=== PATIENT | female | born 1995 | race Caucasian/White ===

== ENCOUNTER 2017-03-13 10:05 | Inpatient (IN) | payer OTHER, MEDICAID, SELFPAY ==
[2017-03-13] VITALS (9 sets, daily range): BP systolic 72–141; BP diastolic 36–106; PULSE 58–91; RESP 14–24; TEMP 36.5–36.9; O2SAT 95–100; BMI 17.0; BMI 16.6
[2017-03-13 11:05] LABS: Absolute Lymphocyte Count 2.57 X10^3/ul (0.83-4.51); Absolute Neutrophil Count 5.8 X10^3/uL (2.0-7.7); Basophil# 0.03 X10^3/uL; Basophil% 0.3 % (0-1); Eosinophil# 0.04 X10^3/uL; Eosinophils% 0.4 % (0-5); Hematocrit 39.8 % (37-47); Hemoglobin 12.7 g/dl (12.0-15.0); Lymphocyte # 2.57 X10^3/ul (4.0); Lymphocyte % 28.8 % (19-41); Mean Corp Hgb Conc 31.9 g/gl (32-36); Mean Corpuscular Volume 81.4 fL (81-99); Mean Platelet Vol. 10.3 fl (6.2-12.0); Monocyte# 0.51 X10^3/uL; Monocyte% 5.7 % (0-10); Neutrophil # 5.76 X10^3/uL (2.7-7.7); Neutrophil % 64.7 % (47-70); Platelet Count 393 K/mm3 (150-450); RBC Distribution Width CV 15.1 % (11.6-14.6); RBC Distribution Width SD 44.5 fl (35.1-43.9); Red Blood Count 4.89 M/mm3 (4.2-5.4); White Blood Count 8.9 K/mm3 (4.4-11.0)
[2017-03-13 11:06] LABS: POSITIVE COUNT NO; POSITIVE DIFFERENTIAL NO; POSITIVE MORPHOLOGY NO
[2017-03-13] MEDS: 0.9% Normal Saline 1,000 ML 999 ML IV (11:14)
--- NOTE | 2017-03-13 11:16 | ED.RN ---
THIS NURSE SPOKE WITH [facility] AND DR GARCIA ABOUT PT REQUESTING MEDICATION TO HELP HER RELAX. PER [facility], ATIVAN IS AN ACCEPTABLE OPTION. DR GARCIA NOTIFIED
[2017-03-13] MEDS: LORazepam 2 MG/ML Syringe 1 MG IV (11:22)
[2017-03-13 11:31] LABS: Anion Gap 11 (5-15); BUN 13 mg/dL (7-18); Calcium,Total 9.3 mg/dL (8.5-10.1); Chloride 87 mmol/L (98-107); Creatinine, Serum 1.18 mg/dL (0.55-1.02); EST Glomerular Filtration Rate 61 mL/min (>60); Est Glom Filt Rate - Afr Amer 73 mL/min (>60); Estimated Creatinine Clearance 58.32 ml/min; Glucose 827 mg/dL (70-110); Potassium 4.7 mmol/L (3.5-5.1); Sodium Level 124 mmol/L (136-145)
--- NOTE | 2017-03-13 13:14 | ED.RN ---
PT TOSSING AND TURNING IN THE BED. PT STATES I'M TRYING TO GET COMFORTABLE. INSULIN GTT STARTED
[2017-03-13 13:55] LABS: Mucous, Urine 0 SEEN /hpf (<or=2+); Red Blood Cells-Urine 0 SEEN /hpf (0-5)
[2017-03-13 13:57] LABS: Color, Urine Straw (Yellow); Glucose, Dipstick 1000 mg/dl (Normal); Ketone-Dipstick Negative (Negative); Leukocyte Esterase-Dipstick 100 /ul (Negative); Nitrite-Dipstick Negative (Negative); Occult Blood-Urine Negative /ul (Negative); Protein-Dipstick Negative (Negative); Specific Gravity, Urine 1.005 (1.002-1.030); Urine Bilirubin Dipstick Negative (Negative); Urine Clarity Sl. Cloudy (Clear); Urine Urobilinogen Normal (Normal)
[2017-03-13 14:09] LABS: Bacteria 1+ /hpf (None Seen); Squamous Epithelial Cells - UA 0-5 SEEN /hpf (5-10); White Blood Cells 10-25 SEEN /hpf (0-5)
[2017-03-13 14:26] LABS: Bedside Glucose 458 mg/dL (70-110)
[2017-03-13] MEDS: 0.9% Normal Saline 1,000 ML 150 ML IV (14:36)
[2017-03-13 14:50] LABS: Blood Gas Specimen Type VEN; O2 Delivery Device Room Air; SITE OTHER; VBG BASE EXCESS 1 mmol/L (-1.0-3.5); VBG Bicarbonate 25 mmol/L (22-26); VBG Oxygen Content 26 mmol/L (23-33); VBG PO2 57 mmHg (25-40); VBG SO2 91 % (50-70); VBG pCO2 35.5 mmHg (41-51); VBG pH 7.45 (7.32-7.42)
[2017-03-13 15:25] LABS: Bedside Glucose 297 mg/dL (70-110)
--- NOTE | 2017-03-13 15:28 | ED.VISSUMM ---
- ER Visit Summary Date of Service: 03/13/17 Chief Complaint: Medical clearance History of Present Illness: The patient is a 21 F with chronic heroin abuse who is brought to the ER for medical clearance. She has a painful swollen area on her medial left leg that has been there for 2-3 days. No fevers, but she feels shaky and ill this morning. Nausea but no vomiting. Her blood sugar was okay last night she states, but did not check it this morning and did not take her insulin this morning, she used to last night. She is a type I diabetic. Her last heroin use was yesterday and she feels like she is having some withdrawal symptoms. Physical Examination: No acute distress, able to sit up in bed on her own. There is a 3 cm cutaneous abscess on the medial left lower leg with multiple nearby track lopez, and there is significant surrounding cellulitis approximately 10-12 cm in diameter. No lymphangitis. No inguinal lymphadenopathy. Heart is regular, abdomen benign, lungs clear. Neck is supple. Alert and oriented ?3. Oral mucous membrane are moist. Test Results: Glucose 827, creatinine 1.18 up from 0.67, sodium 124 likely consistent with pseudohyponatremia, serum ketones negative. ABG with pH 7.45 Emergency Department Course and Treatment: She was put on an insulin drip and after several hours, we got her down to the 200s so was discontinued. Her labs rule her out for DKA. After IV fluids, her blood pressure is better. Abscess was drained after local 1% lidocaine 5 cc, sterile prep and drape with chlorhexidine, incising with a #11 blade, the loculating and draining a moderate amount of purulent material. It was packed with gauze and dressed. Patient tolerated procedure well. She was started on vancomycin, given a milligram of IV Ativan for her withdrawal symptoms, and will be admitted for further treatment and for detox consultation. Also, her urinalysis returned showing infection although she has had no symptoms. This will be sent for culture. Discussed w/ Dr. Carlisle. Treatment Plan: As above Disposition: Admit PCU Impression: Hyperglycemia due to type 1 diabetes Acute kidney injury Cutaneous abscess left lower leg Complex incision and drainage cutaneous abscess left lower leg Opiate dependence This note was generated with fake company [employer] software. It may contain incorrect words, spelling, and punctuation that were not noted in review of the chart prior to signing ED Disposition - Plan for ED Patient: Disposition: Acute Care [facility] Chief Complaint: Abscess Referrals: Tianna Peña MD [Primary Care Provider] -
--- NOTE | 2017-03-13 15:36 | ED.DCSUM_ITS ---
- ER Visit Summary Date of Service: 03/13/17 Chief Complaint: Medical clearance History of Present Illness: The patient is a 21 F with chronic heroin abuse who is brought to the ER for medical clearance. She has a painful swollen area on her medial left leg that has been there for 2-3 days. No fevers, but she feels shaky and ill this morning. Nausea but no vomiting. Her blood sugar was okay last night she states, but did not check it this morning and did not take her insulin this morning, she used to last night. She is a type I diabetic. Her last heroin use was yesterday and she feels like she is having some withdrawal symptoms. Physical Examination: No acute distress, able to sit up in bed on her own. There is a 3 cm cutaneous abscess on the medial left lower leg with multiple nearby track lopez, and there is significant surrounding cellulitis approximately 10-12 cm in diameter. No lymphangitis. No inguinal lymphadenopathy. Heart is regular, abdomen benign, lungs clear. Neck is supple. Alert and oriented ?3. Oral mucous membrane are moist. Test Results: Glucose 827, creatinine 1.18 up from 0.67, sodium 124 likely consistent with pseudohyponatremia, serum ketones negative. ABG with pH 7.45 Emergency Department Course and Treatment: She was put on an insulin drip and after several hours, we got her down to the 200s so was discontinued. Her labs rule her out for DKA. After IV fluids, her blood pressure is better. Abscess was drained after local 1% lidocaine 5 cc, sterile prep and drape with chlorhexidine, incising with a #11 blade, the loculating and draining a moderate amount of purulent material. It was packed with gauze and dressed. Patient tolerated procedure well. She was started on vancomycin, given a milligram of IV Ativan for her withdrawal symptoms, and will be admitted for further treatment and for detox consultation. Also, her urinalysis returned showing infection although she has had no symptoms. This will be sent for culture. Discussed w/ Dr. Carlisle. Treatment Plan: As above Disposition: Admit PCU Impression: Hyperglycemia due to type 1 diabetes Acute kidney injury Cutaneous abscess left lower leg Complex incision and drainage cutaneous abscess left lower leg Opiate dependence This note was generated with [employer] software. It may contain incorrect words, spelling, and punctuation that were not noted in review of the chart prior to signing ED Disposition - Plan for ED Patient: Disposition: Acute Care Hospital [facility] Chief Complaint: Abscess Referrals: Tianna Peña MD [Primary Care Provider] -
--- NOTE | 2017-03-13 16:03 | NURSING ---
MED SURG HYPERGLYCEMIA, ABSCESS OF LEG, NARCOTIC WITHDRAWAL IMAMURA
--- NOTE | 2017-03-13 16:09 | NURSING ---
Addendum entered by Whit Pang 03/13/17 16:21: ROOM 212 NOT 219 Original Note: 219
--- NOTE | 2017-03-13 18:29 | HP.PCM_ITS ---
Problem List (1) Hyperglycemia Status: Acute (2) Abscess of leg, left Status: Acute (3) Narcotic withdrawal Status: Acute (4) DM type 1 (diabetes mellitus, type 1) Status: Chronic Qualifiers: Diabetes mellitus complication status: without complication Qualified Code( s): E10.9 - Type 1 diabetes mellitus without complications (5) KANU (acute kidney injury) Status: Acute History of Present Illness Date of Admission: 03/13/17 Chief Complaint: Leg pain Patient is a 21 years old female who referred to ED for medical clearance from [facility], found to have abscess of left leg and BS 837. pH did not demonstrate acidosis, with normal anion chest gap and normal bicoarbonate level. She developed painful nodular lesion of left lower inner leg for past 3 days. She denied of any fever or chills. She reports compliance to insulin use. She uses fentanyl IV, 5 to 6 times a day. Last use was 10AM on 03/12/17. She is complaining of shakiness, abdominal pain, nausea, and headache. Past Medical History Past Medical History (Chronic Problems): Chronic Problems DM type 1 (diabetes mellitus, type 1) (Chronic) Tobacco user (Chronic) Homeless (Chronic) Allergies Penicillins Allergy (Verified 03/13/17 10:08) Hives Home Medications: Ambulatory Orders Medication Instructions Recorded Insulin Aspart [Novolog Flexpen] See Protocol SC TIDCM 02/23/13 Insulin Detemir [Levemir (BKC)] 16 units SC QHS 01/02/16 Surgical History: no surgical history Smoking Status: Current every day smoker - *Family History Maternal History Items: No pertinent history Review of Systems Comment: ROS: In general: Patient has been in fair health, denied of any constitutional symptoms, such as weight loss, or gain, fever, chills, or night sweats. Patient denied of any profound fatigue. HEENT: Unremarkable. Patient denied of any dizziness, chronic headache, blurred vision, double vision, dry mouth, or nasal congestion. CV/respiratory: There is no exertional shortness of breath, chest pain, palpitation, wheezing, cough, claudication, cold feet, or peripheral edema. GI: Patient denied any abdominal pain, nausea, vomiting, diarrhea, constipation, melena, or hematochezia. : Patient denied any significant urinary symptoms. Neurology: Unremarkable. There is no history of seizure as an adult. Psychological: Chronic IVDU. Endocrine: Unremarkable. Musculoskeletal: See HPI. VTE Information - Inpt Only VTE Present on Admission: No VTE Mechan Device Prophylaxis: None VTE Pharm Prophylaxis ordered?: No Reason prophylaxis not ordered:: Treatment Not Indicated Patient Problems: Active and Suspected Problems Hyperglycemia (Acute) Abscess of leg, left (Acute) Narcotic withdrawal (Acute) KANU (acute kidney injury) (Acute) Objective: In general, patient is a well-nourished and developed adult. She appears uncomfortable, appears ill. HEENT: Head is atraumatic, and normocephalic. Pupils are equal, round, and reactive to light and accommodations. Neck is supple. There is no lymphadenopathy, or thyromegaly. Oral mucosa is pink, and moist. There are no lesions. Heart: Auscultation is normal with regular rhythm and rate. There is no extra heart sounds, or murmurs. S1 and S2 are present. Point of maximal impulse is not displaced. Lungs: Lungs are clear to auscultation bilaterally. There is no wheezing, or crackles. Abdomen: Abdominal wall is non-tender, and non-distended. There is no palpable mass or organomegaly. Normoactive bowel sounds are present. Extremities: There is no cyanosis or clubbing. Peripheral pulses are palpable. There is no edema. Abscess was drained, packed with sterile ribbon. No discoloration surrounding area. Skin: There are no any skin discoloration or lesions. Neurological: CN II - XII are intact. Sensory and motor functions are grossly normal with no obvious deficit. Cerebellar functions are within normal range. Gait was not tested. - Physical Exam Vital Signs Temp Pulse Resp BP Pulse Ox 97.7 F L 91 17 113/76 98 03/13/17 10:06 03/13/17 16:03 03/13/17 16:03 03/13/17 16:03 03/13/17 16:03 Weight: 106 lb Body Mass Index (BMI) 16.6 Assessment/Plan Active and Suspected Problems Hyperglycemia (Acute) Abscess of leg, left (Acute) Narcotic withdrawal (Acute) KANU (acute kidney injury) (Acute) Patient is a 21 years old female who referred to ED for medical clearance from [facility], found to have abscess of left leg and BS 837. pH did not demonstrate acidosis, with normal anion chest gap and normal bicoarbonate level. She developed painful nodular lesion of left lower inner leg for past 3 days. She denied of any fever or chills. She reports compliance to insulin use. She uses fentanyl IV, 5 to 6 times a day. Last use was 10AM on 03/12/17. She is complaining of shakiness, abdominal pain, nausea, and headache. #1 Abscess/cellulitis of left lower leg. S/P I&D in ED. Continue vancomycin for now, pending blood culture. ID consult. #2 Fentanyl withdrawal. Start [facility] Protocol for narcotic withdrawal. #3 DM I with hyperglycemia. She was given insulin drip initially, which was stopped. Continue insulin Levemir and sliding scale coverage, HS/AC + 2AM for now. #4 KANU. Creatinine 1.18 with baseline 0.7-0.8. IVF NS 150 ml/hr for now. Repeat BMP in AM. VTE prophylaxis: No chemoprophylaxis for low risk. GI prophylaxis: ppi po. Full code. Disposition: await [facility] input. Code Visit Inpatient E&M: 10576 Init Hosp L3
[2017-03-13 18:43] LABS: Hemoglobin A1c 13.8 % (4.2-6.3)
[2017-03-13] MEDS: chlordiazePOXIDE 25 MG Capsule PO ×2 (19:24→22:36)
[2017-03-13] MEDS: Buprenorphine HCl 2 MG TAB.SUBL SL (19:24)
[2017-03-13 22:36] LABS: Bedside Glucose 334 mg/dL (70-110)
[2017-03-13] MEDS: QUEtiapine 25 MG Tablet PO (23:02)
[2017-03-13] MEDS: Dicyclomine 10 MG Capsule 20 MG PO (23:02)
[2017-03-13] MEDS: cloNIDine HCl 0.1 MG Tablet PO (23:02)
[2017-03-13] MEDS: Methocarbamol 750 MG Tablet PO (23:02)
[2017-03-13 23:37] LABS: Bedside Glucose 339 mg/dL (70-110)
[2017-03-14] VITALS (11 sets, daily range): BP systolic 100–126; BP diastolic 58–90; PULSE 52–89; RESP 16; TEMP 36.4–37.1; O2SAT 97–100
[2017-03-14] MEDS: 0.9% Normal Saline 1,000 ML 150 ML IV (00:54)
[2017-03-14] MEDS: Buprenorphine HCl 2 MG TAB.SUBL SL ×3 (02:38→18:38)
[2017-03-14] MEDS: chlordiazePOXIDE 25 MG Capsule PO ×4 (02:38→14:46)
[2017-03-14] MEDS: cloNIDine HCl 0.1 MG Tablet PO ×2 (02:50→20:14)
[2017-03-14 03:06] LABS: Bedside Glucose 306 mg/dL (70-110)
[2017-03-14 07:16] LABS: Bedside Glucose 227 mg/dL (70-110)
[2017-03-14 09:45] LABS: Internal QC Validated? YES +Cl - CLEAR BKGD; Pregnancy, Urine Negative Negative
--- NOTE | 2017-03-14 10:09 | CASEMGMT ---
Addendum entered by Pooja Hubbard 03/14/17 10:13: CHAVA AG spoke with SW, Renee Hudson, to discuss referral. Per Becca, [facility] Coordinator, patient is going to stay with [facility] and disposition planning will be deferred to [facility]. No further [facility] RN KIMBERLI or ADENIKE interventions anticipated. Original Note: CHAVA AG met with patient. RN KIMBERLI assessment complete. See attached link for full assessment. Disposition Plan: TBD Transition Planning/Care Coordination: Patient is independent, is established with PCP, and has [employer] for insurance. Patient final home-going needs will be determined. RN KIMBERLI will continue to follow patient's hospital course and provide case management interventions as needed. Handoff provided to Marion Caruso RN CM on MS2.
--- NOTE | 2017-03-14 10:29 | PCM.HP.ID ---
Problem List (1) Abscess of leg, left Status: Acute Reason for Consult: abscess Consulted by: Dr. Mckeon History of Present Illness: The patient is a 21 year old F with T1DM, IVDU who presented for detox with several days of L calf redness, swelling, and purulent discharge. No injections at the site. No inciting events. No fever or chills. No recent abx. Denies h/o MRSA. Glucose over 800 in ED. I&D done, cx sent, started on vanc. Reports hives with PCN and amoxicillin. Has not taken keflex before. Denies sharing needles. No prior HIV testing. Had neg hep C in 2011 she reports. Full ROS performed and neg except as noted above. - Medical History Past Medical History (Chronic Problems): Chronic Problems DM type 1 (diabetes mellitus, type 1) (Chronic) Tobacco user (Chronic) Homeless (Chronic) Allergies/Adverse Reactions: Allergies Penicillins Allergy (Verified 03/13/17 10:08) Hives Home Medications: Ambulatory Orders Medication Instructions Recorded Insulin Aspart [Novolog Flexpen] See Protocol SC TIDCM 02/23/13 Insulin Detemir [Levemir (BKC)] 16 units SC QHS 01/02/16 - Social History Drug Use: heroin - iv opioids Vital Signs Temp Pulse Resp BP Pulse Ox 97.5 F L 67 16 123/72 H 100 03/14/17 09:37 03/14/17 09:37 03/14/17 09:37 03/14/17 09:37 03/14/17 09:37 Oxygen Delivery Method Room Air Weight: 48.081 kg Body Mass Index (BMI) 16.6 Laboratory Tests Past 24 Hrs 03/14/17 09:15 Urine Test Negative - Other Studies Radiology: [] reviewed Other Studies: [] Route of nutrition/ use of supplements: [] Nutritional Intake: [] IV Site: [] Renae Catheter: [] - Physical Exam General: Alert, Oriented x3, Cooperative, No apparent distress HEENT: Atraumatic, PERRLA, EOMI Neck: Supple, No Nodes Lungs: Clear to auscultation, Normal air movement Cardiovascular: Regular rate, Regular Rhythm, No murmurs Abdomen: Bowel Sounds Present, Soft, Non Tender, Non-Distended Extremities: No edema Skin: - - L calf abscess, minimal surrounding redness/induration. Packing in place IV Site: Peripheral, without redness Musculoskeletal: No Tenderness to Palpation of Joints or Extremities Neurological: Cranial nerves II-XII grossly intact - Assessment/Plan Antibiotics: [] Assessment/Plan: [] Active and Suspected Problems Hyperglycemia (Acute) Abscess of leg, left (Acute) Narcotic withdrawal (Acute) KANU (acute kidney injury) (Acute) LLE abscess - s/p I&D in ED. With adequate drainage, may not need systemic abx at discharge. Will cont vanc for now. T1DM with DKA - glucose improving IVDU - check hiv and hep panel, pt agrees to testing, labs ordered Thank you, will follow, d/w nursing
[2017-03-14] MEDS: Methocarbamol 750 MG Tablet PO ×2 (10:36→20:14)
[2017-03-14 11:55] LABS: Bedside Glucose 417 mg/dL (70-110)
[2017-03-14] MEDS: Glucerna Shake 120 ML LIQUID PO (12:13)
--- NOTE | 2017-03-14 12:37 | PCM.PN.HOSP ---
Patient Problems: Active and Suspected Problems Hyperglycemia (Acute) Abscess of leg, left (Acute) Narcotic withdrawal (Acute) KANU (acute kidney injury) (Acute) Subjective: Patient has history of IV fentanyl use about 5-6 times a day started about few months ago. She was admitted with abscess in left lower leg which I&D was done in the ER. She also has uncontrolled type 1 diabetes mellitus with blood sugar 837 in the ER. Normal anion gap and bicarb level. Symptoms of withdrawal including shakiness, abdominal pain nausea today controlled. Vitals/I&O's: Vital Signs Temp Pulse Resp BP Pulse Ox 97.5 F L 67 16 123/72 H 100 03/14/17 09:37 03/14/17 09:37 03/14/17 09:37 03/14/17 09:37 03/14/17 09:37 Oxygen Delivery Method Room Air Weight: 106 lb 0.007 oz Body Mass Index (BMI) 16.6 Intake and Output for Last 24 Hours 03/12/17 03/13/17 03/14/17 23:59 23:59 23:59 Intake Total 935 / 935 1397 / 1397 Output Total 700 / 700 Balance 235 / 235 1397 / 1397 General: Alert, Oriented x3, Cooperative HEENT: Atraumatic, PERRLA, EOMI, Normocephalic Neck: Supple, No JVD, Negative Carotid Bruits Lungs: Clear to auscultation, Normal air movement, No rhonchi, No wheeze, No rales Cardiovascular: Regular rate, No murmurs Abdomen: Bowel Sounds Present, Soft, Non Tender, Non-Distended Extremities: No edema, Capillary Refill Less than 3 Seconds Skin: Ulcer/ Wound - Small abscess over the inner aspect of the left leg status post I&D. Needle lopez over upper extremities due to IV fentanyl use, - Musculoskeletal: No Tenderness to Palpation of Joints or Extremities Neurological: Cranial nerves II-XII grossly intact, Neuro grossly intact Psych/Mental Status: Normal Affect, Appropriate Laboratory Results 03/13/17 17:56: POC Glucose 334 H 03/13/17 22:35: POC Glucose 339 H 03/14/17 02:41: POC Glucose 306 H 03/14/17 06:59: POC Glucose 227 H 03/14/17 09:15: Urine Test Negative 03/14/17 11:15: Sodium Pending, Potassium Pending, Chloride Pending, Carbon Dioxide Pending, Anion Gap Pending, BUN Pending, Creatinine Pending, Est GFR (MDRD) Af Amer Pending, Est GFR (MDRD) Non-Af Pending, BUN/Creatinine Ratio Pending, Glucose Pending, Calcium Pending 03/14/17 11:15: Hepatitis A IgM Ab Pending, Hep Bs Antigen Pending, Hep B Core IgM Ab Pending, Hepatitis C Ab (EIA) Pending 03/14/17 11:15: HIV 1&2 Ag/Ab, 4th Gen Pending 03/14/17 11:52: POC Glucose 417 H 03/14/17 : MRSA (PCR) Pending Current Medications Acetaminophen (Tylenol) 650 mg PO Q6H PRN PRN PRN Reason: Mild Pain (scale 0-3)/T>100.7 Buprenorphine HCl (Buprenorphine Hcl) 4 mg SL Q8H MANUELITO PRN Reason: Taper Stop: 03/16/17 21:59 Last Admin: 03/14/17 10:29 Dose: 4 mg Chlordiazepoxide (Librium) 25 mg PO Q6H PRN PRN PRN Reason: Anxiety Score 2-3/3 Chlordiazepoxide (Librium) 25 mg PO Q4H MANUELITO Stop: 03/14/17 14:01 Last Admin: 03/14/17 10:29 Dose: 25 mg Clonidine (Catapres) 0.1 mg PO Q2H PRN PRN PRN Reason: Hot/Cold Sweats or Anxiety Last Admin: 03/14/17 02:50 Dose: 0.1 mg Dextrose (D50w Syringe) 0 gm IV X1 PRN; Protocol PRN Reason: Hypoglycemia Dicyclomine HCl (Bentyl) 20 mg PO Q6H PRN PRN PRN Reason: Abdomnial Discomfort Last Admin: 03/13/17 23:02 Dose: 20 mg Docusate Sodium (Colace) 200 mg PO BID PRN PRN PRN Reason: Constipation Glucagon () 1 mg IM .X1 PRN PRN Reason: Hypoglycemia Hydroxyzine HCl (Vistaril) 50 mg IM Q6H PRN PRN PRN Reason: Breakthrough Anxiety Hydroxyzine Pamoate (Vistaril) 50 mg PO Q6H PRN PRN PRN Reason: Mild Anxiety (score 1/3) Vancomycin HCl () 500 mg in 100 mls @ 100 mls/hr IV Q12H [facility] Last Admin: 03/14/17 02:50 Dose: 100 mls/hr Insulin Aspart (Novolog Flexpen ([facility])) 0 units SC ACHS & 0200 MANUELITO PRN Reason: Protocol Last Admin: 03/14/17 12:15 Dose: 7 units Insulin Detemir (Levemir ([facility])) 16 units SC QHS [facility] Last Admin: 03/13/17 22:36 Dose: 16 u Methocarbamol (Methocarbamol) 750 mg PO Q6H PRN PRN PRN Reason: Muscle Aches Last Admin: 03/14/17 10:36 Dose: 750 mg Nutritional Formula (Lactose Free) (Glucerna Shake) 120 ml PO 4X/DAY [facility] Last Admin: 03/14/17 12:13 Dose: 120 ml Ondansetron HCl (Zofran) 4 mg IV Q8H PRN PRN PRN Reason: Nausea Pramipexole Dihydrochloride (Mirapex) 0.25 mg PO Q12H PRN PRN PRN Reason: Restless Legs Quetiapine Fumarate (Seroquel) 25 mg PO Q6H PRN PRN PRN Reason: Moderate Anxiety (score 2/3) Last Admin: 03/13/17 23:02 Dose: 25 mg Sodium Chloride () 5 - 30 ml IV UD PRN PRN Reason: SALINE FLUSH Assessment/Plan Active and Suspected Problems Hyperglycemia (Acute) Abscess of leg, left (Acute) Narcotic withdrawal (Acute) KANU (acute kidney injury) (Acute) Patient is a 21 years old female who referred to ED for medical clearance from [facility], found to have abscess of left leg and BS 837. Basic labs in the ER did not demonstrate acidosis, with normal anion chest gap and normal bicoarbonate level. She developed painful nodular lesion of left lower inner leg for past 3 days. She denied of any fever or chills. She reports compliance to insulin use. She uses fentanyl IV, 5 to 6 times a day. Last use was 10AM on 03/12/17. She had shakiness, abdominal pain, nausea, and headache at the time of admission #1 Abscess/cellulitis of left lower leg. S/P I&D in ED. Continue vancomycin for now, pending blood culture. ID consult appreciated. Continue vancomycin for now. Probably will transition to oral antibiotic as the culture evolves. Recent nasal screen, blood cultures ?2 and wound culture ordered. #2. IV drug use with acute fentanyl withdrawal. Start [facility] Protocol for narcotic withdrawal. Patient denies any other substance use including benzodiazepines, cocaine, phencyclidine or others. #3 DM type I I with hyperglycemia. She was given insulin drip initially, which was stopped. Continue insulin Levemir and sliding scale coverage, HS/AC + 2AM for now. A1c is 13.8. #4 KANU. Creatinine 1.18 with baseline 0.7-0.8. IVF NS 150 ml/hr for now. Continue monitoring electrolytes and kidney function VTE prophylaxis: No chemoprophylaxis for low risk. GI prophylaxis: ppi po. Full code. [facility] consulted and discussed about discharge rehab plan. Code Visit Inpatient E&M: 21782 Subs Hosp L2
[2017-03-14] MEDS: Dicyclomine 10 MG Capsule 20 MG PO ×2 (12:39→20:14)
--- NOTE | 2017-03-14 12:46 | PN_ITS ---
Patient Problems: Active and Suspected Problems Hyperglycemia (Acute) Abscess of leg, left (Acute) Narcotic withdrawal (Acute) KANU (acute kidney injury) (Acute) Subjective: Patient has history of IV fentanyl use about 5-6 times a day started about few months ago. She was admitted with abscess in left lower leg which I&D was done in the ER. She also has uncontrolled type 1 diabetes mellitus with blood sugar 837 in the ER. Normal anion gap and bicarb level. Symptoms of withdrawal including shakiness, abdominal pain nausea today controlled. Vitals/I&O's: Vital Signs Temp Pulse Resp BP Pulse Ox 97.5 F L 67 16 123/72 H 100 03/14/17 09:37 03/14/17 09:37 03/14/17 09:37 03/14/17 09:37 03/14/17 09:37 Oxygen Delivery Method Room Air Weight: 106 lb 0.007 oz Body Mass Index (BMI) 16.6 Intake and Output for Last 24 Hours 03/12/17 03/13/17 03/14/17 23:59 23:59 23:59 Intake Total 935 / 935 1397 / 1397 Output Total 700 / 700 Balance 235 / 235 1397 / 1397 General: Alert, Oriented x3, Cooperative HEENT: Atraumatic, PERRLA, EOMI, Normocephalic Neck: Supple, No JVD, Negative Carotid Bruits Lungs: Clear to auscultation, Normal air movement, No rhonchi, No wheeze, No rales Cardiovascular: Regular rate, No murmurs Abdomen: Bowel Sounds Present, Soft, Non Tender, Non-Distended Extremities: No edema, Capillary Refill Less than 3 Seconds Skin: Ulcer/ Wound - Small abscess over the inner aspect of the left leg status post I&D. Needle lopez over upper extremities due to IV fentanyl use, - Musculoskeletal: No Tenderness to Palpation of Joints or Extremities Neurological: Cranial nerves II-XII grossly intact, Neuro grossly intact Psych/Mental Status: Normal Affect, Appropriate Laboratory Results 03/13/17 17:56: POC Glucose 334 H 03/13/17 22:35: POC Glucose 339 H 03/14/17 02:41: POC Glucose 306 H 03/14/17 06:59: POC Glucose 227 H 03/14/17 09:15: Urine Test Negative 03/14/17 11:15: Sodium Pending, Potassium Pending, Chloride Pending, Carbon Dioxide Pending, Anion Gap Pending, BUN Pending, Creatinine Pending, Est GFR ( MDRD) Af Amer Pending, Est GFR (MDRD) Non-Af Pending, BUN/Creatinine Ratio Pending, Glucose Pending, Calcium Pending 03/14/17 11:15: Hepatitis A IgM Ab Pending, Hep Bs Antigen Pending, Hep B Core IgM Ab Pending, Hepatitis C Ab (EIA) Pending 03/14/17 11:15: HIV 1&2 Ag/Ab, 4th Gen Pending 03/14/17 11:52: POC Glucose 417 H 03/14/17 : MRSA (PCR) Pending Current Medications Acetaminophen (Tylenol) 650 mg PO Q6H PRN PRN PRN Reason: Mild Pain (scale 0-3)/T>100.7 Buprenorphine HCl (Buprenorphine Hcl) 4 mg SL Q8H MANUELITO PRN Reason: Taper Stop: 03/16/17 21:59 Last Admin: 03/14/17 10:29 Dose: 4 mg Chlordiazepoxide (Librium) 25 mg PO Q6H PRN PRN PRN Reason: Anxiety Score 2-3/3 Chlordiazepoxide (Librium) 25 mg PO Q4H MANUELITO Stop: 03/14/17 14:01 Last Admin: 03/14/17 10:29 Dose: 25 mg Clonidine (Catapres) 0.1 mg PO Q2H PRN PRN PRN Reason: Hot/Cold Sweats or Anxiety Last Admin: 03/14/17 02:50 Dose: 0.1 mg Dextrose (D50w Syringe) 0 gm IV X1 PRN; Protocol PRN Reason: Hypoglycemia Dicyclomine HCl (Bentyl) 20 mg PO Q6H PRN PRN PRN Reason: Abdomnial Discomfort Last Admin: 03/13/17 23:02 Dose: 20 mg Docusate Sodium (Colace) 200 mg PO BID PRN PRN PRN Reason: Constipation Glucagon () 1 mg IM .X1 PRN PRN Reason: Hypoglycemia Hydroxyzine HCl (Vistaril) 50 mg IM Q6H PRN PRN PRN Reason: Breakthrough Anxiety Hydroxyzine Pamoate (Vistaril) 50 mg PO Q6H PRN PRN PRN Reason: Mild Anxiety (score 1/3) Vancomycin HCl () 500 mg in 100 mls @ 100 mls/hr IV Q12H [facility] Last Admin: 03/14/17 02:50 Dose: 100 mls/hr Insulin Aspart (Novolog Flexpen ([facility])) 0 units SC ACHS & 0200 MANUELITO PRN Reason: Protocol Last Admin: 03/14/17 12:15 Dose: 7 units Insulin Detemir (Levemir ([facility])) 16 units SC QHS [facility] Last Admin: 03/13/17 22:36 Dose: 16 u Methocarbamol (Methocarbamol) 750 mg PO Q6H PRN PRN PRN Reason: Muscle Aches Last Admin: 03/14/17 10:36 Dose: 750 mg Nutritional Formula (Lactose Free) (Glucerna Shake) 120 ml PO 4X/DAY [facility] Last Admin: 03/14/17 12:13 Dose: 120 ml Ondansetron HCl (Zofran) 4 mg IV Q8H PRN PRN PRN Reason: Nausea Pramipexole Dihydrochloride (Mirapex) 0.25 mg PO Q12H PRN PRN PRN Reason: Restless Legs Quetiapine Fumarate (Seroquel) 25 mg PO Q6H PRN PRN PRN Reason: Moderate Anxiety (score 2/3) Last Admin: 03/13/17 23:02 Dose: 25 mg Sodium Chloride () 5 - 30 ml IV UD PRN PRN Reason: SALINE FLUSH Assessment/Plan Active and Suspected Problems Hyperglycemia (Acute) Abscess of leg, left (Acute) Narcotic withdrawal (Acute) KANU (acute kidney injury) (Acute) Patient is a 21 years old female who referred to ED for medical clearance from [facility], found to have abscess of left leg and BS 837. Basic labs in the ER did not demonstrate acidosis, with normal anion chest gap and normal bicoarbonate level. She developed painful nodular lesion of left lower inner leg for past 3 days. She denied of any fever or chills. She reports compliance to insulin use. She uses fentanyl IV, 5 to 6 times a day. Last use was 10AM on 03/12/17. She had shakiness, abdominal pain, nausea, and headache at the time of admission #1 Abscess/cellulitis of left lower leg. S/P I&D in ED. Continue vancomycin for now, pending blood culture. ID consult appreciated. Continue vancomycin for now. Probably will transition to oral antibiotic as the culture evolves. Recent nasal screen, blood cultures ?2 and wound culture ordered. #2. IV drug use with acute fentanyl withdrawal. Start [facility] Protocol for narcotic withdrawal. Patient denies any other substance use including benzodiazepines, cocaine, phencyclidine or others. #3 DM type I I with hyperglycemia. She was given insulin drip initially, which was stopped. Continue insulin Levemir and sliding scale coverage, HS/AC + 2AM for now. A1c is 13.8. #4 KANU. Creatinine 1.18 with baseline 0.7-0.8. IVF NS 150 ml/hr for now. Continue monitoring electrolytes and kidney function VTE prophylaxis: No chemoprophylaxis for low risk. GI prophylaxis: ppi po. Full code. [facility] consulted and discussed about discharge rehab plan. Code Visit Inpatient E&M: 22519 Subs Hosp L2
--- NOTE | 2017-03-14 12:56 | NURSING ---
wound photo: left medial lower leg
[2017-03-14 13:11] LABS: Anion Gap 6 (5-15); BUN 10 mg/dL (7-18); BUN/Creat Ratio 13.1 RATIO (10-20); Calcium,Total 7.9 mg/dL (8.5-10.1); Chloride 105 mmol/L (98-107); Creatinine, Serum 0.76 mg/dL (0.55-1.02); EST Glomerular Filtration Rate 100 mL/min (>60); Est Glom Filt Rate - Afr Amer 121 mL/min (>60); Estimated Creatinine Clearance 88.13 ml/min; Glucose 485 mg/dL (70-110); Potassium 4.7 mmol/L (3.5-5.1); Sodium Level 137 mmol/L (136-145)
[2017-03-14 13:26] LABS: M R Staph aureus DNA By PCR Negative (Negative); Probe Check PASS; Specimen Processing Control PASS
[2017-03-14] MEDS: 0.9% NaCl Peripheral Flush Adult/Peds IV ×2 (14:45→21:55)
[2017-03-14 15:06] LABS: Bedside Glucose > 500 mg/dL (70-110)
[2017-03-14 15:46] LABS: Glucose 729 mg/dL (70-110)
[2017-03-14 16:16] LABS: Bedside Glucose > 500 mg/dL (70-110)
[2017-03-14 17:26] LABS: Bedside Glucose 489 mg/dL (70-110)
[2017-03-14 18:36] LABS: Bedside Glucose 408 mg/dL (70-110)
[2017-03-14 20:51] LABS: Bedside Glucose 353 mg/dL (70-110)
[2017-03-14 23:41] LABS: Bedside Glucose 222 mg/dL (70-110)
[2017-03-15] VITALS (7 sets, daily range): BP systolic 101–112; BP diastolic 61–77; PULSE 51–78; RESP 16–18; TEMP 36.4–36.8; O2SAT 96–99
[2017-03-15] MEDS: cloNIDine HCl 0.1 MG Tablet PO (02:03)
[2017-03-15] MEDS: Buprenorphine HCl 2 MG TAB.SUBL SL ×2 (02:03→08:48)
[2017-03-15] MEDS: Ondansetron 4 MG/2 ML Vial IV (02:03)
[2017-03-15 02:26] LABS: Bedside Glucose 327 mg/dL (70-110)
[2017-03-15 04:14] LABS: HEPATITIS B SURFACE AG Negative (Negative); Hepatitis A IgM Antibody Negative (Negative); Hepatitis B Core AB IgM Negative (Negative)
[2017-03-15 07:01] LABS: Bedside Glucose 346 mg/dL (70-110)
[2017-03-15 08:29] LABS: HIV 1/0/2 SCREEN 4TH GEN Non Reactive (Non Reactive); Hep C Antibodies 1.1 s/co ratio (0.0-0.9)
--- NOTE | 2017-03-15 12:30 | NURSING ---
Addendum entered by Selina Person 03/15/17 15:42: encouraged to stay ny this rn d/t wound and high blood sugars. Original Note: pt states she is going to leave [facility]. states she needs to go home to take caer of her baby. this rn offered anxiety med. pt agreeable. will cont to monitor. denies pain or diaphoresis.
[2017-03-15] MEDS: chlordiazePOXIDE 25 MG Capsule PO (12:31)
[2017-03-15 12:36] LABS: Bedside Glucose > 500 mg/dL (70-110)
--- NOTE | 2017-03-15 14:42 | NURSING ---
This nurse was made aware that pt was refusing lab personnel to draw her Vancomycin trough. When this nurse went in to ask pt why she was refusing lab to draw her blood she stated, because I'm going home. This nurse explained to pt that Dr. Mckeon was aware of her wanting to go home b/c she feels better but Dr. Mckeon does not feel comfortable sending her home with blood sugars in the 500's. I also explained to the patient the importance of performing a Vancomycin Trough. I don't care and I don't care if I ! I've had to sign AMA papers before, I will do it again if I have too. When this nurse asked her indeed if she wanted to leave AMA b/c the doctor did not want to discharge her, pt stated yes.
--- NOTE | 2017-03-15 15:06 | NURSING ---
Paged Dr. Mckeon, he was informed that pt wants to leave AMA. let her go then per Dr. Mckeon.
[2017-03-15] MEDS: Cephalexin 500 MG Capsule PO (15:15)
--- NOTE | 2017-03-15 15:25 | PCM.PN.ID ---
Patient Problems: Active and Suspected Problems Hyperglycemia (Acute) Abscess of leg, left (Acute) Narcotic withdrawal (Acute) KANU (acute kidney injury) (Acute) Subjective: Feeling better, thinking about leaving AMA because she says she can control her glucose better at home. No fever. Minimal drainage from leg. - Physical Exam General: Alert, Cooperative, No apparent distress Lungs: Clear to auscultation, Normal air movement Cardiovascular: Regular rate, Regular Rhythm Abdomen: Soft, Non Tender, Non-Distended Skin: Ulcer/ Wound - bandaged, minimal surrounding redness Vital Signs Temp Pulse Resp BP Pulse Ox 97.8 F 73 18 110/70 99 03/15/17 15:24 03/15/17 15:24 03/15/17 15:24 03/15/17 15:24 03/15/17 15:24 Oxygen Delivery Method Room Air Weight: 48.081 kg Body Mass Index (BMI) 16.6 Intake and Output for Last 24 Hours 03/13/17 03/14/17 03/15/17 23:59 23:59 23:59 Intake Total 935 / 935 3347 / 3347 647 / 647 Output Total 700 / 700 1100 / 1100 Balance 235 / 235 2247 / 2247 647 / 647 Microbiology Past 72 Hours 03/14/17 Unknown Gram Stain - Final Wound Abcess - Leg, Left Wound 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 Positive Cocci Laboratory Tests Past 24 Hrs 03/14/17 03/14/17 03/14/17 11:15 11:15 15:20 Glucose 729 H* Hepatitis A IgM Ab Negative Hep Bs Antigen Negative Hep B Core IgM Ab Negative Hepatitis C Ab (EIA) 1.1 H HIV 1&2 Ag/Ab, 4th Gen Non Reactive POC Glucose 03/15/17 03/15/17 03/15/17 12:01 06:51 02:05 POC Glucose > 500 H* 346 H 327 H 03/14/17 03/14/17 03/14/17 22:02 20:05 18:29 POC Glucose 222 H 353 H 408 H 03/14/17 03/14/17 17:21 16:12 POC Glucose 489 H* > 500 H* Route of nutrition/ use of supplements: [] Nutritional Intake: [] IV Site: [] Renae Catheter: [] - Assessment/Plan Antibiotics: [] Assessment/Plan: [] Active and Suspected Problems Hyperglycemia (Acute) Abscess of leg, left (Acute) Narcotic withdrawal (Acute) KANU (acute kidney injury) (Acute) LLE abscess - s/p I&D in ED. Much improved. She thinks she has tolerated keflex in past. MRSA pcr neg. Change vanc to po keflex for 3-5 more days. T1DM - glucose improving IVDU - HIV neg. Hep C Ab (+). Will order hep C pcr. will follow, d/w Dr. Mckeon
--- NOTE | 2017-03-15 15:32 | PCM.DC.SUM ---
Discharge Date and Diagnosis - Problem List Patient Problems: Active and Suspected Problems Hyperglycemia (Acute) Abscess of leg, left (Acute) Narcotic withdrawal (Acute) KANU (acute kidney injury) (Acute) Date of Admission: 03/13/17 Date of Discharge: 03/15/17 - Primary Discharge Diagnosis Active and Suspected Problems Hyperglycemia (Acute) Abscess of leg, left (Acute) Narcotic withdrawal (Acute) KANU (acute kidney injury) (Acute) - Secondary Discharge Diagnosis Chronic Problems DM type 1 (diabetes mellitus, type 1) (Chronic) Tobacco user (Chronic) Homeless (Chronic) Hospital Course and Treatment Summary of Care Provided: Patient is a 21 years old female who referred to ED for medical clearance from [facility], found to have abscess of left leg and BS 837. Basic labs in the ER did not demonstrate acidosis, with normal anion chest gap and normal bicoarbonate level. She developed painful nodular lesion of left lower inner leg for past 3 days. She denied of any fever or chills. She reports compliance to insulin use. She uses fentanyl IV, 5 to 6 times a day. Last use was 10AM on 03/12/17. She had shakiness, abdominal pain, nausea, and headache at the time of admission #1 Abscess/cellulitis of left lower leg. S/P I&D in ED. The patient was admitted on the regular floor. Started on IV vancomycin. Preliminary Gram stain of wound culture grows gram-negative josef lactose anodiser and gram-positive cocci; there is suspicion of wound contamination as previously it was showing coccobacillus. ID consult appreciated. ID sfdc consultant recommended transition to Keflex. Patient tolerated Keflex in the past though she is allergic to penicillin. #2. IV drug use with acute fentanyl withdrawal. Started on [employer] Protocol for narcotic withdrawal. Patient denies any other substance use including benzodiazepines, cocaine, phencyclidine or others. Patient uses IV fentanyl and has poor venous access. #3 DM type I I with hyperglycemia. She was given insulin drip initially, which was stopped. Patient had noncompliance to Accu-Chek and refused for Accu-Chek and blood draw. She was also concerned of hypoglycemia even though her blood sugar was in 508 100. Was initiated on insulin Levemir and sliding scale coverage, titrated. A1c is 13.8. #4 KANU. Creatinine 1.18 with baseline 0.7-0.8. IVF NS 150 ml/hr for now. Continue monitoring electrolytes and kidney function VTE prophylaxis: No chemoprophylaxis for low risk. GI prophylaxis: ppi po. Full code. [facility] consulted and discussed about discharge rehab plan. Her blood sugar was 545 and NovoLog insulin 15 units nightly. Patient refused further Accu-Cheks. She wants to sign AMA and does not want to stay further. The patient was tried and reconciled to stay but she refused to stay further. Finally she signed AMA paperwork. Home Medications: Medications to take at Discharge Insulin Aspart [Novolog Flexpen] See Protocol [facility] TIDCM 02/23/13 Insulin Detemir [Levemir ([facility])] 16 units SC QHS 01/02/16 Cephalexin [Keflex] 500 mg PO TID #12 cap 03/15/17 Following Prescrptions Were Given to Patient: Cephalexin [Keflex] 500 mg PO TID #12 cap Primary Care Physician: Tianna Peña MD [Primary Care Provider] - Meaningful Use Info Meaningful Use Diagnoses (Choose all that apply): None applicable Code Visit Inpatient E&M: 76393 Disch Hosp
[2017-03-15 15:36] LABS: Bedside Glucose 438 mg/dL (70-110)
--- NOTE | 2017-03-15 15:40 | DS.PCM_ITS ---
Discharge Date and Diagnosis - Problem List Patient Problems: Active and Suspected Problems Hyperglycemia (Acute) Abscess of leg, left (Acute) Narcotic withdrawal (Acute) KANU (acute kidney injury) (Acute) Date of Admission: 03/13/17 Date of Discharge: 03/15/17 - Primary Discharge Diagnosis Active and Suspected Problems Hyperglycemia (Acute) Abscess of leg, left (Acute) Narcotic withdrawal (Acute) KANU (acute kidney injury) (Acute) - Secondary Discharge Diagnosis Chronic Problems DM type 1 (diabetes mellitus, type 1) (Chronic) Tobacco user (Chronic) Homeless (Chronic) Hospital Course and Treatment Summary of Care Provided: Patient is a 21 years old female who referred to ED for medical clearance from [facility], found to have abscess of left leg and BS 837. Basic labs in the ER did not demonstrate acidosis, with normal anion chest gap and normal bicoarbonate level. She developed painful nodular lesion of left lower inner leg for past 3 days. She denied of any fever or chills. She reports compliance to insulin use. She uses fentanyl IV, 5 to 6 times a day. Last use was 10AM on 03/12/17. She had shakiness, abdominal pain, nausea, and headache at the time of admission #1 Abscess/cellulitis of left lower leg. S/P I&D in ED. The patient was admitted on the regular floor. Started on IV vancomycin. Preliminary Gram stain of wound culture grows gram-negative josef lactose lan administrator and gram-positive cocci; there is suspicion of wound contamination as previously it was showing coccobacillus. ID consult appreciated. ID information security consultant recommended transition to Keflex. Patient tolerated Keflex in the past though she is allergic to penicillin. #2. IV drug use with acute fentanyl withdrawal. Started on [employer] Protocol for narcotic withdrawal. Patient denies any other substance use including benzodiazepines, cocaine, phencyclidine or others. Patient uses IV fentanyl and has poor venous access. #3 DM type I I with hyperglycemia. She was given insulin drip initially, which was stopped. Patient had noncompliance to Accu-Chek and refused for Accu-Chek and blood draw. She was also concerned of hypoglycemia even though her blood sugar was in 508 100. Was initiated on insulin Levemir and sliding scale coverage, titrated. A1c is 13.8. #4 KANU. Creatinine 1.18 with baseline 0.7-0.8. IVF NS 150 ml/hr for now. Continue monitoring electrolytes and kidney function VTE prophylaxis: No chemoprophylaxis for low risk. GI prophylaxis: ppi po. Full code. [facility] consulted and discussed about discharge rehab plan. Her blood sugar was 545 and NovoLog insulin 15 units nightly. Patient refused further Accu-Cheks. She wants to sign AMA and does not want to stay further. The patient was tried and reconciled to stay but she refused to stay further. Finally she signed AMA paperwork. Home Medications: Medications to take at Discharge Insulin Aspart [Novolog Flexpen] See Protocol [facility] 02/23/13 Insulin Detemir [Levemir ([facility])] 16 units SC QHS 01/02/16 Cephalexin [Keflex] 500 mg PO TID #12 cap 03/15/17 Following Prescrptions Were Given to Patient: Cephalexin [Keflex] 500 mg PO TID #12 cap Primary Care Physician: Tianna Peña MD [Primary Care Provider] - Meaningful Use Info Meaningful Use Diagnoses (Choose all that apply): None applicable Code Visit Inpatient E&M: 07329 Disch Hosp
--- NOTE | 2017-03-15 18:24 | NURSING ---
this rn called child protective services to inform that pt left [facility] and has 10 month old son that she states she is going to care for. cps states they will look into it and that they have a case already open with this pt since dec 27, 2016.
== END 2017-03-15 16:45 | disposition left against medical advice (07) | DRG 277 ==
LOC: ED 15:36 → MS2 16:25
PROVIDERS: Internal Medicine Infectious Disease; Admitting Provider Hospitalist; Emergency Provider Emergency Medicine; Family Provider Family Medicine; PCP Family Medicine; Visit Provider Internal Medicine
DX: L02.416 Cutaneous abscess of left lower limb (principal); N17.9 Acute kidney failure, unspecified; E43 Unspecified severe protein-calorie malnutrition; E10.65 Type 1 diabetes mellitus with hyperglycemia; F11.23 Opioid dependence with withdrawal; L03.116 Cellulitis of left lower limb; F17.200 Nicotine dependence, unspecified, uncomplicated; Z68.1 Body mass index [BMI] 19.9 or less, adult; Z88.0 Allergy status to penicillin; Z59.0 Homelessness; Z79.4 Long term (current) use of insulin; Z91.19 Patient's noncompliance with other medical treatment and regimen
CPT/HCPCS: 80048; 80074; 81001; 81025; 82009; 82803; 82947; 82962; 83036; 85025; 86703; 87070; 87077; 87086; 87186; 87205; 87641; 97802; 99283; J7030; J7050; A4216; J2405

== ENCOUNTER 2017-10-28 21:31 | Inpatient (IN) | payer OTHER, MEDICAID, SELFPAY ==
[2017-10-28 21:33] VITALS: BP 120/78; PULSE 95; RESP 18; TEMP 37.2; O2SAT 98; BMI 17.8
[2017-10-28] MEDS: 0.9% Normal Saline 1,000 ML 999 ML IV ×2 (21:40→22:50)
[2017-10-28] MEDS: Ondansetron 4 MG/2 ML Vial IV (21:40)
[2017-10-28 22:00] LABS: Absolute Lymphocyte Count 2.18 X10^3/ul (0.83-4.51); Absolute Neutrophil Count 7.8 X10^3/uL (2.0-7.7); Basophil# 0.02 X10^3/uL; Basophil% 0.2 % (0-1); Eosinophil# 0.03 X10^3/uL; Eosinophils% 0.3 % (0-5); Hematocrit 36.6 % (37-47); Hemoglobin 10.3 g/dl (12.0-15.0); Lymphocyte # 2.18 X10^3/ul (4.0); Lymphocyte % 20.5 % (19-41); Mean Corp Hgb Conc 28.1 g/gl (32-36); Mean Corpuscular Hgb 24.8 pg (27.0-32.0); Mean Corpuscular Volume 88.2 fL (81-99); Mean Platelet Vol. 9.6 fl (6.2-12.0); Monocyte# 0.57 X10^3/uL; Monocyte% 5.4 % (0-10); Neutrophil # 7.79 X10^3/uL (2.7-7.7); Neutrophil % 73.4 % (47-70); Platelet Count 647 K/mm3 (150-450); RBC Distribution Width CV 14.7 % (11.6-14.6); RBC Distribution Width SD 47.4 fl (35.1-43.9); Red Blood Count 4.15 M/mm3 (4.2-5.4); White Blood Count 10.6 K/mm3 (4.4-11.0)
[2017-10-28 22:10] LABS: ALB/GLOB Ratio 0.6 RATIO (0.9-2.4); AST(SGOT) 27 U/L (15-37); Alanine Aminotransfer ALT/SGPT 18 U/L (13-56); Albumin, Serum 2.9 g/dL (3.2-5.0); Alkaline Phosphatase 132 U/L (45-117); Anion Gap 14 (5-15); BUN 27 mg/dL (7-18); BUN/Creat Ratio 15.6 RATIO (10-20); Calcium,Total 8.3 mg/dL (8.5-10.1); Chloride 74 mmol/L (98-107); Creatinine, Serum 1.73 mg/dL (0.55-1.02); EST Glomerular Filtration Rate 39 mL/min (>60); Est Glom Filt Rate - Afr Amer 47 mL/min (>60); Globulin 4.7 g/dL (2.2-4.2); Glucose 1249 mg/dL (74-106); Potassium 5.2 mmol/L (3.5-5.1); Protein, Total 7.6 g/dL (6.4-8.2); Sodium Level 113 mmol/L (136-145)
--- NOTE | 2017-10-28 22:11 | ED.RN ---
lab called to report glucose 1249, chloride 74, sodium 113.
--- NOTE | 2017-10-28 22:12 | ED.RN ---
dr. leone and primary rn notified of critical lab results.
[2017-10-28 22:13] LABS: POSITIVE COUNT NO; POSITIVE DIFFERENTIAL NO; POSITIVE MORPHOLOGY NO
[2017-10-28] MEDS: Ketorolac 30 MG/ML Syringe IV (22:20)
[2017-10-28] MEDS: LORazepam 1 MG Tablet PO (22:26)
--- NOTE | 2017-10-28 22:31 | ED.VISSUMM ---
- ER Visit Summary Date of Service: 10/28/17 Chief Complaint: High blood sugar History of Present Illness: The patient is a 22 F who presents with high blood sugar. She states is been high throughout the weekend. She states it would not be uncommon for her to be 300 but it has been reading high at home. She states takes 30 units of Tresiba dose sliding scale insulin. She denies any recent illnesses. Denies any dysuria. She does have some abdominal pain and has had some nausea with vomiting. She has been in DKA before. She tells me that she has been medication compliant. Physical Examination: Vital signs reviewed. HEENT exam unremarkable. Heart is regular rate and rhythm without murmurs. Lungs are clear. Abdomen is soft with mild diffuse tenderness. Her neurologic exam is normal. Skin exam normal. Test Results: Hemoglobin is 10.3. Blood sugars 1249, sodium 113, chloride 79. Ketones are negative Emergency Department Course and Treatment: Sheet was hydrated with 2 L of IV fluids. She will be started on insulin drip. Patient will be admitted to the ICU for further evaluation. Treatment Plan: [] Disposition: Admit Impression: HHS, hyponatremia This note was generated with [employer] dictation software. It may contain incorrect words, spelling, and punctuation that were not noted in review of the chart prior to signing ED Disposition - Plan for ED Patient: Chief Complaint: Hyperglycemia Referrals: Tianna Peña MD [Primary Care Provider] -
[2017-10-28 22:34] LABS: Bacteria 0 SEEN /hpf (None Seen); Mucous, Urine 0 SEEN /hpf (<or=2+); Red Blood Cells-Urine 0 SEEN /hpf (0-5); Squamous Epithelial Cells - UA 0 SEEN /hpf (5-10)
[2017-10-28 22:37] LABS: Color, Urine Yellow (Yellow); Glucose, Dipstick 1000 mg/dl (Normal); Ketone-Dipstick 5 mg/dl (Negative); Leukocyte Esterase-Dipstick 500 /ul (Negative); Nitrite-Dipstick Negative (Negative); Occult Blood-Urine 10 /ul (Negative); Protein-Dipstick Negative (Negative); Specific Gravity, Urine 1.005 (1.002-1.030); Urine Bilirubin Dipstick Negative (Negative); Urine Clarity Clear (Clear); Urine Urobilinogen Normal (Normal)
--- NOTE | 2017-10-28 22:44 | HP.PCM_ITS ---
Problem List (1) Acute hyperglycemia Status: Acute (2) Tobacco user Status: Chronic History of Present Illness Date of Admission: 10/28/17 Chief Complaint: Vertigo and lightheadedness ?3 days The patient is a 22 year old F with a significant history of type 1 diabetes with previous history of DKA who presents with vertigo and lightheadedness ?3 days. Associated with symptoms is abdominal pain, nausea and vomiting. She also reports that she is unable to see whenever she stands. Patient takes a correction scale insulin at home and insulin Degludec. She reports that her blood glucose at home has been in the 300s and she was taking her correction scale insulin accordingly. She reports that she has been using the same blood glucose machine for a long time. Her symptoms has been constant since 3 days ago. Because of the persistence of her symptoms she came to emergency department. 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 Smoking Status: Current every day smoker - Smokes cigarettes. - *Family History Maternal History Items: No pertinent history Review of Systems Constitutional: Denies: Chills, Fever, Weight Change HEENT: Denies: Head Aches, Sinus Congestion, Sinus Drainage Cardiovascular: Reports: Light Headedness Respiratory: Denies: Cough, Shortness of breath at rest, Sputum production Gastrointestinal: Reports: Abdominal Pain, Nausea, Vomiting Genitourinary: Denies: Dysuria Musculoskeletal: Denies: Joint Pain, Joint Tenderness Skin: Denies: Rash, Wounds Neurological: Denies: Numbness, Tingling, Focal weakness Psychiatric: Denies: Anxiety, Depression, Homicidal Ideations, Suicidal Ideations Hematologic/ Lymphatic: Denies: Easy Bruising, Easy Bleeding VTE Information - Inpt Only VTE Present on Admission: No VTE Mechan Device Prophylaxis: None VTE Pharm Prophylaxis ordered?: No Reason prophylaxis not ordered:: Treatment Not Indicated Patient Problems: Active and Suspected Problems Acute hyperglycemia (Acute) - Physical Exam General: Alert, Oriented x3, Cooperative HEENT: Atraumatic, PERRLA, EOMI, Normocephalic Neck: Supple, No JVD, Negative Carotid Bruits Lungs: Clear to auscultation, Normal air movement Cardiovascular: Regular rate, No murmurs Abdomen: Bowel Sounds Present, Soft, Non Tender Extremities: No edema, Capillary Refill Less than 3 Seconds Skin: No rashes, No breakdown Musculoskeletal: No Tenderness to Palpation of Joints or Extremities Neurological: Cranial nerves II-XII grossly intact Psych/Mental Status: Normal Affect, Appropriate Vital Signs Temp Pulse Resp BP Pulse Ox 98.9 F 95 18 120/78 98 10/28/17 21:33 10/28/17 21:33 10/28/17 21:33 10/28/17 21:33 10/28/17 21:33 Oxygen Delivery Method Room Air Weight: 51.6 kg Body Mass Index (BMI) 17.8 Finger Stick Blood Glucose 297 Laboratory Tests Past 24 Hrs 10/28/17 10/28/17 10/28/17 21:40 21:40 21:40 WBC 10.6 RBC 4.15 L Hgb 10.3 L Hct 36.6 L MCV 88.2 MCH 24.8 L MCHC 28.1 L RDW 14.7 H RDW Differential 47.4 H Plt Count 647 H MPV 9.6 Immature Gran % (Auto) 0.200 Neut % (Auto) 73.4 H Lymph % (Auto) 20.5 [place] % (Auto) 5.4 Eos % (Auto) 0.3 Baso % (Auto) 0.2 Absolute Neuts (auto) 7.8 H Absolute Lymphs (auto) 2.18 Total Counted Not Reportable Sodium 113 L* Potassium 5.2 H Chloride 74 L* Carbon Dioxide 25.0 Anion Gap 14 BUN 27 H Creatinine 1.73 H Estim Creat Clear Calc 41.20 Est GFR (MDRD) Af Amer 47 L Est GFR (MDRD) Non-Af 39 L BUN/Creatinine Ratio 15.6 Glucose 1249 H* Calcium 8.3 L Total Bilirubin 0.40 AST 27 ALT 18 Alkaline Phosphatase 132 H Total Protein 7.6 Albumin 2.9 L Globulin 4.7 H Albumin/Globulin Ratio 0.6 L Serum , Qual Urine Color Urine Clarity Urine pH Ur Specific [place] Urine Protein Urine Glucose (UA) Urine Ketones Urine Occult Blood Urine Nitrite Urine Bilirubin Urine Urobilinogen Ur Leukocyte Esterase Urine RBC Urine WBC Ur Squamous Epith Cells Urine Bacteria Urine Mucus Acetone Level NEGATIVE 10/28/17 10/28/17 21:40 22:28 WBC RBC Hgb Hct MCV MCH MCHC RDW RDW Differential Plt Count MPV Immature Gran % (Auto) Neut % (Auto) Lymph % (Auto) [place] % (Auto) Eos % (Auto) Baso % (Auto) Absolute Neuts (auto) Absolute Lymphs (auto) Total Counted Sodium Potassium Chloride Carbon Dioxide Anion Gap BUN Creatinine Estim Creat Clear Calc Est GFR (MDRD) Af Amer Est GFR (MDRD) Non-Af BUN/Creatinine Ratio Glucose Calcium Total Bilirubin AST ALT Alkaline Phosphatase Total Protein Albumin Globulin Albumin/Globulin Ratio Serum , Qual Pending Urine Color Pending Urine Clarity Pending Urine pH Pending Ur Specific [place] Pending Urine Protein Pending Urine Glucose (UA) Pending Urine Ketones Pending Urine Occult Blood Pending Urine Nitrite Pending Urine Bilirubin Pending Urine Urobilinogen Pending Ur Leukocyte Esterase Pending Urine RBC Pending Urine WBC Pending Ur Squamous Epith Cells Pending Urine Bacteria Pending Urine Mucus Pending Acetone Level Assessment/Plan All Active Problems Acute hyperglycemia (Acute) Abscess of leg, left (Acute) Hyperglycemia (Acute) DKA (diabetic ketoacidoses) (Acute) KANU (acute kidney injury) (Acute) Narcotic withdrawal (Acute) The patient is a 22 year old F with a significant history of drug abuse; and type 1 diabetes with previous DKA who presents with vertigo and lightheadedness , abdominal pain, nausea and vomiting and found to have severely elevated blood glucose without ketones consistent with hyperglycemic hyperosmolar state. Hyperglycemic hyperosmolar state. Calculated osmolarity admission was 322; and her blood glucose at admission was 1249. Acetone level was negative. Hyperglycemic hyperosmolar state pathway with ABG, BMP every 4 hours. BMP for the emergency department was reviewed. It showed a potassium of 5.2. The patient was started on normal saline bolus insulin drip at emergency department insulin. Insulin drip was continued. Home Novolog and insulin the Degludec held. Since Patient's potassium was less than 5.3 she was initiated with normal saline with potassium in the setting of insulin drip. BMP every 4 hours. CBC in a.m. N.p.o. for now. Pseudohyponatremia. Sodium on admission was 113. Chloride was 74 Corrected sodium is 131. Treatment of HHS as above History of drug abuse Patient was admitted in February 2017 for opioid dependence with withdrawal. Importantly she has received morphine at emergency department for abdominal pain. Because of abdominal pain Toradol and morphine continued. Drug screen ordered. Tobacco abuse Reportedly patient smokes cigarettes about 1 pack a day since she was 15 years. Patient was counseled Because of the weight patient was started on a nicotine patch 14 mg daily. Protein calorie malnutrition N.p.o. for now. Consider supplements and dietitian consult when patient is not n.p.o. DVT prophylaxis Low risk Ambulate. Code Visit Inpatient E&M: 30179 Init Hosp L3
[2017-10-28 22:48] LABS: White Blood Cells 25-50 SEEN /hpf (0-5)
[2017-10-28] MEDS: Morphine 4 MG/ML Syringe IV (23:07)
[2017-10-28 23:09] VITALS: RESP 16
[2017-10-28 23:28] VITALS: BP 135/78; PULSE 90; RESP 14; TEMP 36.8
[2017-10-28 23:30] VITALS: BP 129/78; PULSE 90; RESP 12; O2SAT 97
[2017-10-28 23:30] LABS: Pregnancy, Serum, hCG Quali. NEGATIVE Negative (0-9 Nonpreg)
[2017-10-28 23:35] LABS: Bedside Glucose > 500 mg/dL (70-110)
[2017-10-28 23:45] VITALS: BP 138/86; PULSE 96; RESP 20; O2SAT 96
[2017-10-28 23:56] VITALS: BMI 16.3
[2017-10-29] VITALS (19 sets, daily range): BP systolic 113–142; BP diastolic 72–116; PULSE 78–109; RESP 13–20; TEMP 36.4–36.9; O2SAT 95–100
[2017-10-29 00:37] LABS: Anion Gap 11 (5-15); BUN 26 mg/dL (7-18); BUN/Creat Ratio 18.7 RATIO (10-20); Calcium,Total 7.6 mg/dL (8.5-10.1); Chloride 83 mmol/L (98-107); Creatinine, Serum 1.39 mg/dL (0.55-1.02); EST Glomerular Filtration Rate 50 mL/min (>60); Est Glom Filt Rate - Afr Amer 60 mL/min (>60); Estimated Creatinine Clearance 51.28 ml/min; Glucose 977 mg/dL (74-106); Potassium 4.5 mmol/L (3.5-5.1); Sodium Level 120 mmol/L (136-145)
[2017-10-29 00:41] LABS: Hemoglobin A1c 15.4 % (4.2-6.3)
[2017-10-29 01:12] LABS: Osmolality, Serum 323 mOsm/KG (275-295)
[2017-10-29 01:26] LABS: Allen Test POS; Base Excess 4 mmol/L (-2 to +2); Bicarbonate 28.8 mmol/L (22-26); Blood Gas Specimen Type ART; O2 Delivery Device Room Air; PO2 87 mmHG (75-100); SITE R Brachial; SO2 96 % (95-99); Time Given 115; Total Carbon Dioxide 30 mmol/L; pCO2 47.2 mmHg (35-45); pH 7.39 (7.35-7.45)
[2017-10-29 01:31] LABS: Bedside Glucose > 500 mg/dL (70-110)
[2017-10-29 02:03] LABS: Glucose 797 mg/dL (74-106)
[2017-10-29 03:16] LABS: Bedside Glucose 457 mg/dL (70-110)
[2017-10-29 03:27] LABS: Vista UDS pH Range 7
[2017-10-29 03:53] LABS: Amphetamine Urine VISTA NEGATIVE (<1000 ng/mL); Barbiturate Urine VISTA NEGATIVE (< 200 ng/mL); Benzodiazepine Urine VISTA NEGATIVE (< 200 ng/mL); Cocaine Urine VISTA NEGATIVE (< 300 ng/mL); Ecstacy Urine VISTA NEGATIVE (< 500 ng/mL); Methadone Urine VISTA NEGATIVE (< 300 ng/mL); PCP Urine VISTA NEGATIVE (< 25 ng/mL); THC Urine VISTA NEGATIVE (< 50 ng/mL)
[2017-10-29 04:32] LABS: Hemoglobin 10.9 g/dl (12.0-15.0); Mean Corpuscular Hgb 25.3 pg (27.0-32.0); Mean Corpuscular Volume 76.6 fL (81-99); Mean Platelet Vol. 8.9 fl (6.2-12.0); Platelet Count 599 K/mm3 (150-450); RBC Distribution Width CV 13.9 % (11.6-14.6); RBC Distribution Width SD 38.2 fl (35.1-43.9); Red Blood Count 4.31 M/mm3 (4.2-5.4); White Blood Count 11.3 K/mm3 (4.4-11.0)
[2017-10-29 04:43] LABS: Anion Gap 12 (5-15); BUN 26 mg/dL (7-18); BUN/Creat Ratio 20.3 RATIO (10-20); Calcium,Total 8.3 mg/dL (8.5-10.1); Chloride 97 mmol/L (98-107); Creatinine, Serum 1.28 mg/dL (0.55-1.02); EST Glomerular Filtration Rate 55 mL/min (>60); Est Glom Filt Rate - Afr Amer 66 mL/min (>60); Estimated Creatinine Clearance 51.15 ml/min; Glucose 299 mg/dL (74-106); Potassium 3.7 mmol/L (3.5-5.1); Sodium Level 137 mmol/L (136-145)
[2017-10-29 04:45] LABS: Scan Indicated on CBC? Y/N NO
[2017-10-29] MEDS: 0.9% NaCl Peripheral Flush Adult/Peds IV (04:50)
[2017-10-29] MEDS: 0.9% NaCl IVPB Med Flush (250 mL) 15 ML IV (06:00)
[2017-10-29 06:50] LABS: Bedside Glucose 113 mg/dL (70-110)
--- NOTE | 2017-10-29 07:32 | PCM.PN.HOSP ---
Patient Problems: Active and Suspected Problems Protein calorie malnutrition (Acute) Acute hyperglycemia (Acute) KANU (acute kidney injury) (Acute) Subjective: Patient feels tired and weak. Was admitted with weakness, lightheadedness and vertigo, nausea and vomiting and abdominal pain. Type 2 DM. Was found in HHE. Denies Lower urinary tract symtoms. Vitals/I&O's: Vital Signs Temp Pulse Resp BP Pulse Ox 97.5 F L 97 13 113/74 97 10/29/17 04:00 10/29/17 06:00 10/29/17 06:00 10/29/17 06:00 10/29/17 06:00 Oxygen Delivery Method Room Air Weight: 104 lb 7.986 oz Body Mass Index (BMI) 16.3 Intake and Output for Last 24 Hours 10/27/17 10/28/17 10/29/17 23:59 23:59 23:59 Intake Total 3220.7 / 3220.7 Balance 3220.7 / 3220.7 General: Alert, Oriented x3, Cooperative HEENT: Atraumatic, PERRLA, EOMI, Normocephalic Oral: Moist Mucosa Neck: Supple, No JVD, Negative Carotid Bruits Lungs: Clear to auscultation, Normal air movement Cardiovascular: Regular rate, Normal S1, Normal S2, No murmurs Abdomen: Bowel Sounds Present, Soft, Non Tender, Non-Distended Extremities: No edema, Capillary Refill Less than 3 Seconds Skin: No rashes, No breakdown Musculoskeletal: No Tenderness to Palpation of Joints or Extremities Neurological: Cranial nerves II-XII grossly intact Psych/Mental Status: Normal Affect, Appropriate Laboratory Results 10/28/17 23:28: POC Glucose > 500 H* 10/29/17 00:10: Magnesium 2.0 10/29/17 00:10: Hemoglobin A1c 15.4 H 10/29/17 00:10: Sodium 120 L, Potassium 4.5, Chloride 83 L, Carbon Dioxide 26.0, Anion Gap 11, BUN 26 H, Creatinine 1.39 H, Estim Creat Clear Calc 51.28, Est GFR (MDRD) Af Amer 60, Est GFR (MDRD) Non-Af 50 L, BUN/Creatinine Ratio 18.7, Glucose 977 H*, Calcium 7.6 L 10/29/17 01:15: POC Glucose > 500 H* 10/29/17 01:22: Specimen Type ART, Sample Site R Brachial, pH 7.39, Bicarbonate Actual 28.8 H, POC Total CO2 30, Base Excess 4 H, O2 Saturation 96, ABG pCO2 47.2 H, ABG pO2 87, Marcus Test POS, O2 Delivery Device Room Air, Blood Gas Notified Whom KYLEE JUAREZ, Blood Gas Notified Time 115 10/29/17 01:30: Glucose 797 H* 10/29/17 03:11: POC Glucose 457 H* 10/29/17 04:15: WBC 11.3 H, RBC 4.31, Hgb 10.9 L, Hct 33.0 L, MCV 76.6 L, MCH 25.3 L, MCHC 33.0, RDW 13.9, RDW Differential 38.2, Plt Count 599 H, MPV 8.9 10/29/17 04:15: Sodium 137, Potassium 3.7, Chloride 97 L, Carbon Dioxide 28.0, Anion Gap 12, BUN 26 H, Creatinine 1.28 H, Estim Creat Clear Calc 51.15, Est GFR (MDRD) Af Amer 66, Est GFR (MDRD) Non-Af 55 L, BUN/Creatinine Ratio 20.3 H, Glucose 299 H, Calcium 8.3 L 10/29/17 06:45: POC Glucose 113 H Current Medications Bisacodyl (Dulcolax) 5 mg PO DAILY PRN PRN PRN Reason: Constipation Dextrose (D50w Syringe) 0 gm IV X1 PRN; Protocol PRN Reason: HYPOGLYCEMIA Potassium Chloride/Dextrose/Sod Cl (Kcl 20meq In D5.45ns 1000ml) 1,000 mls @ 125 mls/hr IV .Q8H MANUELITO Stop: 10/29/17 09:44 Last Admin: 10/29/17 05:59 Dose: 125 mls/hr Ketorolac Tromethamine (Toradol) 30 mg IV Q6H PRN PRN PRN Reason: PAIN Stop: 11/03/17 04:01 Magnesium Hydroxide (Milk Of Magnesia) 30 ml PO DAILY PRN PRN PRN Reason: Constipation Morphine Sulfate () 1 mg IV Q6H PRN PRN PRN Reason: PAIN Nicotine (Nicoderm Cq (Pbkc)) 14 mg TRANSDERM. DAILY MANUELITO Ondansetron HCl (Zofran) 4 mg IV Q6H PRN PRN PRN Reason: NAUSEA/VOMITING Senna/Docusate Sodium (Senokot-S, Gi-Colace) 2 tablet PO BID MANUELITO Sodium Chloride () 5 - 30 ml IV UD PRN PRN Reason: SALINE FLUSH Last Admin: 10/29/17 04:50 Dose: 10 ml Medical Necessity - Tobacco Use Smoking Status: Current every day smoker Assessment/Plan All Active Problems Protein calorie malnutrition (Acute) Acute hyperglycemia (Acute) Abscess of leg, left (Acute) Hyperglycemia (Acute) DKA (diabetic ketoacidoses) (Acute) KANU (acute kidney injury) (Acute) Narcotic withdrawal (Acute) The patient is a 22 year old F with a significant history of drug abuse; and type 1 diabetes with previous DKA who presents with vertigo and lightheadedness, abdominal pain, nausea and vomiting and found to have severely elevated blood glucose without ketones consistent with hyperglycemic hyperosmolar state. 1. Hyperglycemic hyperosmolar state. The patient was admitted in ICU. On protocol for HHS with normal saline. Start oral ADA diet. Calculated osmolarity admission was 322; and her blood glucose at admission was 1249. Acetone level was negative. It showed a potassium of 5.2. currently her blood sugars 299. K3.7. Anion gap 12. Insulin drip is discontinued. Resume novolog and long acting insulin. 2. Hypertonic hyperosmolar Pseudohyponatremia. Sodium on admission was 113. Chloride was 74 Corrected sodium was 131. Currently 137 Treatment of HHS as above History of drug abuse Patient was admitted in February 2017 for opioid dependence with withdrawal. Importantly she has received morphine at emergency department for abdominal pain. Because of abdominal pain Toradol and morphine continued. Drug screen, Utox neg Tobacco abuse Reportedly patient smokes cigarettes about 1 pack a day since she was 15 years. Patient was counseled Because of the weight patient was started on a nicotine patch 14 mg daily. Moderate Protein calorie malnutrition DVT prophylaxis Low risk Ambulate. Laboratory Results 10/28/17 22:28: Urine Color Yellow, Urine Clarity Clear, Urine pH 7.0, Ur Specific [place] 1.005, Urine Protein Negative, Urine Glucose (UA) 1000 H, Urine Ketones 5 H, Urine Occult Blood 10 H, Urine Nitrite Negative, Urine Bilirubin Negative, Urine Urobilinogen Normal, Ur Leukocyte Esterase 500 H, Urine RBC 0 SEEN, Urine WBC 25-50 SEEN, Ur Squamous Epith Cells 0 SEEN, Urine Bacteria 0 SEEN, Urine Mucus 0 SEEN 10/28/17 22:28: Urine Opiates Screen NEGATIVE, Urine Methadone Screen NEGATIVE, Ur Barbiturates Screen NEGATIVE, Ur Phencyclidine Scrn NEGATIVE, Ur Amphetamines Screen NEGATIVE, U Methamphetamin-MDMA NEGATIVE, U Benzodiazepines Scrn NEGATIVE, Urine Cocaine Screen NEGATIVE, U Cannabinoids Screen NEGATIVE, Ur Drug Screen Comment 10/28/17 23:28: POC Glucose > 500 H* 10/29/17 00:10: Magnesium 2.0 10/29/17 00:10: Hemoglobin A1c 15.4 H 10/29/17 00:10: Sodium 120 L, Potassium 4.5, Chloride 83 L, Carbon Dioxide 26.0, Anion Gap 11, BUN 26 H, Creatinine 1.39 H, Estim Creat Clear Calc 51.28, Est GFR (MDRD) Af Amer 60, Est GFR (MDRD) Non-Af 50 L, BUN/Creatinine Ratio 18.7, Glucose 977 H*, Calcium 7.6 L 10/29/17 01:15: POC Glucose > 500 H* 10/29/17 01:22: Specimen Type ART, Sample Site R Brachial, pH 7.39, Bicarbonate Actual 28.8 H, POC Total CO2 30, Base Excess 4 H, O2 Saturation 96, ABG pCO2 47.2 H, ABG pO2 87, Marcus Test POS, O2 Delivery Device Room Air, Blood Gas Notified Whom KYLEE JUAREZ, Blood Gas Notified Time 115 10/29/17 01:30: Glucose 797 H* 10/29/17 03:11: POC Glucose 457 H* 10/29/17 04:15: WBC 11.3 H, RBC 4.31, Hgb 10.9 L, Hct 33.0 L, MCV 76.6 L, MCH 25.3 L, MCHC 33.0, RDW 13.9, RDW Differential 38.2, Plt Count 599 H, MPV 8.9 10/29/17 04:15: Sodium 137, Potassium 3.7, Chloride 97 L, Carbon Dioxide 28.0, Anion Gap 12, BUN 26 H, Creatinine 1.28 H, Estim Creat Clear Calc 51.15, Est GFR (MDRD) Af Amer 66, Est GFR (MDRD) Non-Af 55 L, BUN/Creatinine Ratio 20.3 H, Glucose 299 H, Calcium 8.3 L 10/29/17 06:45: POC Glucose 113 H Code Visit Inpatient E&M: 23734 Subs Hosp L3
[2017-10-29 08:26] LABS: Bedside Glucose 254 mg/dL (70-110)
[2017-10-29] MEDS: Insulin Lispro 100 UNIT/ML INSULN.PEN SQ ×4 (08:44→22:49)
--- NOTE | 2017-10-29 09:35 | CASEMGMT ---
RN CM Note. Pt is Type I diabetic, Has [employer] insurance. noncompliant with diabetes care. Per nursing she states she does not know if her meter is functioning. Would recommend new script on dc for glucometer, or pt can buy new on @ [employer] inexpensively. Nurse also stated concern that pt is not caring for self/diabetes at home. Has hx of substance abuse, did [facility] program in past and has son. -RN CM recommended SW consult. Order placed, ADENIKE Gardiner notified and updated. Jenna POPEN RN ACM
[2017-10-29 11:51] LABS: Bedside Glucose 440 mg/dL (70-110)
[2017-10-29 15:51] LABS: Bedside Glucose 442 mg/dL (70-110)
[2017-10-29 16:56] LABS: Bedside Glucose 400 mg/dL (70-110)
[2017-10-29] MEDS: Insulin Lispro 100 UNIT/ML INSULN.PEN 15 UNIT SC (18:03)
[2017-10-29 23:16] LABS: Bedside Glucose 468 mg/dL (70-110)
[2017-10-29] MEDS: Ketorolac 30 MG/ML Syringe IV (23:31)
[2017-10-30 00:40] LABS: Bedside Glucose 316 mg/dL (70-110)
--- NOTE | 2017-10-30 02:54 | NURSING ---
Pt. left floor with vistors at 0230 without telling this nurse. This nurse called Rachel in Security who said she found patient and a female friend on the ground floor. Rachel told patient she had to go back to her room. Rachel told this nurse that pt. is on her way back up to [facility]. When this nurse rounded on patient at 0250 patient and friend were back in patients room.
[2017-10-30 03:14] VITALS: BP 124/83; PULSE 104; RESP 16; TEMP 36.7; O2SAT 99
[2017-10-30 03:41] LABS: Bedside Glucose 427 mg/dL (70-110)
[2017-10-30] MEDS: Ondansetron 4 MG/2 ML Vial IV (04:03)
[2017-10-30] MEDS: Potassium Chloride 40 MEQ in 0.9% Normal Saline 1,000 ML 100 MEQ IV (04:16)
[2017-10-30] MEDS: Insulin Lispro 100 UNIT/ML INSULN.PEN 10 UNIT SC (04:25)
[2017-10-30 04:41] LABS: Anion Gap 11 (5-15); BUN 24 mg/dL (7-18); BUN/Creat Ratio 19.8 RATIO (10-20); Chloride 101 mmol/L (98-107); Creatinine, Serum 1.21 mg/dL (0.55-1.02); EST Glomerular Filtration Rate 59 mL/min (>60); Est Glom Filt Rate - Afr Amer 71 mL/min (>60); Estimated Creatinine Clearance 54.11 ml/min; Glucose 404 mg/dL (74-106); Potassium 4.5 mmol/L (3.5-5.1); Sodium Level 137 mmol/L (136-145)
[2017-10-30 04:57] LABS: Osmolality, Serum 301 mOsm/KG (275-295)
[2017-10-30] MEDS: Insulin Lispro 100 UNIT/ML INSULN.PEN SQ ×2 (06:30→11:32)
[2017-10-30 07:10] LABS: Bedside Glucose 169 mg/dL (70-110)
[2017-10-30 07:40] LABS: Bedside Glucose 91 mg/dL (70-110)
[2017-10-30 07:40] LABS: Bedside Glucose > 500 mg/dL (70-110)
[2017-10-30 07:40] LABS: Bedside Glucose 100 mg/dL (70-110)
[2017-10-30 08:06] VITALS: BP 124/86; PULSE 95; RESP 16; TEMP 36.6; O2SAT 100
[2017-10-30 10:25] VITALS: O2SAT 95
--- NOTE | 2017-10-30 11:13 | PCM.DC ---
- Discharge Diagnoses Current Active Problems: Current Active and Chronic Problems Protein calorie malnutrition (Acute) Acute hyperglycemia (Acute) KANU (acute kidney injury) (Acute) You will use the following diet at home:: Calorie/Carbohydrate Controlled (specify 1200, 1400, etc) - Carb controlled ADA diet Your food should be the consistency of: Regular Discharge Activity: May not drive while taking narcotic pain medications. Allergies/Adverse Reactions: Allergies Penicillins Allergy (Verified 03/13/17 10:08) Hives Medications to take at Discharge Insulin Aspart [Novolog Flexpen] See Protocol SC TIDCM 02/23/13 Insulin Degludec [Tresiba Flextouch U-100] 30 unit SQ QHS 10/28/17 Primary Care Physician: Tianna Peña MD [Primary Care Provider] - Please follow up with your Primary Care Physician in: in 1-2 weeks Test Results: Test results from this visit will be discussed in further detail at your follow-up appointment, if applicable. Please Follow Up With: Tiffany Hernandez MEDICAL SECRETARYAmauryC When: in 2 weeks for Type 1 DM
--- NOTE | 2017-10-30 11:15 | PCM.DC.SUM ---
Discharge Date and Diagnosis - Problem List Patient Problems: Active and Suspected Problems Protein calorie malnutrition (Acute) KANU (acute kidney injury) (Acute) Date of Admission: 10/28/17 Date of Discharge: 10/30/17 - Primary Discharge Diagnosis Active and Suspected Problems 1. Hyperglycemic hyperosmolar state. Acute kidney injury most probably prerenal secondary to HHE 2. Hypertonic hyperosmolar Pseudohyponatremia. History of drug abuse Tobacco abuse - Secondary Discharge Diagnosis Chronic Problems Homeless (Chronic) Tobacco user (Chronic) DM type 1 (diabetes mellitus, type 1) (Chronic) Hospital Course and Treatment Summary of Care Provided: [] The patient is a 22 year old F with a significant history of drug abuse; and type 1 diabetes with previous DKA who presents with vertigo and lightheadedness, abdominal pain, nausea and vomiting and found to have severely elevated blood glucose without ketones consistent with hyperglycemic hyperosmolar state. Seen and examined. General: Alert, Oriented x3, Cooperative HEENT: Atraumatic, PERRLA, EOMI, Normocephalic Oral: Moist Mucosa Neck: Supple, No JVD, Negative Carotid Bruits Lungs: Clear to auscultation, Normal air movement Cardiovascular: Regular rate, Normal S1, Normal S2, No murmurs Abdomen: Bowel Sounds Present, Soft, Non Tender, Non-Distended Extremities: No edema, Capillary Refill Less than 3 Seconds Skin: No rashes, No breakdown Musculoskeletal: No Tenderness to Palpation of Joints or Extremities Neurological: Cranial nerves II-XII grossly intact Psych/Mental Status: Normal Affect, Appropriate 1. Hyperglycemic hyperosmolar state. The patient was admitted in ICU. On protocol for HHS with normal saline. Start oral ADA diet. Calculated osmolarity admission was 322; and her blood glucose at admission was 1249. Acetone level was negative. It showed a potassium of 5.2. currently her blood sugars 299. K3.7. Anion gap 12. Insulin drip is discontinued. Resume novolog and long acting insulin. Her blood sugar was controlled. Patient glucometer home glucometer not working. She had a wrong reading of 300s while her actual blood sugar was in 1200s when she came to ER. Prescription for glucometer given. Acute kidney injury most probably prerenal secondary to HHE: Started with IV fluid 2. Hypertonic hyperosmolar Pseudohyponatremia. Sodium on admission was 113. Chloride was 74 Corrected sodium was 131. Currently 137 History of drug abuse Patient was admitted in February 2017 for opioid dependence with withdrawal. Importantly she has received morphine at emergency department for abdominal pain. Because of abdominal pain Toradol and morphine continued. Drug screen, Utox neg Tobacco abuse Reportedly patient smokes cigarettes about 1 pack a day since she was 15 years. Patient was counseled Because of the weight patient was started on a nicotine patch 14 mg daily. Moderate Protein calorie malnutrition DVT prophylaxis Low risk Ambulate. Discharge medication reconciliation done. Follow-up instructions given. Follow-up with fellmongery worker, DELGADO hernandez NP. Total time spent, exact 35 minutes on discharge meds reconciliation, examination, review of imaging and blood test and discussion with the patient on follow-up instructions. Discharge Activity: May not drive while taking narcotic pain medications. Home Medications: Medications to take at Discharge Insulin Aspart [Novolog Flexpen] See Protocol SC TIDCM 02/23/13 Insulin Degludec [Tresiba Flextouch U-100] 30 unit SQ QHS 10/28/17 Other Amb Orders: Glucometer Location: None Selected Primary Care Physician: Tianna Peña MD [Primary Care Provider] - Please follow up with your Primary Care Physician in: in 1-2 weeks Please Follow Up With: Tiffany Hernandez NP-C When: in 2 weeks for Type 1 DM Medical Necessity - Tobacco Use Smoking Status: Current every day smoker Meaningful Use Info Meaningful Use Diagnoses (Choose all that apply): None applicable Code Visit Inpatient E&M: 52441 Disch Hosp
[2017-10-30 11:41] LABS: Bedside Glucose 429 mg/dL (70-110)
--- NOTE | 2017-10-30 12:46 | CASEMGMT ---
Social Work Note SW received referral for substance abuse hx. SW attempted to see pt but pt has been discharged from [facility]. 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
--- NOTE | 2017-10-31 14:57 | CASEMGMT ---
[facility] CM DC PHONE CALL- no answer
== END 2017-10-30 12:23 | disposition home or self-care (01) | DRG 638 ==
LOC: ED 22:45 → ICU 23:11 → MS3 10-30 10:17
PROVIDERS: Admitting Provider Hospitalist; Emergency Provider Emergency Medicine; Family Provider Family Medicine; PCP Family Medicine; Visit Provider Internal Medicine
DX: E10.65 Type 1 diabetes mellitus with hyperglycemia (principal); Z68.1 Body mass index [BMI] 19.9 or less, adult; E44.0 Moderate protein-calorie malnutrition; N17.9 Acute kidney failure, unspecified; F17.210 Nicotine dependence, cigarettes, uncomplicated; Z79.4 Long term (current) use of insulin; F11.11 Opioid abuse, in remission
CPT/HCPCS: 36415; 36600; 80048; 80053; 80307; 81001; 82009; 82803; 82947; 82962; 83036; 83735; 83930; 84703; 85025; 85027; 97802; 99281; 99406; J7030; J7050; A4216; J2405

== ENCOUNTER 2017-11-05 12:13 | Inpatient (IN) | payer OTHER, MEDICAID, SELFPAY ==
[2017-11-05] VITALS (15 sets, daily range): BP systolic 104–138; BP diastolic 71–95; PULSE 100–122; RESP 12–20; TEMP 36.6; O2SAT 99–100; BMI 16.9; BMI 17.0; BMI 17.4
--- NOTE | 2017-11-05 12:39 | EKG12_ITS ---
Test Reason : Blood Pressure : / mmHG Vent. Rate : 098 BPM Atrial Rate : 098 BPM P-R Int : 118 ms QRS Dur : 082 ms QT Int : 374 ms P-R-T Axes : 070 083 070 degrees QTc Int : 477 ms Normal sinus rhythm Normal ECG Confirmed by JARETT JUAREZ, JENNIFER ([id number]), fan mail editor VIOLET LOMELI ([id number]) on 11/08/2017 1:12:14 PM Referred By: SEE Confirmed By:JENNIFER DENSON MD
[2017-11-05 12:50] LABS: Bedside Glucose > 500 mg/dL (70-110)
[2017-11-05] MEDS: 0.9% Normal Saline 1,000 ML 999 ML IV (13:22)
[2017-11-05 13:39] LABS: Absolute Lymphocyte Count 3.52 X10^3/ul (0.83-4.51); Absolute Neutrophil Count 9.5 X10^3/uL (2.0-7.7); Basophil# 0.02 X10^3/uL; Basophil% 0.1 % (0-1); Eosinophil# 0.03 X10^3/uL; Eosinophils% 0.2 % (0-5); Lymphocyte # 3.52 X10^3/ul (4.0); Lymphocyte % 26.1 % (19-41); Mean Corpuscular Hgb 25.1 pg (27.0-32.0); Mean Corpuscular Volume 81.2 fL (81-99); Mean Platelet Vol. 9.7 fl (6.2-12.0); Monocyte# 0.43 X10^3/uL; Monocyte% 3.2 % (0-10); Neutrophil # 9.46 X10^3/uL (2.7-7.7); Neutrophil % 70.1 % (47-70); POSITIVE COUNT NO; POSITIVE DIFFERENTIAL NO; POSITIVE MORPHOLOGY NO; Platelet Count 595 K/mm3 (150-450); RBC Distribution Width CV 15.8 % (11.6-14.6); RBC Distribution Width SD 46.5 fl (35.1-43.9); Red Blood Count 5.17 M/mm3 (4.2-5.4); White Blood Count 13.5 K/mm3 (4.4-11.0)
[2017-11-05 13:42] LABS: Mucous, Urine 0 SEEN /hpf (<or=2+)
[2017-11-05 13:43] LABS: Color, Urine Straw (Yellow); Glucose, Dipstick 1000 mg/dl (Normal); Leukocyte Esterase-Dipstick 100 /ul (Negative); Nitrite-Dipstick Negative (Negative); Occult Blood-Urine 10 /ul (Negative); Protein-Dipstick 15 mg/dl (Negative); Specific Gravity, Urine 1.015 (1.002-1.030); Urine Bilirubin Dipstick Negative (Negative); Urine Clarity Sl. Cloudy (Clear); Urine Urobilinogen Normal (Normal)
[2017-11-05] MEDS: Morphine 4 MG/ML Syringe IV (13:52)
[2017-11-05] MEDS: Metoclopramide 10 MG/2 ML Vial 5 MG IV (13:52)
[2017-11-05 13:53] LABS: Ketone-Dipstick 150 mg/dl (Negative)
[2017-11-05 13:59] LABS: Anion Gap 29 (5-15); BUN 25 mg/dL (7-18); BUN/Creat Ratio 14.5 RATIO (10-20); Calcium,Total 9.4 mg/dL (8.5-10.1); Chloride 84 mmol/L (98-107); Creatinine, Serum 1.73 mg/dL (0.55-1.02); EST Glomerular Filtration Rate 39 mL/min (>60); Est Glom Filt Rate - Afr Amer 47 mL/min (>60); Glucose 738 mg/dL (74-106); Potassium 4.7 mmol/L (3.5-5.1); Sodium Level 124 mmol/L (136-145)
--- NOTE | 2017-11-05 14:26 | ED.VISSUMM ---
- ER Visit Summary Date of Service: 11/05/17 Chief Complaint: Blood sugar greater than 600 History of Present Illness: The patient is a 22 F who has history of type 1 diabetes since age of 4 presents with elevated blood sugar, shortness of breath, thirst, poly-dyspnea, polyuria and lightheadedness. She denies headache, visual, ocular auditory symptoms. She denies any upper respiratory symptoms or viral type symptoms. She does complain of nausea with vague cramping abdominal pain. She does report vomiting. She denies diarrhea. She denies dysuria, hematuria or urgency. She denies any skin lesions. She denies paresthesia, anesthesia or motor weakness. Physical Examination: Patient appears ill. She is tachycardic. HEENT exam is remarkable dry mucosa and tongue. Pupils are equal round reactive. Extra muscle intact. Sclerae anicteric. Conjunctive is not injected. TMs normal. Nares patent. She does have a piercing noted. Uvula is midline. There is no erythema or exudate of the posterior pharynx. Trach is midline. There is no cervical lymphadenopathy. There is no stridor. Heart is regular without murmur, gallop or rub. Lungs are clear to auscultation. Abdomen is soft with minimal tenderness without guarding or rebound tenderness. There is no dermatologic lesions noted. There is no CVA tenderness noted. Patient is alert and oriented ?3. Motor is 5 over 5. Sensory is intact. DTRs are symmetric with no clonus or Babinski sign. Cranial 2 through 12 are intact. Cerebellar testing is normal. Test Results: EKG sinus rhythm rate of 98 and completely normal. UA is remarkable for leukoesterase and trace blood with glucose and ketones noted. CBC is remarkable white count 13.5 thousand. Electrolytes panel reveals a sodium 124, potassium 4.7, chloride 84, CO2 of 29 with a -29, glucose of 738 and BUN and creatinine of 25 1.73. Emergency Department Course and Treatment: Clinically patient is in DKA with ketotic odor to her breath. She received a 20 cc/kg bolus. Once I was informed that the nursing staff was only able to get a 24-gauge needle in place a 20-gauge right external jugular line was placed by me. After fluid bolus patient to receive 0.1 U/kg of insulin. DKA order set was initiated. Treatment Plan: Treat for DKA and admission ICU Disposition: Admission ICU Impression: 1. Diabetic ketoacidosis 2. Pseudohyponatremia 3. Acute kidney injury This note was generated with [employer] dictation software. It may contain incorrect words, spelling, and punctuation that were not noted in review of the chart prior to signing ED Disposition - Plan for ED Patient: Chief Complaint: Hyperglycemia Referrals: Tianna Peña MD [Primary Care Provider] -
[2017-11-05 14:28] LABS: Red Blood Cells-Urine 0-5 SEEN /hpf (0-5); Squamous Epithelial Cells - UA 0-5 SEEN /hpf (5-10); White Blood Cells 10-25 SEEN /hpf (0-5)
--- NOTE | 2017-11-05 14:28 | PCM.HP.STD ---
Problem List (1) DKA (diabetic ketoacidoses) Status: Acute Qualifiers: Diabetes mellitus type: type 1 Diabetes mellitus complication detail: without coma Qualified Code(s): E10.10 - Type 1 diabetes mellitus with ketoacidosis without coma (2) KANU (acute kidney injury) Status: Acute (3) Protein calorie malnutrition Status: Chronic Qualifiers: Protein-calorie malnutrition severity: severe Qualified Code(s): E43 - Unspecified severe protein-calorie malnutrition (4) Tobacco user Status: Chronic History of Present Illness Date of Admission: 11/05/17 Chief Complaint: Elevated BS The patient is a 22 y/o F w/ PMHx: Diabetes mellitus type I with non-compliance (10/29/17 HgbA1c 15.4%), Tobacco use, Moderate to Severe Protein-Calorie Malnutrition, Frequent admissions for HHS and DKA, most recently discharged on 10/30/17 who re-presents to the [facility] ED on 11/05/17 with reported compliance but ongoing elevated BS at home with no recent illness. She states that she felt well until day of ED presentation with currently some nausea and abdominal vague discomfort. In the emergency room patient is fatigued, lethargic and intermittently alert. Only family that she has in town as her father. In the ED work-up included T 97.8, heart rate 122, BP 104/72, respiratory rate 18, 99% room air, CBC with WBC 13.5, hemoglobin 13, platelet 595 with left shift, BMP with sodium 124, chloride 84, carbon dioxide 11, anion gap 29, BUN/Cr 25/1.73 (recent discharage Cr 1.21, baseline Cr 0.7-1), glucose 738, UA w/ protein 15, glucose 1000, ketones 150, occult blood 10, leukocyte esterase 10 with remainder of UA pending, acetone pending. Past Medical History Past Medical History (Chronic Problems): Chronic Problems Protein calorie malnutrition (Chronic) Homeless (Chronic) Tobacco user (Chronic) DM type 1 (diabetes mellitus, type 1) (Chronic) Allergies Penicillins Allergy (Verified 11/05/17 12:14) Hives Home Medications: Ambulatory Orders Medication Instructions Recorded Insulin Aspart [Novolog Flexpen] See Protocol SC TIDCM 02/23/13 Insulin Degludec [Tresiba 30 unit SQ QHS 10/28/17 Flextouch U-100] Surgical History: no surgical history Psychiatric History: No pertinent psych hx CASKET COVERER History: No pertinent CASKET COVERER history Lives: Alone Smoking Status: Current every day smoker - One half pack per day cigarette tobacco usage. Tobacco Use: Cigarettes Alcohol: None Drugs: None - *Family History Maternal History Items: - - Patient denies any marked maternal or paternal family history including diabetes, heart disease, cancer. Paternal History Items: - - Patient denies any marked maternal or paternal family history including diabetes, heart disease, cancer. Review of Systems Constitutional: Reports: Malaise, Weakness, Fatigue. Denies: Chills, Fever, Weight Change HEENT: Denies: Head Aches, Sinus Congestion, Sinus Drainage Cardiovascular: Denies: Chest Pain, Palpitations Respiratory: Denies: Cough, Shortness of breath at rest, Sputum production Gastrointestinal: Reports: Abdominal Pain, Nausea. Denies: Vomiting Genitourinary: Denies: Dysuria Musculoskeletal: Denies: Joint Pain, Joint Tenderness Skin: Denies: Rash, Wounds Neurological: Reports: Confusion. Denies: Focal weakness, Numbness, Tingling Psychiatric: Denies: Anxiety, Depression, Homicidal Ideations, Suicidal Ideations Hematologic/ Lymphatic: Denies: Easy Bruising, Easy Bleeding VTE Information - Inpt Only VTE Present on Admission: No VTE Mechan Device Prophylaxis: SCD's VTE Pharm Prophylaxis ordered?: Yes Subjective: Laying in the ED bed, intermittently alert, fatigued, will awaken to stimuli. Objective: Physical Examination: General: awakens to stimuli, intermittently alert, able to appropriate answer orientation questions once more alert x > 3 and cooperative, laying in the ED bed in no apparent distress, lethargic, fatigued. Skin: normal color, turgor, no icterus, cyanosis. HEENT: AT/NC, EOMI, PERRLA, dry MM, no carotid bruits or JVD noted. Lungs: Decreased effort, mild decrease BL bases, no rales, ronchi or wheezing. Heart: Mildly tachycardic with regular; no gallop, rub audible. Abdomen: soft, thin habitus, generalized mild discomfort to palpation, ND, decreased BS, no HSM. Extremities: no cyanosis, clubbing, or edema. Neurological: awakens to stimuli, intermittently alert, able to appropriate answer orientation questions once more alert x > 3 and cooperative, laying in the ED bed in no apparent distress, lethargic, fatigued; cognitive function not baseline intact; pupils equally reactive to light and accomodation; cranial nerves II-XII grossly normal, moving all 4 extremities but strength severely globally decreased secondary to acute presentation. Psychiatric: affect appears fatigued, lethargic, no acute evidence of depressive or anxiety feelings. - Physical Exam Vital Signs Temp Pulse Resp BP Pulse Ox 97.8 F 122 H 18 104/72 99 11/05/17 12:14 11/05/17 12:14 11/05/17 12:14 11/05/17 12:14 11/05/17 12:14 Oxygen Delivery Method Room Air Weight: 108 lb 3.951 oz Body Mass Index (BMI) 16.9 Finger Stick Blood Glucose 297 Laboratory Tests Past 24 Hrs 11/05/17 11/05/17 11/05/17 13:13 13:13 13:13 WBC 13.5 H RBC 5.17 Hgb 13.0 Hct 42.0 MCV 81.2 MCH 25.1 L MCHC 31.0 L RDW 15.8 H RDW Differential 46.5 H Plt Count 595 H MPV 9.7 Immature Gran % (Auto) 0.300 Neut % (Auto) 70.1 H Lymph % (Auto) 26.1 [place] % (Auto) 3.2 Eos % (Auto) 0.2 Baso % (Auto) 0.1 Absolute Neuts (auto) 9.5 H Absolute Lymphs (auto) 3.52 Total Counted Not Reportable Sodium 124 L Potassium 4.7 Chloride 84 L Carbon Dioxide 11.0 L Anion Gap 29 H BUN 25 H Creatinine 1.73 H Estim Creat Clear Calc 39.20 Est GFR (MDRD) Af Amer 47 L Est GFR (MDRD) Non-Af 39 L BUN/Creatinine Ratio 14.5 Glucose 738 H* Calcium 9.4 Urine Color Urine Clarity Urine pH Ur Specific [place] Urine Protein Urine Glucose (UA) Urine Ketones Urine Occult Blood Urine Nitrite Urine Bilirubin Urine Urobilinogen Ur Leukocyte Esterase Urine RBC Urine WBC Ur Squamous Epith Cells Urine Bacteria Urine Mucus Acetone Level Pending 11/05/17 13:35 WBC RBC Hgb Hct MCV MCH MCHC RDW RDW Differential Plt Count MPV Immature Gran % (Auto) Neut % (Auto) Lymph % (Auto) [place] % (Auto) Eos % (Auto) Baso % (Auto) Absolute Neuts (auto) Absolute Lymphs (auto) Total Counted Sodium Potassium Chloride Carbon Dioxide Anion Gap BUN Creatinine Estim Creat Clear Calc Est GFR (MDRD) Af Amer Est GFR (MDRD) Non-Af BUN/Creatinine Ratio Glucose Calcium Urine Color Straw Urine Clarity Sl. Cloudy Urine pH 5.0 Ur Specific [place] 1.015 Urine Protein 15 H Urine Glucose (UA) 1000 H Urine Ketones 150 H Urine Occult Blood 10 H Urine Nitrite Negative Urine Bilirubin Negative Urine Urobilinogen Normal Ur Leukocyte Esterase 100 H Urine RBC Pending Urine WBC Pending Ur Squamous Epith Cells Pending Urine Bacteria Pending Urine Mucus Pending Acetone Level POC Glucose 11/05/17 12:42 POC Glucose > 500 H* Assessment/Plan All Active Problems Acute hyperglycemia (Acute) Abscess of leg, left (Acute) Hyperglycemia (Acute) DKA (diabetic ketoacidoses) (Acute) KANU (acute kidney injury) (Acute) Narcotic withdrawal (Acute) The patient is a 22 y/o F w/ PMHx: Diabetes mellitus type I with non-compliance (10/29/17 HgbA1c 15.4%), Tobacco use, Moderate to Severe Protein-Calorie Malnutrition, Frequent admissions for HHS and DKA, most recently discharged on 10/30/17 who re-presents to the [facility] ED on 11/05/17 with reported compliance but ongoing elevated BS at home with no recent illness. (1) Acute Encephalopathy, Electrolyte Disturbances secondary to Acute DKA w/ Diabetes mellitus type I: In the ED work-up included T 97.8, heart rate 122, BP 104/72, respiratory rate 18, 99% room air, CBC with WBC 13.5, hemoglobin 13, platelet 595 with left shift, BMP with sodium 124, chloride 84, carbon dioxide 11, anion gap 29, BUN/Cr 25/1.73 (recent discharage Cr 1.21, baseline Cr 0.7-1), glucose 738, UA w/ protein 15, glucose 1000, ketones 150, occult blood 10, leukocyte esterase 10 with remainder of UA pending, acetone pending. Patient started on an insulin drip in the ED. Will admit to ICU given insulin drip and frequent BS/BMP check needs, continue on insulin drip, check serial K+, glucose w/ IVF changes pending these levels, serial chemistry, obtain mag, phos daily w/ repletion as needed, transition to home SC regimen when gap closed w/ overlap on drip, nutrition consultation. Encouraged diet and insulin regimen compliance. (2) Acute kidney injury: Secondary to #1, DKA. Admission BUN/Cr 25/1.73, prior baseline creatinine noted to be 0.7-1.0 but recent discharge on 10/30/17 Cr 1.21 improved as KANU also upon recent presentation. Will continue to aggressively hydrate, hold nephrotoxic medications and repeat chemistry in AM. (3) Moderate to Severe Protein-Calorie Malnutrition: Evidenced per BMI, habitus, muscle and fat loss, nutrition consulted as noted. (4) Tobacco Abuse: Encouraged cessation, inpatient consultation per RT, NR if desired. (5) GI Prophylaxis: PPI. (6) DVT prophylaxis: SCDs, heparin. Code Visit Inpatient E&M: 53925 Init Hosp L3
[2017-11-05 14:29] LABS: Bacteria RARE /hpf (None Seen)
--- NOTE | 2017-11-05 14:30 | ED.DCSUM_ITS ---
- ER Visit Summary Date of Service: 11/05/17 Chief Complaint: Blood sugar greater than 600 History of Present Illness: The patient is a 22 F who has history of type 1 diabetes since age of 4 presents with elevated blood sugar, shortness of breath , thirst, poly-dyspnea, polyuria and lightheadedness. She denies headache, visual, ocular auditory symptoms. She denies any upper respiratory symptoms or viral type symptoms. She does complain of nausea with vague cramping abdominal pain. She does report vomiting. She denies diarrhea. She denies dysuria, hematuria or urgency. She denies any skin lesions. She denies paresthesia, anesthesia or motor weakness. Physical Examination: Patient appears ill. She is tachycardic. HEENT exam is remarkable dry mucosa and tongue. Pupils are equal round reactive. Extra muscle intact. Sclerae anicteric. Conjunctive is not injected. TMs normal. Nares patent. She does have a piercing noted. Uvula is midline. There is no erythema or exudate of the posterior pharynx. Trach is midline. There is no cervical lymphadenopathy. There is no stridor. Heart is regular without murmur , gallop or rub. Lungs are clear to auscultation. Abdomen is soft with minimal tenderness without guarding or rebound tenderness. There is no dermatologic lesions noted. There is no CVA tenderness noted. Patient is alert and oriented ?3. Motor is 5 over 5. Sensory is intact. DTRs are symmetric with no clonus or Babinski sign. Cranial 2 through 12 are intact. Cerebellar testing is normal. Test Results: EKG sinus rhythm rate of 98 and completely normal. UA is remarkable for leukoesterase and trace blood with glucose and ketones noted. CBC is remarkable white count 13.5 thousand. Electrolytes panel reveals a sodium 124, potassium 4.7, chloride 84, CO2 of 29 with a -29, glucose of 738 and BUN and creatinine of 25 1.73. Emergency Department Course and Treatment: Clinically patient is in DKA with ketotic odor to her breath. She received a 20 cc/kg bolus. Once I was informed that the nursing staff was only able to get a 24-gauge needle in place a 20-gauge right external jugular line was placed by me. After fluid bolus patient to receive 0.1 U/kg of insulin. DKA order set was initiated. Treatment Plan: Treat for DKA and admission ICU Disposition: Admission ICU Impression: 1. Diabetic ketoacidosis 2. Pseudohyponatremia 3. Acute kidney injury This note was generated with [employer] dictation software. It may contain incorrect words, spelling, and punctuation that were not noted in review of the chart prior to signing ED Disposition - Plan for ED Patient: Chief Complaint: Hyperglycemia Referrals: Tianna Peña MD [Primary Care Provider] -
--- NOTE | 2017-11-05 14:34 | NURSING ---
DR BARNES FOR DR PATRICK
--- NOTE | 2017-11-05 14:36 | HP.PCM_ITS ---
Problem List (1) DKA (diabetic ketoacidoses) Status: Acute Qualifiers: Diabetes mellitus type: type 1 Diabetes mellitus complication detail: without coma Qualified Code(s): E10.10 - Type 1 diabetes mellitus with ketoacidosis without coma (2) KANU (acute kidney injury) Status: Acute (3) Protein calorie malnutrition Status: Chronic Qualifiers: Protein-calorie malnutrition severity: severe Qualified Code(s): E43 - Unspecified severe protein-calorie malnutrition (4) Tobacco user Status: Chronic History of Present Illness Date of Admission: 11/05/17 Chief Complaint: Elevated BS The patient is a 22 y/o F w/ PMHx: Diabetes mellitus type I with non-compliance (10/29/17 HgbA1c 15.4%), Tobacco use, Moderate to Severe Protein-Calorie Malnutrition, Frequent admissions for HHS and DKA, most recently discharged on who re-presents to the [facility] ED on 11/05/17 with reported compliance but ongoing elevated BS at home with no recent illness. She states that she felt well until day of ED presentation with currently some nausea and abdominal vague discomfort. In the emergency room patient is fatigued, lethargic and intermittently alert. Only family that she has in town as her father. In the ED work-up included T 97.8, heart rate 122, BP 104/72, respiratory rate 18, 99% room air, CBC with WBC 13.5, hemoglobin 13, platelet 595 with left shift, BMP with sodium 124, chloride 84, carbon dioxide 11, anion gap 29, BUN/Cr 25/1.73 ( recent discharage Cr 1.21, baseline Cr 0.7-1), glucose 738, UA w/ protein 15, glucose 1000, ketones 150, occult blood 10, leukocyte esterase 10 with remainder of UA pending, acetone pending. Past Medical History Past Medical History (Chronic Problems): Chronic Problems Protein calorie malnutrition (Chronic) Homeless (Chronic) Tobacco user (Chronic) DM type 1 (diabetes mellitus, type 1) (Chronic) Allergies Penicillins Allergy (Verified 11/05/17 12:14) Hives Home Medications: Ambulatory Orders Medication Instructions Recorded Insulin Aspart [Novolog Flexpen] See Protocol SC TIDCM 02/23/13 Insulin Degludec [Tresiba 30 unit SQ QHS 10/28/17 Flextouch U-100] Surgical History: no surgical history Psychiatric History: No pertinent psych hx CLINICAL PHARMACY TECHNICIAN History: No pertinent CLINICAL PHARMACY TECHNICIAN history Lives: Alone Smoking Status: Current every day smoker - One half pack per day cigarette tobacco usage. Tobacco Use: Cigarettes Alcohol: None Drugs: None - *Family History Maternal History Items: - - Patient denies any marked maternal or paternal family history including diabetes, heart disease, cancer. Paternal History Items: - - Patient denies any marked maternal or paternal family history including diabetes, heart disease, cancer. Review of Systems Constitutional: Reports: Malaise, Weakness, Fatigue. Denies: Chills, Fever, Weight Change HEENT: Denies: Head Aches, Sinus Congestion, Sinus Drainage Cardiovascular: Denies: Chest Pain, Palpitations Respiratory: Denies: Cough, Shortness of breath at rest, Sputum production Gastrointestinal: Reports: Abdominal Pain, Nausea. Denies: Vomiting Genitourinary: Denies: Dysuria Musculoskeletal: Denies: Joint Pain, Joint Tenderness Skin: Denies: Rash, Wounds Neurological: Reports: Confusion. Denies: Focal weakness, Numbness, Tingling Psychiatric: Denies: Anxiety, Depression, Homicidal Ideations, Suicidal Ideations Hematologic/ Lymphatic: Denies: Easy Bruising, Easy Bleeding VTE Information - Inpt Only VTE Present on Admission: No VTE Mechan Device Prophylaxis: SCD's VTE Pharm Prophylaxis ordered?: Yes Subjective: Laying in the ED bed, intermittently alert, fatigued, will awaken to stimuli. Objective: Physical Examination: General: awakens to stimuli, intermittently alert, able to appropriate answer orientation questions once more alert x > 3 and cooperative, laying in the ED bed in no apparent distress, lethargic, fatigued. Skin: normal color, turgor, no icterus, cyanosis. HEENT: AT/NC, EOMI, PERRLA, dry MM, no carotid bruits or JVD noted. Lungs: Decreased effort, mild decrease BL bases, no rales, ronchi or wheezing. Heart: Mildly tachycardic with regular; no gallop, rub audible. Abdomen: soft, thin habitus, generalized mild discomfort to palpation, ND, decreased BS, no HSM. Extremities: no cyanosis, clubbing, or edema. Neurological: awakens to stimuli, intermittently alert, able to appropriate answer orientation questions once more alert x > 3 and cooperative, laying in the ED bed in no apparent distress, lethargic, fatigued; cognitive function not baseline intact; pupils equally reactive to light and accomodation; cranial nerves II-XII grossly normal, moving all 4 extremities but strength severely globally decreased secondary to acute presentation. Psychiatric: affect appears fatigued, lethargic, no acute evidence of depressive or anxiety feelings. - Physical Exam Vital Signs Temp Pulse Resp BP Pulse Ox 97.8 F 122 H 18 104/72 99 11/05/17 12:14 11/05/17 12:14 11/05/17 12:14 11/05/17 12:14 11/05/17 12:14 Oxygen Delivery Method Room Air Weight: 108 lb 3.951 oz Body Mass Index (BMI) 16.9 Finger Stick Blood Glucose 297 Laboratory Tests Past 24 Hrs 11/05/17 11/05/17 11/05/17 13:13 13:13 13:13 WBC 13.5 H RBC 5.17 Hgb 13.0 Hct 42.0 MCV 81.2 MCH 25.1 L MCHC 31.0 L RDW 15.8 H RDW Differential 46.5 H Plt Count 595 H MPV 9.7 Immature Gran % (Auto) 0.300 Neut % (Auto) 70.1 H Lymph % (Auto) 26.1 [place] % (Auto) 3.2 Eos % (Auto) 0.2 Baso % (Auto) 0.1 Absolute Neuts (auto) 9.5 H Absolute Lymphs (auto) 3.52 Total Counted Not Reportable Sodium 124 L Potassium 4.7 Chloride 84 L Carbon Dioxide 11.0 L Anion Gap 29 H BUN 25 H Creatinine 1.73 H Estim Creat Clear Calc 39.20 Est GFR (MDRD) Af Amer 47 L Est GFR (MDRD) Non-Af 39 L BUN/Creatinine Ratio 14.5 Glucose 738 H* Calcium 9.4 Urine Color Urine Clarity Urine pH Ur Specific [place] Urine Protein Urine Glucose (UA) Urine Ketones Urine Occult Blood Urine Nitrite Urine Bilirubin Urine Urobilinogen Ur Leukocyte Esterase Urine RBC Urine WBC Ur Squamous Epith Cells Urine Bacteria Urine Mucus Acetone Level Pending 11/05/17 13:35 WBC RBC Hgb Hct MCV MCH MCHC RDW RDW Differential Plt Count MPV Immature Gran % (Auto) Neut % (Auto) Lymph % (Auto) [place] % (Auto) Eos % (Auto) Baso % (Auto) Absolute Neuts (auto) Absolute Lymphs (auto) Total Counted Sodium Potassium Chloride Carbon Dioxide Anion Gap BUN Creatinine Estim Creat Clear Calc Est GFR (MDRD) Af Amer Est GFR (MDRD) Non-Af BUN/Creatinine Ratio Glucose Calcium Urine Color Straw Urine Clarity Sl. Cloudy Urine pH 5.0 Ur Specific [place] 1.015 Urine Protein 15 H Urine Glucose (UA) 1000 H Urine Ketones 150 H Urine Occult Blood 10 H Urine Nitrite Negative Urine Bilirubin Negative Urine Urobilinogen Normal Ur Leukocyte Esterase 100 H Urine RBC Pending Urine WBC Pending Ur Squamous Epith Cells Pending Urine Bacteria Pending Urine Mucus Pending Acetone Level POC Glucose 11/05/17 12:42 POC Glucose > 500 H* Assessment/Plan All Active Problems Acute hyperglycemia (Acute) Abscess of leg, left (Acute) Hyperglycemia (Acute) DKA (diabetic ketoacidoses) (Acute) KANU (acute kidney injury) (Acute) Narcotic withdrawal (Acute) The patient is a 22 y/o F w/ PMHx: Diabetes mellitus type I with non-compliance (10/29/17 HgbA1c 15.4%), Tobacco use, Moderate to Severe Protein-Calorie Malnutrition, Frequent admissions for HHS and DKA, most recently discharged on who re-presents to the [facility] ED on 11/05/17 with reported compliance but ongoing elevated BS at home with no recent illness. (1) Acute Encephalopathy, Electrolyte Disturbances secondary to Acute DKA w/ Diabetes mellitus type I: In the ED work-up included T 97.8, heart rate 122, BP 104/72, respiratory rate 18, 99% room air, CBC with WBC 13.5, hemoglobin 13, platelet 595 with left shift, BMP with sodium 124, chloride 84, carbon dioxide 11, anion gap 29, BUN/Cr 25/1.73 (recent discharage Cr 1.21, baseline Cr 0.7-1) , glucose 738, UA w/ protein 15, glucose 1000, ketones 150, occult blood 10, leukocyte esterase 10 with remainder of UA pending, acetone pending. Patient started on an insulin drip in the ED. Will admit to ICU given insulin drip and frequent BS/BMP check needs, continue on insulin drip, check serial K+, glucose w/ IVF changes pending these levels, serial chemistry, obtain mag, phos daily w / repletion as needed, transition to home SC regimen when gap closed w/ overlap on drip, nutrition consultation. Encouraged diet and insulin regimen compliance. (2) Acute kidney injury: Secondary to #1, DKA. Admission BUN/Cr 25/1.73, prior baseline creatinine noted to be 0.7-1.0 but recent discharge on 10/30/17 Cr 1.21 improved as KANU also upon recent presentation. Will continue to aggressively hydrate, hold nephrotoxic medications and repeat chemistry in AM. (3) Moderate to Severe Protein-Calorie Malnutrition: Evidenced per BMI, habitus , muscle and fat loss, nutrition consulted as noted. (4) Tobacco Abuse: Encouraged cessation, inpatient consultation per RT, NR if desired. (5) GI Prophylaxis: PPI. (6) DVT prophylaxis: SCDs, heparin. Code Visit Inpatient E&M: 83397 Init Hosp L3
--- NOTE | 2017-11-05 14:44 | NURSING ---
ICU DIABETIC KETOACIDOSIS WHITE
[2017-11-05 14:50] LABS: Bedside Glucose > 500 mg/dL (70-110)
--- NOTE | 2017-11-05 15:42 | NURSING ---
108 OBS MOLLY CP
[2017-11-05] MEDS: 0.9% Normal Saline 1,000 ML 2000 ML IV (16:00)
[2017-11-05] MEDS: 0.9% NaCl Peripheral Flush Adult/Peds IV ×4 (17:18→22:35)
[2017-11-05 17:28] LABS: Magnesium 2.4 mg/dL (1.6-2.6); Phosphorus 3.4 mg/dL (2.5-4.9)
[2017-11-05 17:40] LABS: Bedside Glucose > 500 mg/dL (70-110)
[2017-11-05 17:40] LABS: Bedside Glucose > 500 mg/dL (70-110)
[2017-11-05] MEDS: Pantoprazole Sodium 20 MG Tablet PO (18:02)
[2017-11-05] MEDS: proMETHazine 25 MG/ML Syringe 12.5 MG IV (18:10)
[2017-11-05 18:17] LABS: Anion Gap 26 (5-15); BUN 21 mg/dL (7-18); BUN/Creat Ratio 14.1 RATIO (10-20); Chloride 103 mmol/L (98-107); Creatinine, Serum 1.49 mg/dL (0.55-1.02); EST Glomerular Filtration Rate 46 mL/min (>60); Est Glom Filt Rate - Afr Amer 56 mL/min (>60); Estimated Creatinine Clearance 46.63 ml/min; Glucose 442 mg/dL (74-106); Potassium 3.5 mmol/L (3.5-5.1); Sodium Level 136 mmol/L (136-145)
[2017-11-05 18:20] LABS: Bedside Glucose 326 mg/dL (70-110)
[2017-11-05] MEDS: 0.9% Normal Saline 1,000 ML 150 ML IV (18:43)
[2017-11-05 19:21] LABS: Bedside Glucose 235 mg/dL (70-110)
[2017-11-05] MEDS: 0.9% NaCl IVPB Med Flush (250 mL) 15 ML IV (19:38)
[2017-11-05] MEDS: Dext 5%-0.45% NS 1,000 ML 150 ML IV (19:51)
[2017-11-05 20:25] LABS: Bedside Glucose 260 mg/dL (70-110)
[2017-11-05 21:31] LABS: Bedside Glucose 213 mg/dL (70-110)
[2017-11-05 21:48] LABS: Pregnancy, Serum, hCG Quali. NEGATIVE Negative (0-9 Nonpreg)
[2017-11-05 21:48] LABS: Anion Gap 15 (5-15); BUN 16 mg/dL (7-18); Calcium,Total 7.9 mg/dL (8.5-10.1); Chloride 108 mmol/L (98-107); Creatinine, Serum 1.07 mg/dL (0.55-1.02); EST Glomerular Filtration Rate 67 mL/min (>60); Est Glom Filt Rate - Afr Amer 82 mL/min (>60); Estimated Creatinine Clearance 64.93 ml/min; Glucose 227 mg/dL (74-106); Potassium 4.1 mmol/L (3.5-5.1); Sodium Level 139 mmol/L (136-145)
[2017-11-05] MEDS: Ondansetron 4 MG/2 ML Vial IV (22:35)
[2017-11-05 22:40] LABS: Bedside Glucose 200 mg/dL (70-110)
[2017-11-05 23:35] LABS: Bedside Glucose 169 mg/dL (70-110)
[2017-11-06] VITALS (13 sets, daily range): BP systolic 112–145; BP diastolic 72–93; PULSE 91–118; RESP 12–18; TEMP 36–37.2; O2SAT 97–100
[2017-11-06 00:36] LABS: Bedside Glucose 152 mg/dL (70-110)
[2017-11-06 01:31] LABS: Bedside Glucose 141 mg/dL (70-110)
[2017-11-06 01:45] LABS: Anion Gap 8 (5-15); BUN 14 mg/dL (7-18); BUN/Creat Ratio 12.6 RATIO (10-20); Calcium,Total 7.8 mg/dL (8.5-10.1); Chloride 109 mmol/L (98-107); Creatinine, Serum 1.11 mg/dL (0.55-1.02); EST Glomerular Filtration Rate 65 mL/min (>60); Est Glom Filt Rate - Afr Amer 78 mL/min (>60); Estimated Creatinine Clearance 62.59 ml/min; Glucose 137 mg/dL (74-106); Potassium 4.1 mmol/L (3.5-5.1); Sodium Level 139 mmol/L (136-145)
[2017-11-06] MEDS: 0.9% NaCl Peripheral Flush Adult/Peds IV ×2 (02:49→04:59)
[2017-11-06] MEDS: Dext 5%-0.45% NS 1,000 ML 150 ML IV (02:50)
[2017-11-06 04:10] LABS: Bedside Glucose 126 mg/dL (70-110)
[2017-11-06 05:23] LABS: Absolute Lymphocyte Count 4.53 X10^3/ul (0.83-4.51); Absolute Neutrophil Count 5.9 X10^3/uL (2.0-7.7); Basophil# 0.01 X10^3/uL; Basophil% 0.1 % (0-1); Differential Indicated SCAN CRITERIA MET; Eosinophil# 0.09 X10^3/uL; Eosinophils% 0.8 % (0-5); Hematocrit 31.2 % (37-47); Hemoglobin 10.1 g/dl (12.0-15.0); Lymphocyte # 4.53 X10^3/ul (4.0); Lymphocyte % 40.9 % (19-41); Mean Corp Hgb Conc 32.4 g/gl (32-36); Mean Corpuscular Hgb 25.4 pg (27.0-32.0); Mean Corpuscular Volume 78.6 fL (81-99); Mean Platelet Vol. 8.7 fl (6.2-12.0); Monocyte# 0.58 X10^3/uL; Monocyte% 5.2 % (0-10); Neutrophil # 5.86 X10^3/uL (2.7-7.7); Neutrophil % 52.9 % (47-70); POSITIVE COUNT NO; POSITIVE DIFFERENTIAL NO; POSITIVE MORPHOLOGY YES; Platelet Count 460 K/mm3 (150-450); RBC Distribution Width CV 15.7 % (11.6-14.6); Red Blood Count 3.97 M/mm3 (4.2-5.4); White Blood Count 11.1 K/mm3 (4.4-11.0)
[2017-11-06 05:28] LABS: ALB/GLOB Ratio 0.7 RATIO (0.9-2.4); AST(SGOT) 21 U/L (15-37); Alanine Aminotransfer ALT/SGPT 24 U/L (13-56); Albumin, Serum 2.3 g/dL (3.2-5.0); Alkaline Phosphatase 93 U/L (45-117); Anion Gap 8 (5-15); BUN 12 mg/dL (7-18); BUN/Creat Ratio 11.2 RATIO (10-20); Calcium,Total 7.9 mg/dL (8.5-10.1); Chloride 112 mmol/L (98-107); Creatinine, Serum 1.07 mg/dL (0.55-1.02); EST Glomerular Filtration Rate 67 mL/min (>60); Est Glom Filt Rate - Afr Amer 82 mL/min (>60); Estimated Creatinine Clearance 64.93 ml/min; Globulin 3.2 g/dL (2.2-4.2); Glucose 97 mg/dL (74-106); Potassium 3.5 mmol/L (3.5-5.1); Protein, Total 5.5 g/dL (6.4-8.2); Sodium Level 144 mmol/L (136-145)
[2017-11-06 06:56] LABS: Bedside Glucose 69 mg/dL (70-110)
[2017-11-06 07:25] LABS: Bedside Glucose 61 mg/dL (70-110)
[2017-11-06 07:56] LABS: Bedside Glucose 64 mg/dL (70-110)
[2017-11-06] MEDS: Insulin Lispro 100 UNIT/ML INSULN.PEN SC ×3 (11:04→21:12)
[2017-11-06 11:11] LABS: Bedside Glucose 392 mg/dL (70-110)
[2017-11-06 11:11] LABS: Bedside Glucose 258 mg/dL (70-110)
--- NOTE | 2017-11-06 12:06 | CASEMGMT ---
See assessment. SW spoke w/pt in ICU in regard to home situation, mental health, substance abuse, diabetes. Pt states lives alone, is managing fine at home. Pt states has all needed equipment and meds for diabetes. Pt states she has been diabetic since age [age]. Pt states took over the care of her diabetes when a teenager. Pt does not think she needs any additional education in regard to diabetes, does confirm at times she does not do what she is supposed to do. SW asked about history of substance abuse. 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 SW inquired how she is staying clean. Pt states she does not hang around with the people that she used to hang around with. Pt is also in counseling at [facility] and doees find it helpful. Pt denies any mental health issues, denies being suicidal or homicidal at this time. Pt states may need transport home, in the past she was able to get transportation home through [facility]. SW explained that once we know when pt is ready for discharge we can look at ways to get pt home. Pt states understanding. Pt also states is supposed to be getting established with DELGADO Hernandez, is not certain about an appointment. SW called DELGADO Pedro' office, message left to call this SW back to set up an appt for pt. SARAH Connor, COMBER TENDER
--- NOTE | 2017-11-06 13:29 | CASEMGMT ---
ADENIKE spoke w/DELGADO Hernandez's office, appointment set up for December 12 at 2:30pm. SW gave the information to RN to pass on to pt as pt is sleeping, and also put the information in the computer for the appointment. SARAH Connor,BOX FINISHER
--- NOTE | 2017-11-06 16:52 | PCM.PN.HOSP ---
Subjective: f/u for DKA and KANU Patient seen and examined Sleeping at this time No new issues reported from nursing Vitals/I&O's: Vital Signs Temp Pulse Resp BP Pulse Ox 96.8 F L 91 18 121/74 H 97 11/06/17 16:15 11/06/17 16:15 11/06/17 16:15 11/06/17 16:15 11/06/17 16:15 Oxygen Delivery Method Room Air Weight: 54.6 kg Body Mass Index (BMI) 17.4 Intake and Output for Last 24 Hours 11/04/17 11/05/17 11/06/17 23:59 23:59 23:59 Intake Total 2740.8 / 2740.8 2084 / 2084 Output Total 1300 / 1300 1500 / 1500 Balance 1440.8 / 1440.8 584 / 584 General: - - sleeping Lungs: - - non labored Abdomen: - - MWR Laboratory Results 11/05/17 16:02: POC Glucose > 500 H* 11/05/17 17:01: POC Glucose > 500 H* 11/05/17 17:15: Sodium 136, Potassium 3.5, Chloride 103, Carbon Dioxide 7.0 L*, Anion Gap 26 H, BUN 21 H, Creatinine 1.49 H, Estim Creat Clear Calc 46.63, Est GFR (MDRD) Af Amer 56 L, Est GFR (MDRD) Non-Af 46 L, BUN/Creatinine Ratio 14.1, Glucose 442 H, Calcium 7.0 L 11/05/17 18:15: POC Glucose 326 H 11/05/17 19:14: POC Glucose 235 H 11/05/17 20:21: POC Glucose 260 H 11/05/17 21:22: POC Glucose 213 H 11/05/17 21:25: Sodium 139, Potassium 4.1, Chloride 108 H, Carbon Dioxide 16.0 L, Anion Gap 15, BUN 16, Creatinine 1.07 H, Estim Creat Clear Calc 64.93, Est GFR (MDRD) Af Amer 82, Est GFR (MDRD) Non-Af 67, BUN/Creatinine Ratio 15.0, Glucose 227 H, Calcium 7.9 L 11/05/17 22:32: POC Glucose 200 H 11/05/17 23:30: POC Glucose 169 H 11/06/17 00:28: POC Glucose 152 H 11/06/17 01:18: POC Glucose 141 H 11/06/17 01:25: Sodium 139, Potassium 4.1, Chloride 109 H, Carbon Dioxide 22.0, Anion Gap 8, BUN 14, Creatinine 1.11 H, Estim Creat Clear Calc 62.59, Est GFR (MDRD) Af Amer 78, Est GFR (MDRD) Non-Af 65, BUN/Creatinine Ratio 12.6, Glucose 137 H, Calcium 7.8 L 11/06/17 04:06: POC Glucose 126 H 11/06/17 04:55: WBC 11.1 H, RBC 3.97 L, Hgb 10.1 L, Hct 31.2 L, MCV 78.6 L, MCH 25.4 L, MCHC 32.4, RDW 15.7 H, RDW Differential 45.0 H, Plt Count 460 H, MPV 8.7, Immature Gran % (Auto) 0.100, Neut % (Auto) 52.9, Lymph % (Auto) 40.9, [place] % (Auto) 5.2, Eos % (Auto) 0.8, Baso % (Auto) 0.1, Absolute Neuts (auto) 5.9, Absolute Lymphs (auto) 4.53 H, Total Counted Not Reportable 11/06/17 04:55: Sodium 144, Potassium 3.5, Chloride 112 H, Carbon Dioxide 24.0, Anion Gap 8, BUN 12, Creatinine 1.07 H, Estim Creat Clear Calc 64.93, Est GFR (MDRD) Af Amer 82, Est GFR (MDRD) Non-Af 67, BUN/Creatinine Ratio 11.2, Glucose 97, Calcium 7.9 L, Total Bilirubin 0.30, AST 21, ALT 24, Alkaline Phosphatase 93, Total Protein 5.5 L, Albumin 2.3 L, Globulin 3.2, Albumin/Globulin Ratio 0.7 L 11/06/17 06:52: POC Glucose 69 L 11/06/17 07:21: POC Glucose 61 L 11/06/17 07:44: POC Glucose 64 L 11/06/17 09:21: POC Glucose 258 H 11/06/17 11:02: POC Glucose 392 H Current Medications Al Hydroxide/Mg Hydroxide (Mylanta Ii) 30 ml PO Q6H PRN PRN PRN Reason: Gastric burning Dextrose (D50w Syringe) 0 gm IV X1 PRN; Protocol PRN Reason: HYPOGLYCEMIA Glucagon () 1 mg IM .X1 PRN PRN Reason: Hypoglycemia Potassium Chloride/Sodium Chloride (Kcl 20meq In 0.45% Ns 1000ml) 1,000 mls @ 100 mls/hr IV .Q10H MANUELITO Last Admin: 11/06/17 09:32 Dose: 100 mls/hr Insulin Glargine (Lantus (Bkc)) 30 units SC QHS MANUELITO Last Admin: 11/06/17 02:47 Dose: 30 units Insulin Human Lispro (Humalog Kwikpen (Bkc)) 0 unit SC ACHS MANUELITO PRN Reason: Protocol Last Admin: 11/06/17 11:04 Dose: 6 u Magnesium Hydroxide (Milk Of Magnesia) 30 ml PO DAILY PRN PRN PRN Reason: Constipation Nicotine (Nicoderm Cq (Pbkc)) 7 mg TRANSDERM. DAILY MANUELITO Last Admin: 11/06/17 09:31 Dose: 7 mg Ondansetron HCl (Zofran) 4 mg IV Q8H PRN PRN PRN Reason: NAUSEA Last Admin: 11/05/17 22:35 Dose: 4 mg Sodium Chloride () 5 - 30 ml IV UD PRN PRN Reason: SALINE FLUSH Last Admin: 11/06/17 04:59 Dose: 20 ml Medical Necessity - Tobacco Use Smoking Status: Current every day smoker Tobacco Use: Cigarettes Assessment/Plan All Active Problems Acute hyperglycemia (Acute) Abscess of leg, left (Acute) Hyperglycemia (Acute) DKA (diabetic ketoacidoses) (Acute) KANU (acute kidney injury) (Acute) Narcotic withdrawal (Acute) 1. DKA. Initially managed in the ICU with insulin drip. Anion gap has closed and patient has been transitioned from insulin drip to basal bolus SQ insulin fairly stable at this time. Poorly controlled DM1 with non adherence and compliance Ensure nephrology nurse and forging machine hand seeing 2. KANU. Secondary to dehydration from excessive osmotic diuresis. Improving with IVFs WIll continue for another 24 hrs. Code Visit Inpatient E&M: 02927 [facility] Hosp L3
--- NOTE | 2017-11-06 16:57 | PN_ITS ---
Subjective: f/u for DKA and KANU Patient seen and examined Sleeping at this time No new issues reported from nursing Vitals/I&O's: Vital Signs Temp Pulse Resp BP Pulse Ox 96.8 F L 91 18 121/74 H 97 11/06/17 16:15 11/06/17 16:15 11/06/17 16:15 11/06/17 16:15 11/06/17 16:15 Oxygen Delivery Method Room Air Weight: 54.6 kg Body Mass Index (BMI) 17.4 Intake and Output for Last 24 Hours 11/04/17 11/05/17 11/06/17 23:59 23:59 23:59 Intake Total 2740.8 / 2740.8 2084 / 2084 Output Total 1300 / 1300 1500 / 1500 Balance 1440.8 / 1440.8 584 / 584 General: - - sleeping Lungs: - - non labored Abdomen: - - MWR Laboratory Results 11/05/17 16:02: POC Glucose > 500 H* 11/05/17 17:01: POC Glucose > 500 H* 11/05/17 17:15: Sodium 136, Potassium 3.5, Chloride 103, Carbon Dioxide 7.0 L*, Anion Gap 26 H, BUN 21 H, Creatinine 1.49 H, Estim Creat Clear Calc 46.63, Est GFR (MDRD) Af Amer 56 L, Est GFR (MDRD) Non-Af 46 L, BUN/Creatinine Ratio 14.1, Glucose 442 H, Calcium 7.0 L 11/05/17 18:15: POC Glucose 326 H 11/05/17 19:14: POC Glucose 235 H 11/05/17 20:21: POC Glucose 260 H 11/05/17 21:22: POC Glucose 213 H 11/05/17 21:25: Sodium 139, Potassium 4.1, Chloride 108 H, Carbon Dioxide 16.0 L , Anion Gap 15, BUN 16, Creatinine 1.07 H, Estim Creat Clear Calc 64.93, Est GFR (MDRD) Af Amer 82, Est GFR (MDRD) Non-Af 67, BUN/Creatinine Ratio 15.0, Glucose 227 H, Calcium 7.9 L 11/05/17 22:32: POC Glucose 200 H 11/05/17 23:30: POC Glucose 169 H 11/06/17 00:28: POC Glucose 152 H 11/06/17 01:18: POC Glucose 141 H 11/06/17 01:25: Sodium 139, Potassium 4.1, Chloride 109 H, Carbon Dioxide 22.0, Anion Gap 8, BUN 14, Creatinine 1.11 H, Estim Creat Clear Calc 62.59, Est GFR ( MDRD) Af Amer 78, Est GFR (MDRD) Non-Af 65, BUN/Creatinine Ratio 12.6, Glucose 137 H, Calcium 7.8 L 11/06/17 04:06: POC Glucose 126 H 11/06/17 04:55: WBC 11.1 H, RBC 3.97 L, Hgb 10.1 L, Hct 31.2 L, MCV 78.6 L, MCH 25.4 L, MCHC 32.4, RDW 15.7 H, RDW Differential 45.0 H, Plt Count 460 H, MPV 8.7 , Immature Gran % (Auto) 0.100, Neut % (Auto) 52.9, Lymph % (Auto) 40.9, [place] % (Auto) 5.2, Eos % (Auto) 0.8, Baso % (Auto) 0.1, Absolute Neuts (auto) 5.9, Absolute Lymphs (auto) 4.53 H, Total Counted Not Reportable 11/06/17 04:55: Sodium 144, Potassium 3.5, Chloride 112 H, Carbon Dioxide 24.0, Anion Gap 8, BUN 12, Creatinine 1.07 H, Estim Creat Clear Calc 64.93, Est GFR ( MDRD) Af Amer 82, Est GFR (MDRD) Non-Af 67, BUN/Creatinine Ratio 11.2, Glucose 97, Calcium 7.9 L, Total Bilirubin 0.30, AST 21, ALT 24, Alkaline Phosphatase 93 , Total Protein 5.5 L, Albumin 2.3 L, Globulin 3.2, Albumin/Globulin Ratio 0.7 L 11/06/17 06:52: POC Glucose 69 L 11/06/17 07:21: POC Glucose 61 L 11/06/17 07:44: POC Glucose 64 L 11/06/17 09:21: POC Glucose 258 H 11/06/17 11:02: POC Glucose 392 H Current Medications Al Hydroxide/Mg Hydroxide (Mylanta Ii) 30 ml PO Q6H PRN PRN PRN Reason: Gastric burning Dextrose (D50w Syringe) 0 gm IV X1 PRN; Protocol PRN Reason: HYPOGLYCEMIA Glucagon () 1 mg IM .X1 PRN PRN Reason: Hypoglycemia Potassium Chloride/Sodium Chloride (Kcl 20meq In 0.45% Ns 1000ml) 1,000 mls @ 100 mls/hr IV .Q10H MANUELITO Last Admin: 11/06/17 09:32 Dose: 100 mls/hr Insulin Glargine (Lantus (Bkc)) 30 units SC QHS MANUELITO Last Admin: 11/06/17 02:47 Dose: 30 units Insulin Human Lispro (Humalog Kwikpen (Bkc)) 0 unit SC ACHS MANUELITO PRN Reason: Protocol Last Admin: 11/06/17 11:04 Dose: 6 u Magnesium Hydroxide (Milk Of Magnesia) 30 ml PO DAILY PRN PRN PRN Reason: Constipation Nicotine (Nicoderm Cq (Pbkc)) 7 mg TRANSDERM. DAILY MANUELITO Last Admin: 11/06/17 09:31 Dose: 7 mg Ondansetron HCl (Zofran) 4 mg IV Q8H PRN PRN PRN Reason: NAUSEA Last Admin: 11/05/17 22:35 Dose: 4 mg Sodium Chloride () 5 - 30 ml IV UD PRN PRN Reason: SALINE FLUSH Last Admin: 11/06/17 04:59 Dose: 20 ml Medical Necessity - Tobacco Use Smoking Status: Current every day smoker Tobacco Use: Cigarettes Assessment/Plan All Active Problems Acute hyperglycemia (Acute) Abscess of leg, left (Acute) Hyperglycemia (Acute) DKA (diabetic ketoacidoses) (Acute) KANU (acute kidney injury) (Acute) Narcotic withdrawal (Acute) 1. DKA. Initially managed in the ICU with insulin drip. Anion gap has closed and patient has been transitioned from insulin drip to basal bolus SQ insulin fairly stable at this time. Poorly controlled DM1 with non adherence and compliance Ensure internal salesperson and architecture professor seeing 2. KANU. Secondary to dehydration from excessive osmotic diuresis. Improving with IVFs WIll continue for another 24 hrs. Code Visit Inpatient E&M: 38343 [facility] Hosp L3
[2017-11-06 17:35] LABS: Bedside Glucose 304 mg/dL (70-110)
[2017-11-06 21:15] LABS: Bedside Glucose 383 mg/dL (70-110)
[2017-11-06 22:06] LABS: Bedside Glucose 343 mg/dL (70-110)
[2017-11-07 01:56] LABS: Bedside Glucose 87 mg/dL (70-110)
[2017-11-07 01:56] LABS: Bedside Glucose 54 mg/dL (70-110)
[2017-11-07 03:29] VITALS: BP 143/84; PULSE 104; RESP 16; TEMP 37; O2SAT 99
[2017-11-07 06:22] LABS: Absolute Lymphocyte Count 3.37 X10^3/ul (0.83-4.51); Absolute Neutrophil Count 5.5 X10^3/uL (2.0-7.7); Basophil# 0.02 X10^3/uL; Basophil% 0.2 % (0-1); Eosinophil# 0.04 X10^3/uL; Eosinophils% 0.4 % (0-5); Hematocrit 33.8 % (37-47); Hemoglobin 10.9 g/dl (12.0-15.0); Lymphocyte # 3.37 X10^3/ul (4.0); Lymphocyte % 34.5 % (19-41); Mean Corp Hgb Conc 32.2 g/gl (32-36); Mean Corpuscular Hgb 25.6 pg (27.0-32.0); Mean Corpuscular Volume 79.5 fL (81-99); Mean Platelet Vol. 9.4 fl (6.2-12.0); Monocyte# 0.78 X10^3/uL; Neutrophil # 5.51 X10^3/uL (2.7-7.7); Neutrophil % 56.5 % (47-70); Platelet Count 454 K/mm3 (150-450); RBC Distribution Width CV 15.9 % (11.6-14.6); RBC Distribution Width SD 45.1 fl (35.1-43.9); Red Blood Count 4.25 M/mm3 (4.2-5.4); White Blood Count 9.8 K/mm3 (4.4-11.0)
[2017-11-07 06:27] LABS: ALB/GLOB Ratio 0.6 RATIO (0.9-2.4); AST(SGOT) 83 U/L (15-37); Alanine Aminotransfer ALT/SGPT 41 U/L (13-56); Albumin, Serum 2.3 g/dL (3.2-5.0); Alkaline Phosphatase 126 U/L (45-117); Anion Gap 10 (5-15); BUN 9 mg/dL (7-18); Calcium,Total 7.9 mg/dL (8.5-10.1); Chloride 107 mmol/L (98-107); EST Glomerular Filtration Rate 73 mL/min (>60); Est Glom Filt Rate - Afr Amer 89 mL/min (>60); Estimated Creatinine Clearance 75.42 ml/min; Globulin 3.6 g/dL (2.2-4.2); Glucose 189 mg/dL (74-106); Potassium 4.2 mmol/L (3.5-5.1); Protein, Total 5.9 g/dL (6.4-8.2); Sodium Level 140 mmol/L (136-145)
[2017-11-07 06:29] LABS: POSITIVE COUNT NO; POSITIVE DIFFERENTIAL NO; POSITIVE MORPHOLOGY NO
[2017-11-07] MEDS: Insulin Lispro 100 UNIT/ML INSULN.PEN SC ×2 (06:58→11:58)
[2017-11-07 07:06] LABS: Bedside Glucose 347 mg/dL (70-110)
[2017-11-07 08:22] VITALS: BP 131/94; PULSE 110; RESP 16; TEMP 37; O2SAT 100
[2017-11-07] MEDS: diazePAM 5 MG Tablet 2.5 MG PO (10:09)
[2017-11-07 11:20] LABS: Bedside Glucose 446 mg/dL (70-110)
--- NOTE | 2017-11-07 11:35 | PCM.DC ---
- Discharge Diagnoses Current Active Problems: DKA KANU Poorly controlled diabetes type I You will use the following diet at home:: Calorie/Carbohydrate Controlled (specify 1200, 1400, etc) Your food should be the consistency of: Regular Your liquids should be the consistency of: Regular/Thin Discharge Activity: Return to Normal Activity, No Restrictions Allergies/Adverse Reactions: Allergies Penicillins Allergy (Verified 11/05/17 12:14) Hives Medications to take at Discharge Insulin Degludec [Tresiba Flextouch U-100] 30 unit SQ QHS 30 Days #1 insuln.pen 11/07/17 Insulin Lispro [Humalog KwikPen] 14 unit SC TIDAC 30 Days #1 insuln.pen 11/07/17 The following prescriptions were given: Insulin Degludec [Tresiba Flextouch U-100] 30 unit SQ QHS 30 Days #1 insuln.pen Insulin Lispro [Humalog KwikPen] 14 unit SC TIDAC 30 Days #1 insuln.pen Primary Care Physician: Tianna Peña MD [Primary Care Provider] - Test Results: Test results from this visit will be discussed in further detail at your follow-up appointment, if applicable. Please Follow Up With: Tiffany Hernandez NP-C When: Proposed Discharge Date: 11/07/17
--- NOTE | 2017-11-07 11:37 | PCM.DC.SUM ---
Discharge Date and Diagnosis Date of Admission: 11/05/17 Date of Discharge: 11/07/17 - Primary Discharge Diagnosis KANU DKA - Secondary Discharge Diagnosis Chronic Problems Protein calorie malnutrition (Chronic) Homeless (Chronic) Tobacco user (Chronic) DM type 1 (diabetes mellitus, type 1) (Chronic) Hospital Course and Treatment Operations: None Procedures: None Summary of Care Provided: The patient is a 22 year old F with history of poorly controlled type I DM. Admitted to the ICU on account of DKA with her blood glucose in the 700s. She was treated with an insulin drip, anion gap rapidly closed and then transitioned to basal bolus SQ insulin and her blood glucose levels have improved. Compliance appears to be an issue here. I believe patient may be a candidate fro an insulin pump. Today patient has visitation with her son and so has requested she be allowed to go home. Will be discharging her home this afternoon.[] Discharge Diet: 2400 Calorie Control Diet, Carb Control Diet Discharge Activity: Return to Normal Activity, No Restrictions Home Medications: Medications to take at Discharge Insulin Degludec [Tresiba Flextouch U-100] 30 unit SQ QHS 30 Days #1 insuln.pen 11/07/17 Insulin Lispro [Humalog KwikPen] 14 unit SC TIDAC 30 Days #1 insuln.pen 11/07/17 Following Prescrptions Were Given to Patient: Insulin Degludec [Tresiba Flextouch U-100] 30 unit SQ QHS 30 Days #1 insuln.pen Insulin Lispro [Humalog KwikPen] 14 unit SC TIDAC 30 Days #1 insuln.pen Primary Care Physician: Tianna Peña MD [Primary Care Provider] - Please Follow Up With: Tiffany Hernandez NP-C When: Disposition: Home Minutes spent on discharge:: 30 Patient Condition:: Good Medical Necessity - Tobacco Use Smoking Status: Current every day smoker Tobacco Use: Cigarettes Meaningful Use Info Meaningful Use Diagnoses (Choose all that apply): None applicable Code Visit Inpatient E&M: 36634 [facility] Hosp
[2017-11-07] MEDS: Insulin Lispro 100 UNIT/ML INSULN.PEN 10 UNIT SC (11:57)
[2017-11-07 13:15] VITALS: BP 131/90; PULSE 100; RESP 16; TEMP 36.6; O2SAT 99
--- NOTE | 2017-11-08 16:40 | CASEMGMT ---
RN CM Discharge Follow-up Phone Call: EDYTA: Phoebe Strata: 3 Call Date: 11/08/17 Discharge Date: 11/07/17 Time of Call: 1640 Duration: 1 min Admitting Diagnosis: Hyperglycemia RN CM attempted follow-up phone call after recent hospitalization. Line busy and unable to leave message.
== END 2017-11-07 13:20 | disposition home or self-care (01) | DRG 637 ==
LOC: ED 12:37 → ICU 15:24 → MS3 11-06 14:35
PROVIDERS: Admitting Provider Family Medicine; Emergency Provider Emergency Medicine; Family Provider Family Medicine; PCP Family Medicine; Visit Provider Internal Medicine
DX: E10.10 Type 1 diabetes mellitus with ketoacidosis without coma (principal); E43 Unspecified severe protein-calorie malnutrition; G93.40 Encephalopathy, unspecified; N17.9 Acute kidney failure, unspecified; Z68.1 Body mass index [BMI] 19.9 or less, adult; F17.210 Nicotine dependence, cigarettes, uncomplicated; E86.0 Dehydration; Z79.4 Long term (current) use of insulin
CPT/HCPCS: 36415; 80048; 80053; 81001; 82009; 82962; 83735; 84100; 84703; 85025; 93005; 97802; 99285; J7030; J7050; A4216; J0610; J2405; J7799

== ENCOUNTER 2017-12-22 17:39 | Emergency (ER) | payer OTHER, MEDICAID, SELFPAY ==
[2017-12-22] VITALS (7 sets, daily range): BP systolic 120–150; BP diastolic 75–112; PULSE 100–127; RESP 14–21; TEMP 36.8; O2SAT 98–100; BMI 19.3
[2017-12-22 17:50] LABS: Bedside Glucose 129 mg/dL (70-110)
--- NOTE | 2017-12-22 17:52 | CT_ITS ---
STUDY: CT ABDOMEN AND PELVIS WITHOUT CONTRAST REASON FOR EXAM: Female, 22 years old. Left-sided flank pain RADIATION DOSAGE (If Supplied By Facility): CTDIvol = ( 6.04 ) mGy, DLP = ( 312.60 ) mGycm TECHNIQUE: Transaxial images were obtained from the dome of the diaphragm to the symphysis pubis without oral contrast, and without intravenous contrast. Sagittal and coronal images were reconstructed. Individualized dose optimization techniques were used for this CT. COMPARISON: None. FINDINGS: The visualized lung bases are unremarkable. The visualized portions of the heart are within normal limits. Hepatomegaly is present. Normal gallbladder and extrahepatic biliary system. Normal spleen. Normal pancreas. Normal bilateral adrenal glands. The right kidney is globally enlarged. There is loss of renal sinus fat there is mild right perinephric stranding. Normal left kidney. Normal visualized stomach. Normal small intestine. Normal colon. The appendix is visualized and appears normal. Normal abdominal aorta. Normal inferior vena cava. Normal retroperitoneum. Normal urinary bladder. Uterus and adnexal structures are unremarkable. There is a tiny amount of free fluid in the deep right pelvis. There is a small umbilical hernia containing fat. Normal osseous structures. CT/Abdomen/Pelvis without Cont IMPRESSION: 1. Hepatomegaly. 2. Globally enlarged right kidney. There is loss of right renal sinus fat. There is mild right perinephric stranding. Renal ultrasound is recommended for further evaluation at this time. 3. The left kidney appears normal. 4. There is no evidence of nephro or ureterolithiasis, hydronephrosis, or hydroureter. 5. There is a small fat-containing umbilical hernia. 6. There is a tiny amount of free fluid in the deep right pelvis. Electronically Signed: Otis Dorado MD at 19:20 EDT , Service support ,
[2017-12-22] MEDS: Ketorolac 15 MG/ML Vial IV (18:15)
[2017-12-22] MEDS: 0.9% Normal Saline 1,000 ML IV.SOLN. 2000 ML IV (18:15)
[2017-12-22 18:29] LABS: ALB/GLOB Ratio 0.5 RATIO (0.9-2.4); AST(SGOT) 279 U/L (15-37); Alanine Aminotransfer ALT/SGPT 116 U/L (13-56); Albumin, Serum 2.6 g/dL (3.2-5.0); Alkaline Phosphatase 660 U/L (45-117); Anion Gap 11 (5-15); BUN 17 mg/dL (7-18); BUN/Creat Ratio 19.1 RATIO (10-20); Chloride 97 mmol/L (98-107); Creatinine, Serum 0.89 mg/dL (0.55-1.02); EST Glomerular Filtration Rate 83 mL/min (>60); Est Glom Filt Rate - Afr Amer 101 mL/min (>60); Estimated Creatinine Clearance 84.48 ml/min; Globulin 5.3 g/dL (2.2-4.2); Glucose 168 mg/dL (74-106); Potassium 4.1 mmol/L (3.5-5.1); Protein, Total 7.9 g/dL (6.4-8.2); Sodium Level 137 mmol/L (136-145)
[2017-12-22 18:32] LABS: Absolute Lymphocyte Count 3.55 X10^3/ul (0.83-4.51); Absolute Neutrophil Count 8.5 X10^3/uL (2.0-7.7); Basophil# 0.03 X10^3/uL; Basophil% 0.2 % (0-1); Eosinophil# 0.18 X10^3/uL; Eosinophils% 1.4 % (0-5); Hematocrit 29.8 % (37-47); Hemoglobin 9.4 g/dl (12.0-15.0); Lymphocyte # 3.55 X10^3/ul (4.0); Lymphocyte % 27.1 % (19-41); Mean Corp Hgb Conc 31.5 g/gl (32-36); Mean Corpuscular Hgb 25.1 pg (27.0-32.0); Mean Corpuscular Volume 79.7 fL (81-99); Mean Platelet Vol. 9.1 fl (6.2-12.0); Monocyte# 0.84 X10^3/uL; Monocyte% 6.4 % (0-10); Neutrophil # 8.46 X10^3/uL (2.7-7.7); Neutrophil % 64.7 % (47-70); POSITIVE COUNT NO; POSITIVE DIFFERENTIAL NO; POSITIVE MORPHOLOGY NO; Platelet Count 610 K/mm3 (150-450); RBC Distribution Width CV 16.9 % (11.6-14.6); RBC Distribution Width SD 48.6 fl (35.1-43.9); Red Blood Count 3.74 M/mm3 (4.2-5.4); White Blood Count 13.1 K/mm3 (4.4-11.0)
[2017-12-22 18:34] LABS: International Normalized Ratio 0.9; Partial Thromboplast Time 26.9 Seconds (24.1-36.2); Prothrombin Time (Protime)PT. 12.4 SECONDS (11.7-14.9)
[2017-12-22 18:46] LABS: Lactic Acid 2.2 mmol/L (0.4-2.0)
[2017-12-22] MEDS: Ondansetron 4 MG/2 ML Vial IV (18:56)
--- NOTE | 2017-12-22 19:34 | ED.RN ---
encouraged pt to provide urine sample, still states she is unable to urinate.
[2017-12-22] MEDS: Ceftriaxone 1 GM/50 ML BAG IV (19:56)
[2017-12-22 20:02] LABS: Mucous, Urine 0 SEEN /hpf (<or=2+)
[2017-12-22 20:03] LABS: Color, Urine Yellow (Yellow); Glucose, Dipstick 1000 mg/dl (Normal); Ketone-Dipstick 15 mg/dl (Negative); Leukocyte Esterase-Dipstick 500 /ul (Negative); Nitrite-Dipstick Negative (Negative); Occult Blood-Urine 150 /ul (Negative); Protein-Dipstick 100 mg/dl (Negative); Urine Bilirubin Dipstick Negative (Negative); Urine Clarity Cloudy (Clear); Urine Urobilinogen Normal (Normal)
[2017-12-22] MEDS: Morphine 4 MG/ML Syringe IV (20:04)
[2017-12-22 20:11] LABS: White Blood Cells >100 SEEN /hpf (0-5)
[2017-12-22 20:12] LABS: Red Blood Cells-Urine 0-5 SEEN /hpf (0-5); Squamous Epithelial Cells - UA 0-5 SEEN /hpf (5-10)
[2017-12-22 20:13] LABS: Bacteria 1+ /hpf (None Seen)
[2017-12-22 22:07] LABS: Reflex Lactate? Y
[2017-12-22 22:59] LABS: Lactic Acid 0.6 mmol/L (0.4-2.0)
--- NOTE | 2017-12-22 23:19 | ED.VISSUMM ---
- ER Visit Summary Date of Service: 12/22/17 Chief Complaint: Flank pain History of Present Illness: The patient is a 22 F presenting for evaluation secondary to flank pain. Patient reports that she has a history of type 1 diabetes. She recently was admitted at [facility] secondary to DKA and concomitant urosepsis. Patient was discharged couple weeks ago, and states that she has had persistent right-sided flank pain. She reports that this is been getting progressively worse and is somewhat migrating over to the left. She now states that associated with feelings of nausea. Patient states that her sugars have actually been running quite well recently but she has severe dysuria and has been dealing with issues of fecal incontinence even since her admission to the outside facility. Patient simply states that her pain was getting so bad that she felt that she needed to come in and be reevaluated. Physical Examination: Vital signs notable for heart rate of 127. Cachectic appearing female visibly in pain otherwise not in physiologic distress. Head normocephalic. Moist mucous membranes. Old puncture site in the patient's right side of her neck from recent internal jugular central line well-healed. Neck was supple. Heart was tachycardic and regular. Lung sounds clear. Abdomen was tender in the right lower quadrant there was right-sided CVA tenderness to percussion. Skin was normal color no lateralizing neurological deficits. Test Results: CT abdomen and pelvis shows right-sided renal abscess. CBC shows leukocytosis of 13, chemistry shows no evidence of acidosis or anion gap, liver panel shows elevated liver enzymes alkaline phosphatase ALT and AST are 660, 116, and 279 respectively. Urinalysis shows evidence of infection ketones are negative. Emergency Department Course and Treatment: Patient presented for evaluation secondary to flank pain. She was significantly tachycardic so a sepsis workup was obtained. Patient was given 2 L saline and Toradol initially and she required Zofran and morphine for additional treatment of her pain. Patient was ultimately found to have what seems to be a right-sided renal abscess. I discussed this with Dr. Norman urology who recommended the patient be transferred to a tertiary care facility. Patient requested transfer to [facility]. I discussed this with their transfer line and the patient was accepted. Patient was treated with Rocephin and remained stable in the emergency department. Disposition: Transfer Impression: 1. Right-sided renal abscess 2. Severe sepsis 3. History of type 1 diabetes Critical care time 35 minutes This note was generated with PHR[employer] dictation software. It may contain incorrect words, spelling, and punctuation that were not noted in review of the chart prior to signing ED Disposition - Plan for ED Patient: Disposition: [facility] Chief Complaint: Flank Pain Referrals: Tianna Peña MD [Primary Care Provider] -
--- NOTE | 2017-12-22 23:22 | ED.DCSUM_ITS ---
- ER Visit Summary Date of Service: 12/22/17 Chief Complaint: Flank pain History of Present Illness: The patient is a 22 F presenting for evaluation secondary to flank pain. Patient reports that she has a history of type 1 diabetes. She recently was admitted at [facility] secondary to DKA and concomitant urosepsis. Patient was discharged couple weeks ago, and states that she has had persistent right-sided flank pain. She reports that this is been getting progressively worse and is somewhat migrating over to the left. She now states that associated with feelings of nausea. Patient states that her sugars have actually been running quite well recently but she has severe dysuria and has been dealing with issues of fecal incontinence even since her admission to the outside facility. Patient simply states that her pain was getting so bad that she felt that she needed to come in and be reevaluated. Physical Examination: Vital signs notable for heart rate of 127. Cachectic appearing female visibly in pain otherwise not in physiologic distress. Head normocephalic. Moist mucous membranes. Old puncture site in the patient's right side of her neck from recent internal jugular central line well-healed. Neck was supple. Heart was tachycardic and regular. Lung sounds clear. Abdomen was tender in the right lower quadrant there was right-sided CVA tenderness to percussion. Skin was normal color no lateralizing neurological deficits. Test Results: CT abdomen and pelvis shows right-sided renal abscess. CBC shows leukocytosis of 13, chemistry shows no evidence of acidosis or anion gap, liver panel shows elevated liver enzymes alkaline phosphatase ALT and AST are 660, 116, and 279 respectively. Urinalysis shows evidence of infection ketones are negative. Emergency Department Course and Treatment: Patient presented for evaluation secondary to flank pain. She was significantly tachycardic so a sepsis workup was obtained. Patient was given 2 L saline and Toradol initially and she requi red Zofran and morphine for additional treatment of her pain. Patient was ultimately found to have what seems to be a right-sided renal abscess. I discussed this with Dr. Norman urology who recommended the patient be transferred to a tertiary care facility. Patient requested transfer to [facility]. I discussed this with their transfer line and the patient was accepted. Patient was treated with Rocephin and remained stable in the emergency department. Disposition: Transfer Impression: 1. Right-sided renal abscess 2. Severe sepsis 3. History of type 1 diabetes Critical care time 35 minutes This note was generated with [employer] dictation software. It may contain incorrect words, spelling, and punctuation that were not noted in review of the chart prior to signing ED Disposition - Plan for ED Patient: Disposition: [facility] Chief Complaint: Flank Pain Referrals: Tianna Peña MD [Primary Care Provider] -
== END 2017-12-22 23:17 | disposition short-term general hospital (02) ==
LOC: ED 18:23
PROVIDERS: Emergency Provider Emergency Medicine; Family Provider Family Medicine; PCP Family Medicine
DX: N15.1 Renal and perinephric abscess (principal); R65.20 Severe sepsis without septic shock; E10.9 Type 1 diabetes mellitus without complications; R15.9 Full incontinence of feces; R64 Cachexia; Z72.0 Tobacco use; Z79.4 Long term (current) use of insulin
CPT/HCPCS: 74176; 80053; 81001; 82009; 82962; 83605; 85025; 85610; 85730; 87040; 87086; 87088; 96361; 96365; 96366; 96375; 99285; J7030; A4216; J2405

== ENCOUNTER 2018-02-01 19:04 | Emergency (ER) | payer OTHER, MEDICAID, SELFPAY ==
[2018-02-01 19:05] VITALS: BP 166/128; PULSE 133; RESP 20; TEMP 36.7; O2SAT 99; BMI 20.1
--- NOTE | 2018-02-01 19:15 | EKG12_ITS ---
Test Reason : SOB Blood Pressure : / mmHG Vent. Rate : 133 BPM Atrial Rate : 133 BPM P-R Int : 114 ms QRS Dur : 060 ms QT Int : 314 ms P-R-T Axes : 050 076 078 degrees QTc Int : 467 ms Sinus tachycardia Otherwise normal ECG Confirmed by JARETT JUAREZ, JENNIFER ([id number]), food expeditor VIOLET LOMELI ([id number]) on 02/03/2018 1:52:28 PM Referred By: TAM Confirmed By:JENNIFER DENSON MD
--- NOTE | 2018-02-01 19:15 | RAD_ITS ---
STUDY: X-RAY CHEST REASON FOR EXAM: Female, 22 years old. Chest pain and shortness of breath with fever for the last 3 days TECHNIQUE: PA and lateral views of the chest. COMPARISON: 10/01/2015 FINDINGS: EKG leads project over the chest. Bilateral interstitial and groundglass opacities are new since prior study of 10/01/2015. Small bilateral pleural effusions. No pneumothorax. Normal size heart. Normal mediastinum and nelda. Normal visualized pulmonary arteries. Normal visualized aortic arch and descending thoracic aorta. Normal visualized thoracic spine. Normal visualized ribs, clavicles, and shoulders. There is no demonstrated abnormality of the visualized soft tissue structures of the upper abdomen. RAD/Chest PA and Lateral IMPRESSION: 1. Bilateral pulmonary infiltrates with small pleural effusions. Multilobar pneumonia versus pulmonary edema. Electronically Signed: Adams Cameron MD at 22:55 EST , Service support ,
--- NOTE | 2018-02-01 19:17 | ED.VISSUMM ---
- ER Visit Summary Date of Service: 02/01/18 Chief Complaint: Cough, chest pain, shortness of breath History of Present Illness: The patient is a 22 F who presents to the emergency department with multiple complaints. The patient has a history of prior IV drug abuse. She states she has been clean for 6 months. She is an insulin-dependent diabetic. She has had multiple recent kidney infections and renal abscess 3 months ago. She was treated with IV antibiotics. She states that over the past 3 days, she has had chest pain and dyspnea. She is also a mild frontal headache. She states that over the past 2 days, she had a worsening cough. She also states that her sugars have been running high. She is unsure if she had fever but does admit to chills and sweats. She is also had nausea and generalized malaise. Physical Examination: Vital signs reviewed General: Well-nourished, well-developed Head: Normocephalic, atraumatic Eyes: Pupils equal and reactive, extraocular muscles intact Neck, supple, no lymphadenopathy Heart: Regular tachycardic rate and rhythm Respiratory: No distress, clear bilaterally Abdomen: Soft, nontender, nondistended, no peritoneal signs Back: Nontender Extremities: Nontender, no edema, no cords Skin: Normal color no rash Neuro: Alert and oriented, no focal or lateralizing deficits Test Results: [] Emergency Department Course and Treatment: [The patient presents with what seem to be infectious type symptoms. She was mildly hypertensive and tachycardic on arrival. Sepsis workup was pursued. We did have a difficult time establishing IV access. The patient had increasing hypoxia and increased work of breathing. Her chest x-ray does show bilateral alveolar infiltrates that is concerning for ARDS. We still had a difficult time establishing IV access so I did consent the patient for central line. She was placed on BiPAP. Central line was completed under sterile conditions with ultrasound guidance. My initial attempt did go through the posterior wall into the carotid artery. This is not dilated. Pressure was held. Central line was unable to be threaded into the internal jugular. X-ray does show good position. The patient did have a small hematoma, but there is no increased compression. There is no significant swelling. Her lab work does show mild kidney injury, elevation of LFTs, and hyperglycemia, but she does not have an anion gap. Her lactate was elevated. I do have concern that she is bacteremic and now has ARDS. The patient is going to require higher level of care. We did attempt to transfer her to [facility], but the ICU was full. She will be transferred [facility]. The patient was discussed with Dr. Swenson. She was covered with broad-spectrum antibiotics. Treatment Plan: [] Disposition: Transfer Impression: 1. Acute respiratory failure 2. ARDS 3. Hyperglycemia 4. Severe sepsis 5. Central line by the physician This note was generated with Tickade dictation software. It may contain incorrect words, spelling, and punctuation that were not noted in review of the chart prior to signing ED Disposition - Plan for ED Patient: Chief Complaint: Shortness of Breath Referrals: Tianna Peña MD [Primary Care Provider] -
[2018-02-01 20:22] LABS: Absolute Lymphocyte Count 2.79 X10^3/ul (0.83-4.51); Absolute Neutrophil Count 8.5 X10^3/uL (2.0-7.7); Basophil# 0.03 X10^3/uL; Basophil% 0.3 % (0-1); Eosinophil# 0.01 X10^3/uL; Eosinophils% 0.1 % (0-5); Hematocrit 31.6 % (37-47); Lymphocyte # 2.79 X10^3/ul (4.0); Lymphocyte % 23.9 % (19-41); Mean Corp Hgb Conc 31.6 g/gl (32-36); Mean Corpuscular Hgb 26.8 pg (27.0-32.0); Mean Corpuscular Volume 84.7 fL (81-99); Mean Platelet Vol. 9.7 fl (6.2-12.0); Monocyte# 0.28 X10^3/uL; Monocyte% 2.4 % (0-10); Neutrophil # 8.54 X10^3/uL (2.7-7.7); Neutrophil % 73.1 % (47-70); Platelet Count 411 K/mm3 (150-450); RBC Distribution Width CV 17.8 % (11.6-14.6); RBC Distribution Width SD 55.7 fl (35.1-43.9); Red Blood Count 3.73 M/mm3 (4.2-5.4); White Blood Count 11.7 K/mm3 (4.4-11.0)
[2018-02-01 20:23] LABS: POSITIVE COUNT NO; POSITIVE DIFFERENTIAL NO; POSITIVE MORPHOLOGY NO
[2018-02-01] MEDS: 0.9% Normal Saline 1,000 ML 1000 ML IV (20:26)
[2018-02-01] MEDS: Ondansetron 4 MG/2 ML Vial IV (20:26)
[2018-02-01] MEDS: Ketorolac 15 MG/ML Vial IV (20:28)
[2018-02-01 20:50] VITALS: PULSE 141; RESP 12; RESP 24; O2SAT 95
[2018-02-01 21:00] VITALS: BP 174/115; PULSE 149; RESP 23; O2SAT 95
--- NOTE | 2018-02-01 21:15 | RAD_ITS ---
STUDY: X-RAY CHEST REASON FOR EXAM: Female, 22 years old. Line insertion TECHNIQUE: AP COMPARISON: Earlier the same day FINDINGS: EKG leads project over the chest. Right jugular central venous catheter is present with tip projecting over the right atrium. Bilateral interstitial and groundglass opacities are new since prior study of 10/01/2015. Small bilateral pleural effusions. No pneumothorax. Normal size heart. Normal mediastinum and nelda. Normal visualized pulmonary arteries. Normal visualized aortic arch and descending thoracic aorta. Normal visualized thoracic spine. Normal visualized ribs, clavicles, and shoulders. There is no demonstrated abnormality of the visualized soft tissue structures of the upper abdomen. RAD/CXR for Line Placement IMPRESSION: 1. Satisfactory position of right jugular central venous catheter. 2. Bilateral pulmonary infiltrates with small pleural effusions. Multilobar pneumonia versus pulmonary edema. Electronically Signed: Adams Cameron MD at 22:56 EST , Service support ,
[2018-02-01 21:21] VITALS: BMI 22.6
[2018-02-01] MEDS: HYDROmorphone 0.5 MG/0.5 ML SYRINGE IV (21:27)
[2018-02-01 21:38] LABS: D-Dimer Quantitative (DVT/PE) 0.88 FEU/ug/m (0.27-0.49)
--- NOTE | 2018-02-01 21:40 | ED.RN ---
Critical D-dimer result of 0.88 MD and RN aware.
[2018-02-01 21:41] LABS: Blood Gas Specimen Type VEN; EPAP 5; FI02 35; IPAP 10; RR 12; SITE L Brachial; Time Given 2140; VBG BASE EXCESS -3 mmol/L (-1.0-3.5); VBG Bicarbonate 23 mmol/L (22-26); VBG Oxygen Content 24 mmol/L (23-33); VBG PO2 17 mmHg (25-40); VBG SO2 23 % (50-70); VBG pCO2 39.1 mmHg (41-51); VBG pH 7.37 (7.32-7.42)
[2018-02-01 21:45] VITALS: PULSE 136; RESP 12; RESP 26; O2SAT 96
[2018-02-01 21:49] LABS: ALB/GLOB Ratio 0.4 RATIO (0.9-2.4); AST(SGOT) 98 U/L (15-37); Alanine Aminotransfer ALT/SGPT 79 U/L (13-56); Alkaline Phosphatase 276 U/L (45-117); Anion Gap 11 (5-15); BUN 25 mg/dL (7-18); Chloride 99 mmol/L (98-107); Creatinine, Serum 1.25 mg/dL (0.55-1.02); EST Glomerular Filtration Rate 56 mL/min (>60); Est Glom Filt Rate - Afr Amer 68 mL/min (>60); Estimated Creatinine Clearance 65.53 ml/min; Globulin 4.6 g/dL (2.2-4.2); Glucose 563 mg/dL (74-106); Potassium 4.9 mmol/L (3.5-5.1); Protein, Total 6.6 g/dL (6.4-8.2); Sodium Level 134 mmol/L (136-145)
[2018-02-01 22:03] LABS: Lactic Acid 4.1 mmol/L (0.4-2.0)
--- NOTE | 2018-02-01 22:03 | ED.RN ---
Critical lab value lactic 4.1, RN and aware.
--- NOTE | 2018-02-01 22:15 | NURSING ---
ACCEPTED TO [facility] BY DR. JONES GOING TO T 3 BED [phone] REPORT
[2018-02-01] MEDS: Insulin Lispro 100 UNIT/ML INSULN.PEN 20 UNIT SC (22:31)
[2018-02-01] MEDS: 0.9% Normal Saline 1,000 ML 999 ML IV (22:31)
[2018-02-01 22:45] VITALS: BP 162/127; PULSE 125; RESP 22; O2SAT 97
[2018-02-01 23:20] VITALS: BP 161/128; PULSE 130; RESP 22; O2SAT 94
--- NOTE | 2018-02-01 23:22 | ED.RN ---
2039: PT NOTED TO BE HYPOXIC ON ROOM AIR. REMAINS ALERT. 70% ON ROOM AIR. PLACED ON 3L N/C. GOOD WAVE FORM DETECTED. DR TURCIOS MADE AWARE. 88% ON 3L N/C. MOVED PT TOO TRAUMA 1. BIPAP APPLIED BY CPS. PT ANDRÉS WELL. 2054: PREPPING PT FOR PLACEMENT OF CENTRAL LINE BY DR TURCIOS 2106: CENTRAL LINE COMPLETE 2121: REMAINING BLOOD SAMPLES OBTAINED OFF CENTRAL LINE. XRAY CONFIRMED PLACEMENT.
[2018-02-02 01:24] LABS: Reflex Lactate? Y
== END 2018-02-01 23:27 | disposition short-term general hospital (02) ==
PROVIDERS: Emergency Provider Emergency Medicine; Family Provider Family Medicine; PCP Family Medicine
DX: J80 Acute respiratory distress syndrome (principal); R65.20 Severe sepsis without septic shock; R79.89 Other specified abnormal findings of blood chemistry; E11.65 Type 2 diabetes mellitus with hyperglycemia; I10 Essential (primary) hypertension; Z79.4 Long term (current) use of insulin
CPT/HCPCS: 36556; 76937; 36600; 71045; 71046; 80053; 82009; 82803; 83605; 85025; 85379; 87040; 87804; 93005; 94002; 96365; 96367; 96375; 99285; J7030; J7040; A4216; J2405; J3490

== ENCOUNTER 2018-02-23 17:47 | Observation (INO) | payer OTHER, SELFPAY ==
[2018-02-23 17:48] VITALS: BP 160/104; PULSE 86; RESP 16; TEMP 36.4; O2SAT 97; BMI 20.9
[2018-02-23 19:45] VITALS: BP 149/116; PULSE 87; RESP 22; O2SAT 98
--- NOTE | 2018-02-23 20:55 | EKG12_ITS ---
Test Reason : CP/SOB Blood Pressure : / mmHG Vent. Rate : 087 BPM Atrial Rate : 087 BPM P-R Int : 130 ms QRS Dur : 072 ms QT Int : 424 ms P-R-T Axes : 046 054 123 degrees QTc Int : 510 ms Normal sinus rhythm T wave abnormality, consider lateral ischemia Prolonged QT Abnormal ECG Confirmed by BIGG JUAREZ, RAQUEL ([id number]), business editor VIOLET LOMELI ([id number] on 02/26/2018 2:32:06 PM Referred By: PRIMO Confirmed By:RAQUEL PRIDE MD
--- NOTE | 2018-02-23 20:55 | RAD_ITS ---
STUDY: X-RAY CHEST REASON FOR EXAM: Female, 22 years old. Shortness of breath and chest discomfort. TECHNIQUE: Single frontal view of the chest. COMPARISON: February 01, 2018 FINDINGS: There is a diffuse interstitial pattern slightly less prominent than on the prior study. There is a new left pleural effusion. Normal size heart. Normal mediastinum and nelda. Normal visualized pulmonary arteries. Normal visualized aortic arch and descending thoracic aorta. Normal visualized thoracic spine. Normal visualized ribs, clavicles, and shoulders. There is no demonstrated abnormality of the visualized soft tissue structures of the upper abdomen. RAD/Chest 1 View (Portable) IMPRESSION: Slight radiographic improvement. Findings are most compatible with bilateral pneumonia. Interstitial edema cannot be excluded. Electronically Signed: Rosales Mack MD at 21:46 EST , Service support ,
[2018-02-23 21:05] VITALS: BP 147/109; PULSE 86; RESP 24; TEMP 36.4; O2SAT 99
[2018-02-23 21:23] LABS: Absolute Lymphocyte Count 3.87 X10^3/ul (0.83-4.51); Absolute Neutrophil Count 5.4 X10^3/uL (2.0-7.7); Basophil# 0.13 X10^3/uL; Basophil% 1.3 % (0-1); Eosinophil# 0.22 X10^3/uL; Eosinophils% 2.2 % (0-5); Hematocrit 31.5 % (37-47); Hemoglobin 10.1 g/dl (12.0-15.0); Lymphocyte # 3.87 X10^3/ul (4.0); Mean Corp Hgb Conc 32.1 g/gl (32-36); Mean Corpuscular Hgb 26.9 pg (27.0-32.0); Mean Corpuscular Volume 83.8 fL (81-99); Mean Platelet Vol. 9.7 fl (6.2-12.0); Monocyte# 0.33 X10^3/uL; Monocyte% 3.3 % (0-10); Neutrophil # 5.37 X10^3/uL (2.7-7.7); Neutrophil % 54.1 % (47-70); Platelet Count 523 K/mm3 (150-450); RBC Distribution Width CV 16.8 % (11.6-14.6); RBC Distribution Width SD 51.4 fl (35.1-43.9); Red Blood Count 3.76 M/mm3 (4.2-5.4); White Blood Count 9.9 K/mm3 (4.4-11.0)
[2018-02-23 21:25] LABS: Blood Gas Specimen Type VEN; O2 Delivery Device Room Air; SITE OTHER; Time Given 2110; VBG BASE EXCESS 0 mmol/L (-1.0-3.5); VBG Bicarbonate 25 mmol/L (22-26); VBG Oxygen Content 27 mmol/L (23-33); VBG PO2 18 mmHg (25-40); VBG SO2 27 % (50-70); VBG pCO2 41.4 mmHg (41-51)
[2018-02-23 21:25] LABS: Bedside Glucose 315 mg/dL (70-110)
[2018-02-23 21:27] LABS: POSITIVE COUNT NO; POSITIVE DIFFERENTIAL NO; POSITIVE MORPHOLOGY NO
[2018-02-23] MEDS: 0.9% Normal Saline 1,000 ML 999 ML IV (21:34)
[2018-02-23 21:38] LABS: Bacteria 0 SEEN /hpf (None Seen); Mucous, Urine 0 SEEN /hpf (<or=2+); Red Blood Cells-Urine 0 SEEN /hpf (0-5)
[2018-02-23 21:42] LABS: Anion Gap 8 (5-15); BUN 30 mg/dL (7-18); Calcium,Total 8.9 mg/dL (8.5-10.1); Chloride 105 mmol/L (98-107); Creatinine, Serum 1.25 mg/dL (0.55-1.02); EST Glomerular Filtration Rate 56 mL/min (>60); Est Glom Filt Rate - Afr Amer 68 mL/min (>60); Estimated Creatinine Clearance 64.97 ml/min; Glucose 322 mg/dL (74-106); Potassium 4.4 mmol/L (3.5-5.1); Sodium Level 136 mmol/L (136-145)
[2018-02-23 22:02] LABS: Color, Urine Yellow (Yellow); Glucose, Dipstick 1000 mg/dl (Normal); Ketone-Dipstick Negative (Negative); Leukocyte Esterase-Dipstick Negative /ul (Negative); Nitrite-Dipstick Negative (Negative); Occult Blood-Urine 10 /ul (Negative); Protein-Dipstick 500 mg/dl (Negative); Specific Gravity, Urine 1.015 (1.002-1.030); Urine Bilirubin Dipstick Negative (Negative); Urine Clarity Clear (Clear); Urine Urobilinogen Normal (Normal); Urine pH 6.5 (5.0 - 8.0)
[2018-02-23 22:08] LABS: Squamous Epithelial Cells - UA 5-10 SEEN /hpf (5-10); White Blood Cells 0-5 SEEN /hpf (0-5)
[2018-02-23 22:21] LABS: Bedside Glucose 292 mg/dL (70-110)
[2018-02-23 23:22] VITALS: BP 147/109; PULSE 88; RESP 15; TEMP 36.8; O2SAT 93
--- NOTE | 2018-02-23 23:30 | ED.VISSUMM ---
- ER Visit Summary Date of Service: 02/23/18 Chief Complaint: Shortness of breath and chest discomfort History of Present Illness: The patient is a 22 F who presents because of shortness of breath and chest discomfort. She also remains abdomen with nausea. She had a blood sugar of 600 this morning. She states her blood sugar was 356 prior to arrival. She is type I diabetic. She has history of acute kidney injury, type 1 diabetes, malnourishment and history of opiate abuse. She denies fever but does complain of chills and sweats. She denies change in vision, blurred vision or double vision. She denies ear pain, runny nose, congestion or postnasal drainage. She does complain of sharp chest pain and palpitations. She also has a shortness of breath nonproductive cough and dyspnea on exertion. Denies orthopnea PND. She denies vomiting, diarrhea or black or maroon stool. She does complain of frequency without dysuria or urgency. She did not notice any gross blood. She complains of feeling weak. She complains of mild headache. She denies myalgias arthralgias. Physical Examination: Vital signs noted and blood pressure is elevated 149/116. Patient is afebrile. Initial pulse ox is unremarkable. I was informed by nursing staff her pulse ox has dropped to as low as 85 and there was one reading below that but uncertain whether it was an accurate reading. Patient appears pale ill but not toxic. Conjunctive is pale. HEENT exam is marked with dry mucosa. Heart is regular without murmur, gallop or rub. There is fine rales noted bilaterally. There is no wheezing noted. Abdomen soft minimal tenderness no guarding rebound tenderness. Bowel sounds are diminished. She has no CVA tenderness noted. Tattoos noted extremities no track lopez or evidence of cellulitis. Test Results: White count is normal with a H&H of 10.1 and 31.5. Basic metabolic panel is marked for glucose of 322 with a creatinine of 1.25. CO2 is 23 with an anion gap of 8. You urinalysis is marked for glucose protein and blood. VBG reveals a markedly diminished O2. She would not allow an ABG. Chest x-ray reveals bilateral multilobar interstitial pneumonia EKG sinus rhythm rate of [address]-T wave changes. There is prolongation of QT interval and reason quinolones were not used. Emergency Department Course and Treatment: With history of elevated blood sugar tachypnea shortness of breath and chest pain concern patient was in DKA. She was given a fluid bolus and DKA order set was initiated. After reviewing chest x-ray lactate and blood cultures were ordered as well as Rocephin, azithromycin for atypical coverage and Tamiflu. Influenza screen was ordered as well. Treatment Plan: The hospitalist has been paged for admission to the hospital suggest PCU Disposition: Full admission Impression: 1. Respiratory failure with hypoxia 2. Multilobar bilateral pneumonia 3. Hyperglycemia and type I diabetic 3. Anemia nonspecified 5. Acute renal insufficiency This note was generated with Partner[employer] dictation software. It may contain incorrect words, spelling, and punctuation that were not noted in review of the chart prior to signing ED Disposition - Plan for ED Patient: Chief Complaint: Shortness of Breath Referrals: Becca Frausto NP-C [Primary Care Provider] -
--- NOTE | 2018-02-23 23:31 | HP.PCM_ITS ---
Problem List (1) Bilateral pneumonia Status: Acute (2) Acute hyperglycemia Status: Acute History of Present Illness Date of Admission: 02/23/18 Chief Complaint: Shortness of breath The patient is a 22 year old F with a significant history of previous IV drug use; multiple kidney infections and renal abscess; congestive heart failure; and type 1 diabetes who presented to the emergency department because of pr ogressively worsening shortness of breath that began on the day of admission. Associated with her symptoms is mid sternal chest pain that radiates to in between her shoulder blades. Also she has a dry cough. Her shortness of breath is at rest but it increases with exertion. She described her chest pain as with a severity of 8/10. Her chest pain is a continuous heaviness with episodic stabbing pain. Her chest pain is relieved when she sits up and lean forward. Her chest pain is aggravated by heat. She reported that she took a hot shower thinking that it will relieve her chest pain but rather her chest pain increased. She denies any nausea, vomiting. She reported at home her blood glucose was 347. She reported that on February 01 2018 she came to the hospital and she was diagnosed with pneumonia and she ended up being transferred to [facility]. She was subsequently diagnosed with heart failure that was caused by a virus. She reported that she had thoracentesis to drain fluid also she received dialysis and she went into [facility]. She reports being discharged on 16 February 2018 from [facility]. Review of old records showed that patient was at our emergency department on February 01, 2018 and a chest x-ray was concerning for ARDS. She was transferred to [facility]. Past Medical History Past Medical History (Chronic Problems): Chronic Problems Protein calorie malnutrition (Chronic) Homeless (Chronic) Tobacco user (Chronic) DM type 1 (diabetes mellitus, type 1) (Chronic) Allergies Penicillins Allergy (Verified 02/01/18 19:10) Hives Home Medications: Ambulatory Orders Medication Instructions Recorded Insulin Degludec [Tresiba 18 unit SQ QHS 02/01/18 Flextouch U-100] Insulin Lispro [Humalog KwikPen] 0 unit SC TIDAC 02/23/18 Metoprolol Tartrate [Lopressor 100 mg PO DAILY 02/23/18 (Beta Salvador)] Surgical History: no surgical history Psychiatric History: No pertinent psych hx 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 Maternal History Items: Diabetes - Her maternal second cousin had type 1 diabetes., - Review of Systems Constitutional: Denies: Chills, Fever, Weight Change HEENT: Denies: Head Aches, Sinus Congestion, Sinus Drainage Cardiovascular: Reports: Chest Pain. Denies: Palpitations Respiratory: Reports: Cough, Shortness of breath at rest. Denies: Sputum production Gastrointestinal: Denies: Abdominal Pain, Nausea, Vomiting Genitourinary: Denies: Dysuria Musculoskeletal: Denies: Joint Pain, Joint Tenderness Skin: Denies: Rash, Wounds Neurological: Denies: Numbness, Tingling, Focal weakness Psychiatric: Denies: Anxiety, Depression, Homicidal Ideations, Suicidal Ideations Hematologic/ Lymphatic: Denies: Easy Bruising, Easy Bleeding VTE Information - Inpt Only VTE Present on Admission: No VTE Mechan Device Prophylaxis: None VTE Pharm Prophylaxis ordered?: No Reason prophylaxis not ordered:: Treatment Not Indicated - Low risk patient Patient Problems: Active and Suspected Problems Bilateral pneumonia (Acute) - Physical Exam General: Alert, Oriented x3, Cooperative HEENT: Atraumatic, PERRLA, EOMI, Normocephalic Neck: Supple, No JVD, Negative Carotid Bruits Lungs: Clear to auscultation, Normal air movement, - - Chest tenderness Cardiovascular: Regular rate, No murmurs Abdomen: Bowel Sounds Present, Soft, Non Tender Extremities: No edema, Capillary Refill Less than 3 Seconds Skin: No rashes, No breakdown Musculoskeletal: Tenderness - Tenderness in between scapula Neurological: Neuro grossly intact Psych/Mental Status: Normal Affect, Appropriate Vital Signs Temp Pulse Resp BP Pulse Ox 98.2 F 88 15 147/109 H 93 02/23/18 23:22 02/23/18 23:22 02/23/18 23:22 02/23/18 23:22 02/23/18 23:22 Oxygen Delivery Method Room Air Weight: 58.8 kg Body Mass Index (BMI) 20.9 Finger Stick Blood Glucose 292 Laboratory Tests Past 24 Hrs 02/23/18 02/23/18 02/23/18 21:00 21:00 21:00 WBC 9.9 RBC 3.76 L Hgb 10.1 L Hct 31.5 L MCV 83.8 MCH 26.9 L MCHC 32.1 RDW 16.8 H RDW Differential 51.4 H Plt Count 523 H MPV 9.7 Immature Gran % (Auto) 0.100 Neut % (Auto) 54.1 Lymph % (Auto) 39.0 [place] % (Auto) 3.3 Eos % (Auto) 2.2 Baso % (Auto) 1.3 H Absolute Neuts (auto) 5.4 Absolute Lymphs (auto) 3.87 Total Counted Not Reportable Specimen Type Sample Site VBG pH VBG pO2 VBG O2 Sat (Calc) VBG O2 Content VBG Base Excess POC Mix VBG pCO2 Pt Tmp O2 Delivery Device Blood Gas Notified Whom Blood Gas Notified Time Sodium 136 Potassium 4.4 Chloride 105 Carbon Dioxide 23.0 Anion Gap 8 BUN 30 H Creatinine 1.25 H Estim Creat Clear Calc 64.97 Est GFR (MDRD) Af Amer 68 Est GFR (MDRD) Non-Af 56 L BUN/Creatinine Ratio 24.0 H Glucose 322 H Calcium 8.9 Urine Color Urine Clarity Urine pH Ur Specific [place] Urine Protein Urine Glucose (UA) Urine Ketones Urine Occult Blood Urine Nitrite Urine Bilirubin Urine Urobilinogen Ur Leukocyte Esterase Urine RBC Urine WBC Ur Squamous Epith Cells Urine Bacteria Urine Mucus Acetone Level NEGATIVE 02/23/18 02/23/18 02/23/18 21:00 21:16 21:30 WBC RBC Hgb Hct MCV MCH MCHC RDW RDW Differential Plt Count MPV Immature Gran % (Auto) Neut % (Auto) Lymph % (Auto) [place] % (Auto) Eos % (Auto) Baso % (Auto) Absolute Neuts (auto) Absolute Lymphs (auto) Total Counted Specimen Type DERRICK Sample Site OTHER VBG pH 7.40 VBG pO2 18 L* VBG O2 Sat (Calc) 27 L VBG O2 Content 27 VBG Base Excess 0 POC Mix VBG pCO2 Pt Tmp 41.4 O2 Delivery Device Room Air Blood Gas Notified Whom ED Blood Gas Notified Time 2109 Sodium Cancelled Potassium Cancelled Chloride Cancelled Carbon Dioxide Cancelled Anion Gap Cancelled BUN Cancelled Creatinine Cancelled Estim Creat Clear Calc Cancelled Est GFR (MDRD) Af Amer Cancelled Est GFR (MDRD) Non-Af Cancelled BUN/Creatinine Ratio Cancelled Glucose Cancelled Calcium Cancelled Urine Color Yellow Urine Clarity Clear Urine pH 6.5 Ur Specific [place] 1.015 Urine Protein 500 H Urine Glucose (UA) 1000 H Urine Ketones Negative Urine Occult Blood 10 H Urine Nitrite Negative Urine Bilirubin Negative Urine Urobilinogen Normal Ur Leukocyte Esterase Negative Urine RBC 0 SEEN Urine WBC 0-5 SEEN Ur Squamous Epith Cells 5-10 SEEN Urine Bacteria 0 SEEN Urine Mucus 0 SEEN Acetone Level POC Glucose 02/23/18 02/23/18 22:15 21:17 POC Glucose 292 H 315 H Assessment/Plan All Active Problems Bilateral pneumonia (Acute) Acute hyperglycemia (Acute) Abscess of leg, left (Resolved) Hyperglycemia (Acute) DKA (diabetic ketoacidoses) (Resolved) KANU (acute kidney injury) (Acute) Narcotic withdrawal (Acute) The patient is a 22 year old F with a significant history of IV drug use; multiple kidney infections and renal abscess; congestive heart failure; and type 1 diabetes who presented to the emergency department because of progressively worsening shortness of breath and chest pain. Probable pneumonia. Chest x-ray showed bilateral opacities. Review of old records show that on 02/01/2018 a chest x-ray was concerning for interstitial groundglass opacity At emergency department because of findings of suspicion of influenza patient was given Tamiflu. However rapid influenza was negative. Will order comprehensive respiratory pathogen panel. Patient was noted to have a prolonged QT. Levaquin was not started at this time because of prolonged QT interval. We will treat for probable committee acquired pneumonia with azithromycin and Ceftriaxone. Of note azithromycin can cause a prolonged QT interval. Patient is currently to have hives with penicillin Scheduled DuoNeb Albuterol as needed Legionella antigen and strep pneumonia antigen ordered. Because of a history of CHF will order a BNP. If BNP is elevated will consider Lasix. Chest pain Likely pleuritic as she described her chest pain to be relieved with sitting up and leaning forward. Aspirin 325 mg x1. Aspirin 81 mg daily Tylenol as needed EKG ordered Trend troponin. KANU. On admission her creatinine was 1.25. BUN/creatinine was 24 Patient received IV fluids normal saline 1 L bolus at emergency department. Will check BNP and BNP is elevated will consider giving the patient a dose of Lasix. Trend BMP. Avoid nephrotoxins. History of congestive heart failure Metoprolol continued. Elevated high blood pressure without diagnosis of hypertension. On admission her blood pressure was elevated but she denies any history of high blood pressure. She stated that last time she had a hospital her blood pressure was elevated to. Metoprolol as above. Trend blood pressures and adjust blood pressure medication. Diabetes mellitus with acute hypoglycemia Home long-acting insulin continued. Continue correction scale insulin. Prandial insulin ordered. DVT prophylaxis Ambulate. Code Visit OBSV E&M: 77449 Initial observation care L3
[2018-02-23] MEDS: Oseltamivir Phosphate 75 MG Capsule PO (23:32)
[2018-02-23 23:50] LABS: Lactic Acid 0.8 mmol/L (0.4-2.0)
[2018-02-23] MEDS: HYDROmorphone 0.5 MG/0.5 ML SYRINGE IV (23:50)
[2018-02-24] VITALS (11 sets, daily range): BP systolic 114–153; BP diastolic 91–113; PULSE 77–93; RESP 18–19; TEMP 36.4–36.8; O2SAT 95–99; BMI 20.6
--- NOTE | 2018-02-24 01:23 | EKG12_ITS ---
Test Reason : ADM EKG Blood Pressure : / mmHG Vent. Rate : 083 BPM Atrial Rate : 083 BPM P-R Int : 156 ms QRS Dur : 072 ms QT Int : 418 ms P-R-T Axes : 051 068 119 degrees QTc Int : 491 ms Normal sinus rhythm Prolonged QT Abnormal ECG Confirmed by BIGG JUAREZ, RAQUEL ([id number]), continuity editor VIOLET LOMELI ([id number]) on 02/26/2018 2:58:43 PM Referred By: NAOMI Confirmed By:RAQUEL PRIDE MD
[2018-02-24] MEDS: Ceftriaxone 1 GM/50 ML BAG IV (01:30)
[2018-02-24] MEDS: Insulin Lispro 100 UNIT/ML INSULN.PEN SQ ×5 (01:36→12:11)
[2018-02-24] MEDS: Aspirin 325 MG Tablet PO (01:39)
[2018-02-24] MEDS: Acetaminophen 325 MG Tablet 650 MG PO (01:40)
[2018-02-24 02:01] LABS: Bedside Glucose 347 mg/dL (70-110)
[2018-02-24] MEDS: proMETHazine 25 MG/ML Syringe 6.25 MG IV (02:47)
[2018-02-24] MEDS: Furosemide 40 MG/4 ML Vial IV ×2 (02:47→10:51)
[2018-02-24 06:52] LABS: Bedside Glucose 401 mg/dL (70-110)
[2018-02-24 07:47] LABS: Hematocrit 26.8 % (37-47); Hemoglobin 8.6 g/dl (12.0-15.0); Mean Corp Hgb Conc 32.1 g/gl (32-36); Mean Platelet Vol. 9.8 fl (6.2-12.0); Platelet Count 438 K/mm3 (150-450); RBC Distribution Width CV 16.8 % (11.6-14.6); RBC Distribution Width SD 51.9 fl (35.1-43.9); Red Blood Count 3.19 M/mm3 (4.2-5.4); White Blood Count 8.8 K/mm3 (4.4-11.0)
[2018-02-24 07:48] LABS: Scan Indicated on CBC? Y/N NO
[2018-02-24] MEDS: Ipratropium/Albuterol Sulfate 3 ML AMPUL.NEB INHALATION ×2 (08:08→12:08)
[2018-02-24 08:24] LABS: Anion Gap 9 (5-15); BUN 31 mg/dL (7-18); BUN/Creat Ratio 25.6 RATIO (10-20); Calcium,Total 8.1 mg/dL (8.5-10.1); Chloride 106 mmol/L (98-107); Creatinine, Serum 1.21 mg/dL (0.55-1.02); EST Glomerular Filtration Rate 58 mL/min (>60); Est Glom Filt Rate - Afr Amer 71 mL/min (>60); Estimated Creatinine Clearance 66.09 ml/min; Glucose 416 mg/dL (74-106); Potassium 5.2 mmol/L (3.5-5.1); Sodium Level 134 mmol/L (136-145)
--- NOTE | 2018-02-24 08:28 | NURSING ---
ORDERED EKG FOR CP AND THEN WILL CALL MD STATES TO LEFT OF CHEST
--- NOTE | 2018-02-24 08:55 | EKG12_ITS ---
Test Reason : CP Blood Pressure : / mmHG Vent. Rate : 090 BPM Atrial Rate : 090 BPM P-R Int : 136 ms QRS Dur : 072 ms QT Int : 400 ms P-R-T Axes : 052 053 122 degrees QTc Int : 489 ms Normal sinus rhythm ST & T wave abnormality, consider lateral ischemia Prolonged QT Abnormal ECG Confirmed by BIGG JUAREZ, RAQUEL ([id number]), editor magazine VIOLET LOMELI ([id number]) on 02/26/2018 3:00:54 PM Referred By: NAOMI Confirmed By:RAQUEL PRIDE MD
[2018-02-24] MEDS: Metoprolol(XL)Succ 100 MG Tablet PO (09:37)
[2018-02-24] MEDS: Lisinopril 10 MG Tablet PO (10:51)
[2018-02-24] MEDS: 0.9% NaCl Peripheral Flush Adult/Peds IV (10:52)
--- NOTE | 2018-02-24 11:49 | NURSING ---
Report called to [facility] Dawna Zhao took report
[2018-02-24] MEDS: Morphine 4 MG/ML Syringe IV (12:09)
[2018-02-24 12:25] LABS: Bedside Glucose 457 mg/dL (70-110)
--- NOTE | 2018-02-24 18:23 | PCM.DC.SUM ---
Discharge Date and Diagnosis Date of Admission: 02/23/18 Date of Discharge: 02/24/18 - Primary Discharge Diagnosis #1 acute on chronic systolic congestive heart failure #2 type 1 diabetes-uncontrolled #3 cardiomyopathy-type unknown #4 hypoxia secondary to acute on chronic systolic congestive heart failure #5 chronic anemia-etiology unknown #6 stage III chronic kidney disease secondary to type 1 diabetes #7 hyperkalemia No evidence for healthcare acquired or community acquired pneumonia - Secondary Discharge Diagnosis Chronic Problems Protein calorie malnutrition (Chronic) Homeless (Chronic) Tobacco user (Chronic) DM type 1 (diabetes mellitus, type 1) (Chronic) Hospital Course and Treatment Operations: None Procedures: None Summary of Care Provided: The patient is a 22 year old F was seen in the emergency room at [facility] with a chief complaint of shortness of breath and chest discomfort. She had recently been released from [facility] after being treated for congestive heart failure and respiratory failure. Evaluation in the emergency room showed a normal white blood cell count, basic metabolic panel was remarkable for glucose of 322 and a creatinine of 1.25. Patient would not allow an ABG to be performed. Chest x-ray showed bilateral multilobular interstitial infiltrates felt by the emergency room physician to be indicative of pneumonia, however, the patient was afebrile, she did not complain of any chills or fevers in her history. Patient initially was given IV antibiotics by the emergency room physician, she was placed in observation status on PCU for bilateral pneumonia-I evaluated the patient on the morning of 02/24/18 and as a result of my examination of the patient and review of the patient's medical record here as well as the patient's recent medical record at [facility], felt that the patient more likely had acute on chronic systolic congestive heart failure. Physical exam: On examination she appeared unwell. Vital signs as documented. Skin warm and dry and without overt rashes. Neck without JVD. Lungs-diffuse inspiratory rales are noted over both lungs. Heart exam notable for regular rhythm, normal sounds and absence of murmurs or rubs . Abdomen unremarkable and without evidence of organomegaly, masses, or abdominal aortic enlargement. Extremities nonedematous. I felt it prudent to transfer the patient back to [facility] for reevaluation and possible heart catheterization to determine the etiology of the patient's impaired EF, records I obtained from [facility] showed that the patient's EF was 30%. [facility] medical record indicated that it was thought the patient had a viral cardiomyopathy but this was never determined to be certain. Patient agreed to transferred to [facility], I called [facility] and agreed to take the patient. She was transferred to [facility] stable condition on 02/24/18 - Physical Exam Vital Signs Temp Pulse Resp BP Pulse Ox 97.8 F 85 18 141/110 H 95 02/24/18 12:00 02/24/18 12:08 02/24/18 12:08 02/24/18 12:00 02/24/18 12:00 Oxygen Flow Rate (L/min) 2 Oxygen Delivery Method Nasal Cannula Weight: 57.9 kg Body Mass Index (BMI) 20.6 Finger Stick Blood Glucose 292 Intake and Output for Last 24 Hours 02/22/18 02/23/18 02/24/18 23:59 23:59 23:59 Intake Total 240 / 240 Output Total 500 / 500 Balance -260 / -260 Microbiology Past 72 Hours 02/24/18 01:25 Respiratory Panel (PCR) - Final Mucosa - Nasopharyngeal 02/23/18 21:30 Streptococcus pneumoniae Antigen (M - Final Urine, Clean Catch 02/23/18 21:30 Legionella Antigen - Final Urine, Clean Catch 02/23/18 23:40 Influenza Types A,B Direct FA (RAINER) - Final Mucosa - Nose Laboratory Tests Past 24 Hrs 02/23/18 02/23/18 02/23/18 21:00 21:00 21:00 WBC 9.9 RBC 3.76 L Hgb 10.1 L Hct 31.5 L MCV 83.8 MCH 26.9 L MCHC 32.1 RDW 16.8 H RDW Differential 51.4 H Plt Count 523 H MPV 9.7 Immature Gran % (Auto) 0.100 Neut % (Auto) 54.1 Lymph % (Auto) 39.0 [place] % (Auto) 3.3 Eos % (Auto) 2.2 Baso % (Auto) 1.3 H Absolute Neuts (auto) 5.4 Absolute Lymphs (auto) 3.87 Total Counted Not Reportable Specimen Type Sample Site VBG pH VBG pO2 VBG O2 Sat (Calc) VBG O2 Content VBG Base Excess POC Mix VBG pCO2 Pt Tmp O2 Delivery Device Blood Gas Notified Whom Blood Gas Notified Time Sodium 136 Potassium 4.4 Chloride 105 Carbon Dioxide 23.0 Anion Gap 8 BUN 30 H Creatinine 1.25 H Estim Creat Clear Calc 64.97 Est GFR (MDRD) Af Amer 68 Est GFR (MDRD) Non-Af 56 L BUN/Creatinine Ratio 24.0 H Glucose 322 H Lactic Acid Calcium 8.9 Troponin I B-Natriuretic Peptide Urine Color Urine Clarity Urine pH Ur Specific [place] Urine Protein Urine Glucose (UA) Urine Ketones Urine Occult Blood Urine Nitrite Urine Bilirubin Urine Urobilinogen Ur Leukocyte Esterase Urine RBC Urine WBC Ur Squamous Epith Cells Urine Bacteria Urine Mucus Acetone Level NEGATIVE 02/23/18 02/23/18 02/23/18 21:00 21:00 21:16 WBC RBC Hgb Hct MCV MCH MCHC RDW RDW Differential Plt Count MPV Immature Gran % (Auto) Neut % (Auto) Lymph % (Auto) [place] % (Auto) Eos % (Auto) Baso % (Auto) Absolute Neuts (auto) Absolute Lymphs (auto) Total Counted Specimen Type DERRICK Sample Site OTHER VBG pH 7.40 VBG pO2 18 L* VBG O2 Sat (Calc) 27 L VBG O2 Content 27 VBG Base Excess 0 POC Mix VBG pCO2 Pt Tmp 41.4 O2 Delivery Device Room Air Blood Gas Notified Whom ED Blood Gas Notified Time 2109 Sodium Cancelled Potassium Cancelled Chloride Cancelled Carbon Dioxide Cancelled Anion Gap Cancelled BUN Cancelled Creatinine Cancelled Estim Creat Clear Calc Cancelled Est GFR (MDRD) Af Amer Cancelled Est GFR (MDRD) Non-Af Cancelled BUN/Creatinine Ratio Cancelled Glucose Cancelled Lactic Acid 0.8 Calcium Cancelled Troponin I B-Natriuretic Peptide Urine Color Urine Clarity Urine pH Ur Specific [place] Urine Protein Urine Glucose (UA) Urine Ketones Urine Occult Blood Urine Nitrite Urine Bilirubin Urine Urobilinogen Ur Leukocyte Esterase Urine RBC Urine WBC Ur Squamous Epith Cells Urine Bacteria Urine Mucus Acetone Level 02/23/18 02/24/18 02/24/18 21:30 01:25 01:25 WBC RBC Hgb Hct MCV MCH MCHC RDW RDW Differential Plt Count MPV Immature Gran % (Auto) Neut % (Auto) Lymph % (Auto) [place] % (Auto) Eos % (Auto) Baso % (Auto) Absolute Neuts (auto) Absolute Lymphs (auto) Total Counted Specimen Type Sample Site VBG pH VBG pO2 VBG O2 Sat (Calc) VBG O2 Content VBG Base Excess POC Mix VBG pCO2 Pt Tmp O2 Delivery Device Blood Gas Notified Whom Blood Gas Notified Time Sodium Potassium Chloride Carbon Dioxide Anion Gap BUN Creatinine Estim Creat Clear Calc Est GFR (MDRD) Af Amer Est GFR (MDRD) Non-Af BUN/Creatinine Ratio Glucose Lactic Acid Calcium Troponin I < 0.015 B-Natriuretic Peptide 3164.5 H Urine Color Yellow Urine Clarity Clear Urine pH 6.5 Ur Specific [place] 1.015 Urine Protein 500 H Urine Glucose (UA) 1000 H Urine Ketones Negative Urine Occult Blood 10 H Urine Nitrite Negative Urine Bilirubin Negative Urine Urobilinogen Normal Ur Leukocyte Esterase Negative Urine RBC 0 SEEN Urine WBC 0-5 SEEN Ur Squamous Epith Cells 5-10 SEEN Urine Bacteria 0 SEEN Urine Mucus 0 SEEN Acetone Level 02/24/18 02/24/18 02/24/18 04:10 07:34 07:34 WBC 8.8 RBC 3.19 L Hgb 8.6 L Hct 26.8 L MCV 84.0 MCH 27.0 MCHC 32.1 RDW 16.8 H RDW Differential 51.9 H Plt Count 438 MPV 9.8 Immature Gran % (Auto) Neut % (Auto) Lymph % (Auto) [place] % (Auto) Eos % (Auto) Baso % (Auto) Absolute Neuts (auto) Absolute Lymphs (auto) Total Counted Specimen Type Sample Site VBG pH VBG pO2 VBG O2 Sat (Calc) VBG O2 Content VBG Base Excess POC Mix VBG pCO2 Pt Tmp O2 Delivery Device Blood Gas Notified Whom Blood Gas Notified Time Sodium 134 L Potassium 5.2 H Chloride 106 Carbon Dioxide 19.0 L Anion Gap 9 BUN 31 H Creatinine 1.21 H Estim Creat Clear Calc 66.09 Est GFR (MDRD) Af Amer 71 Est GFR (MDRD) Non-Af 58 L BUN/Creatinine Ratio 25.6 H Glucose 416 H Lactic Acid Calcium 8.1 L Troponin I < 0.015 < 0.015 B-Natriuretic Peptide Urine Color Urine Clarity Urine pH Ur Specific [place] Urine Protein Urine Glucose (UA) Urine Ketones Urine Occult Blood Urine Nitrite Urine Bilirubin Urine Urobilinogen Ur Leukocyte Esterase Urine RBC Urine WBC Ur Squamous Epith Cells Urine Bacteria Urine Mucus Acetone Level POC Glucose 02/24/18 02/24/18 02/24/18 12:05 06:40 01:33 POC Glucose 457 H* 401 H 347 H 02/23/18 02/23/18 22:15 21:17 POC Glucose 292 H 315 H Home Medications: Medications to take at Discharge Insulin Degludec [Tresiba Flextouch U-100] 18 unit SQ QHS 02/01/18 Insulin Lispro [Humalog KwikPen] 0 unit SC TIDAC 02/23/18 Metoprolol Tartrate [Lopressor (Beta Salvador)] 100 mg PO DAILY 02/23/18 Primary Care Physician: Becca Frausto NP-C [Primary Care Provider] - Disposition: Acute care Hospital Minutes spent on discharge:: 32 Patient Condition:: Stable Medical Necessity - Tobacco Use Smoking Status: Former smoker Meaningful Use Info Meaningful Use Diagnoses (Choose all that apply): CHF - CHF AIMEE/ARB ordered at discharge?: Yes Documented LVEF (%): 30 Code Visit OBSV E&M: 57713 Observation care discharge
== END 2018-02-24 11:46 | disposition short-term general hospital (02) ==
LOC: ED 20:51 → PCU 02-24 00:16
PROVIDERS: Admitting Provider Hospitalist; Emergency Provider Emergency Medicine; Family Provider Family Medicine; PCP Family Medicine; Visit Provider Internal Medicine
DX: I50.23 Acute on chronic systolic (congestive) heart failure (principal); N18.3 Chronic kidney disease, stage 3 (moderate); E10.22 Type 1 diabetes mellitus with diabetic chronic kidney disease; E10.65 Type 1 diabetes mellitus with hyperglycemia; E87.5 Hyperkalemia; I45.81 Long QT syndrome; J96.91 Respiratory failure, unspecified with hypoxia; D64.9 Anemia, unspecified; Z59.0 Homelessness; J18.1 Lobar pneumonia, unspecified organism; Z87.891 Personal history of nicotine dependence; Z79.4 Long term (current) use of insulin; Z79.899 Other long term (current) drug therapy; N18.9 Chronic kidney disease, unspecified
CPT/HCPCS: 36415; 71045; 80048; 81001; 82009; 82803; 82962; 83605; 83880; 84484; 85025; 85027; 87040; 87449; 87633; 87804; 93005; 94640; 94667; 96361; 96365; 96367; 96375; 96376; 99218; 99285; J7030; A4216; G0378; J1940

== ENCOUNTER 2018-03-23 21:58 | Emergency (ER) | payer OTHER, SELFPAY ==
[2018-02-24 00:50] VITALS: BMI 20.6
[2018-03-23 21:59] VITALS: BP 139/65; PULSE 81; RESP 16; TEMP 36.2; O2SAT 100; BMI 21.4
--- NOTE | 2018-03-23 22:42 | EKG12_ITS ---
Test Reason : CP Blood Pressure : / mmHG Vent. Rate : 080 BPM Atrial Rate : 080 BPM P-R Int : 150 ms QRS Dur : 076 ms QT Int : 416 ms P-R-T Axes : 042 041 110 degrees QTc Int : 479 ms Normal sinus rhythm Nonspecific T wave abnormality Prolonged QT Abnormal ECG Confirmed by BIGG JUAREZ, RAQUEL ([id number]), photo editor VIOLET LOMELI ([id number]) on 03/27/2018 8:10:31 AM Referred By: KARY Confirmed By:RAQUEL PRIDE MD
--- NOTE | 2018-03-23 22:44 | ED.VISSUMM ---
- ER Visit Summary Date of Service: 03/23/18 Chief Complaint: [] Orthopnea History of Present Illness: The patient is a 22 F stated that she has been having orthopnea dyspnea with laying down the last couple days. Current severity is mild. No symptoms at rest while sitting. She denies any cough. 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 She had a heart cath that showed no blockages. She is on metoprolol, lisinopril, torsemide. She took a second dose of torsemide today. She states she has not really been retaining much fluid. She has some mild ankle swelling yesterday, none today. Physical Examination: Vital signs reviewed General: Well-nourished well-developed Head: Normocephalic atraumatic Eyes: Pupils equal round and reactive to light extraocular movements intact ENT: TMs clear no hemotympanum no trauma Neck: Nontender full range of motion Cardiovascular: Regular rate rhythm no murmurs normal S1-S2 Respiratory: No distress clear to auscultation bilaterally chest nontender Abdomen: Soft nontender nondistended normal bowel sounds no masses Back: Nontender no CVA tenderness Extremities: Nontender active range of motion ?4 extremities no trauma Skin: Normal color no trauma Neuro alert oriented cranial nerves II through XII intact normal strength sensation reflexes Test Results: [] Emergency Department Course and Treatment: [] She appears well. She is resting comfortably. She has no tachypnea. Pulse ox is 100% on room air. EKG and chest x-ray obtained. EKG shows sinus rhythm at a rate of 80 without ischemia. Chest x-ray shows a very mild bibasilar infiltrates likely secondary to fluid from her CHF. This is very mild in my opinion. She was given a dose of Lasix orally. She will continue her extra dose of torsemide call her technical coordinator for outpatient echocardiogram tomorrow. I do not think she needs further lab work or imaging. She is resting comfortably. Treatment Plan: [] Disposition: [] Impression: [] Mild CHF exacerbation This note was generated with Wixation software. It may contain incorrect words, spelling, and punctuation that were not noted in review of the chart prior to signing ED Disposition - Plan for ED Patient: Chief Complaint: Shortness of Breath Referrals: Becca Frausto NP-C [Primary Care Provider] -
--- NOTE | 2018-03-23 22:50 | RAD_ITS ---
STUDY: X-RAY CHEST REASON FOR EXAM: Female, 22 years old. Increasing shortness of breath TECHNIQUE: PA and lateral views of the chest. COMPARISON: 02/23/2018 FINDINGS: There are asymmetric parenchymal opacities involving the left more than right lower lobe and lingula. No pleural effusion. Normal size heart. Normal mediastinum and nelda. Normal visualized pulmonary arteries. Normal visualized aortic arch and descending thoracic aorta. Normal visualized thoracic spine. Normal visualized ribs, clavicles, and shoulders. There is no demonstrated abnormality of the visualized soft tissue structures of the upper abdomen. RAD/Chest PA and Lateral IMPRESSION: 1. Persistent bibasilar (left more than right) infiltrates that could represent pulmonary edema or pneumonia. No sizable effusion. Electronically Signed: Adams Cameron MD at 23:05 EST , Service support ,
--- NOTE | 2018-03-23 23:21 | DCINST.ED_ITS ---
ED Disposition - Plan for ED Patient: Disposition: Home or Assisted Living Chief Complaint: Shortness of Breath Instructions: ED CHF General Referrals: Becca Frausto NP-C [Primary Care Provider] - Additional Instructions: Please follow with your client support manager in the next couple days
[2018-03-23 23:29] VITALS: BP 146/118; PULSE 78; RESP 15; O2SAT 99
[2018-03-23] MEDS: Furosemide 40 MG Tablet PO (23:29)
== END 2018-03-23 23:31 | disposition home or self-care (01) ==
PROVIDERS: Emergency Provider Emergency Medicine; Family Provider Family Medicine; PCP Family Medicine
DX: I50.9 Heart failure, unspecified (principal); E11.22 Type 2 diabetes mellitus with diabetic chronic kidney disease; N18.9 Chronic kidney disease, unspecified; D64.9 Anemia, unspecified; Z79.4 Long term (current) use of insulin; Z79.899 Other long term (current) drug therapy
CPT/HCPCS: 71046; 93005; 99283

== ENCOUNTER 2018-08-01 16:58 | Emergency (ER) | payer MEDICAID, SELFPAY ==
[2018-08-01 16:59] VITALS: BP 152/113; PULSE 100; RESP 24; TEMP 36.2; O2SAT 100; BMI 20.8
[2018-08-01 17:15] VITALS: BP 142/118; PULSE 102; RESP 26; O2SAT 100
[2018-08-01 17:20] LABS: Bedside Glucose 154 mg/dL (70-110)
--- NOTE | 2018-08-01 17:36 | EKG12_ITS ---
Test Reason : GENERAL ILLNESS Blood Pressure : / mmHG Vent. Rate : 100 BPM Atrial Rate : 100 BPM P-R Int : 138 ms QRS Dur : 076 ms QT Int : 386 ms P-R-T Axes : 061 087 019 degrees QTc Int : 497 ms Normal sinus rhythm Nonspecific ST abnormality Prolonged QT Abnormal ECG Confirmed by JARETT JUAREZ, JENNIFER ([id number]), news assignment editor ALICE TRUONG ([id number]) on 08/05/2018 8:52:29 AM Referred By: JOSE/FLORIAN Confirmed By:JENNIFER DENSON MD
--- NOTE | 2018-08-01 17:36 | US_ITS ---
STUDY: ABDOMINAL ULTRASOUND - RIGHT UPPER QUADRANT REASON FOR VISIT: Female, 23 years old. Pain TECHNIQUE: Ultrasound evaluation of the right upper quadrant was performed with real-time and static saleh-scale imaging. TECHNICAL QUALITY: Adequate. COMPARISON: None. FINDINGS: There is a small right effusion. Liver: The liver measures 22 cm. There is normal echogenicity of the liver. The bile ducts are within normal limits. There is hepatic color flow. The direction of portal flow is hepatopetal. There is a left hepatic 2 cm hypoechoic lesion. There is mild ascites. Gallbladder: The gallbladder wall is edematous. The gallbladder wall measures 8 mm. There is a negative sonographic Clark's sign. There is no pericholecystic fluid. There are no gallstones. Common Bile Duct (C.B.D.): The common bile duct measures 3 mm. Pancreas: Normal size of the head, body and tail of the pancreas. There is normal echogenicity of the pancreas. There is no demonstrated pancreatic mass or cyst. Right Kidney: Normal size of the right kidney. The right kidney measures 10 cm. Normal renal cortex. There is no demonstrated renal mass or cyst. There is no right hydronephrosis. US/Gallbladder IMPRESSION: Hepatic parenchymal disease and hepatomegaly with mild ascites. Left hepatic 2 cm hypoechoic lesion, indeterminate. Hepatic protocol CT scan is suggested for additional characterization. Gallbladder wall thickening and edema without gallstones. This can occur secondary to hepatic disease as well acalculus cholecystitis. Correlate clinically. Electronically Signed: Jeremy Robles, at 19:04 EDT Tel , Service support ,
--- NOTE | 2018-08-01 17:42 | ED.DCSUM_ITS ---
History of Present Illness Chief Complaint: General Illness Informant: Patient Onset: Days - 2 Timing: Continuous Quality: Ache Location: Right upper quadrant Current Severity: Moderate Maximum Severity: Moderate Worsened by: Nothing Relieved by: Nothing Associated Symptoms: Chest pain, shortness of breath, back pain Narrative: Patient states for the past 2 days she has been having worsening right upper quadrant pain radiating into her right back, it is constant not colicky, associated with anorexia, nausea, vomiting. Did not start after meal. Also short of breath and having left-sided nonpleuritic chest discomfort and feels similar to myocarditis she had that gave her congestive heart failure. She has had no leg edema. No urinary symptoms. She has had some diarrhea. She was seen at a different hospital last night and after doing a chest x-ray and some other test prescribed a diuretic, she states that has not helped so she came here for evaluation. - Past Medical History (1) Congestive heart failure Status: Chronic (2) Myocarditis Status: Resolved (3) Narcotic withdrawal Status: Resolved (4) DM type 1 (diabetes mellitus, type 1) Status: Chronic (5) Protein calorie malnutrition Status: Chronic (6) DKA (diabetic ketoacidoses) Status: Resolved Past Medical History - Allergies and Home Meds Allergies/Adverse Reactions: Allergies Penicillins Allergy (Verified 08/01/18 17:01) Vania Primary Care Physician: Becca Frausto NP-C [Primary Care Provider] - Surgical History: no surgical history Smoking Status: Former smoker - Family History Paternal Family History: Reports: - - Patient denies any marked maternal or paternal family history including diabetes, heart disease, cancer. Maternal Family History: Reports: Diabetes - Her maternal second cousin had type 1 diabetes., - Review of Systems General: Reports: Malaise. Denies: Chills, Fever, Sweats Eyes: Denies: Visual changes - bilaterally, Diplopia ENT: Denies: Rhinorrhea, Sore throat Cardiovascular: Reports: Chest pain. Denies: Palpitations Respiratory: Reports: Dyspnea. Denies: Cough, Dyspnea on exertion, Orthopnea Gastrointestinal: Reports: Abdominal pain, Nausea, Vomiting, Diarrhea. Denies: Melena, Hematochezia Genitourinary: Denies: Dysuria, Hematuria, Frequency Musculoskeletal: Denies: Neck pain, Back pain, Swelling, Extremity Pain Skin: Denies: Rash, Wounds Neurological: Denies: Headache, Weakness, Numbness Physical Exam Vital Signs/Narrative: Vital Signs Temp Pulse Resp BP Pulse Ox 08/01/18 17:15 102 H 26 H 142/118 H 100 08/01/18 16:59 97.1 F L 100 24 H 152/113 H 100 Inital Vital Signs reviewed: Yes General: Well nourished, Well developed, No Acute Distress - Ill-appearing Head: Normocephalic, Atraumatic Eyes: Perrl, EOMI ENT: Moist mucous membranes, No rhinorrhea Neck: Supple, Nontender Cardiovascular: Regular rate, Regular rhythm, No murmurs, Tachycardia Respiratory: No distress, CTA bilaterally, Chest nontender Abdomen: Soft, Nondistended, Normal bowel sounds, Tender - Right upper quadrant and epigastrium, otherwise nontender, Guarding - Voluntarily. Negative for: Rebound tenderness Back: Normal Inspection, CVA tenderness - Bilateral, worse on right Extremities: Nontender, No edema. Negative for: Calf Tenderness Skin: Normal color, No rash, No Trauma Neurological: Alert, Oriented x3, Cranial nerves II-XII grossly intact, Normal Strength, Normal Sensation Psychological: Negative for: Normal affect - Flat Diagnostic/Tx/Re-eval Impressions Gallbladder Ultrasound 08/01/18 17:36 IMPRESSION: Hepatic parenchymal disease and hepatomegaly with mild ascites. Left hepatic 2 cm hypoechoic lesion, indeterminate. Hepatic protocol CT scan is suggested for additional characterization. Gallbladder wall thickening and edema without gallstones. This can occur secondary to hepatic disease as well acalculus cholecystitis. Correlate clinically. Electronically Signed: Jeremy Robles, at 19:04 EDT Tel , Service support , Chest X-Ray 08/01/18 18:40 IMPRESSION: No acute thoracic pathology. Electronically Signed: Jeremy Robles, at 18:59 EDT Tel , Service support , 08/01/18 17:36 US Gallbladder [Gallbladder] [US] Stat 08/01/18 18:40 Chest PA and Lateral [RAD] Stat Laboratory Results 06/09/1208/01/18 08/01/18 17:13 18:03 18:03 WBC 7.8 RBC 3.87 L Hgb 10.0 L Hct 32.0 L MCV 82.7 MCH 25.8 L MCHC 31.3 L RDW 17.8 H RDW Differential 54.2 H Plt Count 274 MPV 9.9 Immature Gran % (Auto) 0.100 Neut % (Auto) 53.2 Lymph % (Auto) 40.6 [place] % (Auto) 4.2 Eos % (Auto) 1.0 Baso % (Auto) 0.9 Absolute Neuts (auto) 4.2 Absolute Lymphs (auto) 3.18 Total Counted Not Reportable Sodium 136 Potassium 5.0 Chloride 105 Carbon Dioxide 23.0 Anion Gap 8 BUN 36 H Creatinine 1.74 H Estim Creat Clear Calc 47.54 Est GFR (MDRD) Af Amer 46 L Est GFR (MDRD) Non-Af 38 L BUN/Creatinine Ratio 20.7 H Glucose 177 H Calcium 8.4 L Total Bilirubin 0.60 AST 114 H ALT 68 H Alkaline Phosphatase 252 H Troponin I 0.035 Total Protein 6.9 Albumin 3.0 L Globulin 3.9 Albumin/Globulin Ratio 0.8 L Lipase 32 L Urine Color Urine Clarity Urine pH Ur Specific [place] Urine Protein Urine Glucose (UA) Urine Ketones Urine Occult Blood Urine Nitrite Urine Bilirubin Urine Urobilinogen Ur Leukocyte Esterase Urine RBC Urine WBC Ur Squamous Epith Cells Urine Bacteria Urine Mucus Urine Test Acetone Level POC Glucose 154 H 08/01/18 08/01/18 08/01/18 18:03 19:35 19:35 WBC RBC Hgb Hct MCV MCH MCHC RDW RDW Differential Plt Count MPV Immature Gran % (Auto) Neut % (Auto) Lymph % (Auto) [place] % (Auto) Eos % (Auto) Baso % (Auto) Absolute Neuts (auto) Absolute Lymphs (auto) Total Counted Sodium Potassium Chloride Carbon Dioxide Anion Gap BUN Creatinine Estim Creat Clear Calc Est GFR (MDRD) Af Amer Est GFR (MDRD) Non-Af BUN/Creatinine Ratio Glucose Calcium Total Bilirubin AST ALT Alkaline Phosphatase Troponin I Total Protein Albumin Globulin Albumin/Globulin Ratio Lipase Urine Color Yellow Urine Clarity Sl. Cloudy Urine pH 6.5 Ur Specific [place] 1.015 Urine Protein 500 H Urine Glucose (UA) Normal Urine Ketones Negative Urine Occult Blood 10 H Urine Nitrite Negative Urine Bilirubin Negative Urine Urobilinogen Normal Ur Leukocyte Esterase Negative Urine RBC 0-5 SEEN Urine WBC 0 SEEN Ur Squamous Epith Cells 5-10 SEEN Urine Bacteria 0 SEEN Urine Mucus 0 SEEN Urine Test Negative Acetone Level NEGATIVE POC Glucose - Medical Decision Making Work-up shows the patient has no pneumonia, elevated troponin indicative of myocarditis or other acute intrathoracic abnormality, her EKG is unremarkable, and she is not in DKA. I did an ultrasound of her gallbladder, it showed wall thickening but no stones or pericholecystic fluid, no obvious acute cholecystitis although that is in the differential for these findings. She has some slightly elevated liver enzymes without hyperbilirubinemia. After treatment with fluids, analgesics, Zofran, she states all of her symptoms are gone and she is feeling much better after a short nap in the ER. Given this, I do not think she needs to be admitted for these symptoms. She may need a HIDA scan as an outpatient. It is Saturday night and that test will not be available until Saturday, we discussed admitting her to the hospital here, and she agrees with discharge but does not have a PCP. I will refer her to someone in her area, and she is encouraged to return for worsening/recurrent symptoms. I will give her a prescription for analgesics and Zofran. She is also advised to attempt a zero-fat diet if possible and to stay hydrated. ED Disposition - Plan for ED Patient: Disposition: Home or Assisted Living Diagnosis: RUQ pain, Chest pain, unspecified Instructions: ED Abdominal Pain Unkn Cause Prescriptions: Hydrocodone Bitart/Apap 5-325 [Norton 5MG-325MG] 1 tab PO Q4H PRN PRN 2 Days #10 tab PRN Reason: Pain Ondansetron [Zofran] 8 mg PO Q8H PRN #12 tab PRN Reason: Nausea/Vomiting Referrals: Becca Frausto NP-Alvaro [Primary Care Provider] - As soon as possible Danis High MD [NON-STAFF] - As soon as possible Additional Instructions: You may need an outpatient HIDA scan. See your doctor to discuss your symptoms and tests that were run in the ER.
[2018-08-01] MEDS: Ondansetron 4 MG/2 ML Vial IV (18:11)
[2018-08-01] MEDS: Ketorolac 30 MG/ML Syringe IV (18:12)
[2018-08-01] MEDS: Morphine 4 MG/ML Syringe IV (18:12)
[2018-08-01] MEDS: 0.9% Normal Saline 1,000 ML 999 ML IV (18:12)
[2018-08-01 18:13] LABS: Absolute Lymphocyte Count 3.18 X10^3/ul (0.83-4.51); Absolute Neutrophil Count 4.2 X10^3/uL (2.0-7.7); Basophil# 0.07 X10^3/uL; Basophil% 0.9 % (0-1); Eosinophil# 0.08 X10^3/uL; Lymphocyte # 3.18 X10^3/ul (4.0); Lymphocyte % 40.6 % (19-41); Mean Corp Hgb Conc 31.3 g/gl (32-36); Mean Corpuscular Hgb 25.8 pg (27.0-32.0); Mean Corpuscular Volume 82.7 fL (81-99); Mean Platelet Vol. 9.9 fl (6.2-12.0); Monocyte# 0.33 X10^3/uL; Monocyte% 4.2 % (0-10); Neutrophil # 4.16 X10^3/uL (2.7-7.7); Neutrophil % 53.2 % (47-70); Platelet Count 274 K/mm3 (150-450); RBC Distribution Width CV 17.8 % (11.6-14.6); RBC Distribution Width SD 54.2 fl (35.1-43.9); Red Blood Count 3.87 M/mm3 (4.2-5.4); White Blood Count 7.8 K/mm3 (4.4-11.0)
[2018-08-01 18:17] LABS: POSITIVE COUNT NO; POSITIVE DIFFERENTIAL NO; POSITIVE MORPHOLOGY NO
[2018-08-01 18:40] LABS: ALB/GLOB Ratio 0.8 RATIO (0.9-2.4); AST(SGOT) 114 U/L (15-37); Alanine Aminotransfer ALT/SGPT 68 U/L (13-56); Alkaline Phosphatase 252 U/L (45-117); Anion Gap 8 (5-15); BUN 36 mg/dL (7-18); BUN/Creat Ratio 20.7 RATIO (10-20); Calcium,Total 8.4 mg/dL (8.5-10.1); Chloride 105 mmol/L (98-107); Creatinine, Serum 1.74 mg/dL (0.55-1.02); EST Glomerular Filtration Rate 38 mL/min (>60); Est Glom Filt Rate - Afr Amer 46 mL/min (>60); Estimated Creatinine Clearance 47.54 ml/min; Globulin 3.9 g/dL (2.2-4.2); Glucose 177 mg/dL (74-106); Lipase 32 U/L (73-393); Protein, Total 6.9 g/dL (6.4-8.2); Sodium Level 136 mmol/L (136-145)
--- NOTE | 2018-08-01 18:40 | RAD_ITS ---
STUDY: X-RAY CHEST REASON FOR EXAM: Female, 23 years old. Chest pain TECHNIQUE: PA and lateral views of the chest COMPARISON: X-Ray Chest daily 13/09/2018 FINDINGS: The lungs are clear. There are no pleural effusions. There is no pneumothorax. The heart is normal in size. The visualized osseous structures are within normal limits. RAD/Chest PA and Lateral IMPRESSION: No acute thoracic pathology. Electronically Signed: Jeremy Robles, at 18:59 EDT Tel , Service support ,
[2018-08-01 19:06] VITALS: BP 142/101; PULSE 92; RESP 19; O2SAT 98
[2018-08-01 19:53] LABS: Bacteria 0 SEEN /hpf (None Seen); Mucous, Urine 0 SEEN /hpf (<or=2+); White Blood Cells 0 SEEN /hpf (0-5)
[2018-08-01 20:00] LABS: Color, Urine Yellow (Yellow); Glucose, Dipstick Normal (Normal); Ketone-Dipstick Negative (Negative); Leukocyte Esterase-Dipstick Negative /ul (Negative); Nitrite-Dipstick Negative (Negative); Occult Blood-Urine 10 /ul (Negative); Protein-Dipstick 500 mg/dl (Negative); Specific Gravity, Urine 1.015 (1.002-1.030); Urine Bilirubin Dipstick Negative (Negative); Urine Clarity Sl. Cloudy (Clear); Urine Urobilinogen Normal (Normal); Urine pH 6.5 (5.0 - 8.0)
[2018-08-01 20:10] LABS: Internal QC Validated? YES +Cl - CLEAR BKGD; Pregnancy, Urine Negative Negative
[2018-08-01 20:12] LABS: Red Blood Cells-Urine 0-5 SEEN /hpf (0-5); Squamous Epithelial Cells - UA 5-10 SEEN /hpf (5-10)
[2018-08-01 21:07] VITALS: BP 138/105; PULSE 81; RESP 16; O2SAT 95
[2018-08-01 22:01] LABS: Bedside Glucose 192 mg/dL (70-110)
[2018-08-01 22:02] VITALS: BP 144/106; PULSE 93; RESP 16; O2SAT 100
== END 2018-08-01 22:45 | disposition home or self-care (01) ==
PROVIDERS: Emergency Provider Emergency Medicine; Family Provider Family Medicine; PCP Family Medicine
DX: R07.9 Chest pain, unspecified (principal); R10.11 Right upper quadrant pain; R11.2 Nausea with vomiting, unspecified; R19.7 Diarrhea, unspecified; R74.8 Abnormal levels of other serum enzymes; E10.9 Type 1 diabetes mellitus without complications; E46 Unspecified protein-calorie malnutrition; Z87.891 Personal history of nicotine dependence; Z88.0 Allergy status to penicillin; Z79.4 Long term (current) use of insulin
CPT/HCPCS: 71046; 76705; 80053; 81001; 81025; 82009; 82962; 83690; 84484; 85025; 93005; 96361; 96374; 96375; 99284; J7030; A4216; J2405

== ENCOUNTER 2018-08-07 20:43 | Emergency (ER) | payer MEDICAID, SELFPAY ==
[2018-08-07 20:44] VITALS: BP 145/106; PULSE 94; RESP 18; TEMP 36.6; O2SAT 100; BMI 21.7
--- NOTE | 2018-08-07 21:19 | US_ITS ---
HISTORY: ABD PAIN GETTING WORSE COMPARISON: Ultrasound 08/01/2018. CT 12/22/2017 TECHNIQUE: Sonographic images of the right upper quadrant of the abdomen using grayscale and color Doppler imaging. Number of images including paperwork: 128 FINDINGS: LIVER: 2 cm hypoechoic left lobe liver lesion appears similar.. Right lobe measures 21.5 cm. GALLBLADDER: No gallstones. Partially contracted gallbladder with gallbladder wall thickening/edema measuring up to 6 mm. Sonographic Clark's sign not elicited per the director veterinary. BILE DUCTS: No significant biliary dilatation. CBD 4.8 mm. PANCREAS: Unremarkable visualized pancreas. Tail partially obscured by bowel gas. RIGHT KIDNEY: Normal in length, 9.8 cm. There is a right renal scarring. AORTA: Unremarkable visualized portions of the aorta. INFERIOR VENA CAVA: Unremarkable visualized portions of the inferior vena cava. FREE FLUID: Small amount of free fluid. Small right pleural effusion. US/Gallbladder IMPRESSION: 1. Nonspecific gallbladder wall thickening, a finding which can be seen with cholecystitis, liver disease, heart failure or hypoalbuminemia. 2. Hepatomegaly. 3. Small amount of ascites. 4. Given the constellation of findings, clinical and laboratory correlation for the possibility of acute hepatitis recommended. 5. Nonspecific left lobe liver lesion. Nonemergent follow-up hepatic MRI without and with contrast recommended for further characterization. at 222 Reported and signed by: Steph Aguilar MD Electronically Signed: Steph Aguilar MD at 22:28 EDT Tel , Service support ,
[2018-08-07 21:21] LABS: Bedside Glucose 195 mg/dL (70-110)
--- NOTE | 2018-08-07 21:21 | ED.DCSUM_ITS ---
- ER Visit Summary Date of Service: 08/07/18 Chief Complaint: Abdominal pain History of Present Illness: The patient is a 23 F presenting with abdominal pain. Patient states this started a week ago. Pain has been intermittent. She was seen on August 01 in the ED. At that time she had blood work and ultrasound performed. She states the pain has worsened. She denies fever. She had nausea vomiting x2 today. Denies diarrhea or constipation. Denies urinary complaints. She has had decreased appetite. Denies other complaints. Physical Examination: Vitals are stable. Patient is afebrile. Alert no acute distress. HEENT exam is unremarkable. Neck is supple. Lungs are clear and equal bilaterally. Heart is regular rate and rhythm. Abdomen is soft right upper quadrant tenderness Extremities are unremarkable. Skin is warm and dry. No focal neurologic deficit. Remainder of exam is unremarkable. Emergency Department Course and Treatment: Gallbladder ultrasound shows nonspecific gallbladder wall thickening, a finding which can be seen with cholecystitis, liver disease, heart failure or hypoalbuminemia. Hepatomegaly. Small amount of ascites. Given the constellation of findings, clinical and laboratory correlation for the possibility of acute hepatitis recommended. Nonspecific left lobe liver lesion. Nonemergent follow-up hepatic MRI without and with contrast recommended for further characterization. Labs are pending and will be checked out to the oncoming physician. Disposition: pending Impression: Abdominal pain This note was generated with [employer] dictation software. It may contain incorrect words, spelling, and punctuation that were not noted in review of the chart prior to signing ED Disposition - Plan for ED Patient: Referrals: Becca Frausto NP-C [Primary Care Provider] -
--- NOTE | 2018-08-07 21:59 | ED.RN ---
DR PATTERSON AWARE OF INABILITY TO GET AN IV AFTER MULTIPLE ATTEMPTS.PT SENT TO ULTRASOUND,WILL ATTEMPT WHEN SHE GETS BACK.
[2018-08-07 23:21] LABS: Hematocrit 32.7 % (37-47); Hemoglobin 10.2 g/dl (12.0-15.0); Mean Corp Hgb Conc 31.2 g/gl (32-36); Mean Corpuscular Hgb 25.4 pg (27.0-32.0); Mean Corpuscular Volume 81.5 fL (81-99); Platelet Count 351 K/mm3 (150-450); RBC Distribution Width CV 17.4 % (11.6-14.6); Red Blood Count 4.01 M/mm3 (4.2-5.4); White Blood Count 8.2 K/mm3 (4.4-11.0)
[2018-08-07] MEDS: Ondansetron ODT 4 MG Tablet PO (23:21)
[2018-08-07 23:22] LABS: Absolute Lymphocyte Count 3.62 X10^3/ul (0.83-4.51); Absolute Neutrophil Count 3.9 X10^3/uL (2.0-7.7); Basophil# 0.09 X10^3/uL; Basophil% 1.1 % (0-1); Eosinophil# 0.17 X10^3/uL; Eosinophils% 2.1 % (0-5); Lymphocyte # 3.62 X10^3/ul (4.0); Mean Platelet Vol. 9.7 fl (6.2-12.0); Monocyte# 0.46 X10^3/uL; Monocyte% 5.6 % (0-10); Neutrophil # 3.87 X10^3/uL (2.7-7.7); Neutrophil % 47.1 % (47-70); POSITIVE COUNT NO; POSITIVE DIFFERENTIAL NO; POSITIVE MORPHOLOGY NO
[2018-08-07 23:31] VITALS: RESP 18
[2018-08-07 23:39] LABS: Internal QC Validated? YES +Cl - CLEAR BKGD
[2018-08-07 23:40] LABS: Pregnancy, Serum, hCG Quali. NEGATIVE Negative
[2018-08-07 23:46] LABS: AST(SGOT) 28 U/L (15-37); Alanine Aminotransfer ALT/SGPT 40 U/L (13-56); Albumin, Serum 2.9 g/dL (3.2-5.0); Alkaline Phosphatase 243 U/L (45-117); Anion Gap 8 (5-15); BUN 29 mg/dL (7-18); Bilirubin, Direct 0.17 mg/dL (0.00-0.30); Calcium,Total 8.3 mg/dL (8.5-10.1); Chloride 104 mmol/L (98-107); Creatinine, Serum 1.71 mg/dL (0.55-1.02); EST Glomerular Filtration Rate 39 mL/min (>60); Est Glom Filt Rate - Afr Amer 47 mL/min (>60); Estimated Creatinine Clearance 49.33 ml/min; Globulin 3.6 g/dL (2.2-4.2); Glucose 254 mg/dL (74-106); Lipase 29 U/L (73-393); Potassium 4.4 mmol/L (3.5-5.1); Protein, Total 6.5 g/dL (6.4-8.2); Sodium Level 133 mmol/L (136-145)
--- NOTE | 2018-08-08 00:12 | ED.DEP ---
ED Disposition - Plan for ED Patient: Instructions: ED Abdominal Pain Unkn Cause Prescriptions: Hydrocodone Bitart/Apap 5-325 [[place] 5MG-325MG] 1 tab PO Q6H PRN PRN 3 Days #10 tab PRN Reason: Pain Referrals: Becca Frausto, FREIGHT RATE CLERK-C [Primary Care Provider] - Silver Wagoner MD [STAFF PHYSICIAN] -
--- NOTE | 2018-08-08 00:13 | DCINST.ED_ITS ---
ED Disposition - Plan for ED Patient: Instructions: ED Abdominal Pain Unkn Cause Prescriptions: Hydrocodone Bitart/Apap 5-325 [[place] 5MG-325MG] 1 tab PO Q6H PRN PRN 3 Days #10 tab PRN Reason: Pain Referrals: Becca Frausto, CLINICAL SERVICES DIRECTOR-C [Primary Care Provider] - Silver Wagoner MD [STAFF PHYSICIAN] -
[2018-08-08] MEDS: HYDROcodone Bitartrate/Apap 5/325 Tablet PO (00:18)
[2018-08-08 00:21] VITALS: BP 112/87; PULSE 96; RESP 18; O2SAT 96
== END 2018-08-08 00:21 | disposition home or self-care (01) ==
PROVIDERS: Emergency Provider Emergency Medicine; Family Provider Family Medicine; PCP Family Medicine
DX: R10.9 Unspecified abdominal pain (principal); R11.2 Nausea with vomiting, unspecified; E11.9 Type 2 diabetes mellitus without complications; I50.9 Heart failure, unspecified; Z79.4 Long term (current) use of insulin; Z79.899 Other long term (current) drug therapy
CPT/HCPCS: 36415; 76705; 80048; 80076; 82962; 83690; 84703; 85025; 99285; J7030; A4216; J2405

== ENCOUNTER 2018-08-11 14:29 | Emergency (ER) | payer MEDICAID, SELFPAY ==
[2018-08-11 14:30] VITALS: BP 152/114; PULSE 104; RESP 20; TEMP 36.8; O2SAT 99; BMI 21.1
--- NOTE | 2018-08-11 15:03 | ED.DCSUM_ITS ---
- ER Visit Summary Date of Service: 08/11/18 Chief Complaint: Abdominal pain/flank pain History of Present Illness: The patient is a 23 F who presents with abdominal pain. She said this pain for 2 weeks. She has been seen at this facility and a [facility]. She has pain in the right upper quadrant. She has had nausea and vomiting with diarrhea. She was at [facility] this morning and had an ultrasound which showed gallbladder wall thickening. She was sent home and she followed up with Dr. Wagoner. When she went to his office she had a syncopal episode in the waiting room so she was sent here. She states her temperature is 102 ?F this morning. She has been trying [place] without any relief. Physical Examination: Vital signs reviewed. HEENT exam unremarkable. Heart is regular rate and rhythm without murmurs. Lungs are clear to auscultation. Abdomen is soft with right flank tenderness to palpation. There is no distention or guarding. Extremities reveal no edema. Skin exam normal. Neurologic exam normal. Test Results: Laboratory studies show a hemoglobin of 9. Creatinine 1.73 which is baseline. Alkaline phosphatase is 219. CAT scan reveals hepatomegaly with periportal edema. There is gallbladder wall thickening with edema. There is a liver lesion that measures 2 x 3 cm Emergency Department Course and Treatment: I spoke with Dr. Wagoner who recommended the CAT scan after laboratory studies return. After the results were finalized, Dr. Wagoner reviewed the CAT scan. He was concerned about follicular nodular hyperplasia. He states that he cannot handle this patient here and would like her to be transferred. She requested [facility]. I spoke with Dr. Faria patient will be transferred there for further evaluation. We will start her on Cipro and Flagyl in case this is cholecystitis Treatment Plan: [] Disposition: Transfer Impression: Right upper quadrant pain, liver lesion, questionable cholecystitis This note was generated with [employer] dictation software. It may contain incorrect words, spelling, and punctuation that were not noted in review of the chart prior to signing ED Disposition - Plan for ED Patient: Referrals: Becca Frausto, ERIK-C [Primary Care Provider] -
[2018-08-11] MEDS: Morphine 4 MG/ML Syringe IV ×2 (15:48→20:25)
[2018-08-11] MEDS: Ondansetron 4 MG/2 ML Vial IV (15:48)
[2018-08-11 15:55] LABS: Absolute Lymphocyte Count 2.42 X10^3/ul (0.83-4.51); Absolute Neutrophil Count 3.1 X10^3/uL (2.0-7.7); Basophil# 0.02 X10^3/uL; Basophil% 0.3 % (0-1); Eosinophil# 0.05 X10^3/uL; Eosinophils% 0.8 % (0-5); Hematocrit 28.7 % (37-47); Lymphocyte # 2.42 X10^3/ul (4.0); Mean Corp Hgb Conc 31.4 g/gl (32-36); Mean Corpuscular Hgb 25.6 pg (27.0-32.0); Mean Corpuscular Volume 81.5 fL (81-99); Mean Platelet Vol. 9.5 fl (6.2-12.0); Monocyte# 0.28 X10^3/uL; Monocyte% 4.7 % (0-10); Neutrophil # 3.12 X10^3/uL (2.7-7.7); Platelet Count 293 K/mm3 (150-450); RBC Distribution Width CV 17.2 % (11.6-14.6); Red Blood Count 3.52 M/mm3 (4.2-5.4); White Blood Count 5.9 K/mm3 (4.4-11.0)
[2018-08-11 16:01] LABS: POSITIVE COUNT NO; POSITIVE DIFFERENTIAL NO; POSITIVE MORPHOLOGY NO
[2018-08-11 16:09] LABS: AST(SGOT) 36 U/L (15-37); Alanine Aminotransfer ALT/SGPT 30 U/L (13-56); Albumin, Serum 2.8 g/dL (3.2-5.0); Alkaline Phosphatase 219 U/L (45-117); Anion Gap 7 (5-15); BUN 23 mg/dL (7-18); BUN/Creat Ratio 13.3 RATIO (10-20); Bilirubin, Direct 0.18 mg/dL (0.00-0.30); Calcium,Total 8.1 mg/dL (8.5-10.1); Chloride 105 mmol/L (98-107); Creatinine, Serum 1.73 mg/dL (0.55-1.02); EST Glomerular Filtration Rate 38 mL/min (>60); Est Glom Filt Rate - Afr Amer 47 mL/min (>60); Estimated Creatinine Clearance 48.47 ml/min; Globulin 3.5 g/dL (2.2-4.2); Glucose 202 mg/dL (74-106); Lipase 26 U/L (73-393); Protein, Total 6.3 g/dL (6.4-8.2); Sodium Level 136 mmol/L (136-145)
--- NOTE | 2018-08-11 16:18 | CT_ITS ---
STUDY: CT ABDOMEN AND PELVIS WITH CONTRAST REASON FOR EXAM: Female, 23 years old. Pain RADIATION DOSAGE (If Supplied By Facility): DLP = ( 410.38 ) mGycm TECHNIQUE: Transaxial images were obtained from the dome of the diaphragm to the symphysis pubis with oral contrast. 100ML ml of Isovue 300 contrast was administered. Sagittal and coronal images were reconstructed. Individualized dose optimization techniques were used for this CT. COMPARISON: None. FINDINGS: The visualized lung bases are clear. There is a moderate right pleural effusion. The left pleural space is clear. The visualized portions of the heart and pericardium are within normal limits. There are no calcified gallstones present. Gallbladder wall thickening/edema is present. The liver is enlarged. Hepatic echogenicity is heterogeneous. There is a left hepatic 3.1 x 2 cm enhancing lesion. Periportal edema is present. The spleen is normal in size. The pancreas is within normal limits. The adrenal glands are within normal limits. There are no obstructing renal stones. There is no hydronephrosis. There are numerous right linear cortical hypodensities. Normal visualized stomach. There is no bowel obstruction or inflammation. The appendix is not visualized, but there are no findings to suggest acute appendicitis. The aorta is normal in caliber. There is mild ascites. There is no free air. Mildly prominent lymph nodes are present in the upper abdomen, without pathologically enlarged nodes present. There are no destructive osseous lesions. CT/Abdomen/Pelvis WITH Contrast IMPRESSION: Hepatomegaly and coarsened hepatic attenuation with periportal edema. Consistent appearance with hepatic disease with considerations to include cirrhosis, hepatitis, among other etiologies. Left hepatic enhancing lesion measuring 3.1 x 2 cm in size. Indeterminant on a single phase evaluation. Multiphase hepatic protocol CT is recommended for additional characterization. Numerous right renal cortical hypodensities, consistent with multiple scars, infarcts, or infection. Gallbladder wall thickening/edema without gallstones, likely secondary to hepatic disease although a calculus cholecystitis is an additional possibility. Moderate right pleural effusion. Electronically Signed: Jeremy Robles, at 18:29 EDT Tel , Service support ,
[2018-08-11 16:29] VITALS: BP 143/113; PULSE 21; RESP 21; O2SAT 99
[2018-08-11 18:00] VITALS: BP 142/110; PULSE 90; RESP 17; O2SAT 99
[2018-08-11] MEDS: Ciprofloxacin 400 MG/200 ML BAG 200 MG IV (20:26)
[2018-08-11 20:29] VITALS: BP 126/98; PULSE 98; RESP 18; TEMP 36.7; O2SAT 99
[2018-08-11] MEDS: metroNIDAZOLE 500 MG/100 ML BAG 100 MG IV (21:31)
== END 2018-08-11 22:13 | disposition short-term general hospital (02) ==
PROVIDERS: Emergency Provider Emergency Medicine; Family Provider Family Medicine; PCP Family Medicine
DX: R10.11 Right upper quadrant pain (principal); R11.2 Nausea with vomiting, unspecified; R19.7 Diarrhea, unspecified; K76.9 Liver disease, unspecified; R16.0 Hepatomegaly, not elsewhere classified; E10.9 Type 1 diabetes mellitus without complications; I50.9 Heart failure, unspecified; Z79.4 Long term (current) use of insulin; Z79.899 Other long term (current) drug therapy; Z86.19 Personal history of other infectious and parasitic diseases
CPT/HCPCS: 74177; 80048; 80076; 83690; 85025; 96365; 96366; 96367; 96375; 96376; 99285; J7050; Q9967; A4216; J0744; J2405

== ENCOUNTER 2018-08-18 03:11 | Emergency (ER) | payer MEDICAID, SELFPAY ==
[2018-08-18 03:12] VITALS: BP 151/117; PULSE 109; RESP 18; TEMP 36.7; O2SAT 97; BMI 22.1
--- NOTE | 2018-08-18 04:03 | ED.VISSUMM ---
- ER Visit Summary Date of Service: 08/18/18 Chief Complaint: Right upper quadrant abdominal pain History of Present Illness: The patient is a 23 F who presents with right upper quadrant abdominal pain that began yesterday. Patient states the pain is been constant. Patient describes the pain is sharp. Patient states the pain is localized to the right upper quadrant does radiate to her back at times. Patient states the pain improves after vomiting for a few minutes and then returned. Patient states she has had multiple episodes of vomiting. Patient denies any hematemesis or coffee-ground emesis. Patient states her last menstrual period was approximate 1 month ago. Patient denies any abnormal vaginal bleeding or discharge. Patient denies any dysuria or hematuria. Patient denies any diarrhea, melena, or hematochezia. Physical Examination: Vital signs are stable except for mildly elevated blood pressure 151/117 and a mild tachycardia of 109. Patient is afebrile. Patient is in no acute distress. Oral mucosa is pink and moist. Neck is supple. Trachea is midline. There is no JVD noted. Heart was regular rate and rhythm. Lungs are clear and equal bilaterally. Abdomen is soft. Bowel sounds are normal. There is right upper quadrant tenderness. There is no rebound or guarding noted. There is a positive Clark sign. Cranial nerves II through XII are intact. There are no focal motor or sensory deficits noted. Test Results: CBC showed a mild anemia with a hemoglobin of 10.2. Potassium was slightly elevated at 5.2. Creatinine was slightly elevated 1.82 however, she has had prior elevated creatinine for the past the most recent was 1.7. Alk phos was slightly elevated at 156. Urinalysis does not show any evidence of urinary tract infections. Emergency Department Course and Treatment: Patient was given a dose of morphine and Zofran here. Patient was given a dose of Kayexalate here. Patient was instructed to follow-up with her primary care physician in 5 to 7 days. Patient was given a prescription for meloxicam to take as needed for pain. Patient understood and was agreeable with the plan. All questions were answered. Disposition: Discharge home Impression: Right upper quadrant abdominal pain This note was generated with [employer] dictation software. It may contain incorrect words, spelling, and punctuation that were not noted in review of the chart prior to signing ED Disposition - Plan for ED Patient: Disposition: Home or Assisted Living Diagnosis: Right upper quadrant abdominal pain Instructions: ABDOMINAL PAIN, Unknown Cause, (Female) Prescriptions: Meloxicam 15 mg PO DAILY PRN #10 tab PRN Reason: Pain Prescription Printed Referrals: Becca Frausto NP-C [NON-STAFF] - 3-5 Days
[2018-08-18] MEDS: 0.9% Normal Saline 1,000 ML 1000 ML IV (04:09)
[2018-08-18] MEDS: Ondansetron 4 MG/2 ML Vial IV (04:10)
[2018-08-18] MEDS: Morphine 4 MG/ML Syringe IV (04:10)
[2018-08-18 04:15] LABS: Absolute Lymphocyte Count 4.47 X10^3/ul (0.83-4.51); Absolute Neutrophil Count 4.1 X10^3/uL (2.0-7.7); Basophil# 0.04 X10^3/uL; Basophil% 0.4 % (0-1); Eosinophil# 0.11 X10^3/uL; Eosinophils% 1.2 % (0-5); Hematocrit 32.8 % (37-47); Hemoglobin 10.2 g/dl (12.0-15.0); Lymphocyte # 4.47 X10^3/ul (4.0); Mean Corp Hgb Conc 31.1 g/gl (32-36); Mean Corpuscular Hgb 24.8 pg (27.0-32.0); Mean Corpuscular Volume 79.6 fL (81-99); Mean Platelet Vol. 9.1 fl (6.2-12.0); Monocyte# 0.56 X10^3/uL; Neutrophil # 4.12 X10^3/uL (2.7-7.7); Neutrophil % 44.3 % (47-70); POSITIVE COUNT NO; POSITIVE DIFFERENTIAL NO; POSITIVE MORPHOLOGY NO; Platelet Count 345 K/mm3 (150-450); RBC Distribution Width CV 16.7 % (11.6-14.6); RBC Distribution Width SD 48.8 fl (35.1-43.9); Red Blood Count 4.12 M/mm3 (4.2-5.4); White Blood Count 9.3 K/mm3 (4.4-11.0)
[2018-08-18 04:28] LABS: ALB/GLOB Ratio 0.8 RATIO (0.9-2.4); AST(SGOT) 33 U/L (15-37); Alanine Aminotransfer ALT/SGPT 20 U/L (13-56); Albumin, Serum 2.8 g/dL (3.2-5.0); Alkaline Phosphatase 156 U/L (45-117); BUN 23 mg/dL (7-18); BUN/Creat Ratio 12.6 RATIO (10-20); Calcium,Total 8.3 mg/dL (8.5-10.1); Chloride 107 mmol/L (98-107); Creatinine, Serum 1.82 mg/dL (0.55-1.02); EST Glomerular Filtration Rate 36 mL/min (>60); Est Glom Filt Rate - Afr Amer 44 mL/min (>60); Estimated Creatinine Clearance 46.35 ml/min; Globulin 3.4 g/dL (2.2-4.2); Glucose 177 mg/dL (74-106); Lipase 26 U/L (73-393); Potassium 5.2 mmol/L (3.5-5.1); Protein, Total 6.2 g/dL (6.4-8.2); Sodium Level 139 mmol/L (136-145)
[2018-08-18 04:29] LABS: Anion Gap 10 (5-15)
[2018-08-18 05:16] LABS: Bacteria 0 SEEN /hpf (None Seen); Mucous, Urine 0 SEEN /hpf (<or=2+)
[2018-08-18 05:25] LABS: Color, Urine Yellow (Yellow); Glucose, Dipstick Normal (Normal); Ketone-Dipstick 5 mg/dl (Negative); Leukocyte Esterase-Dipstick Negative /ul (Negative); Nitrite-Dipstick Negative (Negative); Occult Blood-Urine 25 /ul (Negative); Protein-Dipstick 500 mg/dl (Negative); Specific Gravity, Urine 1.015 (1.002-1.030); Urine Bilirubin Dipstick Negative (Negative); Urine Clarity Sl. Cloudy (Clear); Urine Urobilinogen Normal (Normal)
[2018-08-18 05:29] LABS: Internal QC Validated? YES +Cl - CLEAR BKGD; Pregnancy, Urine Negative Negative
[2018-08-18 05:48] LABS: Red Blood Cells-Urine 0-5 SEEN /hpf (0-5); Squamous Epithelial Cells - UA 10-25 SEEN /hpf (5-10); White Blood Cells 0-5 SEEN /hpf (0-5)
[2018-08-18 06:14] VITALS: BP 151/125; PULSE 99; RESP 16; O2SAT 98
[2018-08-18 06:18] VITALS: BP 151/125; PULSE 99; RESP 16; O2SAT 98
[2018-08-18] MEDS: Sodium Polystyrene Sulfonate 15 GM/60 ML UDC PO (06:18)
== END 2018-08-18 06:19 | disposition home or self-care (01) ==
PROVIDERS: Emergency Provider Emergency Medicine; Family Provider Family Medicine; PCP Family Medicine
DX: R10.11 Right upper quadrant pain (principal); R11.2 Nausea with vomiting, unspecified; R74.8 Abnormal levels of other serum enzymes; E87.5 Hyperkalemia; D64.9 Anemia, unspecified; I50.9 Heart failure, unspecified; R03.0 Elevated blood-pressure reading, without diagnosis of hypertension; E10.9 Type 1 diabetes mellitus without complications; R07.9 Chest pain, unspecified
CPT/HCPCS: 80053; 81001; 81025; 83690; 85025; 96361; 96374; 96375; 99285; J7030; A4216; J2405

== ENCOUNTER 2018-08-21 22:11 | Emergency (ER) | payer MEDICAID, SELFPAY ==
[2018-08-21 22:12] VITALS: BP 150/101; PULSE 101; RESP 18; TEMP 36.8; O2SAT 99; BMI 21.1
--- NOTE | 2018-08-21 22:33 | ED.DCSUM_ITS ---
- ER Visit Summary Date of Service: 08/21/18 Chief Complaint: Abdominal pain History of Present Illness: The patient is a 23 F who presents with abdominal pain. This nelson been going on about 3 weeks. She describes it as sharp. Her pain is in the right upper quadrant. She currently rates it as 8 out of 10. She has been seen multiple times. She has had multiple ER visits here, she has been seen at [facility]. She has seen Dr. Wagoner as an outpatient. Prior ultrasounds showed some gallbladder wall thickening and edema which was felt to be most likely due to liver disease but a calculus cholecystitis cannot be ruled out. She saw Dr. Wagoner in the office. She had a fever and a syncopal episode. She was sent here to the emergency department. She had a CT. Dr. Wagoner was concerned about follicular nodular hyperplasia and recommended transfer. Patient was transferred to [facility]. It sounds like she had a HIDA scan there. She was told that her gallbladder function was almost normal so they did not feel surgery was indicated especially given her underlying history of congestive heart failure. She has an upcoming appointment with her primary care physician. However she continues to have uncontrolled pain. Physical Examination: Blood pressure 150/101, heart rate 101 afebrile No distress Moist mucous membranes Heart regular tachycardia Lungs clear Abdomen soft nondistended she has right upper quadrant tenderness without guarding without rebound Alert Test Results: Labs notable for hemoglobin 11.1, creatinine 1.64, alkaline phosphatase 158. Transaminases normal. Lipase normal. negative. Emergency Department Course and Treatment: Work-up as above unremarkable. Her labs are near baseline or even slightly improved from prior labs. She was treated here with IV fluids morphine Zofran. She is resting comfortably and improved on reevaluation. I do not see an indication for hospitalization at this point. She was advised to continue outpatient follow-up. She has appoin tments with her primary care physician and nephrology. I recommended that she may need to see gastroenterology as well for further evaluation. Patient agreeable to this plan was discharged home. Treatment Plan: [] Disposition: Discharge Impression: Abdominal pain This note was generated with [employer] dictation software. It may contain incorrect words, spelling, and punctuation that were not noted in review of the chart prior to signing ED Disposition - Plan for ED Patient: Referrals: oG Kendrick MD [Primary Care Provider] -
[2018-08-21] MEDS: Morphine 4 MG/ML Syringe IV (23:09)
[2018-08-21] MEDS: 0.9% Normal Saline 1,000 ML 1000 ML IV (23:09)
[2018-08-21] MEDS: Ondansetron 4 MG/2 ML Vial IV (23:09)
[2018-08-21 23:21] LABS: Absolute Lymphocyte Count 3.53 X10^3/ul (0.83-4.51); Basophil# 0.07 X10^3/uL; Eosinophil# 0.05 X10^3/uL; Eosinophils% 0.7 % (0-5); Hematocrit 35.2 % (37-47); Hemoglobin 11.1 g/dl (12.0-15.0); Lymphocyte # 3.53 X10^3/ul (4.0); Lymphocyte % 49.9 % (19-41); Mean Corp Hgb Conc 31.5 g/gl (32-36); Mean Corpuscular Hgb 24.4 pg (27.0-32.0); Mean Corpuscular Volume 77.5 fL (81-99); Mean Platelet Vol. 9.9 fl (6.2-12.0); Monocyte# 0.38 X10^3/uL; Monocyte% 5.4 % (0-10); Neutrophil # 3.03 X10^3/uL (2.7-7.7); Neutrophil % 42.7 % (47-70); POSITIVE COUNT NO; POSITIVE DIFFERENTIAL NO; POSITIVE MORPHOLOGY NO; Platelet Count 276 K/mm3 (150-450); RBC Distribution Width CV 16.7 % (11.6-14.6); RBC Distribution Width SD 45.4 fl (35.1-43.9); Red Blood Count 4.54 M/mm3 (4.2-5.4); White Blood Count 7.1 K/mm3 (4.4-11.0)
[2018-08-21 23:28] LABS: Internal QC Validated? YES +Cl - CLEAR BKGD; Pregnancy, Serum, hCG Quali. NEGATIVE Negative
[2018-08-21 23:31] LABS: ALB/GLOB Ratio 0.8 RATIO (0.9-2.4); AST(SGOT) 23 U/L (15-37); Alanine Aminotransfer ALT/SGPT 18 U/L (13-56); Albumin, Serum 2.9 g/dL (3.2-5.0); Alkaline Phosphatase 158 U/L (45-117); Anion Gap 7 (5-15); BUN 21 mg/dL (7-18); BUN/Creat Ratio 12.8 RATIO (10-20); Calcium,Total 8.3 mg/dL (8.5-10.1); Chloride 106 mmol/L (98-107); Creatinine, Serum 1.64 mg/dL (0.55-1.02); EST Glomerular Filtration Rate 41 mL/min (>60); Est Glom Filt Rate - Afr Amer 50 mL/min (>60); Estimated Creatinine Clearance 51.13 ml/min; Globulin 3.7 g/dL (2.2-4.2); Glucose 168 mg/dL (74-106); Lipase 47 U/L (73-393); Potassium 4.4 mmol/L (3.5-5.1); Protein, Total 6.6 g/dL (6.4-8.2); Sodium Level 134 mmol/L (136-145)
--- NOTE | 2018-08-21 23:42 | DCINST.ED_ITS ---
ED Disposition - Plan for ED Patient: Instructions: ABDOMINAL PAIN, Unknown Cause, (Female) Prescriptions: Hydrocodone Bitart/Apap 5-325 [[place] 5MG-325MG] 1 tab PO Q6H PRN PRN 3 Days #12 tab PRN Reason: Pain Prescription Printed Referrals: Go Kendrick MD [Primary Care Provider] -
[2018-08-21 23:56] VITALS: BP 148/100; PULSE 78; RESP 16; O2SAT 96
== END 2018-08-21 23:57 | disposition home or self-care (01) ==
PROVIDERS: Emergency Provider Emergency Medicine; Family Provider Family Medicine; PCP Family Medicine
DX: R10.11 Right upper quadrant pain (principal); R11.2 Nausea with vomiting, unspecified; I11.0 Hypertensive heart disease with heart failure; I50.9 Heart failure, unspecified; E11.9 Type 2 diabetes mellitus without complications; Z79.4 Long term (current) use of insulin; Z79.899 Other long term (current) drug therapy
CPT/HCPCS: 80053; 83690; 84703; 85025; 96361; 96374; 96375; 99285; J7030; A4216; J2405

== ENCOUNTER 2018-08-31 19:46 | Emergency (ER) | payer MEDICAID, SELFPAY ==
[2018-08-31 19:48] VITALS: BP 155/112; PULSE 107; RESP 18; TEMP 36.5; O2SAT 98; BMI 21.1
[2018-08-31 22:58] LABS: Bacteria 0 SEEN /hpf (None Seen); Mucous, Urine 0 SEEN /hpf (<or=2+); Red Blood Cells-Urine 0 SEEN /hpf (0-5)
[2018-08-31] MEDS: Ondansetron 4 MG/2 ML Vial IV (23:00)
[2018-08-31] MEDS: Morphine 4 MG/ML Syringe IV (23:02)
[2018-08-31 23:04] VITALS: BP 146/117; PULSE 109; RESP 12; O2SAT 99
--- NOTE | 2018-08-31 23:04 | ED.RN ---
THIS RN AND THREE OTHER RN'S MADE MULTIPLE ATTEMPTS TO GET IV ACCESS. DR. ROBERTS NOTIFIED. LEFT EJ WAS SUCCESSFUL.
[2018-08-31 23:06] LABS: Color, Urine Yellow (Yellow); Glucose, Dipstick 1000 mg/dl (Normal); Ketone-Dipstick Negative (Negative); Leukocyte Esterase-Dipstick Negative /ul (Negative); Nitrite-Dipstick Negative (Negative); Occult Blood-Urine 10 /ul (Negative); Protein-Dipstick 500 mg/dl (Negative); Urine Bilirubin Dipstick Negative (Negative); Urine Clarity Clear (Clear); Urine Urobilinogen Normal (Normal)
[2018-08-31 23:11] LABS: Absolute Neutrophil Count 7.5 X10^3/uL (2.0-7.7); Basophil# 0.04 X10^3/uL; Basophil% 0.3 % (0-1); Eosinophil# 0.02 X10^3/uL; Eosinophils% 0.1 % (0-5); Hematocrit 43.5 % (37-47); Hemoglobin 13.7 g/dl (12.0-15.0); Lymphocyte % 38.5 % (19-41); Mean Corp Hgb Conc 31.5 g/gl (32-36); Mean Corpuscular Hgb 24.9 pg (27.0-32.0); Mean Corpuscular Volume 78.9 fL (81-99); Mean Platelet Vol. 10.3 fl (6.2-12.0); Monocyte# 0.87 X10^3/uL; Monocyte% 6.3 % (0-10); Neutrophil % 54.6 % (47-70); Platelet Count 408 K/mm3 (150-450); RBC Distribution Width CV 17.5 % (11.6-14.6); Red Blood Count 5.51 M/mm3 (4.2-5.4); White Blood Count 13.8 K/mm3 (4.4-11.0)
[2018-08-31 23:13] LABS: Squamous Epithelial Cells - UA 5-10 SEEN /hpf (5-10)
[2018-08-31 23:14] LABS: White Blood Cells 0-5 SEEN /hpf (0-5)
--- NOTE | 2018-08-31 23:14 | EKG12_ITS ---
Test Reason : CP Blood Pressure : / mmHG Vent. Rate : 107 BPM Atrial Rate : 107 BPM P-R Int : 142 ms QRS Dur : 078 ms QT Int : 354 ms P-R-T Axes : 053 048 255 degrees QTc Int : 472 ms Sinus tachycardia Possible Left atrial enlargement Nonspecific ST and T wave abnormality Abnormal ECG Confirmed by BIGG JUAREZ, RAQUEL ([id number]), video tape editor VIOLET LOMELI ([id number]) on 09/04/2018 11:56:28 AM Referred By: ARMANDO Confirmed By:RAQUEL PRIDE MD
[2018-08-31 23:17] LABS: Internal QC Validated? YES +Cl - CLEAR BKGD; Pregnancy, Serum, hCG Quali. NEGATIVE Negative
[2018-08-31 23:23] LABS: AST(SGOT) 17 U/L (15-37); Alanine Aminotransfer ALT/SGPT 10 U/L (13-56); Albumin, Serum 2.2 g/dL (3.2-5.0); Alkaline Phosphatase 181 U/L (45-117); Anion Gap 7 (5-15); BUN 25 mg/dL (7-18); BUN/Creat Ratio 12.6 RATIO (10-20); Bilirubin, Direct 0.12 mg/dL (0.00-0.30); Calcium,Total 7.8 mg/dL (8.5-10.1); Chloride 101 mmol/L (98-107); Creatinine, Serum 1.99 mg/dL (0.55-1.02); EST Glomerular Filtration Rate 33 mL/min (>60); Est Glom Filt Rate - Afr Amer 40 mL/min (>60); Estimated Creatinine Clearance 42.14 ml/min; Globulin 3.5 g/dL (2.2-4.2); Glucose 526 mg/dL (74-106); Lipase 20 U/L (73-393); Potassium 4.6 mmol/L (3.5-5.1); Protein, Total 5.7 g/dL (6.4-8.2); Sodium Level 132 mmol/L (136-145)
[2018-08-31 23:27] LABS: Differential Indicated SCAN CRITERIA MET; POSITIVE COUNT NO; POSITIVE DIFFERENTIAL YES; POSITIVE MORPHOLOGY NO
--- NOTE | 2018-08-31 23:28 | ED.RN ---
lab called to report glucose level 526, dr. gonzalez notified.
[2018-08-31 23:31] LABS: Differential Comment SCANNED
[2018-08-31 23:44] LABS: Lactic Acid 2.8 mmol/L (0.4-2.0)
--- NOTE | 2018-08-31 23:44 | ED.RN ---
lab called to report lactic of 2.8. dr. Salas made aware.
--- NOTE | 2018-08-31 23:44 | ED.RN ---
Dr. gonzalez made aware that the pt refused her iv fluids.
--- NOTE | 2018-09-01 00:01 | CT_ITS ---
STUDY: CT ABDOMEN AND PELVIS WITH CONTRAST REASON FOR EXAM: Female, 23 years old. Bloody diarrhea RADIATION DOSAGE (If Supplied By Facility): CTDIvol = ( 9.95 ) mGy, DLP = ( 497.12 ) mGycm TECHNIQUE: Transaxial images were obtained from the dome of the diaphragm to the symphysis pubis without oral contrast. 15 Oral Gastrografin was administered. Sagittal and coronal images were reconstructed. Individualized dose optimization techniques were used for this CT. COMPARISON: August 11, 2018 FINDINGS: Groundglass opacities in the lingula division of the left upper lobe and the right lung base. The right-sided pleural effusion seen in the last study of August 11, 2018 has resolved The liver is normal. No dilated intrahepatic biliary radicles. The gallbladder is normal with no calcifications within it. There is no pericholecystic fluid collection or streakiness The spleen is normal. The pancreas is normal. Both adrenals are normal. Areas of scarring in the anterior upper third of the right kidney. No hydronephrosis and no renal calculi. The stomach is normal. There is no bowel distention, acute appendicitis or diverticulitis. No constricting lesions are seen in large bowel. The abdominal wall is intact with no hernias. Anasarca There is no ascites or any free intraperitoneal air. No indication of epiploic appendagitis The vascular structures in the retroperitoneum are normal. There is no there is mild retroperitoneal adenopathy with a para-aortic lymph node measuring 1.2 cm. The bones and joints are normal. The urinary bladder is normal.--The uterus is normal. There is free fluid in the cul-de-sac. There is no inguinal or pelvic adenopathy. There is no inguinal hernia. . CT/Abdomen/Pel W ORAL Cont Only IMPRESSION: Anasarca. Mesentery streakiness most likely from edema and free fluid in the cul-de-sac.. No acute appendicitis or diverticulitis. No colitis. No intestinal obstruction. Mild retroperitoneal adenopathy. A left para-aortic lymph node is seen to measure 1.2 cm. Areas of cortical scarring in the right kidney. No hydronephrosis and no renal calculi Electronically Signed: Jatin Giron MD at 3:02 EDT Tel , Service support ,
[2018-09-01] MEDS: Insulin Lispro 100 UNIT/ML INSULN.PEN 14 UNIT SC (00:24)
--- NOTE | 2018-09-01 01:00 | ED.VIS.GEN ---
History of Present Illness Detail of Chief Complaint: Bloody stool Informant: Patient, Family Onset: Yesterday Current Severity: Moderate Maximum Severity: Moderate Narrative: Patient presents with ongoing right upper quadrant abdominal pain that radiates toward the right flank. She is had multiple evaluations for this both here, by surgery locally, [place] [facility] No definitive cause has been found. Patient presents tonight with continued pain to this area and now notes bloody stools over the past 2 days. She denies history of ulcerative colitis, Crohn's, IBS. <Shima Salas - Last Filed: 09/01/18 01:04> <Parviz Fox - Last Filed: 09/01/18 05:58> Chief Complaint: GI Bleed - Past Medical History (1) Congestive heart failure Status: Chronic (2) DM type 1 (diabetes mellitus, type 1) Status: Chronic <Shima Salas - Last Filed: 09/01/18 01:04> Past Medical History Prior records reviewed: Yes Past Medical History: - - Reviewed Surgical History: no surgical history Smoking Status: Former smoker - Family History Paternal Family History: Reports: - - Patient denies any marked maternal or paternal family history including diabetes, heart disease, cancer. Maternal Family History: Reports: Diabetes - Her maternal second cousin had type 1 diabetes., - <Shima Salas - Last Filed: 09/01/18 01:04> <Parviz Fox - Last Filed: 09/01/18 05:58> - Allergies and Home Meds Allergies/Adverse Reactions: Allergies Penicillins Allergy (Verified 08/31/18 19:50) Hives furosemide [From Lasix] Adverse Reaction (Verified 08/31/18 19:50) Upset Stomach Primary Care Physician: Go Kendrick MD [Primary Care Provider] - Review of Systems General: Denies: Chills, Fever Cardiovascular: Denies: Chest pain Respiratory: Denies: Dyspnea, Cough Gastrointestinal: Reports: Abdominal pain, Nausea, Hematochezia Genitourinary: Denies: Dysuria Neurological: Denies: Headache <Shima Salas - Last Filed: 09/01/18 01:04> Physical Exam Vital Signs/Narrative: Vital Signs Pulse Resp BP Pulse Ox 08/31/18 23:04 109 H 12 146/117 H 99 Inital Vital Signs reviewed: Yes General: Well nourished, Well developed ENT: Moist mucous membranes Cardiovascular: Regular rate, Regular rhythm Respiratory: No distress, CTA bilaterally Abdomen: Soft, Tender, - - Right upper quadrant tenderness to palpation. No guarding or rebound.. Negative for: Guarding, Rebound tenderness Rectal: - - Stool sample sent to lab prior to my initial evaluation. Back: Negative for: CVA tenderness Extremities: Nontender Skin: Normal color Neurological: Alert Psychological: - - Anxious <Shima Salas - Last Filed: 09/01/18 01:04> Vital Signs/Narrative: Vital Signs Pulse Resp Pulse Ox 09/01/18 04:09 120 H 21 H 98 <Parviz Fox - Last Filed: 09/01/18 05:58> Diagnostic/Tx/Re-eval Laboratory Tests 08/31/18 08/31/18 08/31/18 Range/Units 22:45 22:45 22:45 WBC (4.4-11.0) K/mm3 RBC (4.2-5.4) M/mm3 Hgb (12.0-15.0) g/dl Hct (37-47) % MCV (81-99) fL MCH (27.0-32.0) pg MCHC (32-36) g/gl RDW (11.6-14.6) % RDW Differential (35.1-43.9) fl Plt Count (150-450) K/mm3 MPV (6.2-12.0) fl Immature Gran % (Auto) (0.0-0.9) % Neut % (Auto) (47-70) % Lymph % (Auto) (19-41) % Jerome % (Auto) (0-10) % Eos % (Auto) (0-5) % Baso % (Auto) (0-1) % Absolute Neuts (auto) (2.0-7.7) X10^3/uL Absolute Lymphs (auto) (0.83-4.51) X10^3/ul Total Counted Differential Comment Sodium (136-145) mmol/L Potassium (3.5-5.1) mmol/L Chloride (98-107) mmol/L Carbon Dioxide (21.0-32.0) mmol/L Anion Gap (5-15) BUN (7-18) mg/dL Creatinine (0.55-1.02) mg/dL Estim Creat Clear Calc ml/min Est GFR (MDRD) Af Amer (>60) mL/min Est GFR (MDRD) Non-Af (>60) mL/min BUN/Creatinine Ratio (10-20) RATIO Glucose (74-106) mg/dL Lactic Acid 2.8 H (0.4-2.0) mmol/L Calcium (8.5-10.1) mg/dL Total Bilirubin (0.20-1.00) mg/dL Direct Bilirubin (0.00-0.30) mg/dL AST (15-37) U/L ALT (13-56) U/L Alkaline Phosphatase (45-117) U/L Total Protein (6.4-8.2) g/dL Albumin (3.2-5.0) g/dL Globulin (2.2-4.2) g/dL Lipase (73-393) U/L Serum , Qual NEGATIVE Negative Urine Color Yellow (Yellow) Urine Clarity Clear (Clear) Urine pH 5.0 (5.0 - 8.0) Ur Specific [place] 1.020 (1.002-1.030) Urine Protein 500 H (Negative) mg/dl Urine Glucose (UA) 1000 H (Normal) mg/dl Urine Ketones Negative (Negative) mg/dl Urine Occult Blood 10 H (Negative) /ul Urine Nitrite Negative (Negative) Urine Bilirubin Negative (Negative) mg/dL Urine Urobilinogen Normal (Normal) mg/dl Ur Leukocyte Esterase Negative (Negative) /ul Urine RBC 0 SEEN (0-5) /hpf Urine WBC 0-5 SEEN (0-5) /hpf Ur Squamous Epith Cells 5-10 SEEN (5-10) /hpf Urine Bacteria 0 SEEN (None Seen) /hpf Urine Mucus 0 SEEN (<or=2+) /hpf 08/31/18 08/31/18 Range/Units 22:45 22:45 WBC 13.8 H (4.4-11.0) K/mm3 RBC 5.51 H (4.2-5.4) M/mm3 Hgb 13.7 (12.0-15.0) g/dl Hct 43.5 (37-47) % MCV 78.9 L (81-99) fL MCH 24.9 L (27.0-32.0) pg MCHC 31.5 L (32-36) g/gl RDW 17.5 H (11.6-14.6) % RDW Differential 50.0 H (35.1-43.9) fl Plt Count 408 (150-450) K/mm3 MPV 10.3 (6.2-12.0) fl Immature Gran % (Auto) 0.200 (0.0-0.9) % Neut % (Auto) 54.6 (47-70) % Lymph % (Auto) 38.5 (19-41) % Jerome % (Auto) 6.3 (0-10) % Eos % (Auto) 0.1 (0-5) % Baso % (Auto) 0.3 (0-1) % Absolute Neuts (auto) 7.5 (2.0-7.7) X10^3/uL Absolute Lymphs (auto) 5.30 H (0.83-4.51) X10^3/ul Total Counted Not Reportable Differential Comment SCANNED Sodium 132 L (136-145) mmol/L Potassium 4.6 (3.5-5.1) mmol/L Chloride 101 (98-107) mmol/L Carbon Dioxide 24.0 (21.0-32.0) mmol/L Anion Gap 7 (5-15) BUN 25 H (7-18) mg/dL Creatinine 1.99 H (0.55-1.02) mg/dL Estim Creat Clear Calc 42.14 ml/min Est GFR (MDRD) Af Amer 40 L (>60) mL/min Est GFR (MDRD) Non-Af 33 L (>60) mL/min BUN/Creatinine Ratio 12.6 (10-20) RATIO Glucose 526 H* (74-106) mg/dL Lactic Acid (0.4-2.0) mmol/L Calcium 7.8 L (8.5-10.1) mg/dL Total Bilirubin 0.40 (0.20-1.00) mg/dL Direct Bilirubin 0.12 (0.00-0.30) mg/dL AST 17 (15-37) U/L ALT 10 L (13-56) U/L Alkaline Phosphatase 181 H (45-117) U/L Total Protein 5.7 L (6.4-8.2) g/dL Albumin 2.2 L (3.2-5.0) g/dL Globulin 3.5 (2.2-4.2) g/dL Lipase 20 L (73-393) U/L Serum , Qual Negative Urine Color (Yellow) Urine Clarity (Clear) Urine pH (5.0 - 8.0) Ur Specific [place] (1.002-1.030) Urine Protein (Negative) mg/dl Urine Glucose (UA) (Normal) mg/dl Urine Ketones (Negative) mg/dl Urine Occult Blood (Negative) /ul Urine Nitrite (Negative) Urine Bilirubin (Negative) mg/dL Urine Urobilinogen (Normal) mg/dl Ur Leukocyte Esterase (Negative) /ul Urine RBC (0-5) /hpf Urine WBC (0-5) /hpf Ur Squamous Epith Cells (5-10) /hpf Urine Bacteria (None Seen) /hpf Urine Mucus (<or=2+) /hpf - EKG Initial EKG Interpretation: Sinus Tachycardia, - - Sinus tach at 107. - Medical Decision Making Patient is very difficult to get IV access due to multiple prior lines. A left EJ was able to be established. Patient declined IV fluids that were ordered. She was given morphine and Zofran for pain and nausea. Blood work was reviewed with her. Blood sugar is 526 and she admits to not taking her medication regularly recently because of poor p.o. intake. She is given [address] scan abdomen and pelvis is reviewed and will be signed out to oncoming physician. <Shima Salas - Last Filed: 09/01/18 01:04> Clinical Impression(s) from Imaging Studies Abdomen CT 09/01/18 00:01 IMPRESSION: Anasarca. Mesentery streakiness most likely from edema and free fluid in the cul-de-sac.. No acute appendicitis or diverticulitis. No colitis. No intestinal obstruction. Mild retroperitoneal adenopathy. A left para-aortic lymph node is seen to measure 1.2 cm. Areas of cortical scarring in the right kidney. No hydronephrosis and no renal calculi Electronically Signed: Jatin Giron MD at 3:02 EDT Tel , Service support , - Medical Decision Making CT shows fluid that appears to be consistent with anasarca within the abdominal cavity, retroperitoneal lymph node, no other acute abnormalities and no signs of colitis or bowel wall thickening. She drank contrast, we withheld IV contrast because her EGFR is only 33. I discussed this with the patient as well she was amenable to that. I think the CT was adequate for what we were looking for, which was mainly bowel issues. She does not have any CT findings of cholecystitis as well. In discussing further with the patient, and looking at her labs, it appears that she has some mild acute kidney injury, she has had mild worsening creatinine as compared to multiple prior readings, however she says she has had creatinines as high as 6 in the past when admitted to another hospital. She actually has an appointment with a incubator tender from [facility] 2 days away from now. She has been seen by clinical genetics laboratory chief for her congestive heart failure at the [facility] in [place], as well as specialists in [place]. She had some findings of groundglass opacities in her lungs which is probably interstitial fluid as well, she states she has been short of breath especially with lying down for the last 2 to 3 days, taking her torsemide is not really been helping and not making her urinate more. With worsening congestive heart failure symptoms and worsening renal function, with the diuretics that are not helping, I advised that we admit her. She declines and prefers to go home right now. She was able to converse with me in full sentences while lying left lateral decubitus in bed. She has not seen any of the specialists in nephrology or cardiology that we have at this hospital as an outpatient, and she questions how beneficial it will be. She is welcome to return if she feels worse. I hesitate to have her increase her torsemide since it may make her renal failure worse, but if she gets more short of breath I recommend that she do that. <Parviz Fox - Last Filed: 09/01/18 05:58> ED Disposition <Shima Salas - Last Filed: 09/01/18 01:04> <Parviz Fox - Last Filed: 09/01/18 05:58> - Plan for ED Patient: Disposition: Home or Assisted Living Diagnosis: Rectal bleeding, KANU (acute kidney injury), Congestive heart failure Instructions: RECTAL BLEED, Stable, Renal Insufficiency, CHF, General Referrals: Shipping And Receiving Specialist, your [Other] - Keep Aniyah appointment Go Kendrick MD [Primary Care Provider] - 3-5 Days if not improving (or may return to ER if worsening)
[2018-09-01 01:13] VITALS: BP 143/119; PULSE 101; RESP 16; O2SAT 97
[2018-09-01 01:15] LABS: Bedside Glucose 359 mg/dL (70-110)
[2018-09-01 02:56] LABS: Reflex Lactate? Y
[2018-09-01 04:09] VITALS: PULSE 120; RESP 21; O2SAT 98
[2018-09-01 04:41] LABS: Bedside Glucose 322 mg/dL (70-110)
[2018-09-01] MEDS: Bumetanide 1 MG/4 ML Vial IV (06:28)
[2018-09-01 06:39] VITALS: BP 137/85; PULSE 68; RESP 20; O2SAT 97
== END 2018-09-01 06:40 | disposition home or self-care (01) ==
PROVIDERS: Emergency Provider Emergency Medicine; Family Provider Family Medicine; PCP Family Medicine
DX: K92.1 Melena (principal); N17.9 Acute kidney failure, unspecified; I50.9 Heart failure, unspecified; E10.9 Type 1 diabetes mellitus without complications; Z79.4 Long term (current) use of insulin; Z79.899 Other long term (current) drug therapy; Z87.891 Personal history of nicotine dependence
CPT/HCPCS: 74176; 80048; 80076; 81001; 82962; 83605; 83630; 83690; 84703; 85025; 87177; 87209; 87506; 93005; 96374; 96375; 99285; A4216; J2405

== ENCOUNTER 2018-09-05 15:26 | Emergency (ER) | payer MEDICAID, SELFPAY ==
[2018-09-05] VITALS (7 sets, daily range): BP systolic 88–140; BP diastolic 60–117; PULSE 87–98; RESP 12–19; TEMP 36.4; O2SAT 93–100; BMI 23.8
--- NOTE | 2018-09-05 15:56 | EKG12_ITS ---
Test Reason : Blood Pressure : / mmHG Vent. Rate : 086 BPM Atrial Rate : 086 BPM P-R Int : 140 ms QRS Dur : 076 ms QT Int : 414 ms P-R-T Axes : 055 037 055 degrees QTc Int : 495 ms Normal sinus rhythm Nonspecific T wave abnormality Prolonged QT Abnormal ECG Confirmed by JARETT JUAREZ, JENNIFER ([id number]), editorial specialist PITO BUSTAMANTE ([id number]) on 09/09/2018 2:20:40 PM Referred By: SEE Confirmed By:JENNIFER DENSON MD
--- NOTE | 2018-09-05 15:56 | RAD_ITS ---
STUDY: X-RAY CHEST REASON FOR EXAM: Female, 23 years old. Shortness of breath TECHNIQUE: Frontal view of the chest COMPARISON: X-Ray Chest March 23, 2018 FINDINGS: The lungs are clear. There are no pleural effusions. There is no pneumothorax. The heart is normal in size. The visualized osseous structures are within normal limits. RAD/Chest 1 View (Portable) IMPRESSION: No acute thoracic pathology. Electronically Signed: Jeremy Robles, at 16:13 EDT Tel , Service support ,
--- NOTE | 2018-09-05 16:03 | ED.DCSUM_ITS ---
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 Patient states she intermittently is gets swelling in her lower extremities. In the last 2 days has developed it in her face and lower extremities with mild shortness of breath or supine. No chest pain. No fever. No history of DVT or PE. No hemoptysis. Physical Examination: Young female vital signs initial blood pressure 9764. Her oxygen ziram percent on room air. She is afebrile. She is not septic or toxic. HEENT exam she has obvious facial swelling consistent with fluid retention. This gives her a reactive light. Much with members. Neck nontender no JVD. Lungs clear to auscultation bilaterally. Diminished in bases. Heart regular rhythm no murmur rate about 85. Abdomen soft nontender normal bowel sounds no peritoneal signs. Remedies moves all 4. Neurovascular intact. She has 2+ pitting edema both lower extremities equal symmetrical to the knees. Pitting. 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 Back nontender. Neurologically she is awake and alert with no focal motor deficits. Test Results: Chest x-ray one view portable shows no acute abnormality. No failure. No cardiomegaly. EKG sinus rhythm rate 86 no acute signs of ND or ischemia. CBC shows a white count of 12. Hemoglobin 14. No bands. Electrolytes show sodium 134. CO2 is 17. Anion gap of 18. Glucose of 532. BUN 31 creatinine 2.19 consistent with her chronic renal insufficiency. Troponin is elevated 1.96 typically her troponins at this facility have been normal. BNP is elevated at 5000. Ketones are small. Emergency Department Course and Treatment: Young female with known prior myocarditis causing her to have issues with congestive heart failure, renal insufficiency and type I diabetic. She states that she has had decreased u rination also last several days. Patient appears to be in early DKA. She is third spacing fluids and is soft tissues of her face and lower extremities. This may be secondary to a combination of her CHF and her renal insufficiency. She will be given a fluid bolus of 1 L for the DKA and started on insulin drip. Currently she has an EJ peripheral line in. Treatment Plan: I spoke to the hospitalist here at [facility]. Due to the patient's complexity she felt she warranted to be in a facility that had ICU coverage 17/09. Patient is typically treated at [facility] in [place] and I spoke to their hammer adjuster who will accept the patient. She can be set up by ground squad. Disposition: Transfer to [facility] Impression: Acute DKA Acute on chronic congestive heart failure History of myocarditis Chronic renal insufficiency Abnormally elevated troponin This note was generated with [employer] dictation software. It may contain incorrect words, spelling, and punctuation that were not noted in review of the chart prior to signing ED Disposition - Plan for ED Patient: Referrals: Go Kendrick MD [Primary Care Provider] -
[2018-09-05] MEDS: Ondansetron 4 MG/2 ML Vial IV (18:23)
[2018-09-05 18:33] LABS: Basophil# 0.03 X10^3/uL; Basophil% 0.2 % (0-1); Eosinophil# 0.03 X10^3/uL; Eosinophils% 0.2 % (0-5); Hematocrit 47.1 % (37-47); Hemoglobin 14.8 g/dl (12.0-15.0); Lymphocyte % 29.4 % (19-41); Mean Corp Hgb Conc 31.4 g/gl (32-36); Mean Corpuscular Hgb 24.7 pg (27.0-32.0); Mean Corpuscular Volume 78.8 fL (81-99); Mean Platelet Vol. 9.9 fl (6.2-12.0); Monocyte# 0.55 X10^3/uL; Monocyte% 4.5 % (0-10); Neutrophil # 7.97 X10^3/uL (2.7-7.7); Neutrophil % 65.1 % (47-70); POSITIVE COUNT NO; POSITIVE DIFFERENTIAL NO; POSITIVE MORPHOLOGY NO; Platelet Count 349 K/mm3 (150-450); RBC Distribution Width CV 17.9 % (11.6-14.6); RBC Distribution Width SD 50.8 fl (35.1-43.9); Red Blood Count 5.98 M/mm3 (4.2-5.4); White Blood Count 12.3 K/mm3 (4.4-11.0)
[2018-09-05] MEDS: Morphine 4 MG/ML Syringe IV (18:36)
[2018-09-05 18:51] LABS: Anion Gap 18 (5-15); BUN 31 mg/dL (7-18); BUN/Creat Ratio 14.2 RATIO (10-20); Calcium,Total 8.2 mg/dL (8.5-10.1); Chloride 99 mmol/L (98-107); Creatinine, Serum 2.19 mg/dL (0.55-1.02); EST Glomerular Filtration Rate 29 mL/min (>60); Est Glom Filt Rate - Afr Amer 35 mL/min (>60); Estimated Creatinine Clearance 38.52 ml/min; Glucose 532 mg/dL (74-106); Potassium 4.9 mmol/L (3.5-5.1); Sodium Level 134 mmol/L (136-145)
--- NOTE | 2018-09-05 18:51 | ED.RN ---
GLUCOSE 532 TROP 1.[address] CALL[address] LAB[address] DR CUI AWARE
[2018-09-05 20:32] LABS: BNP,B-Type NATRIURETIC PEPTIDE > 5000.0 pg/mL (0-100)
[2018-09-06 00:15] LABS: Bedside Glucose > 500 mg/dL (70-110)
--- NOTE | 2018-09-06 00:24 | NURSING ---
ACCEPTED TO [place] [id number] BED 324 REPORT
[2018-09-06] MEDS: fentaNYL 100 MCG/2 ML Ampul 25 MCG IV (00:34)
[2018-09-06 00:36] VITALS: BP 124/96; PULSE 97; TEMP 36.8
[2018-09-06] MEDS: 0.9% Normal Saline 500 ML IV.SOLN. IV (01:00)
[2018-09-06 01:14] VITALS: BP 107/80
[2018-09-06 01:31] LABS: Bedside Glucose 477 mg/dL (70-110)
== END 2018-09-06 01:22 | disposition short-term general hospital (02) ==
LOC: ED 16:00
PROVIDERS: Emergency Provider Emergency Medicine; Family Provider Family Medicine; PCP Family Medicine
DX: E10.10 Type 1 diabetes mellitus with ketoacidosis without coma (principal); E10.22 Type 1 diabetes mellitus with diabetic chronic kidney disease; I13.0 Hypertensive heart and chronic kidney disease with heart failure and stage 1 through stage 4 chronic kidney disease, or unspecified chronic kidney disease; N18.9 Chronic kidney disease, unspecified; I50.9 Heart failure, unspecified; R74.8 Abnormal levels of other serum enzymes; M79.89 Other specified soft tissue disorders; Z79.4 Long term (current) use of insulin; Z79.899 Other long term (current) drug therapy
CPT/HCPCS: 71045; 80048; 82009; 82962; 83880; 84484; 85025; 93005; 96374; 96375; 99285; J7040; A4216; J2405

== ENCOUNTER 2018-09-29 15:48 | Inpatient (IN) | payer MEDICAID, SELFPAY ==
[2018-09-05 15:27] VITALS: BMI 23.8
[2018-09-29] VITALS (12 sets, daily range): BP systolic 100–171; BP diastolic 45–106; PULSE 84–95; RESP 11–19; TEMP 36.8–37.2; O2SAT 98–100; BMI 20.9; BMI 21.3
--- NOTE | 2018-09-29 17:20 | CT_ITS ---
STUDY: CT ABDOMEN AND PELVIS WITHOUT CONTRAST REASON FOR EXAM: Female, 23 years old. Pain RADIATION DOSAGE (If Supplied By Facility): DLP = ( 391.13 ) mGycm TECHNIQUE: Transaxial images were obtained from the dome of the diaphragm to the symphysis pubis without oral contrast, and without intravenous contrast. Sagittal and coronal images were reconstructed. Individualized dose optimization techniques were used for this CT. COMPARISON: CT abdomen pelvis September 01, 2018 FINDINGS: Evaluation of the abdominal viscera is limited in the absence of intravenous contrast. Right greater than left base atelectasis is present. Small right greater left pleural effusions are present. There is a small pericardial effusion. There are no calcified gallstones present. The liver demonstrates an unremarkable unenhanced appearance. The spleen is normal in size. The pancreas demonstrates an unremarkable unenhanced appearance. The adrenal glands are within normal limits. There are no obstructing renal stones. There is no hydronephrosis. Normal visualized stomach. There is no bowel obstruction or inflammation. The appendix is not visualized, but there are no findings to suggest acute appendicitis. The aorta is normal in caliber. There is no abdominal or pelvic free air , fluid collection or lymphadenopathy. Mild to moderate ascites is present. Anasarca is present. There are no destructive osseous lesions. CT/Abdomen/Pelvis without Cont IMPRESSION: Right greater than left pleural effusions with adjacent atelectasis. Small pericardial effusion. Mild to moderate ascites. Anasarca. Electronically Signed: Jeremy Robles, at 19:32 EDT Tel , Service support ,
--- NOTE | 2018-09-29 17:22 | ED.VISSUMM ---
- ER Visit Summary Date of Service: 09/29/18 Chief Complaint: Right flank pain History of Present Illness: The patient is a 23 F extensive past medical history of type 1 insulin-dependent diabetes, CHF, blood clots in her heart on Eliquis. Patient states she developed right flank pain today after waking up. No fever. No dysuria. No chills. She denies any diarrhea constipation. No history of stones. She denies any trauma. States she is never had pain like this before. Physical Examination: Young female chronically ill. Vital signs are stable and afebrile. She does not look septic or toxic. HEENT exam unremarkable. Neck nontender. Lungs clear to auscultation bilaterally. Heart regular rhythm no murmur. Abdomen is soft and nontender normal bowel sounds no peritoneal signs. There is no right upper or right lower quadrant tenderness. No signs of obstruction. Patient moving all 4 extremities. Neurovascular intact. Back there is really no reproducible back tenderness in her right CVA region. There is no ecchymosis or bruising. No crepitance or subcu air. No signs of trauma. Left side is unremarkable nontender. Spine is nontender. Test Results: CBC shows a white count 7. Hemoglobin 8 her baseline is around 9. Chemistry shows sodium 132. CO2 28 BUN 41 creatinine 2.46. Anion gap 23 and her glucose of 661 along with positive moderate ketones consistent with acute DKA. Liver enzymes are normal. Serum test negative. UA is pending she has not been able to give us a urine sample as of yet. CT flank study shows bilateral pleural effusions. Ascites and anasarca which is her baseline. Emergency Department Course and Treatment: Patient treated with IV morphine and Zofran. Worked up for right flank pain. Treatment Plan: Patient has been started on insulin drip. I wanted to give her a liter of normal saline but she does not want IV fluids due to her history of CHF. I have already spoken to the hospitalist about admission. Disposition: Admission to the ICU Impression: Acute right flank pain of uncertain etiology Acute diabetic ketoacidosis History of CHF Anticoagulated on Eliquis History of type 1 insulin-dependent diabetes This note was generated with [employer] dictation software. It may contain incorrect words, spelling, and punctuation that were not noted in review of the chart prior to signing ED Disposition - Plan for ED Patient: Referrals: Go Kendrick MD [Primary Care Provider] -
[2018-09-29 17:59] LABS: Absolute Lymphocyte Count 1.55 X10^3/uL (0.83-4.51); Absolute Neutrophil Count 5.4 X10^3/uL (2.0-7.7); Basophil# 0.06 X10^3/uL; Basophil% 0.8 % (0-1); Eosinophils% 1.3 % (0-5); Hematocrit 28.8 % (37-47); Hemoglobin 8.2 g/dL (12.0-15.0); Lymphocyte # 1.55 X10^3/ul (4.0); Lymphocyte % 20.6 % (19-41); Mean Corp Hgb Conc 28.5 g/dL (32-36); Mean Corpuscular Hgb 24.6 pg (27.0-32.0); Mean Corpuscular Volume 86.5 fL (81-99); Mean Platelet Vol. 10.5 fl (6.2-12.0); Monocyte% 5.3 % (0-10); NRBC Flagged by Analyzer 0 % (0-5); Neutrophil # 5.39 X10^3/uL (2.7-7.7); Neutrophil % 71.7 % (47-70); Platelet Count 286 K/mm3 (150-450); RBC Distribution Width CV 18.5 % (11.6-14.6); RBC Distribution Width SD 58.4 fl (35.1-43.9); Red Blood Count 3.33 M/mm3 (4.2-5.4); White Blood Count 7.5 K/mm3 (4.4-11.0)
[2018-09-29] MEDS: morphine 8 MG/ML Syringe 6 MG IV (18:09)
[2018-09-29] MEDS: Ondansetron 4 MG/2 ML Vial IV (18:09)
[2018-09-29 18:42] LABS: AST(SGOT) 20 U/L (15-37); Alanine Aminotransfer ALT/SGPT 13 U/L (13-56); Albumin, Serum 3.9 g/dL (3.2-5.0); Alkaline Phosphatase 112 U/L (45-117); Anion Gap 23 (5-15); BUN 41 mg/dL (7-18); BUN/Creat Ratio 16.7 RATIO (10-20); Bilirubin, Direct 0.19 mg/dL (0.00-0.30); Calcium,Total 9.6 mg/dL (8.5-10.1); Chloride 89 mmol/L (98-107); Creatinine, Serum 2.46 mg/dL (0.55-1.02); EST Glomerular Filtration Rate 26 mL/min (>60); Est Glom Filt Rate - Afr Amer 31 mL/min (>60); Estimated Creatinine Clearance 33.68 ml/min; Globulin 3.5 g/dL (2.2-4.2); Glucose 661 mg/dL (74-106); Potassium 4.7 mmol/L (3.5-5.1); Protein, Total 7.4 g/dL (6.4-8.2); Sodium Level 132 mmol/L (136-145)
[2018-09-29 18:51] LABS: Internal QC Validated? YES +Cl - CLEAR BKGD; Pregnancy, Serum, hCG Quali. NEGATIVE Negative
[2018-09-29 19:46] LABS: Bedside Glucose > 500 mg/dL (70-110)
--- NOTE | 2018-09-29 20:33 | ED.RN ---
PAGED HOSPITALIST FOR ADMISSION
--- NOTE | 2018-09-29 20:36 | HP.PCM_ITS ---
Problem List (1) DKA (diabetic ketoacidoses) Status: Acute History of Present Illness Date of Admission: 09/29/18 Chief Complaint: RIGHT FLANK PAIN The patient is a 23 year old F with a significant history of previous IV drug use; multiple kidney infections and renal abscess; myocarditis; congestive heart failure (ejection fraction 10%) on 4L Home oxygen; heart mural thrombus; and chronic renal failure who presented to the emergency department with e xcruciating sharp and stabbing right-sided nonradiating flank pain. Her symptoms started on the day of admission. Her pain worsens with sitting and is improved with lying down. Associated with symptoms is nausea and vomiting. Also patient reports diarrhea that started a day before presentation. Past Medical History Past Medical History (Chronic Problems): Chronic Problems Congestive heart failure (Chronic) Protein calorie malnutrition (Chronic) Homeless (Chronic) Tobacco user (Chronic) DM type 1 (diabetes mellitus, type 1) (Chronic) Allergies Penicillins Allergy (Verified 09/05/18 15:29) Hives furosemide [From Lasix] Adverse Reaction (Verified 09/05/18 15:29) Upset Stomach Home Medications: Ambulatory Orders Medication Instructions Recorded Insulin Degludec [Tresiba 18 unit SQ QHS 02/01/18 Flextouch U-100] Insulin Lispro [Humalog KwikPen] 0 unit SC TIDAC 02/23/18 Torsemide [Demadex] 60 mg PO BID PRN PRN 03/23/18 Carvedilol 25 mg PO BID 08/07/18 hydrALAZINE [Apresoline] 100 mg PO TID 08/07/18 Apixaban [Eliquis] 5 mg PO BID 09/29/18 Isosorbide DN [Isordil] 60 mg PO TID 09/29/18 Surgical History: no surgical history - reports history of heart cath, - Psychiatric History: No pertinent psych hx DIRECTOR OF SPORTS MEDICINE History: No pertinent DIRECTOR OF SPORTS MEDICINE history Lives: With Family Smoking Status: Former smoker Tobacco Use: Cigarettes - *Family History Paternal History Items: - - Patient denies any marked maternal or paternal family history including diabetes, heart disease, cancer. Maternal History Items: Diabetes - Her maternal second cousin had type 1 diabetes., - Review of Systems Constitutional: Reports: Anorexia. Denies: Chills, Fever, Weight Change HEENT: Denies: Head Aches, Sinus Congestion, Sinus Drainage Cardiovascular: Denies: Chest Pain, Palpitations Respiratory: Denies: Cough, Shortness of breath at rest, Sputum production Gastrointestinal: Reports: Diarrhea, Nausea, Vomiting. Denies: Abdominal Pain Genitourinary: Denies: Dysuria Musculoskeletal: Denies: Joint Pain, Joint Tenderness Skin: Denies: Rash, Wounds Neurological: Denies: Numbness, Tingling, Focal weakness Psychiatric: Denies: Anxiety, Depression, Homicidal Ideations, Suicidal Id eations Hematologic/ Lymphatic: Denies: Easy Bruising, Easy Bleeding VTE Information - Inpt Only VTE Present on Admission: No VTE Mechan Device Prophylaxis: None VTE Pharm Prophylaxis ordered?: No Reason prophylaxis not ordered:: Treatment Not Indicated - History of mural thrombus on admission on [facility] Patient Problems: Active and Suspected Problems DKA (diabetic ketoacidoses) (Acute) - Physical Exam General: Alert, Oriented x3, Cooperative HEENT: Atraumatic, PERRLA, EOMI, Normocephalic Neck: Supple, Trachea Midline Lungs: Clear to auscultation, Normal air movement Cardiovascular: Regular rate, No murmurs Abdomen: Bowel Sounds Present, Soft, Non Tender Extremities: No edema, Capillary Refill Less than 3 Seconds Skin: No rashes, No breakdown Musculoskeletal: No Tenderness to Palpation of Joints or Extremities Neurological: Cranial nerves II-XII grossly intact Psych/Mental Status: Normal Affect, Appropriate Vital Signs Temp Pulse Resp BP Pulse Ox 98.3 F 90 17 101/50 L 99 09/29/18 15:50 09/29/18 19:00 09/29/18 19:00 09/29/18 19:00 09/29/18 19:00 Oxygen Flow Rate (L/min) 4 Oxygen Delivery Method Room Air Weight: 60.5 kg Body Mass Index (BMI) 20.9 Finger Stick Blood Glucose 477 Laboratory Tests Past 24 Hrs 09/29/18 09/29/18 09/29/18 17:45 18:00 18:00 WBC 7.5 RBC 3.33 L Hgb 8.2 L Hct 28.8 L MCV 86.5 MCH 24.6 L MCHC 28.5 L RDW Std Deviation 58.4 H RDW Coeff of Genevieve 18.5 H Plt Count 286 MPV 10.5 Immature Gran % (Auto) 0.300 Neut % (Auto) 71.7 H Lymph % (Auto) 20.6 [place] % (Auto) 5.3 Eos % (Auto) 1.3 Baso % (Auto) 0.8 Absolute Neuts (auto) 5.4 Absolute Lymphs (auto) 1.55 Nucleated RBC % 0 Sodium 132 L Potassium 4.7 Chloride 89 L Carbon Dioxide 20.0 L Anion Gap 23 H BUN 41 H Creatinine 2.46 H Estim Creat Clear Calc 33.68 Est GFR (MDRD) Af Amer 31 L Est GFR (MDRD) Non-Af 26 L BUN/Creatinine Ratio 16.7 Glucose 661 H* Calcium 9.6 Total Bilirubin 0.60 Direct Bilirubin 0.19 AST 20 ALT 13 Alkaline Phosphatase 112 Total Protein 7.4 Albumin 3.9 Globulin 3.5 Serum , Qual NEGATIVE Acetone Level 09/29/18 19:15 WBC RBC Hgb Hct MCV MCH MCHC RDW Std Deviation RDW Coeff of Genevieve Plt Count MPV Immature Gran % (Auto) Neut % (Auto) Lymph % (Auto) [place] % (Auto) Eos % (Auto) Baso % (Auto) Absolute Neuts (auto) Absolute Lymphs (auto) Nucleated RBC % Sodium Potassium Chloride Carbon Dioxide Anion Gap BUN Creatinine Estim Creat Clear Calc Est GFR (MDRD) Af Amer Est GFR (MDRD) Non-Af BUN/Creatinine Ratio Glucose Calcium Total Bilirubin Direct Bilirubin AST ALT Alkaline Phosphatase Total Protein Albumin Globulin Serum , Qual Acetone Level MODERATE H POC Glucose 09/29/18 19:38 POC Glucose > 500 H* Assessment/Plan All Active Problems Bilateral pneumonia (Resolved) Myocarditis (Resolved) DKA (diabetic ketoacidoses) (Acute) Acute hyperglycemia (Acute) Abscess of leg, left (Resolved) Hyperglycemia (Acute) DKA (diabetic ketoacidoses) (Resolved) KANU (acute kidney injury) (Acute) Narcotic withdrawal (Resolved) The patient is a 23 year old F with a significant history of IV drug use; multiple kidney infections and renal abscess; myocarditis; congestive heart failure (ejection fraction 10%); heart mural thrombus; and chronic renal failure who presented to the emergency department with excruciating sharp and stabbing right-sided nonradiating flank pain; nausea; and nausea and vomiting and found to have severely elevated serum glucose; acetone and anion gap metabolic acidosis consistent with DKA. DKA Serum glucose 661 on admission. acetone level: Moderate Anion gap of 23 Sodium 132. Corrected sodium 141 Insulin drip started from emergency department; continue Because of a history of heart failure patient refused IV fluid bolus at the emergency department. Indeed abdomen and pelvis CT showed right greater than left pleural effusions; and small pericardial effusion as well as mild to moderate ascites with anasarca. Abdomen and pelvis CT was independently reviewed. I agree with radiologist interpretation. Discussed with patient. Patient does not want IV fluids; will not order. Her potassium level was 4.7. Because of risk of hyperkalemia with potassium infusion; 10 mEq of potassium p.o. was ordered. Of note patient is also at risk of hyperkalemia with her kidney failure. Patient was placed on ICU potassium replacement protocol. BMP every 4 hours to calculate anion gap. N.p.o. for now except meds Admitted to ICU A1c and ordered. Flour Broker consult. KANU on CKD. On presentation her creatinine was 2.46. Review of old records show that this is the highest creatinine so far on file. Her lowest creatinine was on 02/24/2018 and it was 1.21. Will estimate a baseline creatinine to be about 1.75. BUN over creatinine is 16.7. Because of diarrhea; vomiting and diuretic use likely this is prerenal from dehydration. However patient has declined IV fluids at this time. Would hold off home diuretics. Avoid nephrotoxic's Trend BMP. Of note patient has had dialysis in the past. Mural thrombus of the heart. Eliquis continued Systolic heart failure Patient reports ejection fraction of 10%. Guide line directed therapy of Carvedilol; hydralazine and Imdur continued Acute on chronic Anemia HGB 8.2. She has chronic anemia although her hemoglobin on 09/05/2018 was 14.8 and on 08/31/2018 was 13.7. She reports that her last menses was in June 2018. Chronic anemia could be due to kidney disease or inflammatory anemia. Stool for occult blood ordered. Because of history of intramural thrombus Eliquis was continued. Check CBC in a.m. DVT prophylaxis Not indicated since patient is on Eliquis Code Visit Inpatient E&M: 52526 Init Hosp L3
[2018-09-29] MEDS: Morphine 4 MG/ML Syringe IV (20:55)
[2018-09-29 21:11] LABS: Bedside Glucose > 500 mg/dL (70-110)
[2018-09-29 22:05] LABS: Bedside Glucose > 500 mg/dL (70-110)
[2018-09-29] MEDS: hydrALAZINE 50 MG Tablet 100 MG PO (22:17)
[2018-09-29] MEDS: Isosorbide Mononitrate 60 MG Tablet PO (22:17)
[2018-09-29] MEDS: Carvedilol 25 MG Tablet PO (22:18)
[2018-09-29] MEDS: APIXABAN 5 MG TABLET PO (22:18)
[2018-09-29 22:28] LABS: Hemoglobin A1c 11.7 % (4.2-6.3)
[2018-09-29] MEDS: 0.9% NaCl Peripheral Flush Adult/Peds IV (22:51)
[2018-09-29] MEDS: Morphine 2 MG/ML Syringe IV (22:51)
[2018-09-29 22:58] LABS: Anion Gap 21 (5-15); BUN 45 mg/dL (7-18); BUN/Creat Ratio 16.7 RATIO (10-20); Calcium,Total 9.4 mg/dL (8.5-10.1); Chloride 91 mmol/L (98-107); EST Glomerular Filtration Rate 23 mL/min (>60); Est Glom Filt Rate - Afr Amer 28 mL/min (>60); Estimated Creatinine Clearance 31.24 ml/min; Glucose 568 mg/dL (74-106); Potassium 4.3 mmol/L (3.5-5.1); Sodium Level 134 mmol/L (136-145)
[2018-09-29 23:01] LABS: Bedside Glucose 441 mg/dL (70-110)
[2018-09-30] VITALS (50 sets, daily range): BP systolic 134–179; BP diastolic 82–128; PULSE 73–98; RESP 10–21; TEMP 36.4–37.2; O2SAT 95–100
[2018-09-30 00:06] LABS: Bedside Glucose 368 mg/dL (70-110)
[2018-09-30 01:06] LABS: Bedside Glucose 312 mg/dL (70-110)
[2018-09-30 01:27] LABS: Anion Gap 10 (5-15); BUN 41 mg/dL (7-18); BUN/Creat Ratio 16.5 RATIO (10-20); Calcium,Total 8.6 mg/dL (8.5-10.1); Chloride 96 mmol/L (98-107); Creatinine, Serum 2.49 mg/dL (0.55-1.02); EST Glomerular Filtration Rate 25 mL/min (>60); Est Glom Filt Rate - Afr Amer 31 mL/min (>60); Estimated Creatinine Clearance 33.88 ml/min; Glucose 304 mg/dL (74-106); Potassium 4.4 mmol/L (3.5-5.1); Sodium Level 136 mmol/L (136-145)
[2018-09-30 02:06] LABS: Bedside Glucose 279 mg/dL (70-110)
[2018-09-30] MEDS: 0.9% NaCl Peripheral Flush Adult/Peds IV ×9 (02:32→21:44)
[2018-09-30] MEDS: Ondansetron 4 MG/2 ML Vial IV ×2 (02:39→07:29)
[2018-09-30] MEDS: Morphine 2 MG/ML Syringe IV ×2 (02:39→06:07)
[2018-09-30 03:10] LABS: Bedside Glucose 237 mg/dL (70-110)
[2018-09-30] MEDS: Dext 5%-0.45% NS 1,000 ML 100 ML IV (03:31)
[2018-09-30] MEDS: hydrALAZINE 20 MG/ML Vial 10 MG IV (03:31)
[2018-09-30 04:11] LABS: Bedside Glucose 228 mg/dL (70-110)
[2018-09-30 05:01] LABS: Bedside Glucose 213 mg/dL (70-110)
[2018-09-30 05:05] LABS: Absolute Lymphocyte Count 2.28 X10^3/uL (0.83-4.51); Absolute Neutrophil Count 3.7 X10^3/uL (2.0-7.7); Basophil# 0.04 X10^3/uL; Basophil% 0.6 % (0-1); Eosinophil# 0.17 X10^3/uL; Eosinophils% 2.5 % (0-5); Hematocrit 23.3 % (37-47); Hemoglobin 7.3 g/dL (12.0-15.0); Lymphocyte # 2.28 X10^3/ul (4.0); Lymphocyte % 33.8 % (19-41); Mean Corp Hgb Conc 31.3 g/dL (32-36); Mean Corpuscular Hgb 25.1 pg (27.0-32.0); Mean Corpuscular Volume 80.1 fL (81-99); Mean Platelet Vol. 10.3 fl (6.2-12.0); Monocyte# 0.59 X10^3/uL; Monocyte% 8.7 % (0-10); NRBC Flagged by Analyzer 0 % (0-5); Neutrophil # 3.65 X10^3/uL (2.7-7.7); Neutrophil % 54.1 % (47-70); Platelet Count 276 K/mm3 (150-450); RBC Distribution Width CV 18.2 % (11.6-14.6); RBC Distribution Width SD 53.3 fl (35.1-43.9); Red Blood Count 2.91 M/mm3 (4.2-5.4); White Blood Count 6.8 K/mm3 (4.4-11.0)
[2018-09-30] MEDS: hydrALAZINE 50 MG Tablet 100 MG PO (05:10)
[2018-09-30] MEDS: Isosorbide Mononitrate 60 MG Tablet PO (05:10)
[2018-09-30 05:14] LABS: Anion Gap 8 (5-15); BUN 38 mg/dL (7-18); BUN/Creat Ratio 15.7 RATIO (10-20); Calcium,Total 8.7 mg/dL (8.5-10.1); Chloride 98 mmol/L (98-107); Creatinine, Serum 2.42 mg/dL (0.55-1.02); EST Glomerular Filtration Rate 26 mL/min (>60); Est Glom Filt Rate - Afr Amer 32 mL/min (>60); Estimated Creatinine Clearance 34.86 ml/min; Glucose 191 mg/dL (74-106); Potassium 3.8 mmol/L (3.5-5.1); Sodium Level 139 mmol/L (136-145)
[2018-09-30 06:15] LABS: Bedside Glucose 151 mg/dL (70-110)
[2018-09-30 06:44] LABS: Lipase 29 U/L (73-393)
--- NOTE | 2018-09-30 06:44 | PN_ITS ---
Patient Problems: Active and Suspected Problems DKA (diabetic ketoacidoses) (Acute) Ascites (Acute) Subjective: Ms Koo is a 23 YOF with a PMH of DM I, severe CM with a 10% EF (hx of myocarditis), chronic systolic CHF, chronic respiratory failure with hypoxemia, hx of cardiac thrombus, former tobacco dependence and stage III chronic renal failure who presented to the emergency department at [facility] on 09/29/2018 complaining of severe right-sided abdominal/flank pain. She was afebrile at presentation to the emergency room. Lab was significant for a decreased hemoglobin at 8.2, down from 14.8 on 09/05/2018. White blood cell count was 7.5 with a normal differential. Platelets were within normal limits. Sodium was mildly decreased at 132 and the chloride was 89. BUN was 41 with a creatinine of 2.46, up from 2.19 on 09/05/2018. Anion gap was increased at 23 and the random blood sugar was 661. Hemoglobin A1c is markedly uncontrolled at 11.7. LFTs were unremarkable. Serum was negative. Acetone was moderately positive. A CT scan of the abdomen and pelvis showed bilateral pleural effusions, right greater than left, mild to moderate ascites and anasarca. She was admitted to the intensive care unit with a diagnosis of DKA. All events of the past 24 hours been reviewed. Afebrile since admission Blood pressures have ranged from 100/45 to 179/128. Heart rate is within normal limits she is 99 100% saturated on 4 L nasal cannula. She voided 1 time and urine output was not recorded. She was not aggressively hydrated due to history of severe cardiomyopathy with a 10% ejection fraction, chronic renal failure stage III-IV, bilateral pleural effusions, ascites and anasarca. All lab was personally reviewed. White blood cell count and differential are within normal limits. Hemoglobin has dropped to 7.3 and the platelets remain within normal limits. She is microcytic. Potassium is 3.8 and the serum bicarb is high at 33 today. BUN is 38 and the creatinine is down to 2.42 from a high of 2.7. GFR today is 26 which is consistent with stage IV renal failure. Anion gap has closed and is currently 8. Most recent blood sugar was 151 at 6 AM. Her insulin regimen has been reinstituted. She has been having N/V and poor oral intake. Has been vomiting up whole pills. Recently admitted to [facility] for CHF. Has not been able to lose water weight and has been compliant with medications. BP is uncontrolled. She is c/o of mid thoracic back pain on the right side. It hurts more when she sits up. She tells that that she has had had a W/U for GB disease and that she has a thickened GB wall but no stones. She thinks she may have had a HIDA. Tells me that she has diarrhea and that her stools are brown. No hematemesis. She has gastroparesis. She used to use heroin and has hep C. Her last use was October 2017. No illicit drugs since then and she is living with her father. Her legs have been swollen and she has orthopnea. Abdominal girth has also been increasing. - Physical Exam General: Alert, Oriented x3, Cooperative, - - pale and appears not to feel well, looks fatigued HEENT: Atraumatic, PERRLA, EOMI, Normocephalic Oral: Moist Mucosa, No Gingival or Mucosal Lesions/ Ulcerations Neck: Supple, Negative Carotid Bruits, No Nodes, No Nuchal Rigidity, Trachea Midline Lungs: Clear to auscultation, No rhonchi, No wheeze, Diminished - in the bases, R>L, Rales - minimal in the R base Cardiovascular: Regular rate, Regular Rhythm, Normal S1, Normal S2, No murmurs, No Ectopic Activity, No rub noted, No Gallop, - - Telemetry shows NSR with no significant ventricular ectopy. she had 2 runs of what could be Torsades but could also be artifact....will have Dr. Chase review. Abdomen: Bowel Sounds Present, Soft, Non Tender, Non-Distended, No Hepato- splenomegaly Extremities: No clubbing, No cyanosis, No Calf Tenderness, Edema, Peripheral Pulses Normal Skin: No rashes, No breakdown Musculoskeletal: - - she has pain on the right side of the back in the area of the scapula. It is not reproducibal and she has no evidence of somatic dysfunction. It does not increase with taking a deep breath but, t does increase with sitting up in bed Neurological: Cranial nerves II-XII grossly intact, Neuro grossly intact, - - No focal neurologic deficits Psych/Mental Status: Appropriate, Flat Affect Vital Signs Temp Pulse Resp BP Pulse Ox 98.9 F 80 16 158/110 H 100 09/30/18 05:00 09/30/18 06:00 09/30/18 06:00 09/30/18 06:00 09/30/18 06:00 Oxygen Flow Rate (L/min) 4 Oxygen Delivery Method Nasal Cannula Weight: 137 lb 2.04 oz Body Mass Index (BMI) 21.3 Finger Stick Blood Glucose 151 Intake and Output for Last 24 Hours 09/28/18 09/29/18 09/30/18 23:59 23:59 23:59 Intake Total 580.1 / 580.1 Balance 580.1 / 580.1 Laboratory Tests Past 24 Hrs 09/29/18 09/29/18 09/29/18 17:45 17:45 18:00 WBC 7.5 RBC 3.33 L Hgb 8.2 L Hct 28.8 L MCV 86.5 MCH 24.6 L MCHC 28.5 L RDW Std Deviation 58.4 H RDW Coeff of Genevieve 18.5 H Plt Count 286 MPV 10.5 Immature Gran % (Auto) 0.300 Neut % (Auto) 71.7 H Lymph % (Auto) 20.6 [place] % (Auto) 5.3 Eos % (Auto) 1.3 Baso % (Auto) 0.8 Absolute Neuts (auto) 5.4 Absolute Lymphs (auto) 1.55 Nucleated RBC % 0 Sodium 132 L Potassium 4.7 Chloride 89 L Carbon Dioxide 20.0 L Anion Gap 23 H BUN 41 H Creatinine 2.46 H Estim Creat Clear Calc 33.68 Est GFR (MDRD) Af Amer 31 L Est GFR (MDRD) Non-Af 26 L BUN/Creatinine Ratio 16.7 Glucose 661 H* Hemoglobin A1c 11.7 H Calcium 9.6 Total Bilirubin 0.60 Direct Bilirubin 0.19 AST 20 ALT 13 Alkaline Phosphatase 112 Total Protein 7.4 Albumin 3.9 Globulin 3.5 Lipase Serum , Qual Acetone Level 09/29/18 09/29/18 09/29/18 18:00 19:15 22:00 WBC RBC Hgb Hct MCV MCH MCHC RDW Std Deviation RDW Coeff of Genevieve Plt Count MPV Immature Gran % (Auto) Neut % (Auto) Lymph % (Auto) [place] % (Auto) Eos % (Auto) Baso % (Auto) Absolute Neuts (auto) Absolute Lymphs (auto) Nucleated RBC % Sodium 134 L Potassium 4.3 Chloride 91 L Carbon Dioxide 22.0 Anion Gap 21 H BUN 45 H Creatinine 2.70 H Estim Creat Clear Calc 31.24 Est GFR (MDRD) Af Amer 28 L Est GFR (MDRD) Non-Af 23 L BUN/Creatinine Ratio 16.7 Glucose 568 H* Hemoglobin A1c Calcium 9.4 Total Bilirubin Direct Bilirubin AST ALT Alkaline Phosphatase Total Protein Albumin Globulin Lipase Serum , Qual NEGATIVE Acetone Level MODERATE H 09/30/18 09/30/18 09/30/18 01:00 01:45 04:50 WBC RBC Hgb Hct MCV MCH MCHC RDW Std Deviation RDW Coeff of Genevieve Plt Count MPV Immature Gran % (Auto) Neut % (Auto) Lymph % (Auto) [place] % (Auto) Eos % (Auto) Baso % (Auto) Absolute Neuts (auto) Absolute Lymphs (auto) Nucleated RBC % Sodium 136 139 Potassium 4.4 3.8 Chloride 96 L 98 Carbon Dioxide 30.0 33.0 H Anion Gap 10 8 BUN 41 H 38 H Creatinine 2.49 H 2.42 H Estim Creat Clear Calc 33.88 34.86 Est GFR (MDRD) Af Amer 31 L 32 L Est GFR (MDRD) Non-Af 25 L 26 L BUN/Creatinine Ratio 16.5 15.7 Glucose 304 H 191 H Hemoglobin A1c Calcium 8.6 8.7 Total Bilirubin Direct Bilirubin AST ALT Alkaline Phosphatase Total Protein Albumin Globulin Lipase Pending Serum , Qual Acetone Level 09/30/18 04:50 WBC 6.8 RBC 2.91 L Hgb 7.3 L Hct 23.3 L MCV 80.1 L MCH 25.1 L MCHC 31.3 L RDW Std Deviation 53.3 H RDW Coeff of Genevieve 18.2 H Plt Count 276 MPV 10.3 Immature Gran % (Auto) 0.300 Neut % (Auto) 54.1 Lymph % (Auto) 33.8 [place] % (Auto) 8.7 Eos % (Auto) 2.5 Baso % (Auto) 0.6 Absolute Neuts (auto) 3.7 Absolute Lymphs (auto) 2.28 Nucleated RBC % 0 Sodium Potassium Chloride Carbon Dioxide Anion Gap BUN Creatinine Estim Creat Clear Calc Est GFR (MDRD) Af Amer Est GFR (MDRD) Non-Af BUN/Creatinine Ratio Glucose Hemoglobin A1c Calcium Total Bilirubin Direct Bilirubin AST ALT Alkaline Phosphatase Total Protein Albumin Globulin Lipase Serum , Qual Acetone Level POC Glucose 09/30/18 09/30/18 09/30/18 06:06 04:53 04:03 POC Glucose 151 H 213 H 228 H 09/30/18 09/30/18 09/30/18 03:04 01:58 00:57 POC Glucose 237 H 279 H 312 H 09/30/18 09/29/18 09/29/18 00:02 22:55 21:56 POC Glucose 368 H 441 H > 500 H* 09/29/18 09/29/18 20:53 19:38 POC Glucose > 500 H* > 500 H* Medical Necessity - Tobacco Use Smoking Status: Former smoker Tobacco Use: Cigarettes Assessment/Plan All Active Problems Bilateral pneumonia (Resolved) Myocarditis (Resolved) DKA (diabetic ketoacidoses) (Acute) Ascites (Acute) Acute hyperglycemia (Acute) Abscess of leg, left (Resolved) Hyperglycemia (Acute) DKA (diabetic ketoacidoses) (Resolved) KANU (acute kidney injury) (Acute) Narcotic withdrawal (Resolved) Impressions 1. DKA - resolved. BS's are uncontrolled. HGBA1C is >11. Missed her appt last month with the asphalt plant operator because she was in the hospital. 2. microcytic anemia - HGB normal in early August and this AM is 7.3. She is on Eliquis - possible GI bleed. 3. Hyponatremia - resolved 4. Stage 4 CRF 5. DM I since 5 YOA 6. gastroparesis 7. Hepatitis C 8. former heroin addiction - no illicit drugs since October 2017 9. low serum iron and iron saturation - more likely than not she is iron deficient 10. possible Torsades - she has a 10% EF and no AICD 11. R mid back pain - PE? She is on Elquis but I do not think she is absorbing her medications due to gastroparesis, ascites, frequent vomiting. GB dysfunction? 12. Bilateral pleural effusions, ascites, anasarca secondary to volume overload related to acute on chronic systolic congestive heart failure with a 10% EF Consult Dr. Chase Consult Dr. Haley regarding stage IV chronic renal failure VQ scan and bilateral venous ultrasounds of the lower extremities Liver ultrasound PA and lateral chest x-ray EKG Obtain records from [place] oral medications and start her on IV medications as I suspect she is not absorbing her medications Clear liquid diet Adjust insulin regimen Check magnesium, phosphorus, Hemoccult stool Every 4 hours H&H and every 4 hours BMP for the next 24 hours Electrolyte replacement as indicated Recheck lab in the a.m. Hepatitis panel and HIV Iron sucrose 100 mg IV today and if she tolerates this we will give 200 mg daily for the next 3 to 4 days Decrease the D5 half-normal saline to 40 cc and discontinue if possible Continuous Bumex infusion Urine drug screen Possible candidate for AICD? heart transplant? Get the BS's under control Code Visit Inpatient E&M: 48578 Subs Hosp L3
[2018-09-30 07:05] LABS: Bedside Glucose 109 mg/dL (70-110)
--- NOTE | 2018-09-30 07:10 | PCM.CON.CC ---
Problem List (1) Ascites Status: Acute (2) Chronic systolic (congestive) heart failure Status: Chronic (3) Congestive heart failure Status: Chronic Qualifiers: Heart failure type: systolic Heart failure chronicity: chronic Qualified Code(s): I50.22 - Chronic systolic (congestive) heart failure (4) DKA (diabetic ketoacidoses) Status: Acute Qualifiers: Diabetes mellitus type: type 1 Diabetes mellitus complication detail: without coma Qualified Code(s): E10.10 - Type 1 diabetes mellitus with ketoacidosis without coma (5) Protein calorie malnutrition Status: Chronic Qualifiers: Protein-calorie malnutrition severity: severe Qualified Code(s): E43 - Unspecified severe protein-calorie malnutrition (6) Tobacco user Status: Chronic (7) KANU (acute kidney injury) Status: Acute (8) DM type 1 (diabetes mellitus, type 1) Status: Chronic Qualifiers: Diabetes mellitus complication status: with kidney complications Diabetes mellitus complication detail: with chronic kidney disease Chronic kidney disease stage: stage 4 (severe) Qualified Code(s): E10.22 - Type 1 diabetes mellitus with diabetic chronic kidney disease; N18.4 - Chronic kidney disease, stage 4 (severe) Reason for Consult Date of Consultation: 09/30/18 Reason for Consultation: DKA History of Present Illness: The patient is a 23 year old F, with past medical history listed below, who presented to [facility] on 09/29/2018 complaining of severe right-sided abdominal/flank pain. Patient reported she was of her usual health until the day of presentation in which she started to notice her abdominal pain and not feeling well. Patient did not have any fever, dysuria, chills, diarrhea or constipation. Patient did not have any trauma previously. Patient has been to the hospital frequently secondary to her DKA and states that she normally receives care at [facility]. In the ER, patient's physical exam was relatively unremarkable. Unable to elicit any CVA tenderness. Laboratory work-up showed a hemoglobin of 8, bicarbonate of 28 and a creatinine of 2.46 with an anion gap of 23 and a glucose of 661. Serum test was negative. A CT scan of the abdomen showed bilateral pleural effusions, ascites and anasarca. Patient was admitted to the intensive care unit on an insulin drip. Patient was not given significant fluid resuscitation secondary to patient's refusal given her history of congestive heart failure. Since admission to the intensive care unit, patient reports little subjective change in her overall condition. Patient continues to report sharp stabbing right sided paraspinal pain. This is not elicited by palpation. Patient states is worse to stand up and improves with lying flat. This does not appear to radiate anywhere. Patient is not reporting any paresthesias. Patient denies any trauma in the area. Patient denies any dysuria. Patient states she has been compliant with her Eliquis therapy. Review of systems otherwise negative x10 systems. Past Medical History Past Medical History (Chronic Problems): Chronic Problems Congestive heart failure (Chronic) Chronic systolic (congestive) heart failure (Chronic) Protein calorie malnutrition (Chronic) Homeless (Chronic) Tobacco user (Chronic) DM type 1 (diabetes mellitus, type 1) (Chronic) Allergies Penicillins Allergy (Verified 09/05/18 15:29) Hives furosemide [From Lasix] Adverse Reaction (Verified 09/05/18 15:29) Upset Stomach Home Medications: Ambulatory Orders Medication Instructions Recorded Insulin Degludec [Tresiba 18 unit SQ QHS 02/01/18 Flextouch U-100] Insulin Lispro [Humalog KwikPen] 0 unit SC TIDAC 02/23/18 Torsemide [Demadex] 60 mg PO BID PRN PRN 03/23/18 Carvedilol 25 mg PO BID 08/07/18 hydrALAZINE [Apresoline] 100 mg PO TID 08/07/18 Apixaban [Eliquis] 5 mg PO BID 09/29/18 Isosorbide DN [Isordil] 60 mg PO TID 09/29/18 Surgical History: no surgical history - reports history of heart cath, - Psychiatric History: No pertinent psych hx LAN/WAN ENGINEER History: No pertinent LAN/WAN ENGINEER history Lives: With Family Smoking Status: Former smoker Tobacco Use: Cigarettes - *Family History Paternal History Items: - - Patient denies any marked maternal or paternal family history including diabetes, heart disease, cancer. Maternal History Items: Diabetes - Her maternal second cousin had type 1 diabetes., - Review of Systems Comment: See HPI Patient Problems: Active and Suspected Problems DKA (diabetic ketoacidoses) (Acute) Ascites (Acute) Objective: All imaging was personally reviewed. CT scan of the abdomen does show some pleural effusions, perihepatic fluid and ascites. No stone was notable on my evaluation. - Physical Exam General: Alert, Oriented x3, Cooperative, - - Mild distress with movement. HEENT: Atraumatic, PERRLA, EOMI, Normocephalic, - - No scleral icterus or injection noted. Oral: No Gingival or Mucosal Lesions/ Ulcerations, Dry Mucosa Neck: Supple, No JVD, No Nodes, Trachea Midline Lungs: Clear to auscultation, Normal air movement, No rhonchi, No wheeze, No rales Cardiovascular: Regular rate, Regular Rhythm, Normal S1, Normal S2, No murmurs, Gallops, No rub noted, - - Sporadic episodes of nonsustained V. tach noted on telemetry Abdomen: Bowel Sounds Present, Soft, Non Tender, Non-Distended, - - Unable to reproduce pain with palpation in the CVA region or paraspinal musculature. Extremities: No clubbing, No cyanosis, No edema, Capillary Refill Less than 3 Seconds Skin: No rashes, No breakdown Musculoskeletal: No Tenderness to Palpation of Joints or Extremities Lymphatic: No Cervical, Supraclavicular, or Inguinal Adenopathy Neurological: Cranial nerves II-XII grossly intact, Neuro grossly intact, Motor Exam 5/5 strength throughout Psych/Mental Status: Alert and oriented to time, place, person, mood and affect Vital Signs Temp Pulse Resp BP Pulse Ox 37.2 C 80 16 158/110 H 100 09/30/18 05:00 09/30/18 06:00 09/30/18 06:00 09/30/18 06:00 09/30/18 06:00 Oxygen Flow Rate (L/min) 4 Oxygen Delivery Method Nasal Cannula Weight: 62.2 kg Body Mass Index (BMI) 21.3 Finger Stick Blood Glucose 151 Intake and Output for Last 24 Hours 09/28/18 09/29/18 09/30/18 23:59 23:59 23:59 Intake Total 580.1 / 580.1 Balance 580.1 / 580.1 Laboratory Tests Past 24 Hrs 09/29/18 09/29/18 09/29/18 17:45 17:45 18:00 WBC 7.5 RBC 3.33 L Hgb 8.2 L Hct 28.8 L MCV 86.5 MCH 24.6 L MCHC 28.5 L RDW Std Deviation 58.4 H RDW Coeff of Genevieve 18.5 H Plt Count 286 MPV 10.5 Immature Gran % (Auto) 0.300 Neut % (Auto) 71.7 H Lymph % (Auto) 20.6 [place] % (Auto) 5.3 Eos % (Auto) 1.3 Baso % (Auto) 0.8 Absolute Neuts (auto) 5.4 Absolute Lymphs (auto) 1.55 Nucleated RBC % 0 Sodium 132 L Potassium 4.7 Chloride 89 L Carbon Dioxide 20.0 L Anion Gap 23 H BUN 41 H Creatinine 2.46 H Estim Creat Clear Calc 33.68 Est GFR (MDRD) Af Amer 31 L Est GFR (MDRD) Non-Af 26 L BUN/Creatinine Ratio 16.7 Glucose 661 H* Hemoglobin A1c 11.7 H Calcium 9.6 Phosphorus Magnesium Iron TIBC Iron Saturation Ferritin Total Bilirubin 0.60 Direct Bilirubin 0.19 AST 20 ALT 13 Alkaline Phosphatase 112 Total Protein 7.4 Albumin 3.9 Globulin 3.5 Lipase Folate Serum , Qual Acetone Level 09/29/18 09/29/18 09/29/18 18:00 19:15 22:00 WBC RBC Hgb Hct MCV MCH MCHC RDW Std Deviation RDW Coeff of Genevieve Plt Count MPV Immature Gran % (Auto) Neut % (Auto) Lymph % (Auto) [place] % (Auto) Eos % (Auto) Baso % (Auto) Absolute Neuts (auto) Absolute Lymphs (auto) Nucleated RBC % Sodium 134 L Potassium 4.3 Chloride 91 L Carbon Dioxide 22.0 Anion Gap 21 H BUN 45 H Creatinine 2.70 H Estim Creat Clear Calc 31.24 Est GFR (MDRD) Af Amer 28 L Est GFR (MDRD) Non-Af 23 L BUN/Creatinine Ratio 16.7 Glucose 568 H* Hemoglobin A1c Calcium 9.4 Phosphorus Magnesium Iron TIBC Iron Saturation Ferritin Total Bilirubin Direct Bilirubin AST ALT Alkaline Phosphatase Total Protein Albumin Globulin Lipase Folate Serum , Qual NEGATIVE Acetone Level MODERATE H 09/30/18 09/30/18 09/30/18 01:00 01:45 04:50 WBC RBC Hgb Hct MCV MCH MCHC RDW Std Deviation RDW Coeff of Genevieve Plt Count MPV Immature Gran % (Auto) Neut % (Auto) Lymph % (Auto) [place] % (Auto) Eos % (Auto) Baso % (Auto) Absolute Neuts (auto) Absolute Lymphs (auto) Nucleated RBC % Sodium 136 139 Potassium 4.4 3.8 Chloride 96 L 98 Carbon Dioxide 30.0 33.0 H Anion Gap 10 8 BUN 41 H 38 H Creatinine 2.49 H 2.42 H Estim Creat Clear Calc 33.88 34.86 Est GFR (MDRD) Af Amer 31 L 32 L Est GFR (MDRD) Non-Af 25 L 26 L BUN/Creatinine Ratio 16.5 15.7 Glucose 304 H 191 H Hemoglobin A1c Calcium 8.6 8.7 Phosphorus Magnesium Iron TIBC Iron Saturation Ferritin Total Bilirubin Direct Bilirubin AST ALT Alkaline Phosphatase Total Protein Albumin Globulin Lipase 29 L Folate Serum , Qual Acetone Level 09/30/18 09/30/18 04:50 04:50 WBC 6.8 RBC 2.91 L Hgb 7.3 L Hct 23.3 L MCV 80.1 L MCH 25.1 L MCHC 31.3 L RDW Std Deviation 53.3 H RDW Coeff of Genevieve 18.2 H Plt Count 276 MPV 10.3 Immature Gran % (Auto) 0.300 Neut % (Auto) 54.1 Lymph % (Auto) 33.8 [place] % (Auto) 8.7 Eos % (Auto) 2.5 Baso % (Auto) 0.6 Absolute Neuts (auto) 3.7 Absolute Lymphs (auto) 2.28 Nucleated RBC % 0 Sodium Potassium Chloride Carbon Dioxide Anion Gap BUN Creatinine Estim Creat Clear Calc Est GFR (MDRD) Af Amer Est GFR (MDRD) Non-Af BUN/Creatinine Ratio Glucose Hemoglobin A1c Calcium Phosphorus Pending Magnesium Pending Iron Pending TIBC Pending Iron Saturation Pending Ferritin Pending Total Bilirubin Direct Bilirubin AST ALT Alkaline Phosphatase Total Protein Albumin Globulin Lipase Folate Pending Serum , Qual Acetone Level POC Glucose 09/30/18 09/30/18 09/30/18 06:59 06:06 04:53 POC Glucose 109 151 H 213 H 09/30/18 09/30/18 09/30/18 04:03 03:04 01:58 POC Glucose 228 H 237 H 279 H 09/30/18 09/30/18 09/29/18 00:57 00:02 22:55 POC Glucose 312 H 368 H 441 H 09/29/18 09/29/18 09/29/18 21:56 20:53 19:38 POC Glucose > 500 H* > 500 H* > 500 H* Clinical Impression(s) from Imaging Studies Abdomen/Pelvis CT 09/29/18 17:20 IMPRESSION: Right greater than left pleural effusions with adjacent atelectasis. Small pericardial effusion. Mild to moderate ascites. Anasarca. Electronically Signed: Jeremy Robles, at 19:32 EDT Tel , Service support , Assessment/Plan Active and Suspected Problems DKA (diabetic ketoacidoses) (Acute) Ascites (Acute) RECOMMENDATIONS: 1. Transition to p.o. diet per DKA protocol 2. Transition to p.o. pain medications 3. Increase activity as tolerated 4. Wean oxygen as tolerated 5. Walking oximetry prior to discharge IMPRESSIONS: 1. Acute DKA/type 1 diabetes mellitus Unclear etiology at this time. Patient reports that she is been compliant with insulin therapy. Patient has responded well to current protocol. Patient does not have any significant leukocytosis or prodromal symptoms to suggest an acute infection. Patient has not had any bowel movement since arrival, so C. difficile and stool studies will be discontinued. Patient did not receive adequate fluid resuscitation at her request, but slow p.o. resuscitation would be indicated. 2. Acute kidney injury on CKD stage IV Likely secondary to dehydration. Patient is very cognizant of her chronic systolic congestive heart failure and is avoiding fluid resuscitation. Clinical suspicion for improvement with fluid resuscitation. Reasonable to hold home diuretic therapy in the short-term. 3. Chronic systolic congestive heart failure/mural thrombus/hypertension Patient reportedly has an EF of 10% with a mural thrombus. Patient reports she has been compliant with Eliquis therapy. Patient is not showing any signs or symptoms of PE at this time. Blood pressure is slightly elevated, but this may be secondary to lack of diuretic therapy. Would continue with baseline medications. 4. Acute on chronic anemia Patient is on anticoagulation at baseline. Unclear if this is secondary to renal dysfunction. Patient's hemoglobin has trended down slightly during hospitalization. No hemorrhage has been noted on CT scan of the abdomen. Pain of abdomen is not reproducible with palpation. No signs or symptoms of renal colliculi at this time. 5. Abdominal pain/ascites Medical suspicion for abdominal pain secondary to perihepatic fluid that may be secondary to congestive heart failure with an EF of 10%. Patient does not appear to have reproducible pain. Patient does not have any acute hemorrhage noted on CT scan of the abdomen. Lipase is low indicating probable chronic pancreatitis. Patient does not have any icterus or jaundice on exam. Liver enzymes are acceptable at this time. 6. History of IV drug use/multiple hospitalizations Complicates care, management, recovery and prognosis. Code Visit Inpatient E&M: 90023 Init Hosp L3
--- NOTE | 2018-09-30 07:34 | ECHOD_ITS ---
Reason For Study: CHF Procedure This was a 2D Doppler, Color Flow transthoracic echocardiogram. The exam was of adequate technical quality. Exam performed portable in ICU/CCU. Left Ventricle Borderline enlarged left ventricle. Apical false tendon noted. Severe global left ventricular systolic dysfunction. The estimated ejection fraction is 25 %. There is evidence of diastolic dysfunction. Right Ventricle Normal RV size. Normal systolic function. Atria Normal left atrium. Normal right atrium. Color flow doppler cannot exclude a left to right interatrial shunt. Bubble contrast study negative for right to left interatrial shunt. Mitral Valve There is no mitral annular calcification. Normal mitral valve. Mild-Moderate (1-2+) eccentric mitral valve insufficiency. Tricuspid Valve Poor coaptation of the tricuspid valve. Moderate (2+) tricuspid valve insufficiency. Right ventricular systolic pressure estimated to be 48 mmHg. Aortic Valve Trisinus/trileaflet aortic valve. Normal aortic valve. Trivial aortic valve insufficiency. Pulmonic Valve The pulmonic valve is not well visualized. Moderate (2+) pulmonic valve insufficiency. Great Vessels Normal sized aortic root. Pericardium/Pleural Trivial pericardial effusion. There are no echocardiographic indications of cardiac tamponade. Medication Performed a rapid injection of agitated mix of 9 cc saline and 1cc air to assess for atrial septal defect. MMode/2D Measurements & Calculations LVIDd: 5.1 cm IVSd: 0.85 cm Ao root diam: 3.0 cm LVIDs: 4.1 cm LVPWd: 0.87 cm RVDd: 3.6 cm FS: 20.1 % LAV(MOD-bp): 47.4 ml LVAd ap4: 31.6 cm2 SV(MOD-sp4): 29.3 ml LAV(MOD-bp) Indexed: 27.5 ml/m2 EDV(MOD-sp4): 100.9 ml LAV(MOD-sp2): 43.4 ml EDV(sp4-el): 104.7 ml LAV(MOD-sp4): 44.1 ml LVAs ap4: 25.1 cm2 ESV(MOD-sp4): 71.6 ml ESV(sp4-el): 72.7 ml EF(MOD-sp4): 29.1 % EF(sp4-el): 30.6 % SV(sp4-el): 32.0 ml LA A4 area: 17.5 cm2 LA dimension(2D): 3.4 cm RA A4 area: 16.3 cm2 Time Measurements MV dec time: 0.19 sec Doppler Measurements & Calculations MV E max madan: 104.7 cm/sec Lat Peak E' Madan: 7.4 cm/sec Med Peak E' Madan: 5.7 cm/sec MV A max madan: 69.7 cm/sec E/E' lat: 14.1 E/E' med: 18.3 MV E/A: 1.5 Ao V2 max: 135.3 cm/sec LV V1 max: 94.8 cm/sec PA V2 max: 94.8 cm/sec Ao max P.3 mmHg LV V1 max P.6 mmHg PI end-d madan: 115.6 cm/sec TR max madan: 334.4 cm/sec TR max P.9 mmHg Interpretation Summary Borderline enlarged left ventricle. Severe global left ventricular systolic dysfunction. The estimated ejection fraction is 25 %. Apical false tendon noted. Mild-Moderate (1-2+) eccentric mitral valve insufficiency. Poor coaptation of the tricuspid valve. Moderate (2+) tricuspid valve insufficiency. Trivial aortic valve insufficiency. Moderate (2+) pulmonic valve insufficiency. Trivial pericardial effusion. There are no echocardiographic indications of cardiac tamponade. Right ventricular systolic pressure estimated to be 48 mmHg. There is evidence of diastolic dysfunction. Bubble contrast study negative for right to left interatrial shunt. Ordering Physician: Marizol Walden Referring Physician: Amor Ricketts Performed By: Alyse White RDCS
--- NOTE | 2018-09-30 07:36 | RAD_ITS ---
STUDY: X-RAY CHEST REASON FOR EXAM: Female, 23 years old. Shortness of breath. TECHNIQUE: AP and lateral views of the chest. COMPARISON: Comparison is made with prior study dated September 05, 2018. FINDINGS: EKG line traversing. Small right pleural effusion. Mild increased markings at the lung bases suggestive of bibasilar atelectasis. There is mild cardiac enlargement. Normal mediastinum and nelda. Normal visualized pulmonary arteries. Normal visualized aortic arch and descending thoracic aorta. Normal visualized thoracic spine. Normal visualized ribs, clavicles, and shoulders. There is no demonstrated abnormality of the visualized soft tissue structures of the upper abdomen. RAD/Chest PA and Lateral IMPRESSION: Mild cardiomegaly. Small right pleural effusion with bibasilar atelectasis. Electronically Signed: Domingo Bowman, at 12:22 EDT , Service support ,
--- NOTE | 2018-09-30 07:38 | NM_ITS ---
CLINICAL: Female, 23 years old. Left-sided chest pain. NUCLEAR VENTILATION/PERFUSION - LUNG TECHNIQUE: The patient was administered 5.6 mCi of Tc MAA followed by a perfusion lung scan. The patient was administered 55.5 mCi of Tc DTPA aerosol followed by a ventilation lung scan. Comparison made to prior chest radiograph dated . COMPARISON STUDIES : Comparison is made with prior chest radiograph done earlier today. FINDINGS: The pulmonary perfusion study demonstrates uniform perfusion throughout both lung pollack. There are no demonstrated segmental or subsegmental perfusion defects The ventilation study demonstrates uniform ventilation throughout both lung pollack. There are no segmental or subsegmental ventilation abnormalities. NM/Lung Scan Vent/Perf IMPRESSION: Normal 99m Tc MAA pulmonary perfusion Tc DTPA aerosol ventilation imaging survey, according to revised PIOPED interpretive criteria. Electronically Signed: Domingo Bowman, at 12:17 EDT , Service support ,
[2018-09-30 07:41] LABS: Ferritin 149 ng/mL (8-252); Iron 25 ug/dL (50-170); Iron Binding Capacity,Total 264 ug/dL (250-450); Magnesium 2.2 mg/dL (1.6-2.6); PERCENT IRON SATURATION 9.5 % (15.0-55.0)
--- NOTE | 2018-09-30 07:58 | VDLE_ITS ---
Reason For Study: Swelling RIGHT LEFT GSV is normal. GSV is normal. CFV is compressible, spontaneous, phasic, CFV is compressible, spontaneous, phasic, competent and demonstrates normal competent, and demonstrates normal augmentation. augmentation. FV is compressible, spontaneous, phasic, FV is compressible, spontaneous, phasic, competent and demonstrates normal competent and demonstrates normal augmentation. augmentation. POP V is compressible, spontaneous, phasic, POP V is compressible, spontaneous, phasic, competent and demonstrates normal competent and demonstrates normal augmentation. augmentation. T/P Trunk is compressible. T/P Trunk is compressible. PTV is compressible. PTV is compressible. RT PerV is compressible. LT PerV is compressible. Procedure Exam performed portable in ICU/CCU. A preliminary report was called and/or faxed to ICU Nurse. Interpretation Summary Deep veins of the lower extremities are bilaterally patent and compressible segmentally. There is no evidence of deep vein thrombosis on either side. Valvular competence appears intact within the proximal deep venous systems bilaterally. The greater saphenous veins appear bilaterally patent and compressible segmentally. Ordering Physician: Marizol Walden Referring Physician: Go Kendrick M.D. Performed By: Belkys Elizondo RVT
--- NOTE | 2018-09-30 07:58 | EKG12_ITS ---
Test Reason : HYPOTENSION Blood Pressure : / mmHG Vent. Rate : 081 BPM Atrial Rate : 081 BPM P-R Int : 214 ms QRS Dur : 076 ms QT Int : 380 ms P-R-T Axes : 060 080 260 degrees QTc Int : 441 ms Sinus rhythm with 1st degree A-V block ST & T wave abnormality, consider lateral ischemia Abnormal ECG When compared with ECG of 05-OCT-2018 08:53, LA interval has increased T wave inversion now evident in Lateral leads Confirmed by COLE JUAREZ, ELEUTERIO ([id number]), editor book ALICE TRUONG ([id number]) on 10/14/2018 1:56:22 PM Referred By: Amor Ricketts Confirmed By:TOO GALVAN MD
--- NOTE | 2018-09-30 08:20 | US_ITS ---
STUDY: ABDOMINAL ULTRASOUND - RIGHT UPPER QUADRANT REASON FOR VISIT: Female, 23 years old. Elevated LFTs TECHNIQUE: Ultrasound evaluation of the right upper quadrant was performed with real-time and static saleh-scale imaging. TECHNICAL QUALITY: Adequate. COMPARISON: None. FINDINGS: Liver: The liver measures 20 cm. There is normal echogenicity of the liver. The bile ducts are within normal limits. There is hepatic color flow. The direction of portal flow is hepatopetal. There is no demonstrated mass lesion. Gallbladder: Normal distended gallbladder. The gallbladder wall measures 3 mm. There is a negative sonographic Clark's sign. There is no pericholecystic fluid. There are no gallstones. Common Bile Duct (C.B.D.): The common bile duct measures 2 mm. Pancreas: Normal size of the head, body and tail of the pancreas. There is normal echogenicity of the pancreas. There is no demonstrated pancreatic mass or cyst. Right Kidney: Normal size of the right kidney. The right kidney measures 9 cm. Normal renal cortex. There is no demonstrated renal mass or cyst. There is no right hydronephrosis. A right pleural effusion is present. US/Gallbladder IMPRESSION: Hepatomegaly. No acute abdominal pathology identified. Electronically Signed: Jeremy Robles, at 17:02 EDT Tel , Service support ,
[2018-09-30 08:25] LABS: Bedside Glucose 87 mg/dL (70-110)
[2018-09-30] MEDS: Metoclopramide 10 MG/2 ML Vial 2.5 MG IV ×2 (08:26→17:37)
[2018-09-30] MEDS: fentaNYL 100 MCG/2 ML Ampul 25 MCG IV ×8 (08:27→23:56)
[2018-09-30 08:38] LABS: Cholesterol 142 mg/dL (200); High Density Lipoprotein 39 mg/dL; Triglycerides 107 mg/dL; Very Low Density Lipoprotein 21 mg/dL (5-40)
[2018-09-30] MEDS: Dext 5%-0.45% NS 1,000 ML 40 ML IV (09:26)
[2018-09-30] MEDS: Bumetanide 12.5 MG in CONTAINER,EMPTY 1 BAG 2 MG CONT INF (09:29)
--- NOTE | 2018-09-30 09:53 | CASEMGMT ---
RN CM Assessment Presentation: DKA, Hx of Diabetes Type 1, previous IV drug use, EF 10% CHF Intro role of CM and purpose of RN CM assessment to patient. She is awake, alert and able to participate. Demographics, PCP and Pharmacy verified, father's address corrected. Pt states she has been having nausea, vomiting, flank pain. Pt does not participate in many activities @ home due to not feeling well, wearing oxygen. Pt has not been able to manage diabetes past few days due to nausea, vomiting and diarrhea. Will consider SW to see if indicated. Per report, pt with history but not active for substance abuse, stable living environment per her statement and wishes to return home on discharge. LABS: 7.3/23.3. BS 661 PCP: Kalyan Álvarez NP. Last appointment August Specialists: Endocrinology DELGADO Hernandez @ [facility] Preferred Pharmacy: [facility], [place], [place] Insurance: [employer] Prescription Benefit: yes LNOK: Father, Aaron Koo Living Arrangements: Lives in one story home with her Father. States is independent in ADL, has no concerns re: home environment and plans to return on dc. Transportation: pt does not drive, states her father drives her to appts. DME: has blood glucose monitoring machine and supplies. [facility] for Oxygen- 4L continuous HHC: [facility]. RN services active. Notified of admission. PH: FX: Patient DC goals: Home DC PLAN: Anticipate Home on discharge with resumption of Home Health Service. Jenna LARSEN BSN CM
[2018-09-30 10:00] LABS: Bedside Glucose 107 mg/dL (70-110)
[2018-09-30] MEDS: 0.9% NaCl IVPB Med Flush (250 mL) 15 ML IV (10:08)
[2018-09-30] MEDS: hydrALAZINE 20 MG/ML Vial IV ×3 (10:19→20:43)
--- NOTE | 2018-09-30 10:45 | NURSING ---
This RN & ACCESSORIES REPAIRER Yadi taking pt to nuclear medicine department for VQ scan and then to radiology for Chest PA & Lateral.
--- NOTE | 2018-09-30 12:00 | NURSING ---
Pt returned back to her room. RN & DYER ASSISTANT w/pt throughout VQ scan & CXR PA & Lateral.
--- NOTE | 2018-09-30 12:33 | CON.PCM_ITS ---
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 (2) Chronic systolic (congestive) heart failure Status: Chronic (3) Left ventricular thrombosis Status: Chronic (4) DKA (diabetic ketoacidoses) Status: Acute Qualifiers: Diabetes mellitus type: type 1 Diabetes mellitus complication detail: without coma Qualified Code(s): E10.10 - Type 1 diabetes mellitus with ketoacidosis without coma (5) KANU (acute kidney injury) Status: Acute (6) Ascites Status: Acute (7) Anemia Status: Acute Reason for Consult Date of Consultation: 09/30/18 History of Present Illness: The patient is a 23 year old white female with a 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 She stated she had had right-sided flank discomfort. She had associated nausea and emesis. She has chronic shortness of breath and dyspnea and an element of chronic orthopnea. There have been no new chest discomfort or acute worsening of lower extremity peripheral pitting edema. She denies any near-syncope or syncope. She has been followed by cardiovascular services at [facility] where she was told that she eventually may need additional evaluation and care with a primary prevention ICD as well as potentially referral to a tertiary care center for consideration for cardiac transplantation. She has been evaluated by the [facility] emergency department staff, internal medicine, and the pulmonology/critical care staff. She was thought to have concerns of underlying DKA with acute on chronic renal insufficiency as well as findings of anemia and based upon her noninvasive studies concerns of anasarca. She was referred for cardiovascular evaluation. From a cardiac standpoint she is undergone additional evaluation. This is included cardiac rhythm monitoring which is demonstrated sinus rhythm. Her ECG demonstrated sinus rhythm with nonspecific ST and T wave abnormality. She has had a transthoracic echocardiogram performed. The results are as noted below. Her chest x-ray demonstrated the appearance of a small right-sided pleural effusion. [] Past Medical History Allergies/Adverse Reactions: Allergies Penicillins Allergy (Verified 09/05/18 15:29) Hives furosemide [From Lasix] Adverse Reaction (Verified 09/05/18 15:29) Upset Stomach Home Medications: Ambulatory Orders Medication Instructions Recorded Insulin Degludec [Tresiba 18 unit SQ QHS 02/01/18 Flextouch U-100] Insulin Lispro [Humalog KwikPen] 0 unit SC TIDAC 02/23/18 Torsemide [Demadex] 60 mg PO BID PRN PRN 03/23/18 Carvedilol 25 mg PO BID 08/07/18 hydrALAZINE [Apresoline] 100 mg PO TID 08/07/18 Apixaban [Eliquis] 5 mg PO BID 09/29/18 Isosorbide DN [Isordil] 60 mg PO TID 09/29/18 Past Medical History (Chronic Problems): Chronic Problems Congestive heart failure (Chronic) Chronic systolic (congestive) heart failure (Chronic) Cardiomyopathy (Chronic) Left ventricular thrombosis (Chronic) Protein calorie malnutrition (Chronic) Homeless (Chronic) Tobacco user (Chronic) DM type 1 (diabetes mellitus, type 1) (Chronic) Surgical History: no surgical history - reports history of heart cath, - Psychiatric History: No pertinent psych hx 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 Maternal History Items: Diabetes - Her maternal second cousin had type 1 diabetes., - Lives: With Family Smoking Status: Former smoker Tobacco Use: Cigarettes Review of Systems - Review of Systems General: Denies: Fever, Night Sweats, Fatigue Cardiovascular: Reports: Shortness of Breath, Orthopnea. Denies: Chest Dis comfort, PND, Peripheral Edema, Palpitations, Lightheadedness, Dizziness, Near Syncope, Syncope Respiratory: Reports: Shortness of Breath. Denies: Cough, Sputum Production, H emoptysis Gastrointestinal: Reports: Indigestion, Abdominal Discomfort, Nausea, Emesis Genitourinary: Denies: Dysuria, Hematuria Skin: Denies: Rash Subjectve: This is a 23-year-old white female who appears to be resting reasonably comfortably at the moment in no acute distress. Objective: Vital Signs Temp Pulse Resp BP Pulse Ox 97.5 F L 83 20 H 164/115 H 98 09/30/18 10:28 09/30/18 11:06 09/30/18 10:30 09/30/18 10:30 09/30/18 10:30 Oxygen Flow Rate (L/min) 3 Oxygen Delivery Method Nasal Cannula Weight: 137 lb 2.04 oz Body Mass Index (BMI) 21.3 Finger Stick Blood Glucose 151 Intake and Output for Last 24 Hours 09/28/18 09/29/18 09/30/18 23:59 23:59 23:59 Intake Total 580.1 / 580.1 Balance 580.1 / 580.1 General: Awake, Alert, Oriented x 3, Cooperative, No Acute Distress HEENT: Atraumatic, Normocephalic, PERRL, EOMI, Sclera Non Icteric Oral: Moist Mucosa Neck: Supple, Good ROM, No JVD Lungs: Diminished Right Base Cardiovascular: Regular Rhythm, Premature Ectopic Beats, Normal S1, Normal S2, Positive S4 Vascular: No Carotid Bruits Abdomen: Bowel Sounds Present, Soft, Non Tender Extremities: Trace RLE Edema, Trace LLE Edema Neurological: No Focal Motor or Sensory Deficit Psych/Mental Status: Appropriate 09/29/18 17:45: WBC 7.5, RBC 3.33 L, Hgb 8.2 L, Hct 28.8 L, MCV 86.5, MCH 24.6 L , MCHC 28.5 L, Plt Count 286, MPV 10.5, Immature Gran % (Auto) 0.300, Neut % (Auto) 71.7 H, Lymph % (Auto) 20.6, [place] % (Auto) 5.3, Eos % (Auto) 1.3, Baso % (Auto) 0.8, Absolute Neuts (auto) 5.4, Nucleated RBC % 0 09/29/18 17:45: Hemoglobin A1c 11.7 H 09/29/18 18:00: Sodium 132 L, Potassium 4.7, Chloride 89 L, Carbon Dioxide 20.0 L, Anion Gap 23 H, BUN 41 H, Creatinine 2.46 H, Est GFR (MDRD) Af Amer 31 L, Est GFR (MDRD) Non-Af 26 L, BUN/Creatinine Ratio 16.7, Glucose 661 H*, Calcium 9.6, Total Bilirubin 0.60, Direct Bilirubin 0.19 09/29/18 22:00: Sodium 134 L, Potassium 4.3, Chloride 91 L, Carbon Dioxide 22.0, Anion Gap 21 H, BUN 45 H, Creatinine 2.70 H, Est GFR (MDRD) Af Amer 28 L, Est GFR (MDRD) Non-Af 23 L, BUN/Creatinine Ratio 16.7, Glucose 568 H*, Calcium 9.4 09/30/18 01:00: Sodium 136, Potassium 4.4, Chloride 96 L, Carbon Dioxide 30.0, Anion Gap 10, BUN 41 H, Creatinine 2.49 H, Est GFR (MDRD) Af Amer 31 L, Est GFR (MDRD) Non-Af 25 L, BUN/Creatinine Ratio 16.5, Glucose 304 H, Calcium 8.6 09/30/18 04:50: Sodium 139, Potassium 3.8, Chloride 98, Carbon Dioxide 33.0 H, Anion Gap 8, BUN 38 H, Creatinine 2.42 H, Est GFR (MDRD) Af Amer 32 L, Est GFR (MDRD) Non-Af 26 L, BUN/Creatinine Ratio 15.7, Glucose 191 H, Calcium 8.7 09/30/18 04:50: WBC 6.8, RBC 2.91 L, Hgb 7.3 L, Hct 23.3 L, MCV 80.1 L, MCH 25.1 L, MCHC 31.3 L, Plt Count 276, MPV 10.3, Immature Gran % (Auto) 0.300, Neut % (Auto) 54.1, Lymph % (Auto) 33.8, [place] % (Auto) 8.7, Eos % (Auto) 2.5, Baso % ( Auto) 0.6, Absolute Neuts (auto) 3.7, Nucleated RBC % 0 09/30/18 04:50: Phosphorus 4.0, Magnesium 2.2, Iron 25 L, TIBC 264, Iron Saturation 9.5 L, Ferritin 149 09/30/18 04:50: Triglycerides 107, Cholesterol 142, LDL Cholesterol 82, VLDL Cholesterol 21, HDL Cholesterol 39 L Rhythm: Sinus rhythm EKG: As noted above ECHO: Interpretation Summary Borderline enlarged left ventricle. Severe global left ventricular systolic dysfunction. The estimated ejection fraction is 25 %. Apical false tendon noted. Mild-Moderate (1-2+) eccentric mitral valve insufficiency. Poor coaptation of the tricuspid valve. Moderate (2+) tricuspid valve insufficiency. Trivial aortic valve insufficiency. Moderate (2+) pulmonic valve insufficiency. Trivial pericardial effusion. There are no echocardiographic indications of cardiac tamponade. Right ventricular systolic pressure estimated to be 48 mmHg. There is evidence of diastolic dysfunction. Bubble contrast study negative for right to left interatrial shunt. CXR: As noted above Assessment/Plan 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 She notes her cardiovascular issues became aware in the fall 2017. She has been followed by [facility] cardiovascular services in the interim. At the present time she will need to be monitored during her ongoing noncardiac evaluation care. She should continue vascular medical therapy as tolerated. If she cannot tolerate oral intake because of ongoing nausea and emesis that she will need topical or IV intake. This should include agents such as her nitrates, beta-blockers, diuretics, and afterload reducing agents. She is not on agents such as digitalis, AIMEE inhibitors or ARB's secondary to her renal insufficiency. 2. Chronic systolic mediated CHF The patient has a history of chronic systolic mediated CHF. She does not appear to have any acute symptoms at the moment. She will need continued medical management as described above. 3. Left ventricular thrombus She states there is been a history of a left ventricular thrombus. She has been on anticoagulation in the past. Based upon her echo cardia graphic studies there does not appear to be any definitive left ventricular thrombus identified at this time. Thus, with that and noting her marked anemia, it may be reasonable to refrain from anticoagulant therapy at this time pending further evaluation and care of her anemia. 4. DKA The patient will continue evaluation care per internal medicine. 5. Acute renal insufficiency The patient states she has a history of chronic renal insufficiency. It may be exacerbated by her underlying acute condition. She will need continued evaluation care per internal medicine and nephrology. However, her renal insufficiency does play a role in her cardiovascular medical therapy. 6. Ascites Based upon her radiologic studies there is concern of ascites. She will continue medical management. This will include her diuretic therapy with adjustment as needed. 7. Anemia Her hemoglobin has decreased. She is being evaluated for any obvious evidence of gastrointestinal bleeding, etc. Again based upon her marked anemia, noting that there is no obvious left ventricular thrombus on her transthoracic echocardiogram, it may be reasonable to refrain from systemic anticoagulant therapy at this time pending further evaluation and care. Comment: The patient's case has been previously discussed and reviewed with the patient and Dr. Walden. This note was generated with [employer] software. It may contain incorrect words, spelling, and punctuation that were not noted in checking the note before signing.
[2018-09-30 12:35] LABS: Bedside Glucose 140 mg/dL (70-110)
--- NOTE | 2018-09-30 12:46 | CON.PCM_ITS ---
Problem List (1) KANU (acute kidney injury) Status: Acute Consultation - Renal 09/30/18 PCP/ Referring MD: Requesting physician: [] Primary care physician: VEDA Donaldson Reason for Consultation:: Acute renal failure - History of Present Illness History of Present Illness: The patient is a 23 year old F who was admitted to the hospital yesterday with complaints of right sided abdominal/chest pain. Renal consulted for acute renal failure. She has somewhat complicated medical history. Known history of type 1 diabetes, severe congestive heart failure with low ejection fraction of 20% presumably due to viral myopericarditis, CKD stage III with baseline creatinine around 2. She was recently admitted at [facility]. Records reviewed. There she presented with somewhat similar complaints. Had a right upper quadrant abdominal ultrasound which did not show any gallstones. Nuclear medicine scan of gallbladder did not show any obstruction. Gastric emptying study showed gastroparesis. She was treated symptomatically. Echocardiogram showed ejection fraction of 20%, mobile mass which was thought to be thrombus/mass. Recommended to be on anticoagulation. Work-up here includes a CT of the abdomen which showed anasarca. Creatinine is slightly higher at 2.7. No urinary complaints. She did have sub-nephrotic range proteinuria on recent urine testing at [facility]. Medication list reviewed. - Allergies Allergies: Allergies Penicillins Allergy (Verified 09/05/18 15:29) Hives furosemide [From Lasix] Adverse Reaction (Verified 09/05/18 15:29) Upset Stomach - Current Medications Current Medications: Current Medications Bumetanide (Bumex) 2 mg IV TID MANUELITO Dextrose (D50w Syringe) 0 gm IV X1 PRN; Protocol PRN Reason: HYPOGLYCEMIA Fentanyl Citrate (Sublimaze (100mcg Ampule)) 25 mcg IV Q2H PRN PRN PRN Reason: PAIN Last Admin: 09/30/18 10:31 Dose: 25 mcg Documented by: Glucagon () 1 mg IM .X1 PRN PRN Reason: Hypoglycemia Hydralazine HCl (Apresoline Iv) 20 mg IV Q6H MANUELITO Last Admin: 09/30/18 10:19 Dose: 20 mg Documented by: Sodium Chloride () 250 mls @ 15 mls/hr IV .[id number] PRN PRN Reason: SALINE FLUSH Last Admin: 09/30/18 10:08 Dose: 15 mls/hr Documented by: Pantoprazole Sodium 40 mg/ (Sodium Chloride) 110 mls @ 330 mls/hr IV Q24 MANUELITO Last Admin: 09/30/18 10:08 Dose: 330 mls/hr Documented by: Dextrose/Sodium Chloride () 1,000 mls @ 40 mls/hr IV .Q25H MANUELITO Last Admin: 09/30/18 09:26 Dose: 40 mls/hr Documented by: Insulin Glargine (Lantus (Bk)) 5 units SC BID COUNT INCLUDES THE [facility] Last Admin: 09/30/18 10:21 Dose: Not Given Documented by: Insulin Human Lispro (Humalog Kwikpen ([facility])) 0 unit SC Q6 MANUELITO; Protocol Labetalol HCl (Trandate) 10 mg IV Q4H PRN PRN PRN Reason: BLOOD PRESSURE Last Admin: 09/30/18 02:32 Dose: 10 mg Documented by: Metoclopramide HCl (Reglan) 2.5 mg IV Q6 COUNT INCLUDES THE [facility] Last Admin: 09/30/18 08:26 Dose: 2.5 mg Documented by: Metoprolol Tartrate (Lopressor (Beta Salvador)) 5 mg IV Q6 MANUELITO Nitroglycerin (Nitrostat) 0.4 mg SUBLINGUAL Q5M PRN PRN Reason: CARDIAC/CHEST PAIN Nitroglycerin (Nitrobid) 1 inch TRANSDERM. Q6 MANUELITO Sodium Chloride () 10 - 40 ml IV UD PRN PRN Reason: SALINE FLUSH Last Admin: 09/30/18 07:30 Dose: 10 ml Documented by: - Past Medical History Past Medical History (Chronic Problems): Chronic Problems Congestive heart failure (Chronic) Chronic systolic (congestive) heart failure (Chronic) Cardiomyopathy (Chronic) Left ventricular thrombosis (Chronic) Protein calorie malnutrition (Chronic) Homeless (Chronic) Tobacco user (Chronic) DM type 1 (diabetes mellitus, type 1) (Chronic) - Past Surgical History Surgical History: no surgical history - reports history of heart cath, - - Social History Smoking Status: Former smoker - Family History Paternal History Items: - - Patient denies any marked maternal or paternal family history including diabetes, heart disease, cancer. Maternal History Items: Diabetes - Her maternal second cousin had type 1 diabetes., - Review of Systems Cardiovascular: Reports: Chest Pain, Orthopnea Respiratory: Reports: Shortness of Breath Gastrointestinal: Reports: Abdominal Pain, Nausea, Vomiting Patient Problems: Active and Suspected Problems DKA (diabetic ketoacidoses) (Acute) Ascites (Acute) Anemia (Acute) - Physical Exam General: Alert, Oriented x3, Cooperative HEENT: Atraumatic, PERRLA, EOMI, Normocephalic Neck: Supple Lungs: Diminished Cardiovascular: Regular rate, No murmurs Abdomen: Bowel Sounds Present, Soft, Non Tender Extremities: Edema Skin: No rashes, No breakdown Musculoskeletal: No Tenderness to Palpation of Joints or Extremities Neurological: Cranial nerves II-XII grossly intact Psych/Mental Status: Normal Affect, Appropriate Vital Signs Temp Pulse Resp BP Pulse Ox 97.5 F L 83 20 H 164/115 H 98 09/30/18 10:28 09/30/18 11:06 09/30/18 10:30 09/30/18 10:30 09/30/18 10:30 Oxygen Flow Rate (L/min) 3 Oxygen Delivery Method Nasal Cannula Weight: 62.2 kg Body Mass Index (BMI) 21.3 Finger Stick Blood Glucose 151 Intake and Output for Last 24 Hours 09/28/18 09/29/18 09/30/18 23:59 23:59 23:59 Intake Total 580.1 / 580.1 Balance 580.1 / 580.1 Laboratory Tests Past 24 Hrs 09/29/18 09/29/18 09/29/18 17:45 17:45 18:00 WBC 7.5 RBC 3.33 L Hgb 8.2 L Hct 28.8 L MCV 86.5 MCH 24.6 L MCHC 28.5 L RDW Std Deviation 58.4 H RDW Coeff of Genevieve 18.5 H Plt Count 286 MPV 10.5 Immature Gran % (Auto) 0.300 Neut % (Auto) 71.7 H Lymph % (Auto) 20.6 [place] % (Auto) 5.3 Eos % (Auto) 1.3 Baso % (Auto) 0.8 Absolute Neuts (auto) 5.4 Absolute Lymphs (auto) 1.55 Nucleated RBC % 0 Sodium 132 L Potassium 4.7 Chloride 89 L Carbon Dioxide 20.0 L Anion Gap 23 H BUN 41 H Creatinine 2.46 H Estim Creat Clear Calc 33.68 Est GFR (MDRD) Af Amer 31 L Est GFR (MDRD) Non-Af 26 L BUN/Creatinine Ratio 16.7 Glucose 661 H* Hemoglobin A1c 11.7 H Calcium 9.6 Phosphorus Magnesium Iron TIBC Iron Saturation Ferritin Total Bilirubin 0.60 Direct Bilirubin 0.19 AST 20 ALT 13 Alkaline Phosphatase 112 Total Protein 7.4 Albumin 3.9 Globulin 3.5 Triglycerides Cholesterol LDL Cholesterol VLDL Cholesterol HDL Cholesterol Lipase Folate Serum , Qual Acetone Level Blood Type Antibody Screen Crossmatch 09/29/18 09/29/18 09/29/18 18:00 19:15 22:00 WBC RBC Hgb Hct MCV MCH MCHC RDW Std Deviation RDW Coeff of Genevieve Plt Count MPV Immature Gran % (Auto) Neut % (Auto) Lymph % (Auto) [place] % (Auto) Eos % (Auto) Baso % (Auto) Absolute Neuts (auto) Absolute Lymphs (auto) Nucleated RBC % Sodium 134 L Potassium 4.3 Chloride 91 L Carbon Dioxide 22.0 Anion Gap 21 H BUN 45 H Creatinine 2.70 H Estim Creat Clear Calc 31.24 Est GFR (MDRD) Af Amer 28 L Est GFR (MDRD) Non-Af 23 L BUN/Creatinine Ratio 16.7 Glucose 568 H* Hemoglobin A1c Calcium 9.4 Phosphorus Magnesium Iron TIBC Iron Saturation Ferritin Total Bilirubin Direct Bilirubin AST ALT Alkaline Phosphatase Total Protein Albumin Globulin Triglycerides Cholesterol LDL Cholesterol VLDL Cholesterol HDL Cholesterol Lipase Folate Serum , Qual NEGATIVE Acetone Level MODERATE H Blood Type Antibody Screen Crossmatch 09/30/18 09/30/18 09/30/18 01:00 01:45 04:50 WBC RBC Hgb Hct MCV MCH MCHC RDW Std Deviation RDW Coeff of Genevieve Plt Count MPV Immature Gran % (Auto) Neut % (Auto) Lymph % (Auto) [place] % (Auto) Eos % (Auto) Baso % (Auto) Absolute Neuts (auto) Absolute Lymphs (auto) Nucleated RBC % Sodium 136 139 Potassium 4.4 3.8 Chloride 96 L 98 Carbon Dioxide 30.0 33.0 H Anion Gap 10 8 BUN 41 H 38 H Creatinine 2.49 H 2.42 H Estim Creat Clear Calc 33.88 34.86 Est GFR (MDRD) Af Amer 31 L 32 L Est GFR (MDRD) Non-Af 25 L 26 L BUN/Creatinine Ratio 16.5 15.7 Glucose 304 H 191 H Hemoglobin A1c Calcium 8.6 8.7 Phosphorus Magnesium Iron TIBC Iron Saturation Ferritin Total Bilirubin Direct Bilirubin AST ALT Alkaline Phosphatase Total Protein Albumin Globulin Triglycerides Cholesterol LDL Cholesterol VLDL Cholesterol HDL Cholesterol Lipase 29 L Folate Serum , Qual Acetone Level Blood Type Antibody Screen Crossmatch 09/30/18 09/30/18 09/30/18 04:50 04:50 04:50 WBC 6.8 RBC 2.91 L Hgb 7.3 L Hct 23.3 L MCV 80.1 L MCH 25.1 L MCHC 31.3 L RDW Std Deviation 53.3 H RDW Coeff of Genevieve 18.2 H Plt Count 276 MPV 10.3 Immature Gran % (Auto) 0.300 Neut % (Auto) 54.1 Lymph % (Auto) 33.8 [place] % (Auto) 8.7 Eos % (Auto) 2.5 Baso % (Auto) 0.6 Absolute Neuts (auto) 3.7 Absolute Lymphs (auto) 2.28 Nucleated RBC % 0 Sodium Potassium Chloride Carbon Dioxide Anion Gap BUN Creatinine Estim Creat Clear Calc Est GFR (MDRD) Af Amer Est GFR (MDRD) Non-Af BUN/Creatinine Ratio Glucose Hemoglobin A1c Calcium Phosphorus 4.0 Magnesium 2.2 Iron 25 L TIBC 264 Iron Saturation 9.5 L Ferritin 149 Total Bilirubin Direct Bilirubin AST ALT Alkaline Phosphatase Total Protein Albumin Globulin Triglycerides 107 Cholesterol 142 LDL Cholesterol 82 VLDL Cholesterol 21 HDL Cholesterol 39 L Lipase Folate 17.10 Serum , Qual Acetone Level Blood Type Antibody Screen Crossmatch 09/30/18 07:03 WBC RBC Hgb Hct MCV MCH MCHC RDW Std Deviation RDW Coeff of Genevieve Plt Count MPV Immature Gran % (Auto) Neut % (Auto) Lymph % (Auto) [place] % (Auto) Eos % (Auto) Baso % (Auto) Absolute Neuts (auto) Absolute Lymphs (auto) Nucleated RBC % Sodium Potassium Chloride Carbon Dioxide Anion Gap BUN Creatinine Estim Creat Clear Calc Est GFR (MDRD) Af Amer Est GFR (MDRD) Non-Af BUN/Creatinine Ratio Glucose Hemoglobin A1c Calcium Phosphorus Magnesium Iron TIBC Iron Saturation Ferritin Total Bilirubin Direct Bilirubin AST ALT Alkaline Phosphatase Total Protein Albumin Globulin Triglycerides Cholesterol LDL Cholesterol VLDL Cholesterol HDL Cholesterol Lipase Folate Serum , Qual Acetone Level Blood Type A NEGATIVE Antibody Screen NEGATIVE Crossmatch See Detail POC Glucose 09/30/18 09/30/18 09/30/18 12:29 09:17 08:10 POC Glucose 140 H 107 87 0809/30/18 09/30/18 06:59 06:06 04:53 POC Glucose 109 151 H 213 H 09/30/18 09/30/18 09/30/18 04:03 03:04 01:58 POC Glucose 228 H 237 H 279 H 09/30/18 09/30/18 09/29/18 00:57 00:02 22:55 POC Glucose 312 H 368 H 441 H 09/29/18 09/29/18 09/29/18 21:56 20:53 19:38 POC Glucose > 500 H* > 500 H* > 500 H* Assessment/Plan All Active Problems Bilateral pneumonia (Resolved) Myocarditis (Resolved) DKA (diabetic ketoacidoses) (Acute) Ascites (Acute) Anemia (Acute) Acute hyperglycemia (Acute) Abscess of leg, left (Resolved) Hyperglycemia (Acute) DKA (diabetic ketoacidoses) (Resolved) KANU (acute kidney injury) (Acute) Narcotic withdrawal (Resolved) Acute renal failure Chronic kidney disease stage III. Baseline creatinine is around 2 as per records. She did have sub-nephrotic range proteinuria on testing at [facility]. CT abdomen does not show any hydronephrosis. Blood pressure is on the higher somnolence. Acute renal failure is likely a combination of cardiorenal syndrome/ATN/progression of diabetic kidney disease. Overall significant volume overload. She also has IV access issues. Will start Bumex 2 mg IV. Anemia. Iron saturations are low at 9%. Will give IV iron when stabilized Congestive heart failure. With low ejection fraction. Follows with cardiology at [facility]. Continue diuresis as above
[2018-09-30] MEDS: Metoprolol Tartrate 5 MG/5 ML Vial IV ×2 (13:12→18:55)
[2018-09-30] MEDS: Nitroglycerin Oint 1 INCH PACKET TRANSDERM. ×2 (13:12→18:55)
[2018-09-30 14:55] LABS: Mucous, Urine 0 SEEN /hpf (<or=2+); Red Blood Cells-Urine 0 SEEN /hpf (0-5); White Blood Cells 0 SEEN /hpf (0-5)
[2018-09-30 14:58] LABS: Color, Urine Yellow (Yellow); Glucose, Dipstick Normal (Normal); Ketone-Dipstick 5 mg/dl (Negative); Leukocyte Esterase-Dipstick Negative /ul (Negative); Nitrite-Dipstick Negative (Negative); Occult Blood-Urine Negative /ul (Negative); Protein-Dipstick 100 mg/dl (Negative); Urine Bilirubin Dipstick Negative (Negative); Urine Clarity Sl. Cloudy (Clear); Urine Urobilinogen Normal (Normal)
[2018-09-30 15:05] LABS: Bacteria RARE /hpf (None Seen); Squamous Epithelial Cells - UA 0-5 SEEN /hpf (5-10)
[2018-09-30 15:08] LABS: Amphetamine Urine VISTA NEGATIVE (<1000 ng/mL); Barbiturate Urine VISTA NEGATIVE (< 200 ng/mL); Benzodiazepine Urine VISTA NEGATIVE (< 200 ng/mL); Cocaine Urine VISTA NEGATIVE (< 300 ng/mL); Ecstacy Urine VISTA NEGATIVE (< 500 ng/mL); Methadone Urine VISTA NEGATIVE (< 300 ng/mL); PCP Urine VISTA NEGATIVE (< 25 ng/mL); THC Urine VISTA NEGATIVE (< 50 ng/mL); Vista UDS pH Range 7
[2018-09-30] MEDS: Bumetanide 1 MG/4 ML Vial 2 MG IV ×2 (15:13→21:49)
[2018-09-30 17:00] LABS: International Normalized Ratio 1.4; Prothrombin Time (Protime)PT. 16.9 SECONDS (11.7-14.9)
[2018-09-30 17:01] LABS: Partial Thromboplast Time 34.4 Seconds (24.1-36.2)
[2018-09-30 17:56] LABS: Bedside Glucose 174 mg/dL (70-110)
[2018-09-30 18:13] LABS: HIV - WCH Non-Reactive (Nonreactive)
[2018-09-30] MEDS: Insulin Lispro 100 UNIT/ML INSULN.PEN SC ×2 (18:54→23:59)
[2018-09-30 22:00] LABS: Bedside Glucose 297 mg/dL (70-110)
[2018-09-30 23:16] LABS: Hematocrit 36.9 % (37-47); Hemoglobin 12.3 g/dL (12.0-15.0)
[2018-09-30 23:55] LABS: Bedside Glucose 277 mg/dL (70-110)
[2018-10-01] VITALS (25 sets, daily range): BP systolic 131–172; BP diastolic 87–123; PULSE 88–104; RESP 11–20; TEMP 36.6–36.9; O2SAT 93–98
[2018-10-01] MEDS: Metoclopramide 10 MG/2 ML Vial 2.5 MG IV ×3 (00:02→12:25)
[2018-10-01] MEDS: Nitroglycerin Oint 1 INCH PACKET TRANSDERM. ×2 (00:02→05:32)
[2018-10-01] MEDS: 0.9% NaCl Peripheral Flush Adult/Peds IV ×5 (00:06→21:58)
[2018-10-01] MEDS: fentaNYL 100 MCG/2 ML Ampul 25 MCG IV ×7 (01:58→14:35)
[2018-10-01] MEDS: hydrALAZINE 20 MG/ML Vial IV (02:00)
[2018-10-01 04:32] LABS: Hematocrit 37.3 % (37-47); Hemoglobin 11.9 g/dL (12.0-15.0); Mean Corp Hgb Conc 31.9 g/dL (32-36); Mean Corpuscular Volume 81.6 fL (81-99); Mean Platelet Vol. 10.2 fl (6.2-12.0); Platelet Count 301 K/mm3 (150-450); RBC Distribution Width CV 16.8 % (11.6-14.6); RBC Distribution Width SD 49.3 fl (35.1-43.9); Red Blood Count 4.57 M/mm3 (4.2-5.4); White Blood Count 7.8 K/mm3 (4.4-11.0)
[2018-10-01 05:11] LABS: AST(SGOT) 25 U/L (15-37); Alanine Aminotransfer ALT/SGPT 15 U/L (13-56); Albumin, Serum 3.1 g/dL (3.2-5.0); Alkaline Phosphatase 103 U/L (45-117); Anion Gap 9 (5-15); BUN 32 mg/dL (7-18); BUN/Creat Ratio 14.7 RATIO (10-20); Calcium,Total 8.5 mg/dL (8.5-10.1); Chloride 98 mmol/L (98-107); Creatinine, Serum 2.18 mg/dL (0.55-1.02); EST Glomerular Filtration Rate 29 mL/min (>60); Est Glom Filt Rate - Afr Amer 36 mL/min (>60); Estimated Creatinine Clearance 37.82 ml/min; Globulin 3.2 g/dL (2.2-4.2); Glucose 393 mg/dL (74-106); Magnesium 1.9 mg/dL (1.6-2.6); Phosphorus 4.1 mg/dL (2.5-4.9); Potassium 3.8 mmol/L (3.5-5.1); Protein, Total 6.3 g/dL (6.4-8.2); Sodium Level 137 mmol/L (136-145)
[2018-10-01] MEDS: Bumetanide 1 MG/4 ML Vial 2 MG IV ×3 (05:31→21:55)
[2018-10-01] MEDS: Insulin Lispro 100 UNIT/ML INSULN.PEN SC ×3 (05:31→21:56)
[2018-10-01 05:46] LABS: Bedside Glucose 366 mg/dL (70-110)
--- NOTE | 2018-10-01 07:17 | PCM.PN.INT ---
Subjective: Patient did okay overnight. Patient reportedly did tolerate dinner and a snack overnight. Patient states she has some nausea this morning, but overall is improved. Patient's oxygenation is maintained on 3 L nasal cannula. Patient currently is on no anticoagulation. Patient has been requesting fentanyl frequently. Objective: Lower extremity Dopplers were negative. Echocardiogram showed an EF of 25% with global dysfunction and an RVSP of 48 mmHg. General: Alert, Oriented x3, Cooperative, No apparent distress, Well developed, Well nourished, - - No conversational dyspnea. HEENT: Atraumatic, PERRLA, EOMI, Normocephalic, - - No scleral icterus or injection noted. Oral: Moist Mucosa, No Gingival or Mucosal Lesions/ Ulcerations Neck: Supple, No JVD, No Nodes, Trachea Midline Lungs: Clear to auscultation, Normal air movement, No rhonchi, No wheeze, No rales Cardiovascular: Regular rate, Regular Rhythm, Normal S1, Normal S2, No murmurs, No rub noted, No Gallop Abdomen: Bowel Sounds Present, Soft, Non Tender, Non-Distended Extremities: No clubbing, No cyanosis, No edema, Capillary Refill Less than 3 Seconds Skin: No rashes, No breakdown Musculoskeletal: No Tenderness to Palpation of Joints or Extremities Lymphatic: No Cervical, Supraclavicular, or Inguinal Adenopathy Neurological: Cranial nerves II-XII grossly intact, Neuro grossly intact, Motor Exam 5/5 strength throughout Psych/Mental Status: Alert and oriented to time, place, person, mood and affect Vital Signs Temp Pulse Resp BP Pulse Ox 36.6 C 97 20 H 162/111 H 97 10/01/18 04:00 10/01/18 06:00 10/01/18 06:00 10/01/18 06:00 10/01/18 06:00 Oxygen Flow Rate (L/min) 3 Oxygen Delivery Method Nasal Cannula Weight: 60.2 kg Body Mass Index (BMI) 21.3 Finger Stick Blood Glucose 151 Intake and Output for Last 24 Hours 09/29/18 09/30/18 10/01/18 23:59 23:59 23:59 Intake Total 2650.2 / 2650.2 477.5 / 477.5 Output Total 2245 / 2245 200 / 200 Balance 405.2 / 405.2 277.5 / 277.5 Labs (Last 48 Hours) 09/29/18 09/29/18 09/29/18 17:45 17:45 18:00 WBC 7.5 RBC 3.33 L Hgb 8.2 L Hct 28.8 L MCV 86.5 MCH 24.6 L MCHC 28.5 L RDW Std Deviation 58.4 H RDW Coeff of [place]evieve 18.5 H Plt Count 286 MPV 10.5 Immature Gran % (Auto) 0.300 Neut % (Auto) 71.7 H Lymph % (Auto) 20.6 [place] % (Auto) 5.3 Eos % (Auto) 1.3 Baso % (Auto) 0.8 Absolute Neuts (auto) 5.4 Absolute Lymphs (auto) 1.55 Nucleated RBC % 0 PT INR APTT Sodium 132 L Potassium 4.7 Chloride 89 L Carbon Dioxide 20.0 L Anion Gap 23 H BUN 41 H Creatinine 2.46 H Estim Creat Clear Calc 33.68 Est GFR (MDRD) Af Amer 31 L Est GFR (MDRD) Non-Af 26 L BUN/Creatinine Ratio 16.7 Glucose 661 H* Hemoglobin A1c 11.7 H Calcium 9.6 Phosphorus Magnesium Iron TIBC Iron Saturation Ferritin Total Bilirubin 0.60 Direct Bilirubin 0.19 AST 20 ALT 13 Alkaline Phosphatase 112 Total Protein 7.4 Albumin 3.9 Globulin 3.5 Albumin/Globulin Ratio Triglycerides Cholesterol LDL Cholesterol VLDL Cholesterol HDL Cholesterol Lipase Folate Serum , Qual Urine Color Urine Clarity Urine pH Ur Specific [place] Urine Protein Urine Glucose (UA) Urine Ketones Urine Occult Blood Urine Nitrite Urine Bilirubin Urine Urobilinogen Ur Leukocyte Esterase Urine RBC Urine WBC Ur Squamous Epith Cells Urine Bacteria Urine Mucus Urine Opiates Screen Urine Methadone Screen Ur Barbiturates Screen Ur Phencyclidine Scrn Ur Amphetamines Screen U Methamphetamin-MDMA U Benzodiazepines Scrn Urine Cocaine Screen U Cannabinoids Screen Ur Drug Screen Comment Acetone Level Hepatitis A IgM Ab Hepatitis A Ab Total Hep Bs Antigen Hep B Core Total Ab Hep B Core IgM Ab HIV 1&2 Antibody Miscellaneous Test POC Glucose Blood Type Antibody Screen Crossmatch 09/29/18 09/29/18 09/29/18 18:00 19:15 19:38 WBC RBC Hgb Hct MCV MCH MCHC RDW Std Deviation RDW Coeff of [place] Plt Count MPV Immature Gran % (Auto) Neut % (Auto) Lymph % (Auto) [place] % (Auto) Eos % (Auto) Baso % (Auto) Absolute Neuts (auto) Absolute Lymphs (auto) Nucleated RBC % PT INR APTT Sodium Potassium Chloride Carbon Dioxide Anion Gap BUN Creatinine Estim Creat Clear Calc Est GFR (MDRD) Af Amer Est GFR (MDRD) Non-Af BUN/Creatinine Ratio Glucose Hemoglobin A1c Calcium Phosphorus Magnesium Iron TIBC Iron Saturation Ferritin Total Bilirubin Direct Bilirubin AST ALT Alkaline Phosphatase Total Protein Albumin Globulin Albumin/Globulin Ratio Triglycerides Cholesterol LDL Cholesterol VLDL Cholesterol HDL Cholesterol Lipase Folate Serum , Qual NEGATIVE Urine Color Urine Clarity Urine pH Ur Specific [place] Urine Protein Urine Glucose (UA) Urine Ketones Urine Occult Blood Urine Nitrite Urine Bilirubin Urine Urobilinogen Ur Leukocyte Esterase Urine RBC Urine WBC Ur Squamous Epith Cells Urine Bacteria Urine Mucus Urine Opiates Screen Urine Methadone Screen Ur Barbiturates Screen Ur Phencyclidine Scrn Ur Amphetamines Screen U Methamphetamin-MDMA U Benzodiazepines Scrn Urine Cocaine Screen U Cannabinoids Screen Ur Drug Screen Comment Acetone Level MODERATE H Hepatitis A IgM Ab Hepatitis A Ab Total Hep Bs Antigen Hep B Core Total Ab Hep B Core IgM Ab HIV 1&2 Antibody Miscellaneous Test POC Glucose > 500 H* Blood Type Antibody Screen Crossmatch 09/29/18 09/29/18 09/29/18 20:53 21:56 22:00 WBC RBC Hgb Hct MCV MCH MCHC RDW Std Deviation RDW Coeff of [place] Plt Count MPV Immature Gran % (Auto) Neut % (Auto) Lymph % (Auto) [place] % (Auto) Eos % (Auto) Baso % (Auto) Absolute Neuts (auto) Absolute Lymphs (auto) Nucleated RBC % PT INR APTT Sodium 134 L Potassium 4.3 Chloride 91 L Carbon Dioxide 22.0 Anion Gap 21 H BUN 45 H Creatinine 2.70 H Estim Creat Clear Calc 31.24 Est GFR (MDRD) Af Amer 28 L Est GFR (MDRD) Non-Af 23 L BUN/Creatinine Ratio 16.7 Glucose 568 H* Hemoglobin A1c Calcium 9.4 Phosphorus Magnesium Iron TIBC Iron Saturation Ferritin Total Bilirubin Direct Bilirubin AST ALT Alkaline Phosphatase Total Protein Albumin Globulin Albumin/Globulin Ratio Triglycerides Cholesterol LDL Cholesterol VLDL Cholesterol HDL Cholesterol Lipase Folate Serum , Qual Urine Color Urine Clarity Urine pH Ur Specific [place] Urine Protein Urine Glucose (UA) Urine Ketones Urine Occult Blood Urine Nitrite Urine Bilirubin Urine Urobilinogen Ur Leukocyte Esterase Urine RBC Urine WBC Ur Squamous Epith Cells Urine Bacteria Urine Mucus Urine Opiates Screen Urine Methadone Screen Ur Barbiturates Screen Ur Phencyclidine Scrn Ur Amphetamines Screen U Methamphetamin-MDMA U Benzodiazepines Scrn Urine Cocaine Screen U Cannabinoids Screen Ur Drug Screen Comment [place]etone Level Hepatitis A IgM Ab Hepatitis A Ab Total Hep Bs Antigen Hep B Core Total Ab Hep B Core IgM Ab HIV 1&2 Antibody Miscellaneous Test POC Glucose > 500 H* > 500 H* Blood Type Antibody Screen Crossmatch 09/29/18 09/30/18 09/30/18 22:55 00:02 00:57 WBC RBC Hgb Hct MCV MCH MCHC RDW Std Deviation RDW Coeff of [place] Plt Count MPV Immature Gran % (Auto) Neut % (Auto) Lymph % (Auto) [place] % (Auto) Eos % (Auto) Baso % (Auto) Absolute Neuts (auto) Absolute Lymphs (auto) Nucleated RBC % PT INR APTT Sodium Potassium Chloride Carbon Dioxide Anion Gap BUN Creatinine Estim Creat Clear Calc Est GFR (MDRD) Af Amer Est GFR (MDRD) Non-Af BUN/Creatinine Ratio Glucose Hemoglobin A1c Calcium Phosphorus Magnesium Iron TIBC Iron Saturation Ferritin Total Bilirubin Direct Bilirubin AST ALT Alkaline Phosphatase Total Protein Albumin Globulin Albumin/Globulin Ratio Triglycerides Cholesterol LDL Cholesterol VLDL Cholesterol HDL Cholesterol Lipase Folate Serum , Qual Urine Color Urine Clarity Urine pH Ur Specific [place] Urine Protein Urine Glucose (UA) Urine Ketones Urine Occult Blood Urine Nitrite Urine Bilirubin Urine Urobilinogen Ur Leukocyte Esterase Urine RBC Urine WBC Ur Squamous Epith Cells Urine Bacteria Urine Mucus Urine Opiates Screen Urine Methadone Screen Ur Barbit[place] Screen Ur Phencyclidine Scrn Ur Amphetamines Screen U Methamphetamin-MDMA U Benzodiazepines Scrn Urine Cocaine Screen U Cannabinoids Screen Ur Drug Screen Comment [place]etone Level Hepatitis A IgM Ab Hepatitis A Ab Total Hep Bs Antigen Hep B Core Total Ab Hep B Core IgM Ab HIV 1&2 Antibody Miscellaneous Test POC Glucose 441 H 368 H 312 H Blood Type Antibody Screen Crossmatch 09/30/18 09/30/18 09/30/18 01:00 01:45 01:58 WBC RBC Hgb Hct MCV MCH MCHC RDW Std Deviation RDW Coeff of [place] Plt Count MPV Immature Gran % (Auto) Neut % (Auto) Lymph % (Auto) [place] % (Auto) Eos % (Auto) Baso % (Auto) Absolute Neuts (auto) Absolute Lymphs (auto) Nucleated RBC % PT INR APTT Sodium 136 Potassium 4.4 Chloride 96 L Carbon Dioxide 30.0 Anion Gap 10 BUN 41 H Creatinine 2.49 H Estim Creat Clear Calc 33.88 Est GFR (MDRD) Af Amer 31 L Est GFR (MDRD) Non-Af 25 L BUN/Creatinine Ratio 16.5 Glucose 304 H Hemoglobin A1c Calcium 8.6 Phosphorus Magnesium Iron TIBC Iron Saturation Ferritin Total Bilirubin Direct Bilirubin AST ALT Alkaline Phosphatase Total Protein Albumin Globulin Albumin/Globulin Ratio Triglycerides Cholesterol LDL Cholesterol VLDL Cholesterol HDL Cholesterol Lipase 29 L Folate Serum , Qual Urine Color Urine Clarity Urine pH Ur Specific [place] Urine Protein Urine Glucose (UA) Urine Ketones Urine Occult Blood Urine Nitrite Urine Bilirubin Urine Urobilinogen Ur Leukocyte Esterase Urine RBC Urine WBC Ur Squamous Epith Cells Urine Bacteria Urine Mucus Urine Opiates Screen Urine Methadone Screen Ur [place] Screen Ur Phencyclidine Scrn Ur Amphetamines Screen U Methamphetamin-MDMA U Benzodiazepines Scrn Urine Cocaine Screen U Cannabinoids Screen Ur Drug Screen Comment [place]etone Level Hepatitis A IgM Ab Hepatitis A Ab Total Hep Bs Antigen Hep B Core Total Ab Hep B Core IgM Ab HIV 1&2 Antibody Miscellaneous Test POC Glucose 279 H Blood Type Antibody Screen Crossmatch 09/30/18 09/30/18 09/30/18 03:04 04:03 04:50 WBC RBC Hgb Hct MCV MCH MCHC RDW Std Deviation RDW Coeff of [place] Plt Count MPV Immature Gran % (Auto) Neut % (Auto) Lymph % (Auto) [place] % (Auto) Eos % (Auto) Baso % (Auto) Absolute Neuts (auto) Absolute Lymphs (auto) Nucleated RBC % PT INR APTT Sodium 139 Potassium 3.8 Chloride 98 Carbon Dioxide 33.0 H Anion Gap 8 BUN 38 H Creatinine 2.42 H Estim Creat Clear Calc 34.86 Est GFR (MDRD) Af Amer 32 L Est GFR (MDRD) Non-Af 26 L BUN/Creatinine Ratio 15.7 Glucose 191 H Hemoglobin A1c Calcium 8.7 Phosphorus Magnesium Iron TIBC Iron Saturation Ferritin Total Bilirubin Direct Bilirubin AST ALT Alkaline Phosphatase Total Protein Albumin Globulin Albumin/Globulin Ratio Triglycerides Cholesterol LDL Cholesterol VLDL Cholesterol HDL Cholesterol Lipase Folate Serum , Qual Urine Color Urine Clarity Urine pH Ur Specific [place] Urine Protein Urine Glucose (UA) Urine Ketones Urine Occult Blood Urine Nitrite Urine Bilirubin Urine Urobilinogen Ur Leukocyte Esterase Urine RBC Urine WBC Ur Squamous Epith Cells Urine Bacteria Urine Mucus Urine Opiates Screen Urine Methadone Screen Ur [place] Screen Ur Phencyclidine Scrn Ur Amphetamines Screen U Methamphetamin-MDMA U Benzodiazepines Scrn Urine Cocaine Screen U Cannabinoids Screen Ur Drug Screen Comment [place]et[place] Level Hepatitis A IgM Ab Hepatitis A Ab Total Hep Bs Antigen Hep B Core Total Ab Hep B Core IgM Ab HIV 1&2 Antibody Miscellaneous Test POC Glucose 237 H 228 H Blood Type Antibody Screen Crossmatch 09/30/18 09/30/18 09/30/18 04:50 04:50 04:50 WBC 6.8 RBC 2.91 L Hgb 7.3 L Hct 23.3 L MCV 80.1 L MCH 25.1 L MCHC 31.3 L RDW Std Deviation 53.3 H RDW Coeff of [place]evieve 18.2 H Plt Count 276 MPV 10.3 Immature Gran % (Auto) 0.300 Neut % (Auto) 54.1 Lymph % (Auto) 33.8 [place] % (Auto) 8.7 Eos % (Auto) 2.5 Baso % (Auto) 0.6 Absolute Neuts (auto) 3.7 Absolute Lymphs (auto) 2.28 Nucleated RBC % 0 PT INR APTT Sodium Potassium Chloride Carbon Dioxide Anion Gap BUN Creatinine Estim Creat Clear Calc Est GFR (MDRD) Af Amer Est GFR (MDRD) Non-Af BUN/Creatinine Ratio Glucose Hemoglobin A1c Calcium Phosphorus 4.0 Magnesium 2.2 Iron 25 L TIBC 264 Iron Saturation 9.5 L Ferritin 149 Total Bilirubin Direct Bilirubin AST ALT Alkaline Phosphatase Total Protein Albumin Globulin Albumin/Globulin Ratio Triglycerides 107 Cholesterol 142 LDL Cholesterol 82 VLDL Cholesterol 21 HDL Cholesterol 39 L Lipase Folate 17.10 Serum , Qual Urine Color Urine Clarity Urine pH Ur Specific [place] Urine Protein Urine Glucose (UA) Urine Ketones Urine Occult Blood Urine Nitrite Urine Bilirubin Urine Urobilinogen Ur Leukocyte Esterase Urine RBC Urine WBC Ur Squamous Epith Cells Urine Bacteria Urine Mucus Urine Opiates Screen Urine Methadone Screen Ur [place] Screen Ur Phencyclidine Scrn Ur Amphetamines Screen U Methamphetamin-MDMA U Benzodiazepines Scrn Urine Cocaine Screen U Cannabinoids Screen Ur Drug Screen Comment [place]et[place] Level Hepatitis A IgM Ab Hepatitis A Ab Total Hep Bs Antigen Hep B Core Total Ab Hep B Core IgM Ab HIV 1&2 Antibody Miscellaneous Test POC Glucose Blood Type Antibody Screen Crossmatch 09/30/18 09/30/18 09/30/18 04:53 06:06 06:59 WBC RBC Hgb Hct MCV MCH MCHC RDW Std Deviation RDW Coeff of [place] Plt Count MPV Immature Gran % (Auto) Neut % (Auto) Lymph % (Auto) [place] % (Auto) Eos % (Auto) Baso % (Auto) Absolute Neuts (auto) Absolute Lymphs (auto) Nucleated RBC % PT INR APTT Sodium Potassium Chloride Carbon Dioxide Anion Gap BUN Creatinine Estim Creat Clear Calc Est GFR (MDRD) Af Amer Est GFR (MDRD) Non-Af BUN/Creatinine Ratio Glucose Hemoglobin A1c Calcium Phosphorus Magnesium Iron TIBC Iron Saturation Ferritin Total Bilirubin Direct Bilirubin AST ALT Alkaline Phosphatase Total Protein Albumin Globulin Albumin/Globulin Ratio Triglycerides Cholesterol LDL Cholesterol VLDL Cholesterol HDL Cholesterol Lipase Folate Serum , Qual Urine Color Urine Clarity Urine pH Ur Specific [place] Urine Protein Urine Glucose (UA) Urine Ketones Urine Occult Blood Urine Nitrite Urine Bilirubin Urine Urobilinogen Ur Leukocyte Esterase Urine RBC Urine WBC Ur Squamous Epith Cells Urine Bacteria Urine Mucus Urine Opiates Screen Urine Methadone Screen Ur Barbit[place] Screen Ur Phencyclidine Scrn Ur Amphetamines Screen U Methamphetamin-MDMA U Benzodiazepines Scrn Urine Cocaine Screen U Cannabinoids Screen Ur Drug Screen Comment [place]et[place] Level Hepatitis A IgM Ab Hepatitis A Ab Total Hep Bs Antigen Hep B Core Total Ab Hep B Core IgM Ab HIV 1&2 Antibody Miscellaneous Test POC Glucose 213 H 151 H 109 Blood Type Antibody Screen Crossmatch 09/30/18 09/30/18 09/30/18 07:03 08:10 09:17 WBC RBC Hgb Hct MCV MCH MCHC RDW Std Deviation RDW Coeff of [place] Plt Count MPV Immature Gran % (Auto) Neut % (Auto) Lymph % (Auto) [place] % (Auto) Eos % (Auto) Baso % (Auto) Absolute Neuts (auto) Absolute Lymphs (auto) Nucleated RBC % PT INR APTT Sodium Potassium Chloride Carbon Dioxide Anion Gap BUN Creatinine Estim Creat Clear Calc Est GFR (MDRD) Af Amer Est GFR (MDRD) Non-Af BUN/Creatinine Ratio Glucose Hemoglobin A1c Calcium Phosphorus Magnesium Iron TIBC Iron Saturation Ferritin Total Bilirubin Direct Bilirubin AST ALT Alkaline Phosphatase Total Protein Albumin Globulin Albumin/Globulin Ratio Triglycerides Cholesterol LDL Cholesterol VLDL Cholesterol HDL Cholesterol Lipase Folate Serum , Qual Urine Color Urine Clarity Urine pH Ur Specific [place] Urine Protein Urine Glucose (UA) Urine Ketones Urine Occult Blood Urine Nitrite Urine Bilirubin Urine Urobilinogen Ur Leukocyte Esterase Urine RBC Urine WBC Ur Squamous Epith Cells Urine Bacteria Urine Mucus Urine Opiates Screen Urine Methadone Screen Ur [place] Screen Ur Phencyclidine Scrn Ur Amphetamines Screen U Methamphetamin-MDMA U Benzodiazepines Scrn Urine Cocaine Screen U Cannabinoids Screen Ur Drug Screen Comment [place]et[place] Level Hepatitis A IgM Ab Hepatitis A Ab Total Hep Bs Antigen Hep B Core Total Ab Hep B Core IgM Ab HIV 1&2 Antibody Miscellaneous Test POC Glucose 87 107 Blood Type A NEGATIVE Antibody Screen NEGATIVE Crossmatch See Detail 09/30/18 09/30/18 09/30/18 12:29 14:45 14:45 WBC RBC Hgb Hct MCV MCH MCHC RDW Std Deviation RDW Coeff of [place] Plt Count MPV Immature Gran % (Auto) Neut % (Auto) Lymph % (Auto) [place] % (Auto) Eos % (Auto) Baso % (Auto) Absolute Neuts (auto) Absolute Lymphs (auto) Nucleated RBC % PT INR APTT Sodium Potassium Chloride Carbon Dioxide Anion Gap BUN Creatinine Estim Creat Clear Calc Est GFR (MDRD) Af Amer Est GFR (MDRD) Non-Af BUN/Creatinine Ratio Glucose Hemoglobin A1c Calcium Phosphorus Magnesium Iron TIBC Iron Saturation Ferritin Total Bilirubin Direct Bilirubin AST ALT Alkaline Phosphatase Total Protein Albumin Globulin Albumin/Globulin Ratio Triglycerides Cholesterol LDL Cholesterol VLDL Cholesterol HDL Cholesterol Lipase Folate Serum , Qual Urine Color Yellow Urine Clarity Sl. Cloudy Urine pH 8.0 Ur Specific [place] 1.010 Urine Protein 100 H Urine Glucose (UA) Normal Urine Ketones 5 H Urine Occult Blood Negative Urine Nitrite Negative Urine Bilirubin Negative Urine Urobilinogen Normal Ur Leukocyte Esterase Negative Urine RBC 0 SEEN Urine WBC 0 SEEN Ur Squamous Epith Cells 0-5 SEEN Urine Bacteria RARE Urine Mucus 0 SEEN Urine Opiates Screen POSITIVE H Urine Methadone Screen NEGATIVE Ur Barbiturates Screen NEGATIVE Ur Phencyclidine Scrn NEGATIVE Ur Amphetamines Screen NEGATIVE U Methamphetamin-MDMA NEGATIVE U Benzodiazepines Scrn NEGATIVE Urine Cocaine Screen NEGATIVE U Cannabinoids Screen NEGATIVE Ur Drug Screen Comment [place] Level Hepatitis A IgM Ab Hepatitis A Ab Total Hep Bs Antigen Hep B Core Total Ab Hep B Core IgM Ab HIV 1&2 Antibody Miscellaneous Test POC Glucose 140 H Blood Type Antibody Screen Crossmatch 09/30/18 09/30/18 09/30/18 16:40 16:40 16:40 WBC RBC Hgb Hct MCV MCH MCHC RDW Std Deviation RDW Coeff of [place]ieve Plt Count MPV Immature Gran % (Auto) Neut % (Auto) Lymph % (Auto) [place] % (Auto) Eos % (Auto) Baso % (Auto) Absolute Neuts (auto) Absolute Lymphs (auto) Nucleated RBC % PT 16.9 H INR 1.4 APTT 34.4 Sodium Potassium Chloride Carbon Dioxide Anion Gap BUN Creatinine Estim Creat Clear Calc Est GFR (MDRD) Af Amer Est GFR (MDRD) Non-Af BUN/Creatinine Ratio Glucose Hemoglobin A1c Calcium Phosphorus Magnesium Iron TIBC Iron Saturation Ferritin Total Bilirubin Direct Bilirubin AST ALT Alkaline Phosphatase Total Protein Albumin Globulin Albumin/Globulin Ratio Triglycerides Cholesterol LDL Cholesterol VLDL Cholesterol HDL Cholesterol Lipase Folate Serum , Qual Urine Color Urine Clarity Urine pH Ur Specific [place] Urine Protein Urine Glucose (UA) Urine Ketones Urine Occult Blood Urine Nitrite Urine Bilirubin Urine Urobilinogen Ur Leukocyte Esterase Urine RBC Urine WBC Ur Squamous Epith Cells Urine Bacteria Urine Mucus Urine Opiates Screen Urine Methadone Screen Ur [place] Screen Ur Phencyclidine Scrn Ur Amphetamines Screen U Methamphetamin-MDMA U Benzodiazepines Scrn Urine Cocaine Screen U Cannabinoids Screen Ur Drug Screen Comment [place] Level Hepatitis A IgM Ab Pending Hepatitis A Ab Total Pending Hep Bs Antigen Pending Hep B Core Total Ab Pending Hep B Core IgM Ab Pending HIV 1&2 Antibody Non-Reactive Miscellaneous Test POC Glucose Blood Type Antibody Screen Crossmatch 09/30/18 09/30/18 09/30/18 16:40 17:52 21:47 WBC RBC Hgb Hct MCV MCH MCHC RDW Std Deviation RDW Coeff of [place]evieve Plt Count MPV Immature Gran % (Auto) Neut % (Auto) Lymph % (Auto) [place] % (Auto) Eos % (Auto) Baso % (Auto) Absolute Neuts (auto) Absolute Lymphs (auto) Nucleated RBC % PT INR APTT Sodium Potassium Chloride Carbon Dioxide Anion Gap BUN Creatinine Estim Creat Clear Calc Est GFR (MDRD) Af Amer Est GFR (MDRD) Non-Af BUN/Creatinine Ratio Glucose Hemoglobin A1c Calcium Phosphorus Magnesium Iron TIBC Iron Saturation Ferritin Total Bilirubin Direct Bilirubin AST ALT Alkaline Phosphatase Total Protein Albumin Globulin Albumin/Globulin Ratio Triglycerides Cholesterol LDL Cholesterol VLDL Cholesterol HDL Cholesterol Lipase Folate Serum , Qual Urine Color Urine Clarity Urine pH Ur Specific [place] Urine Protein Urine Glucose (UA) Urine Ketones Urine Occult Blood Urine Nitrite Urine Bilirubin Urine Urobilinogen Ur Leukocyte Esterase Urine RBC Urine WBC Ur Squamous Epith Cells Urine Bacteria Urine Mucus Urine Opiates Screen Urine Methadone Screen Ur [place] Screen Ur Phencyclidine Scrn Ur Amphetamines Screen U Methamphetamin-MDMA U Benzodiazepines Scrn Urine Cocaine Screen U Cannabinoids Screen Ur Drug Screen Comment [place]et[place] Level Hepatitis A IgM Ab Hepatitis A Ab Total Hep Bs Antigen Hep B Core Total Ab Hep B Core IgM Ab HIV 1&2 Antibody Miscellaneous Test Pending POC Glucose 174 H 297 H Blood Type Antibody Screen Crossmatch 09/30/18 09/30/18 10/01/18 23:08 23:12 04:10 WBC 7.8 RBC 4.57 Hgb 12.3 11.9 L Hct 36.9 L 37.3 MCV 81.6 MCH 26.0 L MCHC 31.9 L RDW Std Deviation 49.3 H RDW Coeff of [place]evieve 16.8 H Plt Count 301 MPV 10.2 Immature Gran % (Auto) Neut % (Auto) Lymph % (Auto) [place] % (Auto) Eos % (Auto) Baso % (Auto) Absolute Neuts (auto) Absolute Lymphs (auto) Nucleated RBC % PT INR APTT Sodium Potassium Chloride Carbon Dioxide Anion Gap BUN Creatinine Estim Creat Clear Calc Est GFR (MDRD) Af Amer Est GFR (MDRD) Non-Af BUN/Creatinine Ratio Glucose Hemoglobin A1c Calcium Phosphorus Magnesium Iron TIBC Iron Saturation Ferritin Total Bilirubin Direct Bilirubin AST ALT Alkaline Phosphatase Total Protein Albumin Globulin Albumin/Globulin Ratio Triglycerides Cholesterol LDL Cholesterol VLDL Cholesterol HDL Cholesterol Lipase Folate Serum , Qual Urine Color Urine Clarity Urine pH Ur Specific [place] Urine Protein Urine Glucose (UA) Urine Ketones Urine Occult Blood Urine Nitrite Urine Bilirubin Urine Urobilinogen Ur Leukocyte Esterase Urine RBC Urine WBC Ur Squamous Epith Cells Urine Bacteria Urine Mucus Urine Opiates Screen Urine Methadone Screen Ur [place] Screen Ur Phencyclidine Scrn Ur Amphetamines Screen U Methamphetamin-MDMA U Benzodiazepines Scrn Urine Cocaine Screen U Cannabinoids Screen Ur Drug Screen Comment [place]et[place] Level Hepatitis A IgM Ab Hepatitis A Ab Total Hep Bs Antigen Hep B Core Total Ab Hep B Core IgM Ab HIV 1&2 Antibody Miscellaneous Test POC Glucose 277 H Blood Type Antibody Screen Crossmatch 10/01/18 10/01/18 04:10 05:29 WBC RBC Hgb Hct MCV MCH MCHC RDW Std Deviation RDW Coeff of [place] Plt Count MPV Immature Gran % (Auto) Neut % (Auto) Lymph % (Auto) [place] % (Auto) Eos % (Auto) Baso % (Auto) Absolute Neuts (auto) Absolute Lymphs (auto) Nucleated RBC % PT INR APTT Sodium 137 Potassium 3.8 Chloride 98 Carbon Dioxide 30.0 Anion Gap 9 BUN 32 H Creatinine 2.18 H Estim Creat Clear Calc 37.82 Est GFR (MDRD) Af Amer 36 L Est GFR (MDRD) Non-Af 29 L BUN/Creatinine Ratio 14.7 Glucose 393 H Hemoglobin A1c Calcium 8.5 Phosphorus 4.1 Magnesium 1.9 Iron TIBC Iron Saturation Ferritin Total Bilirubin 0.30 Direct Bilirubin AST 25 ALT 15 Alkaline Phosphatase 103 Total Protein 6.3 L Albumin 3.1 L Globulin 3.2 Albumin/Globulin Ratio 1.0 Triglycerides Cholesterol LDL Cholesterol VLDL Cholesterol HDL Cholesterol Lipase Folate Serum , Qual Urine Color Urine Clarity Urine pH Ur Specific [place] Urine Protein Urine Glucose (UA) Urine Ketones Urine Occult Blood Urine Nitrite Urine Bilirubin Urine Urobilinogen Ur Leukocyte Esterase Urine RBC Urine WBC Ur Squamous Epith Cells Urine Bacteria Urine Mucus Urine Opiates Screen Urine Methadone Screen Ur [place] Screen Ur Phencyclidine Scrn Ur Amphetamines Screen U Methamphetamin-MDMA U Benzodiazepines Scrn Urine Cocaine Screen U Cannabinoids Screen Ur Drug Screen Comment [place] Level Hepatitis A IgM Ab Hepatitis A Ab Total Hep Bs Antigen Hep B Core Total Ab Hep B Core IgM Ab HIV 1&2 Antibody Miscellaneous Test POC Glucose 366 H Blood Type Antibody Screen Crossmatch Clinical Impression(s) from Imaging Studies Chest X-Ray 09/30/18 07:36 IMPRESSION: Mild cardiomegaly. Small right pleural effusion with bibasilar atelectasis. Electronically Signed: Domingo Bowman, at 12:22 EDT , Service support , [facility]/30[facility] 07:38 IMPRESSION: Normal 99m Tc MAA pulmonary perfusion Tc DTPA aerosol ventilation imaging survey, according to revised PIOPED interpretive criteria. Electronically Signed: Domingo Bowman, at 12:17 EDT , Service support , Gallbladder Ultrasound 09/30/18 08:20 IMPRESSION: Hepatomegaly. No acute abdominal pathology identified. Electronically Signed: Jeremy Robles, at 17:02 EDT Tel , Service support , Medical Necessity - Tobacco Use Smoking Status: Former smoker Tobacco Use: Cigarettes Assessment/Plan All Active Problems Bilateral pneumonia (Resolved) Myocarditis (Resolved) DKA (diabetic ketoacidoses) (Acute) Ascites (Acute) Anemia (Acute) Acute hyperglycemia (Acute) Abscess of leg, left (Resolved) Hyperglycemia (Acute) DKA (diabetic ketoacidoses) (Resolved) KANU (acute kidney injury) (Acute) Narcotic withdrawal (Resolved) RECOMMENDATIONS: 1. Continue p.o. challenge 2. Transition to p.o. pain medications 3. Increase activity as tolerated 4. Reinitiate anticoagulation 5. Walking oximetry prior to discharge 6. Hemodynamically stable on baseline nasal cannula oxygen. Will sign off from a critical care perspective IMPRESSIONS: 1. Acute DKA/type 1 diabetes mellitus Unclear etiology at this time. Patient reports that she is been compliant with insulin therapy. Patient has responded well to current protocol. Patient's blood sugars have trended up overnight given increased p.o. intake, but morning labs do not show a gap indicating patient is not in DKA. Patient may benefit from increased basal insulin, but would defer to hospitalist. 2. Acute kidney injury on CKD stage IV Nephrology following. Patient is very cognizant of her chronic systolic congestive heart failure and is avoiding fluid resuscitation. Clinical suspicion for improvement with fluid resuscitation. Patient has tolerated Bumex therapy overnight. This indicates patient likely has an element of over distention leading to decreased cardiac output. No potassium supplementation is indicated this morning. 3. Chronic systolic congestive heart failure/mural thrombus/hypertension Patient reportedly has an EF of 10% with a mural thrombus. Repeat echocardiogram shows an improvement to an EF of 25% with no mural thrombus. Patient is not currently on anticoagulation. VQ scan is not suggestive of an acute PE. Cardiology is following. 4. Acute on chronic anemia Patient is on anticoagulation at baseline. Unclear if this is secondary to renal dysfunction. Patient's hemoglobin has trended down slightly during hospitalization. No hemorrhage has been noted on CT scan of the abdomen. Pain of abdomen is not reproducible with palpation. No signs or symptoms of renal colliculi at this time. 5. Abdominal pain/ascites Medical suspicion for abdominal pain secondary to perihepatic fluid that may be secondary to congestive heart failure. Patient does not appear to have reproducible pain. Patient does not have any acute hemorrhage noted on CT scan of the abdomen. Lipase is low indicating probable chronic pancreatitis/burned-out pancreas. Patient does not have any icterus or jaundice on exam. Liver enzymes are acceptable at this time. 6. History of IV drug use/multiple hospitalizations Complicates care, management, recovery and prognosis. Code Visit Inpatient E&M: 04527 Subs Hosp L3
--- NOTE | 2018-10-01 07:45 | PCM.PN.HOSP ---
Patient Problems: Active and Suspected Problems DKA (diabetic ketoacidoses) (Acute) Ascites (Acute) Anemia (Acute) Subjective: Patient blood pressure is elevated 158/121, 160/102. Heart rate 90s, regular. Patient is on dinner yesterday. History of drug use and requesting fentanyl frequently. Vitals/I&O's: Vital Signs Temp Pulse Resp BP Pulse Ox 97.8 F 97 20 H 162/111 H 97 10/01/18 04:00 10/01/18 06:00 10/01/18 06:00 10/01/18 06:00 10/01/18 06:00 Oxygen Flow Rate (L/min) 3 Oxygen Delivery Method Nasal Cannula Weight: 132 lb 11.492 oz Body Mass Index (BMI) 21.3 Finger Stick Blood Glucose 151 Intake and Output for Last 24 Hours 09/29/18 09/30/18 10/01/18 23:59 23:59 23:59 Intake Total 2650.2 / 2650.2 477.5 / 477.5 Output Total 2245 / 2245 200 / 200 Balance 405.2 / 405.2 277.5 / 277.5 General: Alert, Oriented x3, Cooperative HEENT: Atraumatic, PERRLA, EOMI, Normocephalic Neck: Supple, No JVD, Negative Carotid Bruits Lungs: Clear to auscultation, Normal air movement, No rhonchi, No wheeze, No rales Cardiovascular: Regular rate, Regular Rhythm, Normal S1, Normal S2, No murmurs Abdomen: Bowel Sounds Present, Soft, Non Tender, Non-Distended Extremities: No edema, Capillary Refill Less than 3 Seconds Skin: No rashes, No breakdown Musculoskeletal: No Tenderness to Palpation of Joints or Extremities Neurological: Cranial nerves II-XII grossly intact, Deep Tendon Reflexes 2+/4 and Symmetrical, Neuro grossly intact Psych/Mental Status: Normal Affect, Appropriate Laboratory Results 09/30/18 04:50: Triglycerides 107, Cholesterol 142, LDL Cholesterol 82, VLDL Cholesterol 21, HDL Cholesterol 39 L 09/30/18 07:03: Blood Type A NEGATIVE, Antibody Screen NEGATIVE, Crossmatch See Detail 09/30/18 08:10: POC Glucose 87 09/30/18 09:17: POC Glucose 107 09/30/18 12:29: POC Glucose 140 H 09/30/18 14:45: Urine Color Yellow, Urine Clarity Sl. Cloudy, Urine pH 8.0, Ur Specific [place] 1.010, Urine Protein 100 H, Urine Glucose (UA) Normal, Urine Ketones 5 H, Urine Occult Blood Negative, Urine Nitrite Negative, Urine Bilirubin Negative, Urine Urobilinogen Normal, Ur Leukocyte Esterase Negative, Urine RBC 0 SEEN, Urine WBC 0 SEEN, Ur Squamous Epith Cells 0-5 SEEN, Urine Bacteria RARE, Urine Mucus 0 SEEN 09/30/18 14:45: Urine Opiates Screen POSITIVE H, Urine Methadone Screen NEGATIVE, Ur Barbiturates Screen NEGATIVE, Ur Phencyclidine Scrn NEGATIVE, Ur Amphetamines Screen NEGATIVE, U Methamphetamin-MDMA NEGATIVE, U Benzodiazepines Scrn NEGATIVE, Urine Cocaine Screen NEGATIVE, U Cannabinoids Screen NEGATIVE, Ur Drug Screen Comment 09/30/18 16:40: PT 16.9 H, INR 1.4, APTT 34.4 09/30/18 16:40: Hepatitis A IgM Ab Pending, Hepatitis A Ab Total Pending, Hep Bs Antigen Pending, Hep B Core Total Ab Pending, Hep B Core IgM Ab Pending 09/30/18 16:40: HIV 1&2 Antibody Non-Reactive 09/30/18 16:40: Miscellaneous Test Pending 09/30/18 17:52: POC Glucose 174 H 09/30/18 21:47: POC Glucose 297 H 09/30/18 23:08: Hgb 12.3, Hct 36.9 L 09/30/18 23:12: POC Glucose 277 H 10/01/18 04:10: WBC 7.8, RBC 4.57, Hgb 11.9 L, Hct 37.3, MCV 81.6, MCH 26.0 L, MCHC 31.9 L, RDW Std Deviation 49.3 H, RDW Coeff of Genevieve 16.8 H, Plt Count 301, MPV 10.2 10/01/18 04:10: Sodium 137, Potassium 3.8, Chloride 98, Carbon Dioxide 30.0, Anion Gap 9, BUN 32 H, Creatinine 2.18 H, Estim Creat Clear Calc 37.82, Est GFR (MDRD) Af Amer 36 L, Est GFR (MDRD) Non-Af 29 L, BUN/Creatinine Ratio 14.7, Glucose 393 H, Calcium 8.5, Phosphorus 4.1, Magnesium 1.9, Total Bilirubin 0.30, AST 25, ALT 15, Alkaline Phosphatase 103, Total Protein 6.3 L, Albumin 3.1 L, Globulin 3.2, Albumin/Globulin Ratio 1.0 10/01/18 05:29: POC Glucose 366 H Current Medications Bumetanide (Bumex) 2 mg IV TID [facility] Last Admin: 10/01/18 05:31 Dose: 2 mg Documented by: Carvedilol (Coreg) 25 mg PO BID [facility] Dextrose (D50w Syringe) 0 gm IV X1 PRN; Protocol PRN Reason: HYPOGLYCEMIA Fentanyl Citrate (Sublimaze (100mcg Ampule)) 25 mcg IV Q2H PRN PRN PRN Reason: PAIN Last Admin: 10/01/18 06:15 Dose: 25 mcg Documented by: Glucagon () 1 mg IM .X1 PRN PRN Reason: Hypoglycemia Hydralazine HCl (Apresoline Iv) 20 mg IV Q6H [facility] Last Admin: 10/01/18 02:00 Dose: 20 mg Documented by: Hydralazine HCl (Apresoline) 100 mg PO TID [facility] Sodium Chloride () 250 mls @ 15 mls/hr IV .[id number] PRN PRN Reason: SALINE FLUSH Last Admin: 09/30/18 10:08 Dose: 15 mls/hr Documented by: Pantoprazole Sodium 40 mg/ (Sodium Chloride) 110 mls @ 330 mls/hr IV Q24 [facility] Last Admin: 09/30/18 10:08 Dose: 330 mls/hr Documented by: Dextrose/Sodium Chloride () 1,000 mls @ 15 mls/hr IV .Q48H [facility] Last Admin: 09/30/18 13:47 Dose: Not Given Documented by: Insulin Glargine (Lantus (Bkc)) 5 units SC BID [facility] Last Admin: 09/30/18 21:48 Dose: 5 units Documented by: Insulin Human Lispro (Humalog Kwikpen (Bkc)) 0 unit SC ACHS [facility]; Protocol Insulin Human Lispro (Humalog Kwikpen (Bkc)) 15 unit SC TIDAC [facility] Isosorbide Dinitrate (Isordil) 60 mg PO TID [facility] Labetalol HCl (Trandate) 10 mg IV Q4H PRN PRN PRN Reason: BLOOD PRESSURE Last Admin: 09/30/18 02:32 Dose: 10 mg Documented by: Metoclopramide HCl (Reglan) 2.5 mg IV Q6 [facility] Last Admin: 10/01/18 05:32 Dose: 2.5 mg Documented by: Metoprolol Tartrate (Lopressor (Beta Salvador)) 5 mg IV Q6 [facility] Last Admin: 10/01/18 05:07 Dose: Not Given Documented by: Nitroglycerin (Nitrostat) 0.4 mg SUBLINGUAL Q5M PRN PRN Reason: CARDIAC/CHEST PAIN Nitroglycerin (Nitrobid) 1 inch TRANSDERM. Q6 [facility] Last Admin: 10/01/18 05:32 Dose: 1 inch Documented by: Non-Formulary Medication (Insulin Degludec) 18 unit SQ QHS [facility] Nutritional Formula (Lactose Free) (Glucerna Shake) 120 ml PO 4X/DAY [facility] Sodium Chloride () 10 - 40 ml IV UD PRN PRN Reason: SALINE FLUSH Last Admin: 10/01/18 06:17 Dose: 30 ml Documented by: Medical Necessity - Tobacco Use Smoking Status: Former smoker Tobacco Use: Cigarettes Assessment/Plan All Active Problems Bilateral pneumonia (Resolved) Myocarditis (Resolved) DKA (diabetic ketoacidoses) (Acute) Ascites (Acute) Anemia (Acute) Acute hyperglycemia (Acute) Abscess of leg, left (Resolved) Hyperglycemia (Acute) DKA (diabetic ketoacidoses) (Resolved) KANU (acute kidney injury) (Acute) Narcotic withdrawal (Resolved) This is a 23 year old female with history of type 1 diabetes mellitus, multiple other comorbidities including stage IV chronic kidney disease, gastroparesis, chronic opioid abuse and dependence, heroin addiction chronic microcytic anemia, chronic systolic heart failure with severe cardiomyopathy, history of myocarditis EF 10% cardiac thrombus chronic respiratory failure was admitted with was admitted severe right-sided abdominal/flank pain. Admitting labs, glucose 661, anion gap 23 were consistent for DKA. A1c markedly high 11.7. Acetone was positive. A CT scan of the abdomen and pelvis showed bilateral pleural effusions, right greater than left, mild to moderate ascites and anasarca. She was admitted to the intensive care unit with a diagnosis of DKA. 1. DKA: Resolved. Anion gap 9, bicarb 30. K3.8, phosphorus 4.1, mag 1.9. Glucose still high 366. Accu-Chek before meals and at bedtime. Started on her home regimen 15 units Humalog subcu 3 times daily and 18 units long-acting insulin at bedtime daily. Titrate insulin according to Accu-Cheks. Patient is stable to be transferred to floor. 2. Diabetes mellitus 1 with gastroparesis since age of 4: As mentioned above. Gastric emptying study showed gastroparesis. 3. chronic systolic heart failure with history of viral myocarditis with uncontrolled hypertension: Previous echo reported as EF 10% with mural thrombus. Repeat echo showed 25% with no thrombosis. Currently patient not on anticoagulation. VQ scan not suggestive of acute PE. Patient is being seen by smelter charger. She follows smelter charger in [facility]. She is not on AIMEE/ARB secondary to renal failure 4. History of heroin abuse and dependence: Patient asking for repeated doses of fentanyl. She claims no illicit drugs in October 2017. 5. Acute on chronic microcytic anemia: Hemoglobin was 14.8 in August 2018 decreased to 8.2. It is improving platelet count 301,000. Low serum iron and iron saturation. Eliquis has been discontinued. IV iron was given. Patient received PRBC transfusion. 6. Bilateral pleural effusion, ascites mild anasarca secondary to volume overload secondary to chronic systolic heart failure. Repeat chest x-ray shows small right pleural effusion with bibasilar atelectasis. gallbladder ultrasound does not show any stone. Nuclear medicine scan of gallbladder did not show any obstruction. 7. Acute kidney injury on chronic CKD stage III with baseline creatinine around 2, most likely combination of ATN/cardiorenal syndrome progress of of diabetic nephropathy. Creatinine was high at 2.7. Has lower urinary tract symptoms including burning micturition, increased frequency urgency. Started on Bumex 2 mg IV 3 times daily by pattern marking supervisor. DVT prophylaxis bilateral SCDs. Pharmacological prophylaxis is contraindicated secondary to severe anemia. Venous Doppler bilateral lower extremity was negative of any acute thrombosis. Clinical Impression(s) from Imaging Studies Abdomen/Pelvis CT 09/29/18 17:20 IMPRESSION: Right greater than left pleural effusions with adjacent atelectasis. Small pericardial effusion. Mild to moderate ascites. Anasarca. Chest X-Ray 09/30/18 07:36 IMPRESSION: Mild cardiomegaly. Small right pleural effusion with bibasilar atelectasis. Lung Scan-VQ NM 09/30/18 07:38 IMPRESSION: Normal 99m Tc MAA pulmonary perfusion Tc DTPA aerosol ventilation imaging survey, according to revised PIOPED interpretive criteria. Gallbladder Ultrasound 09/30/18 08:20 IMPRESSION: Hepatomegaly. No acute abdominal pathology identified. Laboratory Results 09/30/18 04:50: Triglycerides 107, Cholesterol 142, LDL Cholesterol 82, VLDL Cholesterol 21, HDL Cholesterol 39 L 09/30/18 07:03: Blood Type A NEGATIVE, Antibody Screen NEGATIVE, Crossmatch See Detail 09/30/18 08:10: POC Glucose 87 09/30/18 09:17: POC Glucose 107 09/30/18 12:29: POC Glucose 140 H 09/30/18 14:45: Urine Color Yellow, Urine Clarity Sl. Cloudy, Urine pH 8.0, Ur Specific [place] 1.010, Urine Protein 100 H, Urine Glucose (UA) Normal, Urine Ketones 5 H, Urine Occult Blood Negative, Urine Nitrite Negative, Urine Bilirubin Negative, Urine Urobilinogen Normal, Ur Leukocyte Esterase Negative, Urine RBC 0 SEEN, Urine WBC 0 SEEN, Ur Squamous Epith Cells 0-5 SEEN, Urine Bacteria RARE, Urine Mucus 0 SEEN 09/30/18 14:45: Urine Opiates Screen POSITIVE H, Urine Methadone Screen NEGATIVE, Ur Barbiturates Screen NEGATIVE, Ur Phencyclidine Scrn NEGATIVE, Ur Amphetamines Screen NEGATIVE, U Methamphetamin-MDMA NEGATIVE, U Benzodiazepines Scrn NEGATIVE, Urine Cocaine Screen NEGATIVE, U Cannabinoids Screen NEGATIVE, Ur Drug Screen Comment 09/30/18 16:40: PT 16.9 H, INR 1.4, APTT 34.4 09/30/18 16:40: Hepatitis A IgM Ab Pending, Hepatitis A Ab Total Pending, Hep Bs Antigen Pending, Hep B Core Total Ab Pending, Hep B Core IgM Ab Pending 09/30/18 16:40: HIV 1&2 Antibody Non-Reactive 09/30/18 16:40: Miscellaneous Test Pending 09/30/18 17:52: POC Glucose 174 H 09/30/18 21:47: POC Glucose 297 H 09/30/18 23:08: Hgb 12.3, Hct 36.9 L 09/30/18 23:12: POC Glucose 277 H 10/01/18 04:10: WBC 7.8, RBC 4.57, Hgb 11.9 L, Hct 37.3, MCV 81.6, MCH 26.0 L, MCHC 31.9 L, RDW Std Deviation 49.3 H, RDW Coeff of Genevieve 16.8 H, Plt Count 301, MPV 10.2 10/01/18 04:10: Sodium 137, Potassium 3.8, Chloride 98, Carbon Dioxide 30.0, Anion Gap 9, BUN 32 H, Creatinine 2.18 H, Estim Creat Clear Calc 37.82, Est GFR (MDRD) Af Amer 36 L, Est GFR (MDRD) Non-Af 29 L, BUN/Creatinine Ratio 14.7, Glucose 393 H, Calcium 8.5, Phosphorus 4.1, Magnesium 1.9, Total Bilirubin 0.30, AST 25, ALT 15, Alkaline Phosphatase 103, Total Protein 6.3 L, Albumin 3.1 L, Globulin 3.2, Albumin/Globulin Ratio 1.0 10/01/18 05:29: POC Glucose 366 H Code Visit Inpatient E&M: 35680 Subs Hosp L3
[2018-10-01] MEDS: Carvedilol 25 MG Tablet PO ×2 (08:28→21:56)
[2018-10-01] MEDS: hydrALAZINE 50 MG Tablet 100 MG PO ×3 (08:29→21:55)
[2018-10-01] MEDS: Insulin Lispro 100 UNIT/ML INSULN.PEN 15 UNIT SC ×2 (08:39→12:26)
[2018-10-01] MEDS: Isosorbide DN 30 MG Tablet 60 MG PO ×3 (10:04→21:57)
[2018-10-01] MEDS: oxyCODONE 5 MG Tablet PO ×3 (11:55→21:57)
[2018-10-01 12:00] LABS: Bedside Glucose 232 mg/dL (70-110)
[2018-10-01] MEDS: 0.9% NaCl IVPB Med Flush (250 mL) 15 ML IV (12:30)
--- NOTE | 2018-10-01 14:28 | PCM.PN.REN ---
Patient Problems: Active and Suspected Problems DKA (diabetic ketoacidoses) (Acute) Ascites (Acute) Anemia (Acute) Subjective: no new complaints - Physical Exam General: Alert, Oriented x3, Cooperative HEENT: Atraumatic, PERRLA, EOMI, Normocephalic Neck: Supple, No JVD, Negative Carotid Bruits Lungs: Clear to auscultation, Normal air movement Cardiovascular: Regular rate, No murmurs Abdomen: Bowel Sounds Present, Soft, Non Tender Extremities: Capillary Refill Less than 3 Seconds, Edema Skin: No rashes, No breakdown Musculoskeletal: No Tenderness to Palpation of Joints or Extremities Neurological: Cranial nerves II-XII grossly intact Psych/Mental Status: Normal Affect, Appropriate Vital Signs Temp Pulse Resp BP Pulse Ox 98.1 F 100 14 166/111 H 97 10/01/18 08:00 10/01/18 12:00 10/01/18 10:00 10/01/18 10:00 10/01/18 10:00 Oxygen Flow Rate (L/min) 4 Oxygen Delivery Method Nasal Cannula Weight: 60.2 kg Body Mass Index (BMI) 21.3 Finger Stick Blood Glucose 151 Intake and Output for Last 24 Hours 09/29/18 09/30/18 10/01/18 23:59 23:59 23:59 Intake Total 2650.2 / 2650.2 1157.5 / 1157.5 Output Total 2245 / 2245 200 / 200 Balance 405.2 / 405.2 957.5 / 957.5 Laboratory Tests Past 24 Hrs 09/30/18 09/30/18 09/30/18 07:03 14:45 14:45 WBC RBC Hgb Hct MCV MCH MCHC RDW Std Deviation RDW Coeff of Genevieve Plt Count MPV PT INR APTT Sodium Potassium Chloride Carbon Dioxide Anion Gap BUN Creatinine Estim Creat Clear Calc Est GFR (MDRD) Af Amer Est GFR (MDRD) Non-Af BUN/Creatinine Ratio Glucose Calcium Phosphorus Magnesium Total Bilirubin AST ALT Alkaline Phosphatase Total Protein Albumin Globulin Albumin/Globulin Ratio Urine Color Yellow Urine Clarity Sl. Cloudy Urine pH 8.0 Ur Specific [place] 1.010 Urine Protein 100 H Urine Glucose (UA) Normal Urine Ketones 5 H Urine Occult Blood Negative Urine Nitrite Negative Urine Bilirubin Negative Urine Urobilinogen Normal Ur Leukocyte Esterase Negative Urine RBC 0 SEEN Urine WBC 0 SEEN Ur Squamous Epith Cells 0-5 SEEN Urine Bacteria RARE Urine Mucus 0 SEEN Urine Opiates Screen POSITIVE H Urine Methadone Screen NEGATIVE Ur Barbiturates Screen NEGATIVE Ur Phencyclidine Scrn NEGATIVE Ur Amphetamines Screen NEGATIVE U Methamphetamin-MDMA NEGATIVE U Benzodiazepines Scrn NEGATIVE Urine Cocaine Screen NEGATIVE U Cannabinoids Screen NEGATIVE Ur Drug Screen Comment Hepatitis A IgM Ab Hepatitis A Ab Total Hep Bs Antigen Hep B Core Total Ab Hep B Core IgM Ab HIV 1&2 Antibody Miscellaneous Test Blood Type A NEGATIVE Antibody Screen NEGATIVE Crossmatch See Detail 09/30/18 09/30/18 09/30/18 16:40 16:40 16:40 WBC RBC Hgb Hct MCV MCH MCHC RDW Std Deviation RDW Coeff of Genevieve Plt Count MPV PT 16.9 H INR 1.4 APTT 34.4 Sodium Potassium Chloride Carbon Dioxide Anion Gap BUN Creatinine Estim Creat Clear Calc Est GFR (MDRD) Af Amer Est GFR (MDRD) Non-Af BUN/Creatinine Ratio Glucose Calcium Phosphorus Magnesium Total Bilirubin AST ALT Alkaline Phosphatase Total Protein Albumin Globulin Albumin/Globulin Ratio Urine Color Urine Clarity Urine pH Ur Specific [place] Urine Protein Urine Glucose (UA) Urine Ketones Urine Occult Blood Urine Nitrite Urine Bilirubin Urine Urobilinogen Ur Leukocyte Esterase Urine RBC Urine WBC Ur Squamous Epith Cells Urine Bacteria Urine Mucus Urine Opiates Screen Urine Methadone Screen Ur Barbiturates Screen Ur Phencyclidine Scrn Ur Amphetamines Screen U Methamphetamin-MDMA U Benzodiazepines Scrn Urine Cocaine Screen U Cannabinoids Screen Ur Drug Screen Comment Hepatitis A IgM Ab Pending Hepatitis A Ab Total Pending Hep Bs Antigen Pending Hep B Core Total Ab Pending Hep B Core IgM Ab Pending HIV 1&2 Antibody Non-Reactive Miscellaneous Test Blood Type Antibody Screen Crossmatch 09/30/18 09/30/18 10/01/18 16:40 23:08 04:10 WBC 7.8 RBC 4.57 Hgb 12.3 11.9 L Hct 36.9 L 37.3 MCV 81.6 MCH 26.0 L MCHC 31.9 L RDW Std Deviation 49.3 H RDW Coeff of Genevieve 16.8 H Plt Count 301 MPV 10.2 PT INR APTT Sodium Potassium Chloride Carbon Dioxide Anion Gap BUN Creatinine Estim Creat Clear Calc Est GFR (MDRD) Af Amer Est GFR (MDRD) Non-Af BUN/Creatinine Ratio Glucose Calcium Phosphorus Magnesium Total Bilirubin AST ALT Alkaline Phosphatase Total Protein Albumin Globulin Albumin/Globulin Ratio Urine Color Urine Clarity Urine pH Ur Specific [place] Urine Protein Urine Glucose (UA) Urine Ketones Urine Occult Blood Urine Nitrite Urine Bilirubin Urine Urobilinogen Ur Leukocyte Esterase Urine RBC Urine WBC Ur Squamous Epith Cells Urine Bacteria Urine Mucus Urine Opiates Screen Urine Methadone Screen Ur Barbiturates Screen Ur Phencyclidine Scrn Ur Amphetamines Screen U Methamphetamin-MDMA U Benzodiazepines Scrn Urine Cocaine Screen U Cannabinoids Screen Ur Drug Screen Comment Hepatitis A IgM Ab Hepatitis A Ab Total Hep Bs Antigen Hep B Core Total Ab Hep B Core IgM Ab HIV 1&2 Antibody Miscellaneous Test Pending Blood Type Antibody Screen Crossmatch 10/01/18 04:10 WBC RBC Hgb Hct MCV MCH MCHC RDW Std Deviation RDW Coeff of Genevieve Plt Count MPV PT INR APTT Sodium 137 Potassium 3.8 Chloride 98 Carbon Dioxide 30.0 Anion Gap 9 BUN 32 H Creatinine 2.18 H Estim Creat Clear Calc 37.82 Est GFR (MDRD) Af Amer 36 L Est GFR (MDRD) Non-Af 29 L BUN/Creatinine Ratio 14.7 Glucose 393 H Calcium 8.5 Phosphorus 4.1 Magnesium 1.9 Total Bilirubin 0.30 AST 25 ALT 15 Alkaline Phosphatase 103 Total Protein 6.3 L Albumin 3.1 L Globulin 3.2 Albumin/Globulin Ratio 1.0 Urine Color Urine Clarity Urine pH Ur Specific [place] Urine Protein Urine Glucose (UA) Urine Ketones Urine Occult Blood Urine Nitrite Urine Bilirubin Urine Urobilinogen Ur Leukocyte Esterase Urine RBC Urine WBC Ur Squamous Epith Cells Urine Bacteria Urine Mucus Urine Opiates Screen Urine Methadone Screen Ur Barbiturates Screen Ur Phencyclidine Scrn Ur Amphetamines Screen U Methamphetamin-MDMA U Benzodiazepines Scrn Urine Cocaine Screen U Cannabinoids Screen Ur Drug Screen Comment Hepatitis A IgM Ab Hepatitis A Ab Total Hep Bs Antigen Hep B Core Total Ab Hep B Core IgM Ab HIV 1&2 Antibody Miscellaneous Test Blood Type Antibody Screen Crossmatch POC Glucose 10/01/18 10/01/18 09/30/18 11:57 05:29 23:12 POC Glucose 232 H 366 H 277 H 09/30/18 09/30/18 21:47 17:52 POC Glucose 297 H 174 H Medical Necessity - Tobacco Use Smoking Status: Former smoker Tobacco Use: Cigarettes Assessment/Plan All Active Problems Bilateral pneumonia (Resolved) Myocarditis (Resolved) DKA (diabetic ketoacidoses) (Acute) Ascites (Acute) Anemia (Acute) Acute hyperglycemia (Acute) Abscess of leg, left (Resolved) Hyperglycemia (Acute) DKA (diabetic ketoacidoses) (Resolved) KANU (acute kidney injury) (Acute) Narcotic withdrawal (Resolved) Acute renal failure Chronic kidney disease stage III. Baseline creatinine is around 2 as per records. She did have sub-nephrotic range proteinuria on testing at [facility]. CT abdomen does not show any hydronephrosis. Blood pressure is on the higher side. Acute renal failure is likely a combination of cardiorenal syndrome/ATN/progression of diabetic kidney disease. Cr better today. Anemia. Iron saturations are low at 9%. Will give IV iron when stabilized Congestive heart failure. With low ejection fraction. anasarca. has been on bumex 2 mg TID. subjectively she doesnt think she voided much. urine output at 2.2 L. will add metolazone for today. K is ok so far DKA. improved
[2018-10-01] MEDS: Metoclopramide 5 MG TABLET PO (16:40)
--- NOTE | 2018-10-01 17:11 | PCM.PN.CARD ---
Subjectve: The patient is awake and alert. She denies ongoing concerns of chest discomfort or acute shortness of breath/dyspnea. There is been no obvious palpitations. There is been no loss of consciousness. She states her main concern continues to be her abdominal discomfort and episodes of hypoglycemia. Objective: Vital Signs Temp Pulse Resp BP Pulse Ox 97.8 F 94 16 149/93 H 97 10/01/18 14:45 10/01/18 15:03 10/01/18 14:45 10/01/18 14:45 10/01/18 14:45 Oxygen Flow Rate (L/min) 3 Oxygen Delivery Method Nasal Cannula Weight: 132 lb 11.492 oz Body Mass Index (BMI) 21.3 Finger Stick Blood Glucose 151 Intake and Output for Last 24 Hours 09/29/18 09/30/18 10/01/18 23:59 23:59 23:59 Intake Total 2650.2 / 2650.2 1157.5 / 1157.5 Output Total 2245 / 2245 200 / 200 Balance 405.2 / 405.2 957.5 / 957.5 General: Awake, Alert, Oriented x 3, Cooperative, No Acute Distress HEENT: Atraumatic, Normocephalic, PERRL, EOMI, Sclera Non Icteric Oral: Moist Mucosa Neck: Supple, Good ROM, No JVD Lungs: Diminished Right Base Cardiovascular: Regular Rhythm, Normal S1, Normal S2 Abdomen: Bowel Sounds Present, Soft Extremities: No edema Neurological: No Focal Motor or Sensory Deficit Psych/Mental Status: Appropriate 09/30/18 16:40: PT 16.9 H, INR 1.4, APTT 34.4 09/30/18 23:08: Hgb 12.3, Hct 36.9 L 10/01/18 04:10: WBC 7.8, RBC 4.57, Hgb 11.9 L, Hct 37.3, MCV 81.6, MCH 26.0 L, MCHC 31.9 L, Plt Count 301, MPV 10.2 10/01/18 04:10: Sodium 137, Potassium 3.8, Chloride 98, Carbon Dioxide 30.0, Anion Gap 9, BUN 32 H, Creatinine 2.18 H, Est GFR (MDRD) Af Amer 36 L, Est GFR (MDRD) Non-Af 29 L, BUN/Creatinine Ratio 14.7, Glucose 393 H, Calcium 8.5, Phosphorus 4.1, Magnesium 1.9, Total Bilirubin 0.30 Rhythm: Sinus rhythm Medical Necessity - Tobacco Use Smoking Status: Former smoker Tobacco Use: Cigarettes Assessment/Plan 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 She notes her cardiovascular issues became aware in the fall 2017. She has been followed by [facility] cardiovascular services in the interim. She has improved with respect to concerns of nausea and emesis she has been placed back on her oral cardiovascular medical therapy. 2. Chronic systolic mediated CHF The patient has a history of chronic systolic mediated CHF. She does not appear to have any acute symptoms at the moment. She will need continued medical management as described above. 3. Left ventricular thrombus She states there is been a history of a left ventricular thrombus. She has been on anticoagulation in the past. As previously noted based upon her echocardiographic study that did not appear to be evidence of ongoing left ventricular thrombus. Thus, at this time, with concerns of her anemia, she may be able to remain without anticoagulant therapy. 4. DKA The patient will continue evaluation care per internal medicine. 5. Acute renal insufficiency Her renal function, creatinine level, has improved somewhat. She is being followed by internal medicine and nephrology. 6. Ascites Based upon her radiologic studies there is concern of ascites. She will continue medical management. This will include her diuretic therapy with adjustment as tolerated. 7. Anemia Her hemoglobin has decreased. He has received PRBCs. Her H&H has improved. Overall, from a cardiac standpoint, she will continue medical management for her non-CAD related cardiomyopathy with adjustment as needed. She will need continued follow-up with her primary mechanical piping designer over time. If her overall LV systolic function does not improve she will need to be considered for primary prevention ICD. Also, if her overall LV systolic function does not improve she should be given the opportunity to be evaluated at a quaternary care center for consideration for possible cardiac transplantation noting that there may be concerns with respect to cardiac transplantation status based upon her diabetes mellitus, renal insufficiency, etc. This note was generated with [employer] software. It may contain incorrect words, spelling, and punctuation that were not noted in checking the note before signing.
[2018-10-01 17:40] LABS: Bedside Glucose 123 mg/dL (70-110)
[2018-10-01 17:40] LABS: Bedside Glucose 50 mg/dL (70-110)
[2018-10-01 22:36] LABS: Bedside Glucose 324 mg/dL (70-110)
[2018-10-02] VITALS (9 sets, daily range): BP systolic 148–155; BP diastolic 101–108; PULSE 80–97; RESP 16–18; TEMP 36.8–37; O2SAT 96–98
[2018-10-02] MEDS: oxyCODONE 5 MG Tablet PO ×3 (02:02→10:34)
[2018-10-02 05:06] LABS: HEPATITIS B SURFACE AG Negative (Negative); Hepatitis A AB, Total Positive (Negative); Hepatitis A IgM Antibody Negative (Negative); Hepatitis B Core AB IgM Negative (Negative); Hepatitis B Core Ab Total Negative (Negative)
[2018-10-02] MEDS: hydrALAZINE 50 MG Tablet 100 MG PO ×2 (05:51→13:29)
[2018-10-02] MEDS: Bumetanide 1 MG/4 ML Vial 2 MG IV (05:52)
[2018-10-02] MEDS: 0.9% NaCl Peripheral Flush Adult/Peds IV (05:52)
[2018-10-02] MEDS: Isosorbide DN 30 MG Tablet 60 MG PO ×2 (05:52→13:34)
[2018-10-02] MEDS: Insulin Lispro 100 UNIT/ML INSULN.PEN SC (06:39)
[2018-10-02] MEDS: Metoclopramide 5 MG TABLET PO ×2 (06:39→11:27)
[2018-10-02 06:41] LABS: Absolute Neutrophil Count 3.7 X10^3/uL (2.0-7.7); Basophil# 0.04 X10^3/uL; Basophil% 0.6 % (0-1); Eosinophils% 7.1 % (0-5); Hematocrit 35.3 % (37-47); Hemoglobin 10.9 g/dL (12.0-15.0); Lymphocyte % 31.4 % (19-41); Mean Corp Hgb Conc 30.9 g/dL (32-36); Mean Corpuscular Hgb 25.4 pg (27.0-32.0); Mean Corpuscular Volume 82.3 fL (81-99); Mean Platelet Vol. 10.2 fl (6.2-12.0); Monocyte# 0.54 X10^3/uL; Monocyte% 7.7 % (0-10); NRBC Flagged by Analyzer 0 % (0-5); Neutrophil % 52.9 % (47-70); Platelet Count 246 K/mm3 (150-450); RBC Distribution Width CV 16.4 % (11.6-14.6); RBC Distribution Width SD 49.1 fl (35.1-43.9); Red Blood Count 4.29 M/mm3 (4.2-5.4)
[2018-10-02 06:55] LABS: ALB/GLOB Ratio 0.9 RATIO (0.9-2.4); AST(SGOT) 29 U/L (15-37); Alanine Aminotransfer ALT/SGPT 16 U/L (13-56); Albumin, Serum 3.1 g/dL (3.2-5.0); Alkaline Phosphatase 95 U/L (45-117); Anion Gap 8 (5-15); BUN 37 mg/dL (7-18); BUN/Creat Ratio 15.2 RATIO (10-20); Calcium,Total 8.4 mg/dL (8.5-10.1); Chloride 97 mmol/L (98-107); Creatinine, Serum 2.43 mg/dL (0.55-1.02); EST Glomerular Filtration Rate 26 mL/min (>60); Est Glom Filt Rate - Afr Amer 31 mL/min (>60); Estimated Creatinine Clearance 33.81 ml/min; Globulin 3.3 g/dL (2.2-4.2); Glucose 422 mg/dL (74-106); Protein, Total 6.4 g/dL (6.4-8.2); Sodium Level 136 mmol/L (136-145)
[2018-10-02 06:55] LABS: Bedside Glucose 426 mg/dL (70-110)
[2018-10-02 07:15] LABS: Bedside Glucose 73 mg/dL (70-110)
[2018-10-02 07:15] LABS: Bedside Glucose 48 mg/dL (70-110)
[2018-10-02 08:07] LABS: Hep B Surface Antibodies Reactive (.)
[2018-10-02 08:08] LABS: Hepatitis C Ab >11.0 s/co ratio (0.0-0.9)
[2018-10-02] MEDS: Insulin Lispro 100 UNIT/ML INSULN.PEN 15 UNIT SC ×2 (08:50→11:27)
[2018-10-02] MEDS: Carvedilol 25 MG Tablet PO (08:56)
[2018-10-02] MEDS: Pantoprazole Sodium 40 MG Tablet PO (08:56)
[2018-10-02] MEDS: amLODIPine 2.5 MG Tablet PO (08:56)
--- NOTE | 2018-10-02 10:52 | PCM.DC ---
- Discharge Diagnoses Current Active Problems: Current Active and Chronic Problems DKA (diabetic ketoacidoses) (Acute) Ascites (Acute) Chronic systolic (congestive) heart failure (Chronic) Cardiomyopathy (Chronic) Left ventricular thrombosis (Chronic) Anemia (Acute) You will use the following diet at home:: Calorie/Carbohydrate Controlled (specify 1200, 1400, etc) Discharge Activity: May Not Drive Call your doctor if you observe: Fever of 101 or Higher, Numbness or Tingling, Inability to urinate, Inability to have a bowel movement, Shortness of breath, Dizziness, Swelling in the ankles, Chest pain, Increased palpitations (irregular heartbeat), Calf discomfort, Uncontrolled pain Allergies/Adverse Reactions: Allergies Penicillins Allergy (Verified 09/05/18 15:29) Hives furosemide [From Lasix] Adverse Reaction (Verified 09/05/18 15:29) Upset Stomach Medications to take at Discharge Carvedilol 25 mg PO BID 08/07/18 hydrALAZINE [Apresoline] 100 mg PO TID 08/07/18 Apixaban [Eliquis] 5 mg PO BID 09/29/18 Isosorbide DN [Isordil] 60 mg PO TID 09/29/18 Amlodipine [Norvasc] 5 mg PO DAILY #30 tab 10/02/18 Bumetanide [Bumex] 2 mg PO TID #90 tab 10/02/18 Carvedilol [Coreg (Beta Salvador)] 25 mg PO BID #60 tab 10/02/18 Insulin Degludec [Tresiba Flextouch U-100] 25 unit SQ BREAKFAST #0 10/02/18 Insulin Lispro [Humalog KwikPen] 12 unit SUBCUT TIDAC #1 insuln.pen 10/02/18 Insulin Lispro [Humalog KwikPen] See Protocol SUBCUT ACHS insuln.pen 10/02/18 Pantoprazole Sodium [Protonix] 40 mg PO DAILY tab 10/02/18 hydrALAZINE [Apresoline] 100 mg PO TID #90 tab 10/02/18 The following prescriptions were given: hydrALAZINE [Apresoline] 100 mg PO TID #90 tab Transmission Status: Pending to [id number] Bumetanide [Bumex] 2 mg PO TID #90 tab Transmission Status: Pending to [id number] Carvedilol [Coreg (Beta Salvador)] 25 mg PO BID #60 tab Transmission Status: Pending to [facility]/pharmacy #[id number] Insulin Lispro [Humalog KwikPen] 12 unit SUBCUT TIDAC #1 insuln.pen Transmission Status: Pending to [facility]/pharmacy #[id number] Amlodipine [Norvasc] 5 mg PO DAILY #30 tab Transmission Status: Pending to [facility]/pharmacy #[id number] Primary Care Physician: Go Kendrick MD [NON-STAFF] - Please follow up with your Primary Care Physician in: IN 1-2 WEEK Test Results: Test results from this visit will be discussed in further detail at your follow-up appointment, if applicable. Please Follow Up With: Sajan Chase MD When: IN 3-4 WEEKS Please Follow Up With: Андрей Haley MD When: IN 4 WEEKS Please Follow Up With: Jose Quezada MD When: HYPOXIA
--- NOTE | 2018-10-02 10:53 | PCM.DC.SUM ---
Discharge Date and Diagnosis Date of Admission: 09/29/18 Date of Discharge: 10/02/18 - Primary Discharge Diagnosis Active and Suspected Problems DKA (diabetic ketoacidoses) (Acute) Ascites (Acute) Anemia (Acute) - Secondary Discharge Diagnosis Chronic Problems Congestive heart failure (Chronic) Chronic systolic (congestive) heart failure (Chronic) Cardiomyopathy (Chronic) Left ventricular thrombosis (Chronic) Protein calorie malnutrition (Chronic) Homeless (Chronic) Tobacco user (Chronic) DM type 1 (diabetes mellitus, type 1) (Chronic) Hospital Course and Treatment Operations: None Summary of Care Provided: [] This is a 23 year old female with history of type 1 diabetes mellitus, multiple other comorbidities including stage IV chronic kidney disease, gastroparesis, chronic opioid abuse and dependence, heroin addiction chronic microcytic anemia, chronic systolic heart failure with severe cardiomyopathy, history of myocarditis EF 10% cardiac thrombus chronic respiratory failure was admitted with was admitted severe right-sided abdominal/flank pain. Admitting labs, glucose 661, anion gap 23 were consistent for DKA. A1c markedly high 11.7. Acetone was positive. A CT scan of the abdomen and pelvis showed bilateral pleural effusions, right greater than left, mild to moderate ascites and anasarca. She was admitted to the intensive care unit with a diagnosis of DKA. The patient was initially admitted to ICU and then transferred to PCU. 1. DKA: Resolved. Accu-Chek before meals and at bedtime. Patient has brittle diabetes mellitus and blood sugar range from 426 to 22. It may be from patient's inconsistent with her diet and carb control. Initially patient was put on Humalog 15 units subcutaneous 3 times a day but discontinued secondary to hypoglycemia. Patient glucose dropped to 22 which improved to 106 after glucagon and oral supplements of glucose. Discharged on pressure about 20 9 subcutaneous breakfast and sliding scale Humalog insulin. 2. Diabetes mellitus 1 with gastroparesis since age of 4: As mentioned above. Gastric emptying study showed gastroparesis. Treated with Reglan prior to meal. 3. chronic systolic heart failure with history of viral myocarditis with uncontrolled hypertension: Previous echo reported as EF 10% with mural thrombus. Repeat echo showed 25% with no thrombosis. Currently patient not on anticoagulation. VQ scan not suggestive of acute PE. Patient is being seen by mechanical engineering technologist. She follows mechanical engineering technologist in [facility]. She is not on AIMEE/ARB secondary to renal failure. Initially on Bumex 2 mg IV q. 8 hourly which is changed to torsemide 60 mg twice daily on discharge. Metolazone discontinued. Patient on high dose of hydralazine 100 mg 3 times daily, isosorbide dinitrate 60 mg 3 times daily and Norvasc 5 mg daily started at this time. 4. History of heroin abuse and dependence: Patient asking for repeated doses of fentanyl. She claims no illicit drugs in October 2017. 5. Acute on chronic microcytic anemia: Hemoglobin was 14.8 in August 2018 decreased to 8.2. It is improving platelet count 301,000. Low serum iron and iron saturation. Eliquis has been discontinued. IV iron was given. Patient received PRBC transfusion. Discharged on ferrous sulfate 325 mg 3 times daily. 6. Bilateral pleural effusion, ascites mild anasarca secondary to volume overload secondary to chronic systolic heart failure. Repeat chest x-ray shows small right pleural effusion with bibasilar atelectasis. gallbladder ultrasound does not show any stone. Nuclear medicine scan of gallbladder did not show any obstruction. 7. Acute kidney injury on chronic CKD stage III with baseline creatinine around 2, most likely combination of ATN/cardiorenal syndrome progress of of diabetic nephropathy. Creatinine was high at 2.7. Patient denies lower urinary tract symptoms including burning micturition, increased frequency urgency. Started on Bumex 2 mg IV 3 times daily by paster operator. Discharged on torsemide 60 mg twice daily DVT prophylaxis bilateral SCDs. Pharmacological prophylaxis is contraindicated secondary to severe anemia. Venous Doppler bilateral lower extremity was negative of any acute thrombosis. Discharge medication reconciliation done. Discharge follow-up instructions completed. Discharge process discussed with the patient and all questions were answered to patient's satisfaction. Total time spent, exact 35 minutes on discharge meds reconciliation, examination, review of imaging and blood test and discussion with the patient on follow-up instructions. Clinical Impression(s) from Imaging Studies Abdomen/Pelvis CT 09/29/18 17:20 IMPRESSION: Right greater than left pleural effusions with adjacent atelectasis. Small pericardial effusion. Mild to moderate ascites. Anasarca. Chest X-Ray 09/30/18 07:36 IMPRESSION: Mild cardiomegaly. Small right pleural effusion with bibasilar atelectasis. Lung Scan-VQ NM 09/30/18 07:38 IMPRESSION: Normal 99m Tc MAA pulmonary perfusion Tc DTPA aerosol ventilation imaging survey, according to revised PIOPED interpretive criteria. Gallbladder Ultrasound 09/30/18 08:20 IMPRESSION: Hepatomegaly. No acute abdominal pathology identified. Subjective: Patient complaining of upper back pain. Patient had imaging tests including chest x-ray abdominal CT which does not show spinal cause of pain. It seems may be muscular. As per age, bone/joint arthritis uncommon. Objective: General: Alert, Oriented x3, Cooperative HEENT: Atraumatic, PERRLA, EOMI, Normocephalic Neck: Supple, No JVD, Negative Carotid Bruits Lungs: Clear to auscultation, Normal air movement, No rhonchi, No wheeze, No rales Cardiovascular: Regular rate, Regular Rhythm, Normal S1, Normal S2, No murmurs Abdomen: Bowel Sounds Present, Soft, Non Tender, Non-Distended Extremities: No edema, Capillary Refill Less than 3 Seconds Skin: No rashes, No breakdown Musculoskeletal: No Tenderness to Palpation of Joints or Extremities Neurological: Cranial nerves II-XII grossly intact, Deep Tendon Reflexes 2+/4 and Symmetrical, Neuro grossly intact Psych/Mental Status: Normal Affect, Appropriate - Physical Exam Vital Signs Temp Pulse Resp BP Pulse Ox 98.3 F 97 16 148/108 H 98 10/02/18 05:50 10/02/18 07:08 10/02/18 05:50 10/02/18 05:51 10/02/18 07:48 Oxygen Flow Rate (L/min) 4 Oxygen Delivery Method Nasal Cannula Weight: 132 lb 4.438 oz Body Mass Index (BMI) 21.3 Finger Stick Blood Glucose 151 Intake and Output for Last 24 Hours 09/30/18 10/01/18 10/02/18 23:59 23:59 23:59 Intake Total 2650.2 / 2650.2 2357.5 / 2357.5 600 / 600 Output Total 2245 / 2245 200 / 200 Balance 405.2 / 405.2 2157.5 / 2157.5 600 / 600 Laboratory Tests Past 24 Hrs 09/30/18 10/02/18 10/02/18 16:40 06:20 06:20 WBC 7.0 RBC 4.29 Hgb 10.9 L Hct 35.3 L MCV 82.3 MCH 25.4 L MCHC 30.9 L RDW Std Deviation 49.1 H RDW Coeff of Genevieve 16.4 H Plt Count 246 MPV 10.2 Immature Gran % (Auto) 0.300 Neut % (Auto) 52.9 Lymph % (Auto) 31.4 Boundary % (Auto) 7.7 Eos % (Auto) 7.1 H Baso % (Auto) 0.6 Absolute Neuts (auto) 3.7 Absolute Lymphs (auto) 2.20 Nucleated RBC % 0 Sodium 136 Potassium 4.0 Chloride 97 L Carbon Dioxide 31.0 Anion Gap 8 BUN 37 H Creatinine 2.43 H Estim Creat Clear Calc 33.81 Est GFR (MDRD) Af Amer 31 L Est GFR (MDRD) Non-Af 26 L BUN/Creatinine Ratio 15.2 Glucose 422 H Calcium 8.4 L Total Bilirubin 0.40 AST 29 ALT 16 Alkaline Phosphatase 95 Total Protein 6.4 Albumin 3.1 L Globulin 3.3 Albumin/Globulin Ratio 0.9 Hepatitis A IgM Ab Negative Hepatitis A Ab Total Positive H Hep Bs Antigen Negative Hep B Core Total Ab Negative Hep B Core IgM Ab Negative Hepatitis C Ab Confirm >11.0 H POC Glucose 10/02/18 10/01/18 10/01/18 06:38 21:53 17:37 POC Glucose 426 H 324 H 123 H 10/01/18 10/01/18 10/01/18 17:08 16:56 16:37 POC Glucose 73 48 L 50 L 10/01/18 11:57 POC Glucose 232 H Discharge Activity: May Not Drive Call your doctor if you observe: Fever of 101 or Higher, Numbness or Tingling, Inability to urinate, Inability to have a bowel movement, Shortness of breath, Dizziness, Swelling in the ankles, Chest pain, Increased palpitations (irregular heartbeat), Calf discomfort, Uncontrolled pain Home Medications: Medications to take at Discharge Carvedilol 25 mg PO BID 08/07/18 hydrALAZINE [Apresoline] 100 mg PO TID 08/07/18 Apixaban [Eliquis] 5 mg PO BID 09/29/18 Isosorbide DN [Isordil] 60 mg PO TID 09/29/18 Amlodipine [Norvasc] 5 mg PO DAILY #30 tab 10/02/18 Carvedilol [Coreg (Beta Salvador)] 25 mg PO BID #60 tab 10/02/18 Insulin Degludec [Tresiba Flextouch U-100] 20 unit SQ BREAKFAST #0 10/02/18 Insulin Lispro [Humalog KwikPen] See Protocol SUBCUT ACHS insuln.pen 10/02/18 Pantoprazole Sodium [Protonix] 40 mg PO DAILY tab 10/02/18 Torsemide 60 mg PO BID #100 tab 10/02/18 hydrALAZINE [Apresoline] 100 mg PO TID #90 tab 10/02/18 Following Prescrptions Were Given to Patient: hydrALAZINE [Apresoline] 100 mg PO TID #90 tab Transmission Status: Received by [id number] Carvedilol [Coreg (Beta Salvador)] 25 mg PO BID #60 tab Transmission Status: [id number] Amlodipine [Norvasc] 5 mg PO DAILY #30 tab Transmission Status: Received by [id number] Torsemide 60 mg PO BID #100 tab Transmission Status: Received by [id number] Primary Care Physician: Go Kendrick MD [NON-STAFF] - Medical Necessity - Tobacco Use Smoking Status: Former smoker Tobacco Use: Cigarettes Meaningful Use Info Meaningful Use Diagnoses (Choose all that apply): None applicable Code Visit Inpatient E&M: 33061 Disch Hosp
--- NOTE | 2018-10-02 11:07 | CASEMGMT ---
Pt is up for discharge. Pt is on 4 liters continuous at home and is currently on that here at this time, so no increase need for oxygen at this time. Per Josselin LARSEN, pt's sat with ambulation was 97% on her 4 liters at that time. D/C summ/instructions, KYLER, and facesheet faxed to [facility] at this time. Call to Wilma at [facility] to notify of pt discharge, voice understanding and voice no further questions/concerns/needs at this time. Blank LARSEN CM
[2018-10-02 11:36] LABS: Bedside Glucose 120 mg/dL (70-110)
--- NOTE | 2018-10-02 12:22 | PCM.PN.REN ---
Patient Problems: Active and Suspected Problems DKA (diabetic ketoacidoses) (Acute) Ascites (Acute) Anemia (Acute) Subjective: no new complaints - Physical Exam General: Alert, Oriented x3, Cooperative HEENT: Atraumatic, PERRLA, EOMI, Normocephalic Neck: Supple, No JVD, Negative Carotid Bruits Lungs: Clear to auscultation, Normal air movement Cardiovascular: Regular rate, No murmurs Abdomen: Bowel Sounds Present, Soft, Non Tender Extremities: No edema, Capillary Refill Less than 3 Seconds Skin: No rashes, No breakdown Musculoskeletal: No Tenderness to Palpation of Joints or Extremities Neurological: Cranial nerves II-XII grossly intact Psych/Mental Status: Normal Affect, Appropriate Vital Signs Temp Pulse Resp BP Pulse Ox 98.3 F 97 16 148/108 H 98 10/02/18 05:50 10/02/18 07:08 10/02/18 05:50 10/02/18 05:51 10/02/18 07:48 Oxygen Flow Rate (L/min) 4 Oxygen Delivery Method Nasal Cannula Weight: 60 kg Body Mass Index (BMI) 21.3 Finger Stick Blood Glucose 151 Intake and Output for Last 24 Hours 09/30/18 10/01/18 10/02/18 23:59 23:59 23:59 Intake Total 2650.2 / 2650.2 2357.5 / 2357.5 600 / 600 Output Total 2245 / 2245 200 / 200 Balance 405.2 / 405.2 2157.5 / 2157.5 600 / 600 Laboratory Tests Past 24 Hrs 09/30/18 10/02/18 10/02/18 16:40 06:20 06:20 WBC 7.0 RBC 4.29 Hgb 10.9 L Hct 35.3 L MCV 82.3 MCH 25.4 L MCHC 30.9 L RDW Std Deviation 49.1 H RDW Coeff of Genevieve 16.4 H Plt Count 246 MPV 10.2 Immature Gran % (Auto) 0.300 Neut % (Auto) 52.9 Lymph % (Auto) 31.4 Harris % (Auto) 7.7 Eos % (Auto) 7.1 H Baso % (Auto) 0.6 Absolute Neuts (auto) 3.7 Absolute Lymphs (auto) 2.20 Nucleated RBC % 0 Sodium 136 Potassium 4.0 Chloride 97 L Carbon Dioxide 31.0 Anion Gap 8 BUN 37 H Creatinine 2.43 H Estim Creat Clear Calc 33.81 Est GFR (MDRD) Af Amer 31 L Est GFR (MDRD) Non-Af 26 L BUN/Creatinine Ratio 15.2 Glucose 422 H Calcium 8.4 L Total Bilirubin 0.40 AST 29 ALT 16 Alkaline Phosphatase 95 Total Protein 6.4 Albumin 3.1 L Globulin 3.3 Albumin/Globulin Ratio 0.9 Hepatitis A IgM Ab Negative Hepatitis A Ab Total Positive H Hep Bs Antigen Negative Hep B Core Total Ab Negative Hep B Core IgM Ab Negative Hepatitis C Ab Confirm >11.0 H POC Glucose 10/02/18 10/02/18 10/01/18 11:25 06:38 21:53 POC Glucose 120 H 426 H 324 H 10/01/18 10/01/18 10/01/18 17:37 17:08 16:56 POC Glucose 123 H 73 48 L 10/01/18 16:37 POC Glucose 50 L Medical Necessity - Tobacco Use Smoking Status: Former smoker Tobacco Use: Cigarettes Assessment/Plan All Active Problems Bilateral pneumonia (Resolved) Myocarditis (Resolved) DKA (diabetic ketoacidoses) (Acute) Ascites (Acute) Anemia (Acute) Acute hyperglycemia (Acute) Abscess of leg, left (Resolved) Hyperglycemia (Acute) DKA (diabetic ketoacidoses) (Resolved) KANU (acute kidney injury) (Acute) Narcotic withdrawal (Resolved) Acute renal failure Chronic kidney disease stage III. Baseline creatinine is around 2 as per records. She did have sub-nephrotic range proteinuria on testing at [facility]. CT abdomen does not show any hydronephrosis. Blood pressure is on the higher side. Acute renal failure is likely a combination of cardiorenal syndrome/ATN/progression of diabetic kidney disease. Anemia. Iron saturations are low at 9%. start oral iron Congestive heart failure. With low ejection fraction. anasarca. has been on bumex 2 mg TID. DKA. improved Plan possible dc today dc IV bumex ok to change to torsemide 60 gm BID at dc dc metolazone will arrange follow up after dc
[2018-10-02] MEDS: Glucagon 1 MG/ML Syringe IM (13:32)
[2018-10-02 14:16] LABS: Bedside Glucose 22 mg/dL (70-110)
[2018-10-03 07:05] LABS: Bedside Glucose < 10 mg/dL (70-110)
[2018-10-03 07:05] LABS: Bedside Glucose 38 mg/dL (70-110)
[2018-10-03 07:05] LABS: Bedside Glucose 108 mg/dL (70-110)
[2018-10-03 07:05] LABS: Bedside Glucose 63 mg/dL (70-110)
--- NOTE | 2018-10-03 16:27 | CASEMGMT ---
RN CM Discharge Follow-up Phone Call: EDYTA: Sultana Strata: 4 Call Date: 10/03/18 Discharge Date: 10/02/18 Time of Call: 1627 Duration: 0 ? Admitting Diagnosis: DKA Discharge follow-up call attempted by this RN CM. Voicemail message received and message requesting a return call left.
== END 2018-10-02 14:09 | disposition home or self-care (01) | DRG 420 ==
LOC: ED 17:02 → ICU 21:13 → PCU 10-01 14:16
PROVIDERS: Internal Medicine; Internal Medicine Critical Care Medicine; Admitting Provider Hospitalist; Emergency Provider Emergency Medicine; Family Provider Nurse Practitioner Primary Care; PCP Nurse Practitioner Primary Care; Referring Provider Hospitalist; Visit Provider Internal Medicine
DX: E10.10 Type 1 diabetes mellitus with ketoacidosis without coma (principal); J96.11 Chronic respiratory failure with hypoxia; I50.22 Chronic systolic (congestive) heart failure; E10.22 Type 1 diabetes mellitus with diabetic chronic kidney disease; E10.43 Type 1 diabetes mellitus with diabetic autonomic (poly)neuropathy; J91.8 Pleural effusion in other conditions classified elsewhere; K31.84 Gastroparesis; D50.9 Iron deficiency anemia, unspecified; Z99.81 Dependence on supplemental oxygen; N18.3 Chronic kidney disease, stage 3 (moderate); R18.8 Other ascites; B19.20 Unspecified viral hepatitis C without hepatic coma; B33.24 Viral cardiomyopathy; N17.9 Acute kidney failure, unspecified; Z79.01 Long term (current) use of anticoagulants; Z87.891 Personal history of nicotine dependence; Z79.4 Long term (current) use of insulin; F11.21 Opioid dependence, in remission; I13.0 Hypertensive heart and chronic kidney disease with heart failure and stage 1 through stage 4 chronic kidney disease, or unspecified chronic kidney disease
CPT/HCPCS: 36415; 71046; 74176; 76705; 78582; 80048; 80053; 80061; 80076; 80307; 81001; 82009; 82728; 82746; 82962; 83036; 83540; 83550; 83690; 83735; 84100; 84703; 85014; 85018; 85025; 85027; 85610; 85730; 86703; 86704; 86705; 86706; 86708; 86709; 86803; 86850; 86900; 86920; 86922; 87340; 93005; 93306; 93970; 97162; 97166; 97802; 99285; 99406; A9540; A9567; J1756; J7050; P9016; A4216; J1610; J2405; J7799

== ENCOUNTER 2018-10-04 19:20 | Inpatient (IN) | payer MEDICAID, SELFPAY ==
[2018-09-29 22:00] VITALS: BMI 21.3
[2018-10-04 19:20] VITALS: BP 124/76; PULSE 99; RESP 20; TEMP 36.4; O2SAT 92; BMI 23.0
[2018-10-04 19:36] VITALS: O2SAT 97
[2018-10-04 19:41] VITALS: PULSE 95; RESP 22; O2SAT 98
--- NOTE | 2018-10-04 19:52 | ED.DCSUM_ITS ---
- ER Visit Summary Date of Service: 10/04/18 Chief Complaint: Back pain History of Present Illness: The patient is a 23 F who presents with back pain that has been getting worse over the past week. Patient states she was seen here this week for this. Patient describes her pain is sharp. Patient states the pain is over the right lower thoracic area. Patient states her pain is worse with standing. Patient states nothing has been helping with the pain. Patient states she has been using Tylenol, heating pads, and ibuprofen with no relief. Patient also complains of some shortness of breath. Patient is concerned about congestive heart failure. Patient states she gained 6 pounds since this morning. Patient is on home oxygen at 4 L nasal cannula. Physical Examination: Vital signs are stable. Patient is afebrile. Patient is in no acute distress. Oral mucosa is pink and moist. Neck is supple. Trachea is midline. There is no JVD noted. Heart was regular rate and rhythm. Lungs are clear and equal bilaterally. There are no rales noted. Abdomen is soft. Bowel sounds are normal. There is no tenderness. There is no guarding noted. Extremities are intact. There is 2+ edema of the lower extremities bilaterally. Test Results: CBC does not show a leukocytosis. Basic metabolic profile showed an elevated glucose of 289. BUN and creatinine were also elevated at 48 and 2.89. These were increased from previous results. BNP was obtained it was 3487.4. This was improved from previous result of greater than 5000. PA and lateral chest x-ray shows a right lower lobe pneumonia with pleural effusion. Blood cultures were obtained. Emergency Department Course and Treatment: Patient was given Tylenol initially. Patient vomited this up. Patient was given a dose of Zofran. With the patient's elevated creatinine I did not want to give the patient any NSAIDs. Patient was given a dose of morphine here. Patient was started on Levaquin. Case was discussed with the hospitalist. He will be in to evaluate the patient and admit the patient to the hospital. Disposition: Admit to hospital Impression: 1. Healthcare associated pneumonia 2. Renal insufficiency This note was generated with [employer] software. It may contain incorrect words, spelling, and punctuation that were not noted in review of the chart prior to signing ED Disposition - Plan for ED Patient: Disposition: Acute Care Hospital [facility] Diagnosis: Healthcare-associated pneumonia Referrals: Baltes,Kalyan, TRANSACTION MANAGER-C [Primary Care Provider] -
--- NOTE | 2018-10-04 20:09 | ED.RN ---
DUE TO PTS HISTORY OF POOR IV ACCESS, DISCUSSED WITH , LAB CALLED FOR BLOOD DRAW.
--- NOTE | 2018-10-04 20:18 | RAD_ITS ---
STUDY: X-RAY CHEST REASON FOR EXAM: Female, 23 years old. Upper back pain and cough TECHNIQUE: PA and lateral views of the chest. COMPARISON: 09/30/2018 FINDINGS: EKG leads overlie the chest. Lungs are expanded. Increased opacification the right lung base since the previous study suggests a combination of infiltrate and effusion. Small left pleural effusion is essentially unchanged. Follow-up recommended to assure resolution Normal size heart. Normal mediastinum and nelda. Normal visualized pulmonary arteries. Normal visualized aortic arch and descending thoracic aorta. Normal visualized thoracic spine. Normal visualized ribs, clavicles, and shoulders. There is no demonstrated abnormality of the visualized soft tissue structures of the upper abdomen. RAD/Chest PA and Lateral IMPRESSION: Right lower lobe pneumonia with pleural effusion, follow-up recommended to assure complete resolution Stable small left pleural effusion Electronically Signed: Gene Grider MD at 20:40 EDT , Service support ,
[2018-10-04 20:34] LABS: Absolute Lymphocyte Count 1.64 X10^3/uL (0.83-4.51); Absolute Neutrophil Count 2.8 X10^3/uL (2.0-7.7); Basophil# 0.04 X10^3/uL; Basophil% 0.8 % (0-1); Eosinophil# 0.19 X10^3/uL; Eosinophils% 3.8 % (0-5); Hemoglobin 10.7 g/dL (12.0-15.0); Lymphocyte # 1.64 X10^3/ul (4.0); Lymphocyte % 32.8 % (19-41); Mean Corp Hgb Conc 30.6 g/dL (32-36); Mean Corpuscular Hgb 26.4 pg (27.0-32.0); Mean Corpuscular Volume 86.2 fL (81-99); Mean Platelet Vol. 10.4 fl (6.2-12.0); Monocyte# 0.36 X10^3/uL; Monocyte% 7.2 % (0-10); NRBC Flagged by Analyzer 0 % (0-5); Neutrophil # 2.75 X10^3/uL (2.7-7.7); Platelet Count 214 K/mm3 (150-450); RBC Distribution Width CV 16.8 % (11.6-14.6); RBC Distribution Width SD 53.6 fl (35.1-43.9); Red Blood Count 4.06 M/mm3 (4.2-5.4)
[2018-10-04 20:39] LABS: Anion Gap 6 (5-15); BUN 48 mg/dL (7-18); BUN/Creat Ratio 16.6 RATIO (10-20); Calcium,Total 8.1 mg/dL (8.5-10.1); Chloride 104 mmol/L (98-107); Creatinine, Serum 2.89 mg/dL (0.55-1.02); EST Glomerular Filtration Rate 21 mL/min (>60); Est Glom Filt Rate - Afr Amer 26 mL/min (>60); Estimated Creatinine Clearance 29.19 ml/min; Glucose 289 mg/dL (74-106); Potassium 4.2 mmol/L (3.5-5.1); Sodium Level 137 mmol/L (136-145)
[2018-10-04 21:02] LABS: BNP,B-Type NATRIURETIC PEPTIDE 3487.4 pg/mL (0-100)
[2018-10-04 21:15] VITALS: BP 116/81; PULSE 93; RESP 11; O2SAT 96
[2018-10-04] MEDS: Acetaminophen 500 MG Tablet 1000 MG PO (21:15)
--- NOTE | 2018-10-04 21:33 | ED.RN ---
PT not happy with tylenol po, stating, the doctor knows i have gastroparesis and don't swallow pills well. Updated pts medical history as that was not listed and spoke with md. PT is taking home PO meds, md feels tylenol will be absorbed well. Troy DARNELL verbal order given.
[2018-10-04] MEDS: Ondansetron ODT 4 MG Tablet PO (21:39)
--- NOTE | 2018-10-04 22:37 | PCM.HP.STD ---
Problem List (1) Acute on chronic combined systolic (congestive) and diastolic (congestive) heart failure Status: Acute (2) Diabetes Status: Chronic (3) DKA (diabetic ketoacidoses) Status: Resolved Qualifiers: Diabetes mellitus type: type 1 Diabetes mellitus complication detail: without coma Qualified Code(s): E10.10 - Type 1 diabetes mellitus with ketoacidosis without coma (4) Anemia Status: Chronic (5) Acute hyperglycemia Status: Chronic History of Present Illness Date of Admission: 10/04/18 Chief Complaint: right flank pain The patient is a 23 year old F with a significant history of previous IV drug use; multiple kidney infections and renal abscess; myocarditis; combined congestive heart failure (ejection fraction 25% on 09/30/2018) on 4L Home oxygen; previous heart mural thrombus; and chronic renal failure who presented to the emergency department with excruciating sharp right-sided nonradiating flank pain for one and a half weeks. She denies any ameliorating factors. Her pain worsens with standing. She was admitted to our ICU on 09/29/2018 and discharged on 10/02/2018 complaining of the same right-sided pain and at that time was admitted for DKA. Also at that time she saw cardiology because of her history of CHF; and nephrology because of KANU on CKD. On this presentation patient complains of weight gain of 6 pounds on the same day which is the day of presentation. Also she reports of bilateral leg swelling of the same day. She reports 2 pillow orthopnea. Typically she uses one pillow to sleep. Further she reports shortness of breath and paroxysmal nocturnal dyspnea. She reported that she takes torsemide 60 mg twice daily at home. On the day of presentation she took torsemide 60 mg in the morning and because of her symptoms she took additional 20 mg of torsemide in the afternoon. On presentation BNP was 3,487.4. Her creatinine was elevated above her baseline at 2.89. Chest x-ray was interpreted as right lower lobe pneumonia with pleural effusion; and stable small left pleural effusion and stable left small pleural effusion. Past Medical History Past Medical History (Chronic Problems): Chronic Problems Congestive heart failure (Chronic) Chronic systolic (congestive) heart failure (Chronic) Cardiomyopathy (Chronic) Left ventricular thrombosis (Chronic) Anemia (Chronic) Diabetes (Chronic) Protein calorie malnutrition (Chronic) Acute hyperglycemia (Chronic) Homeless (Chronic) Tobacco user (Chronic) DM type 1 (diabetes mellitus, type 1) (Chronic) Allergies Penicillins Allergy (Verified 10/04/18 19:23) Hives furosemide [From Lasix] Adverse Reaction (Verified 10/04/18 19:23) Upset Stomach Home Medications: Ambulatory Orders Medication Instructions Recorded hydrALAZINE [Apresoline] 100 mg PO TID 08/07/18 Isosorbide DN [Isordil] 60 mg PO TID 09/29/18 Carvedilol [Coreg (Beta Salvador)] 25 mg PO BID #60 tab 10/02/18 Ferrous Sulfate 325 mg PO TID #90 tab 10/02/18 Insulin Degludec [Tresiba 20 unit SQ BREAKFAST #0 10/02/18 Flextouch U-100] Insulin Lispro [Humalog KwikPen] See Protocol SUBCUT ACHS 10/02/18 insuln.pen Pantoprazole Sodium [Protonix] 40 mg PO DAILY tab 10/02/18 Torsemide 60 mg PO BID #100 tab 10/02/18 NIFEdipine [Procardia XL] 90 mg PO DAILY 10/05/18 Surgical History: no surgical history - reports history of heart cath, - Psychiatric History: No pertinent psych hx 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 Denies: Chills, Fever HEENT: Denies: Head Aches, Sinus Congestion, Sinus Drainage Cardiovascular: Reports: Edema, Orthopnea, Paroxysmal Noc. Dyspnea. Denies: Chest Pain, Palpitations Respiratory: Reports: Shortness of Breath. Denies: Cough Gastrointestinal: Denies: Abdominal Pain, Nausea, Vomiting Genitourinary: Denies: Dysuria Musculoskeletal: Denies: Joint Pain, Joint Tenderness Skin: Denies: Rash, Wounds Neurological: Denies: Numbness, Tingling, Focal weakness Psychiatric: Denies: Anxiety, Depression, Homicidal Ideations, Suicidal Ideations Hematologic/ Lymphatic: Denies: Easy Bruising, Easy Bleeding VTE Information - Inpt Only VTE Present on Admission: No VTE Mechan Device Prophylaxis: SCD's VTE Pharm Prophylaxis ordered?: No Patient Problems: Active and Suspected Problems Healthcare-associated pneumonia (Acute) Acute on chronic combined systolic (congestive) and diastolic (congestive) heart failure (Acute) - Physical Exam General: Alert, Oriented x3, Cooperative HEENT: Atraumatic, PERRLA, EOMI, Normocephalic Neck: Supple, No JVD, Negative Carotid Bruits Lungs: Diminished - Right base, Tachypneic Cardiovascular: Regular rate, No murmurs Abdomen: Bowel Sounds Present, Soft, Non Tender Extremities: No edema, Capillary Refill Less than 3 Seconds Skin: No rashes, No breakdown Musculoskeletal: No Tenderness to Palpation of Joints or Extremities Neurological: Cranial nerves II-XII grossly intact Psych/Mental Status: Normal Affect, Appropriate Vital Signs Temp Pulse Resp BP Pulse Ox 97.6 F L 93 11 L 116/81 H 96 10/04/18 19:20 10/04/18 21:15 10/04/18 21:15 10/04/18 21:15 10/04/18 21:15 Oxygen Flow Rate (L/min) 4 Oxygen Delivery Method Nasal Cannula Weight: 66.6 kg Body Mass Index (BMI) 23.0 Finger Stick Blood Glucose 151 Laboratory Tests Past 24 Hrs 10/04/18 10/04/18 10/04/18 20:15 20:15 20:15 WBC 5.0 RBC 4.06 L Hgb 10.7 L Hct 35.0 L MCV 86.2 MCH 26.4 L MCHC 30.6 L RDW Std Deviation 53.6 H RDW Coeff of Genevieve 16.8 H Plt Count 214 MPV 10.4 Immature Gran % (Auto) 0.400 Neut % (Auto) 55.0 Lymph % (Auto) 32.8 [place] % (Auto) 7.2 Eos % (Auto) 3.8 Baso % (Auto) 0.8 Absolute Neuts (auto) 2.8 Absolute Lymphs (auto) 1.64 Nucleated RBC % 0 Sodium 137 Potassium 4.2 Chloride 104 Carbon Dioxide 27.0 Anion Gap 6 BUN 48 H Creatinine 2.89 H Estim Creat Clear Calc 29.19 Est GFR (MDRD) Af Amer 26 L Est GFR (MDRD) Non-Af 21 L BUN/Creatinine Ratio 16.6 Glucose 289 H Calcium 8.1 L B-Natriuretic Peptide 3487.4 H Assessment/Plan All Active Problems Bilateral pneumonia (Resolved) Myocarditis (Resolved) DKA (diabetic ketoacidoses) (Resolved) Healthcare-associated pneumonia (Acute) Acute on chronic combined systolic (congestive) and diastolic (congestive) heart failure (Acute) Abscess of leg, left (Resolved) Hyperglycemia (Acute) DKA (diabetic ketoacidoses) (Resolved) KANU (acute kidney injury) (Acute) Narcotic withdrawal (Resolved) The patient is a 23 year old F with a significant history of previous IV drug use; multiple kidney infections and renal abscess; myocarditis; combined congestive heart failure (ejection fraction 25% on 09/30/2018) on 4L Home oxygen; previous heart mural thrombus; and chronic renal failure who presented to the emergency department with recurrence excruciating sharp right-sided nonradiating flank pain for one and a half weeks found to have BNP of 3,487.4; elevated creatinine of 2.89 and radiographic evidence of increased opacity of the right lung base with unchanged left pleural effusion consistent with probable acute exacerbation of combined heart failure. Probable acute exacerbation of systolic and diastolic heart failure On the last presentation at the hospital patient was on Bumex 2 mg IV 3 times daily and at the time of discharge she was prescribed torsemide 60 mg twice daily. Discussed emergency department doctor to give Bumex. Bumex 1 mg IV was given at the emergency department. Will give additional dose of Bumex 1 mg. And will start patient on torsemide 2 mg IV 3 times daily. Fluid restriction of 1500 mL's daily. Daily weights 2 g sodium diet Elevate bilateral lower extremities and apply Slim wrap. Of notes her bilateral legs has only mild edema. Because of her severity of her baseline heart failure will consult cardiology. Of note on the last admission cardiology saw her. Different diagnosis includes pneumonia. Patient received Levaquin 750 mg IV at the emergency department. Her Levaquin can be dose every 48 hours if suspicion of pneumonia remains high. However patient has no leukocytosis. She has no fever. She has no productive cough. And she has no chills. We will get MRSA nasal screen. KANU on CKD On presentation her creatinine was 2.89. Baseline creatinine is around 2. Likely cardiorenal syndrome. Diuretics as above Avoid nephrotoxic's Trend BMP. Diabetes mellitus On presentation her blood glucose was not within goal Basal insulin continued Correction scale insulin continued We will add a prandial insulin. History of mural thrombus of the heart On the last admission her Eliquis was discontinued because of anemia. Patient reported that she discussed her Eliquis with the nurse at the recreational aide's office. Per patient and nurse advised patient to continue Eliquis since it may be preventing blood clot. Will hold Eliquis at this time. Patient to hold further discussion with her recreational aide outpatient. Hypertension On presentation her blood pressure was not within goal Carvedilol; hydralazine; and Imdur continued. Trend blood pressure and adjust blood pressure medication. On the discharge instructions of a previous admission amlodipine was prescribed. However patient reports taking Procardia. Because of association of Procardia with worsening heart failure will order amlodipine here. Chronic anemia Ferrous sulfate continued. GERD Protonix continued DVT prophylaxis SCD. Code Visit Inpatient E&M: 15474 Init Hosp L3
[2018-10-04 23:27] VITALS: BP 141/97; PULSE 96; PULSE 97; RESP 24; TEMP 36.1; O2SAT 97
[2018-10-04] MEDS: levoFLOXacin IV 750 MG/150 ML BAG 100 MG IV (23:46)
[2018-10-04] MEDS: Morphine 4 MG/ML Syringe IV (23:46)
[2018-10-04] MEDS: Bumetanide 1 MG/4 ML Vial IV (23:47)
[2018-10-05] VITALS (18 sets, daily range): BP systolic 97–148; BP diastolic 54–118; PULSE 80–101; RESP 16–18; TEMP 36.5–36.7; O2SAT 93–99; BMI 22.8; BMI 22.9
[2018-10-05] MEDS: 0.9% NaCl Peripheral Flush Adult/Peds IV (00:36)
[2018-10-05] MEDS: Bumetanide 1 MG/4 ML Vial IV (00:36)
[2018-10-05] MEDS: Isosorbide DN 30 MG Tablet 60 MG PO ×3 (00:37→21:18)
[2018-10-05] MEDS: Lidocaine 5% Patch 2 PATCH TOPICAL (02:15)
[2018-10-05] MEDS: Acetaminophen 325 MG Tablet 650 MG PO ×2 (03:27→09:59)
[2018-10-05] MEDS: Ondansetron 4 MG/2 ML Vial IV (03:31)
[2018-10-05 04:00] LABS: M R Staph aureus DNA By PCR Negative (Negative); Probe Check PASS; Specimen Processing Control PASS
--- NOTE | 2018-10-05 04:36 | NURSING ---
PATIENT CALLS OUT THAT SHE IS PAIN BUT WHEN RN COMES INTO ROOM PATIENT IS RESTING WITH EYES CLOSED. WHEN NOTICES THAT RN IS IN ROOM, PATIENT STARTS TO MOAN AND CRY
[2018-10-05] MEDS: traMADol 50 MG Tablet PO ×3 (04:37→18:33)
[2018-10-05 06:21] LABS: Absolute Lymphocyte Count 1.98 X10^3/uL (0.83-4.51); Absolute Neutrophil Count 2.8 X10^3/uL (2.0-7.7); Basophil# 0.03 X10^3/uL; Basophil% 0.5 % (0-1); Eosinophil# 0.21 X10^3/uL; Eosinophils% 3.8 % (0-5); Hematocrit 33.4 % (37-47); Hemoglobin 10.3 g/dL (12.0-15.0); Lymphocyte # 1.98 X10^3/ul (4.0); Lymphocyte % 36.3 % (19-41); Mean Corp Hgb Conc 30.8 g/dL (32-36); Mean Corpuscular Hgb 26.1 pg (27.0-32.0); Mean Corpuscular Volume 84.8 fL (81-99); Mean Platelet Vol. 10.5 fl (6.2-12.0); Monocyte# 0.41 X10^3/uL; Monocyte% 7.5 % (0-10); NRBC Flagged by Analyzer 0 % (0-5); Neutrophil # 2.81 X10^3/uL (2.7-7.7); Neutrophil % 51.5 % (47-70); Platelet Count 207 K/mm3 (150-450); RBC Distribution Width CV 17.1 % (11.6-14.6); RBC Distribution Width SD 52.8 fl (35.1-43.9); Red Blood Count 3.94 M/mm3 (4.2-5.4); White Blood Count 5.5 K/mm3 (4.4-11.0)
[2018-10-05 06:34] LABS: Anion Gap 7 (5-15); BUN 55 mg/dL (7-18); BUN/Creat Ratio 19.4 RATIO (10-20); Chloride 105 mmol/L (98-107); Creatinine, Serum 2.84 mg/dL (0.55-1.02); EST Glomerular Filtration Rate 22 mL/min (>60); Est Glom Filt Rate - Afr Amer 26 mL/min (>60); Glucose 121 mg/dL (74-106); Potassium 5.1 mmol/L (3.5-5.1); Sodium Level 139 mmol/L (136-145)
[2018-10-05] MEDS: Ferrous Sulfate 325 MG Tablet PO (08:27)
[2018-10-05] MEDS: Pantoprazole Sodium 40 MG Tablet PO (08:27)
[2018-10-05] MEDS: Bumetanide 1 MG/4 ML Vial 2 MG IV ×3 (08:28→21:19)
--- NOTE | 2018-10-05 08:40 | EKG12_ITS ---
Test Reason : ROUTINE Blood Pressure : / mmHG Vent. Rate : 089 BPM Atrial Rate : 089 BPM P-R Int : 146 ms QRS Dur : 076 ms QT Int : 404 ms P-R-T Axes : 065 089 018 degrees QTc Int : 491 ms Normal sinus rhythm Nonspecific ST abnormality Prolonged QT Abnormal ECG Confirmed by BIGG JUAREZ, RAQUEL ([id number]), manager editorial ALICE TRUONG ([id number]) on 10/07/2018 12:59:51 PM Referred By: DR LEONG Confirmed By:RAQUEL PRIDE MD
[2018-10-05] MEDS: Insulin Lispro 100 UNIT/ML INSULN.PEN SC ×2 (08:45→12:12)
--- NOTE | 2018-10-05 08:49 | CON.PCM_ITS ---
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 (4) Left ventricular thrombosis Status: Chronic (5) Acute on chronic combined systolic (congestive) and diastolic (congestive) heart failure Status: Acute Reason for Consult Date of Consultation: 10/05/18 Reason for Consultation: Congestive heart failure, nonischemic cardiomyopathy, right pleural effusion, pleuritic back pain, diabetes, chronic renal insufficiency History of Present Illness: The patient is a 23 year old F, with type 1 diabetes diagnosed at age 4, chronic renal insufficiency as a result of her long-standing diabetes, former tobacco s moker, previously diagnosed with what appears to be nonischemic cardiomyopathy and sees Dr. Patrick at [facility]. She reports that she had normal heart up until around January 2018 where she presented with congestive heart failure. Her last resulted in the of her child in April 2016. Patient was diagnosed with a viral cardiomyopathy. She reports that she had a left heart catheterization which reportedly showed normal coronary arteries. We do not have those results however. Patient reports that her initial symptoms were a pneumonia, which gave way to congestive heart failure. More recently the patient has admitted to the hospital around September 30, 2018 with what appears to be back pain. An echocardiogram at that time was performed which showed an EF of 25%, RVSP of 40 mmHg, mild TR, mild MR, trivial pericardial effusion. Chest x-ray at that time showed right pleural effusion as it does on the x-ray for today's admission. The patient is being treated for her pleuritic type pain with lidocaine patches and antibiotics. Chest x-ray reviewed by me showed the patient to have a small right-sided pleural effusion with a right pneumonic infiltrate process. Patient also admits to mild lower extremity edema at home, although she maintains that she is compliant with her medications and dietary restrictions. She has been treated with IV Bumex on this admission and her lower extremity edema has improved. [] Past Medical History Allergies/Adverse Reactions: Allergies Penicillins Allergy (Verified 10/04/18 19:23) Hives furosemide [From Lasix] Adverse Reaction (Verified 10/04/18 19:23) Upset Stomach Home Medications: Ambulatory Orders Medication Instructions Recorded hydrALAZINE [Apresoline] 100 mg PO TID 08/07/18 Isosorbide DN [Isordil] 60 mg PO TID 09/29/18 Carvedilol [Coreg (Beta Salvador)] 25 mg PO BID #60 tab 10/02/18 Ferrous Sulfate 325 mg PO TID #90 tab 10/02/18 Insulin Degludec [Tresiba 20 unit SQ BREAKFAST #0 10/02/18 Flextouch U-100] Insulin Lispro [Humalog KwikPen] See Protocol SUBCUT ACHS 10/02/18 insuln.pen Pantoprazole Sodium [Protonix] 40 mg PO DAILY tab 10/02/18 Torsemide 60 mg PO BID #100 tab 10/02/18 NIFEdipine [Procardia XL] 90 mg PO DAILY 10/05/18 Past Medical History (Chronic Problems): Chronic Problems Congestive heart failure (Chronic) Chronic systolic (congestive) heart failure (Chronic) Cardiomyopathy (Chronic) Left ventricular thrombosis (Chronic) Anemia (Chronic) Diabetes (Chronic) Protein calorie malnutrition (Chronic) Acute hyperglycemia (Chronic) Homeless (Chronic) Tobacco user (Chronic) DM type 1 (diabetes mellitus, type 1) (Chronic) Surgical History: no surgical history - reports history of heart cath, - Psychiatric History: No pertinent psych hx 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 Denies: Chest Discomfort, PND, Palpitations, Lightheadedness, Dizziness, Near Syncope, Syncope Respiratory: Denies: Cough, Sputum Production, Hemoptysis Gastrointestinal: Denies: Hematemesis, Hematochezia, Melena Genitourinary: Denies: Dysuria, Hematuria Skin: Denies: Rash Subjectve: Patient sitting up in bed eating breakfast, no acute distress. Objective: Vital Signs Temp Pulse Resp BP Pulse Ox 98.0 F 93 18 120/87 H 96 10/05/18 08:00 10/05/18 08:00 10/05/18 08:00 10/05/18 08:00 10/05/18 08:00 Oxygen Flow Rate (L/min) 4 Oxygen Delivery Method Room Air Weight: 148 lb 12.992 oz Body Mass Index (BMI) 22.8 Finger Stick Blood Glucose 151 Intake and Output for Last 24 Hours 10/03/18 10/04/18 10/05/18 23:59 23:59 23:59 Intake Total 298 / 298 Output Total 200 / 200 Balance 98 / 98 General: Awake, Alert, Oriented x 3 HEENT: PERRL, EOMI, Sclera Non Icteric Neck: Supple, Good ROM, No Lymph Node Enlargement Lungs: Clear to auscultation, Diminished Right Base Cardiovascular: Regular Rhythm, Normal S2, No Rubs, No Gallops Murmur Murmur: Grade 2/6, Holosystolic Vascular: No Carotid Bruits, Normal Femoral Pulses, Normal Radial Pulses, Normal Dorsalis Pedal Pulse, Normal Posterior Tibial Pulses Abdomen: Bowel Sounds Present, Soft, Non Tender, No HSM, No Organomegaly Extremities: No Cyanosis, No Clubbing, No edema Neurological: No Focal Motor or Sensory Deficit 10/04/18 20:15: WBC 5.0, RBC 4.06 L, Hgb 10.7 L, Hct 35.0 L, MCV 86.2, MCH 26.4 L, MCHC 30.6 L, Plt Count 214, MPV 10.4, Immature Gran % (Auto) 0.400, Neut % (Auto) 55.0, Lymph % (Auto) 32.8, [place] % (Auto) 7.2, Eos % (Auto) 3.8, Baso % (Auto) 0.8, Absolute Neuts (auto) 2.8, Nucleated RBC % 0 10/04/18 20:15: Sodium 137, Potassium 4.2, Chloride 104, Carbon Dioxide 27.0, Anion Gap 6, BUN 48 H, Creatinine 2.89 H, Est GFR (MDRD) Af Amer 26 L, Est GFR (MDRD) Non-Af 21 L, BUN/Creatinine Ratio 16.6, Glucose 289 H, Calcium 8.1 L 10/04/18 20:15: B-Natriuretic Peptide 3487.4 H 10/05/18 05:26: WBC 5.5, RBC 3.94 L, Hgb 10.3 L, Hct 33.4 L, MCV 84.8, MCH 26.1 L, MCHC 30.8 L, Plt Count 207, MPV 10.5, Immature Gran % (Auto) 0.400, Neut % (Auto) 51.5, Lymph % (Auto) 36.3, [place] % (Auto) 7.5, Eos % (Auto) 3.8, Baso % (Auto) 0.5, Absolute Neuts (auto) 2.8, Nucleated RBC % 0 10/05/18 05:26: Sodium 139, Potassium 5.1, Chloride 105, Carbon Dioxide 27.0, Anion Gap 7, BUN 55 H, Creatinine 2.84 H, Est GFR (MDRD) Af Amer 26 L, Est GFR (MDRD) Non-Af 22 L, BUN/Creatinine Ratio 19.4, Glucose 121 H, Calcium 8.0 L Rhythm: EKG: Normal sinus rhythm, normal axis, normal intervals, no evidence of previous myocardial infarction, nonspecific inferior ST segment flattening. ECHO: From 09/30/2018 showed LVEF of 25%, RVSP of 48mmHg, mild TR, mild MR, no LV apical thrombus noted. Trivial pericardial effusion. Stress Test: Cardiac Cath: PCI: CT Surgery: Holter monitor: EPS: PPM: CXR: Chest x-ray reviewed by myself, shows right lower lobe pleural effusion, right lower lobe density possibly pneumonia. Chest CT Scan: Assessment/Plan 1. Nonischemic cardiomyopathy: The patient comes with a diagnosis of nonischemic cardiomyopathy possibly viral in origin, diagnosed almost a year and a half after her of her last child in January 2018. Her last child was born in April 2016. She is a previous smoker and a type I diabetic from age 4. She reportedly had a catheterization by Dr. patrick at [facility]. Unfortunately we do not have those reports to review. I recommended that they be obtained from [facility]. At this point the patient is on appropriate medications for with respect to her heart failure superimposed on her chronic renal insufficiency. Recommend continuing her Imdur, hydralazine, 1500 cc fluid restriction, and her Coreg. She is not a good candidate for AIMEE inhibitors or ARB is given her chronic renal insufficiency. I agree with IV diuretic therapy until her dry weight is achieved and/or her right pleural effusion has improved and resolved. It appears to be too small for thoracentesis, although if the patient continues to have pleuritic type chest pain it may be worthwhile to obtain an ultrasound in radiology tomorrow morning to determine if it would benefit from thoracentesis. I would not recommend repeat echocardiogram, and her EKG shows normal sinus rhythm with no evidence of previous myocardial infarction. The patient has been evaluated with ultrasound of her gallbladder which was negative, and a VQ scan which was negative as well. I would use caution with doubling up on her lidocaine patches as this may cause ventricular arrhythmias. A better pain medication may be Toradol or ibuprofen with caution given her chronic renal insufficiency. Another option might be prednisone to assist with her pain and inflammatory process which may be contributing to her pleural effusion. 2. Thank you very much for the opportunity to participate in the cardiac care of your patient. Please obtain the old records from [facility] with respect to her echocardiogram, catheterization and previous work-up. She has an appointment with Dr. Patrick on October 08, 2018 hopefully she will be able to be discharged to make that appointment. Please make copies of her current hospitalization to bring with her when she goes to see Dr. Patrick. Code Visit Inpatient E&M: 83066 Init Hosp L2
[2018-10-05 09:21] LABS: Bedside Glucose 148 mg/dL (70-110)
[2018-10-05] MEDS: Carvedilol 25 MG Tablet PO ×2 (09:59→21:18)
[2018-10-05 11:36] LABS: Bedside Glucose 149 mg/dL (70-110)
[2018-10-05] MEDS: amLODIPine 5 MG Tablet PO (11:42)
--- NOTE | 2018-10-05 12:23 | PCM.PN.HOSP ---
Patient Problems: Active and Suspected Problems Healthcare-associated pneumonia (Acute) Acute on chronic combined systolic (congestive) and diastolic (congestive) heart failure (Acute) Subjective: Patient complaint of right flank pain mainly posterior aspect of left side of chest. Patient does not have fever or chills. Patient was just discharged few days ago when she came back with similar right upper back pain. Chest x-ray shows right pleural effusion similar to today's x-ray. Patient recent echo done on 09/30/2018 reported as EF 25%, RVSP 40 mmHg, mild TR, mild MR and trivial pericardial effusion. Patient seen by entomology professor. Advised ultrasound to evaluate for thoracocentesis. Patient complain of 12/04 of pain but no shortness of breath. Vitals/I&O's: Vital Signs Temp Pulse Resp BP Pulse Ox 98.0 F 101 H 18 136/103 H 96 10/05/18 08:00 10/05/18 11:02 10/05/18 08:00 10/05/18 11:37 10/05/18 08:00 Oxygen Flow Rate (L/min) 4 Oxygen Delivery Method Room Air Weight: 148 lb 12.992 oz Body Mass Index (BMI) 22.8 Finger Stick Blood Glucose 151 Intake and Output for Last 24 Hours 10/03/18 10/04/18 10/05/18 23:59 23:59 23:59 Intake Total 599.7 / 599.7 Output Total 820 / 820 Balance -220.3 / -220.3 General: Alert, Oriented x3, Cooperative HEENT: Atraumatic, PERRLA, EOMI, Normocephalic Neck: Supple, No JVD, Negative Carotid Bruits Lungs: No rhonchi, No wheeze, No rales, Diminished - Air entry is diminished in bilateral lung bases., - - Tenderness present on the upper right back. Cardiovascular: Regular rate, Regular Rhythm, Normal S1, Normal S2, No murmurs Abdomen: Bowel Sounds Present, Soft, Non Tender, Non-Distended Extremities: No edema, Capillary Refill Less than 3 Seconds Skin: No rashes, No breakdown Musculoskeletal: No Tenderness to Palpation of Joints or Extremities Neurological: Cranial nerves II-XII grossly intact Psych/Mental Status: Normal Affect, Appropriate Laboratory Results 10/04/18 20:15: WBC 5.0, RBC 4.06 L, Hgb 10.7 L, Hct 35.0 L, MCV 86.2, MCH 26.4 L, MCHC 30.6 L, RDW Std Deviation 53.6 H, RDW Coeff of Genevieve 16.8 H, Plt Count 214, MPV 10.4, Immature Gran % (Auto) 0.400, Neut % (Auto) 55.0, Lymph % (Auto) 32.8, [place] % (Auto) 7.2, Eos % (Auto) 3.8, Baso % (Auto) 0.8, Absolute Neuts (auto) 2.8, Absolute Lymphs (auto) 1.64, Nucleated RBC % 0 10/04/18 20:15: Sodium 137, Potassium 4.2, Chloride 104, Carbon Dioxide 27.0, Anion Gap 6, BUN 48 H, Creatinine 2.89 H, Estim Creat Clear Calc 29.19, Est GFR (MDRD) Af Amer 26 L, Est GFR (MDRD) Non-Af 21 L, BUN/Creatinine Ratio 16.6, Glucose 289 H, Calcium 8.1 L 10/04/18 20:15: B-Natriuretic Peptide 3487.4 H 10/05/18 00:30: MRSA (PCR) Negative 10/05/18 05:26: WBC 5.5, RBC 3.94 L, Hgb 10.3 L, Hct 33.4 L, MCV 84.8, MCH 26.1 L, MCHC 30.8 L, RDW Std Deviation 52.8 H, RDW Coeff of Genevieve 17.1 H, Plt Count 207, MPV 10.5, Immature Gran % (Auto) 0.400, Neut % (Auto) 51.5, Lymph % (Auto) 36.3, [place] % (Auto) 7.5, Eos % (Auto) 3.8, Baso % (Auto) 0.5, Absolute Neuts (auto) 2.8, Absolute Lymphs (auto) 1.98, Nucleated RBC % 0 10/05/18 05:26: Sodium 139, Potassium 5.1, Chloride 105, Carbon Dioxide 27.0, Anion Gap 7, BUN 55 H, Creatinine 2.84 H, Estim Creat Clear Calc 29.70, Est GFR (MDRD) Af Amer 26 L, Est GFR (MDRD) Non-Af 22 L, BUN/Creatinine Ratio 19.4, Glucose 121 H, Calcium 8.0 L 10/05/18 08:03: POC Glucose 148 H 10/05/18 11:22: POC Glucose 149 H Current Medications Acetaminophen (Tylenol) 650 mg PO Q6H PRN PRN PRN Reason: Mild pain 1-3/Temp > 100.7 F Last Admin: 10/05/18 09:59 Dose: 650 mg Documented by: Amlodipine Besylate (Norvasc) 5 mg PO DAILY [facility] Last Admin: 10/05/18 11:42 Dose: 5 mg Documented by: Bumetanide (Bumex) 2 mg IV TID [facility] Last Admin: 10/05/18 08:28 Dose: 2 mg Documented by: Carvedilol (Coreg) 25 mg PO BID [facility] Last Admin: 10/05/18 09:59 Dose: 25 mg Documented by: Dextrose (D50w Syringe) 0 gm IV X1 PRN; Protocol PRN Reason: Hypoglycemia Ferrous Sulfate (Ferrous Sulfate) 325 mg PO TIDCM [facility] Last Admin: 10/05/18 12:12 Dose: Not Given Documented by: Glucagon () 1 mg IM .X1 PRN PRN Reason: Hypoglycemia Hydralazine HCl (Apresoline) 100 mg PO TID [facility] Insulin Glargine (Lantus (Bkc)) 20 units SC BREAKFAST [facility] Last Admin: 10/05/18 08:40 Dose: 20 units Documented by: Insulin Human Lispro (Humalog Kwikpen (Bkc)) 5 unit SC BREAKFAST [facility] Last Admin: 10/05/18 08:45 Dose: 1 units Documented by: Insulin Human Lispro (Humalog Kwikpen (Bkc)) 5 unit SC DINNER [facility] Insulin Human Lispro (Humalog Kwikpen (Bkc)) 5 unit SC LUNCH [facility] Last Admin: 10/05/18 12:12 Dose: 1 units Documented by: Insulin Human Lispro (Humalog Kwikpen (Bkc)) 0 unit SC 4X/DAYCM [facility]; Protocol Last Admin: 10/05/18 11:29 Dose: Not Given Documented by: Isosorbide Dinitrate (Isordil) 60 mg PO TID [facility] Lidocaine (Lidoderm Patch) 2 patch TOPICAL DAILY [facility]; Protocol Last Admin: 10/05/18 02:15 Dose: 2 patch Documented by: Melatonin (Melatonin) 3 mg PO QHS PRN PRN PRN Reason: INSOMNIA Ondansetron HCl (Zofran) 4 mg IV Q6H PRN PRN PRN Reason: NAUSEA/VOMITING Last Admin: 10/05/18 03:31 Dose: 4 mg Documented by: Pantoprazole Sodium (Protonix) 40 mg PO DAILY [facility] Last Admin: 10/05/18 08:27 Dose: 40 mg Documented by: Sodium Chloride () 10 - 40 ml IV UD PRN PRN Reason: SALINE FLUSH Last Admin: 10/05/18 00:36 Dose: 10 ml Documented by: Tramadol HCl (Ultram) 50 mg PO Q6H PRN PRN PRN Reason: MOD-SEVERE PAIN (4-12/04) Last Admin: 10/05/18 11:41 Dose: 50 mg Documented by: Medical Necessity - Tobacco Use Smoking Status: Former smoker Assessment/Plan All Active Problems Bilateral pneumonia (Resolved) Myocarditis (Resolved) DKA (diabetic ketoacidoses) (Resolved) Healthcare-associated pneumonia (Acute) Acute on chronic combined systolic (congestive) and diastolic (congestive) heart failure (Acute) Abscess of leg, left (Resolved) Hyperglycemia (Acute) DKA (diabetic ketoacidoses) (Resolved) KANU (acute kidney injury) (Acute) Narcotic withdrawal (Resolved) The patient is a 23-year-old female with history of substance use, 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 1. Right upper posterior back/chest pain: Etiology is unclear. Ultrasound guided thoracocentesis ordered for tomorrow a.m. Patient was discharged on torsemide 60 mg twice daily. Started on Bumex 2 mg IV 3 times daily. Pain control. Lidocaine patch topical on a caution to monitor for ventricular arrhythmia telemetry. 2. Acute on chronic systolic and diastolic heart failure: BNP 3487. On heart failure guideline recommended measures including fluid restriction, daily weight. Slim wrap. Not a candidate for SLIM/ARB secondary to kidney failure. 3. KANU on CKD stage 3: On presentation her creatinine was 2.89. Baseline creatinine is around 2. Likely cardiorenal syndrome. Diuretics as above. Patient was seen by [place] electrical drafter. If needed will reconsult them 4. Diabetes mellitus type I with gastroparesis: Blood sugars are controlled. Continue basal and Humalog insulin. She was discharged after resolution of DKA this week. 5. History of mural thrombus of the heart: Last 2D echo shows no mural thrombosis. V/Q not suggestive of acute PE. Eliquis is discontinued. 6. Hypertension: Patient on high dose of hydralazine 100 mg 3 times daily, isosorbide dinitrate 60 mg 3 times daily and Norvasc 5 mg daily started at this time. 7. Chronic anemia, anemia of chronic disease/kidney disease: H&H is stable. 10.. Ferrous sulfate continued. 8. GERD Protonix continued 9. DVT prophylaxis SCD. Signout: Follow-up ultrasound-guided thoracocentesis. Laboratory Results 10/04/18 20:15: WBC 5.0, RBC 4.06 L, Hgb 10.7 L, Hct 35.0 L, MCV 86.2, MCH 26.4 L, MCHC 30.6 L, RDW Std Deviation 53.6 H, RDW Coeff of Genevieve 16.8 H, Plt Count 214, MPV 10.4, Immature Gran % (Auto) 0.400, Neut % (Auto) 55.0, Lymph % (Auto) 32.8, [place] % (Auto) 7.2, Eos % (Auto) 3.8, Baso % (Auto) 0.8, Absolute Neuts (auto) 2.8, Absolute Lymphs (auto) 1.64, Nucleated RBC % 0 10/04/18 20:15: Sodium 137, Potassium 4.2, Chloride 104, Carbon Dioxide 27.0, Anion Gap 6, BUN 48 H, Creatinine 2.89 H, Estim Creat Clear Calc 29.19, Est GFR (MDRD) Af Amer 26 L, Est GFR (MDRD) Non-Af 21 L, BUN/Creatinine Ratio 16.6, Glucose 289 H, Calcium 8.1 L 10/04/18 20:15: B-Natriuretic Peptide 3487.4 H 10/05/18 00:30: MRSA (PCR) Negative 10/05/18 05:26: WBC 5.5, RBC 3.94 L, Hgb 10.3 L, Hct 33.4 L, MCV 84.8, MCH 26.1 L, MCHC 30.8 L, RDW Std Deviation 52.8 H, RDW Coeff of Genevieve 17.1 H, Plt Count 207, MPV 10.5, Immature Gran % (Auto) 0.400, Neut % (Auto) 51.5, Lymph % (Auto) 36.3, [place] % (Auto) 7.5, Eos % (Auto) 3.8, Baso % (Auto) 0.5, Absolute Neuts (auto) 2.8, Absolute Lymphs (auto) 1.98, Nucleated RBC % 0 10/05/18 05:26: Sodium 139, Potassium 5.1, Chloride 105, Carbon Dioxide 27.0, Anion Gap 7, BUN 55 H, Creatinine 2.84 H, Estim Creat Clear Calc 29.70, Est GFR (MDRD) Af Amer 26 L, Est GFR (MDRD) Non-Af 22 L, BUN/Creatinine Ratio 19.4, Glucose 121 H, Calcium 8.0 L 10/05/18 08:03: POC Glucose 148 H 10/05/18 11:22: POC Glucose 149 H Clinical Impression(s) from Imaging Studies Chest X-Ray 10/04/18 20:18 IMPRESSION: Right lower lobe pneumonia with pleural effusion, follow-up recommended to assure complete resolution Stable small left pleural effusion Code Visit Inpatient E&M: 33413 [facility] Hosp L3
--- NOTE | 2018-10-05 13:36 | CON.PCM_ITS ---
Reason for Consult History of Present Illness: The patient is a 23 year old F w/ pmh of IVDA multiple pyelonephritis and renal abscesses episodes myocarditis CHF with ejection fraction of 25% on September 30 on 4 L/min home oxygen and CKD who presented with a chief complaint of mid back pain radiating to the right side for about 10 days prior to admission no alleviating factors. She states the pain is worse on standing. She had a similar pain at the beginning of September when she was admitted for DKA. The patient also has some shortness of breath which currently is improved but she still feels short of breath. She also stated that she gained 6 pounds of weight since last admission. She denies dysuria hematuria change in urine color. She denies fever chills but reports paroxysmal nocturnal dyspnea and orthopnea 2-[address] Abernathy nephrology. She stated she thought that she had some lower extremity edema until but no skin rashes. She has no other complaints no nausea vomiting diarrhea abdominal pain. Past Medical History Past Medical History (Chronic Problems): Chronic Problems Congestive heart failure (Chronic) Chronic systolic (congestive) heart failure (Chronic) Cardiomyopathy (Chronic) Left ventricular thrombosis (Chronic) Anemia (Chronic) Diabetes (Chronic) Protein calorie malnutrition (Chronic) Acute hyperglycemia (Chronic) Homeless (Chronic) Tobacco user (Chronic) DM type 1 (diabetes mellitus, type 1) (Chronic) Allergies Penicillins Allergy (Verified 10/04/18 19:23) Hives furosemide [From Lasix] Adverse Reaction (Verified 10/04/18 19:23) Upset Stomach Home Medications: Ambulatory Orders Medication Instructions Recorded hydrALAZINE [Apresoline] 100 mg PO TID 08/07/18 Isosorbide DN [Isordil] 60 mg PO TID 09/29/18 Carvedilol [Coreg (Beta Savlador)] 25 mg PO BID #60 tab 10/02/18 Ferrous Sulfate 325 mg PO TID #90 tab 10/02/18 Insulin Degludec [Tresiba 20 unit SQ BREAKFAST #0 10/02/18 Flextouch U-100] Insulin Lispro [Humalog KwikPen] See Protocol SUBCUT ACHS 10/02/18 insuln.pen Pantoprazole Sodium [Protonix] 40 mg PO DAILY tab 10/02/18 Torsemide 60 mg PO BID #100 tab 10/02/18 NIFEdipine [Procardia XL] 90 mg PO DAILY 10/05/18 Surgical History: no surgical history - reports history of heart cath, - Psychiatric History: No pertinent psych hx CUSTOMER ACCOUNT TECHNICIAN History: No pertinent CUSTOMER ACCOUNT TECHNICIAN history Smoking Status: Former smoker - *Family History Paternal History Items: COPD, - Maternal History Items: Diabetes - Her maternal second cousin had type 1 diabetes., Heart Disease, - Review of Systems Constitutional: Reports: Fatigue Cardiovascular: Reports: Edema, Orthopnea, Paroxysmal Noc. Dyspnea Respiratory: Reports: Shortness of Breath, Shortness of breath upon exertion Musculoskeletal: Reports: Back Pain Patient Problems: Active and Suspected Problems Healthcare-associated pneumonia (Acute) Acute on chronic combined systolic (congestive) and diastolic (congestive) heart failure (Acute) - Physical Exam General: Alert, Oriented x3, Cooperative HEENT: Atraumatic, EOMI Oral: Moist Mucosa, No Gingival or Mucosal Lesions/ Ulcerations Neck: Trachea Midline Lungs: Clear to auscultation, Normal air movement Cardiovascular: Regular rate, Regular Rhythm, Normal S1, Normal S2 Abdomen: Bowel Sounds Present, Soft, Non Tender Extremities: No clubbing, No cyanosis Skin: No rashes, - - multiple tattoos arms Vital Signs Temp Pulse Resp BP Pulse Ox 98.0 F 101 H 18 136/103 H 96 10/05/18 08:00 10/05/18 11:02 10/05/18 08:00 10/05/18 11:37 10/05/18 08:00 Oxygen Flow Rate (L/min) 4 Oxygen Delivery Method Room Air Weight: 67.5 kg Body Mass Index (BMI) 22.8 Finger Stick Blood Glucose 151 Intake and Output for Last 24 Hours 10/03/18 10/04/18 10/05/18 23:59 23:59 23:59 Intake Total 599.7 / 599.7 Output Total 820 / 820 Balance -220.3 / -220.3 Laboratory Tests Past 24 Hrs 10/04/18 10/04/18 10/04/18 20:15 20:15 20:15 WBC 5.0 RBC 4.06 L Hgb 10.7 L Hct 35.0 L MCV 86.2 MCH 26.4 L MCHC 30.6 L RDW Std Deviation 53.6 H RDW Coeff of Genevieve 16.8 H Plt Count 214 MPV 10.4 Immature Gran % (Auto) 0.400 Neut % (Auto) 55.0 Lymph % (Auto) 32.8 [place] % (Auto) 7.2 Eos % (Auto) 3.8 Baso % (Auto) 0.8 Absolute Neuts (auto) 2.8 Absolute Lymphs (auto) 1.64 Nucleated RBC % 0 Sodium 137 Potassium 4.2 Chloride 104 Carbon Dioxide 27.0 Anion Gap 6 BUN 48 H Creatinine 2.89 H Estim Creat Clear Calc 29.19 Est GFR (MDRD) Af Amer 26 L Est GFR (MDRD) Non-Af 21 L BUN/Creatinine Ratio 16.6 Glucose 289 H Calcium 8.1 L B-Natriuretic Peptide 3487.4 H MRSA (PCR) 10/05/18 10/05/18 10/05/18 00:30 05:26 05:26 WBC 5.5 RBC 3.94 L Hgb 10.3 L Hct 33.4 L MCV 84.8 MCH 26.1 L MCHC 30.8 L RDW Std Deviation 52.8 H RDW Coeff of Genevieve 17.1 H Plt Count 207 MPV 10.5 Immature Gran % (Auto) 0.400 Neut % (Auto) 51.5 Lymph % (Auto) 36.3 [place] % (Auto) 7.5 Eos % (Auto) 3.8 Baso % (Auto) 0.5 Absolute Neuts (auto) 2.8 Absolute Lymphs (auto) 1.98 Nucleated RBC % 0 Sodium 139 Potassium 5.1 Chloride 105 Carbon Dioxide 27.0 Anion Gap 7 BUN 55 H Creatinine 2.84 H Estim Creat Clear Calc 29.70 Est GFR (MDRD) Af Amer 26 L Est GFR (MDRD) Non-Af 22 L BUN/Creatinine Ratio 19.4 Glucose 121 H Calcium 8.0 L B-Natriuretic Peptide MRSA (PCR) Negative POC Glucose 10/05/18 10/05/18 11:22 08:03 POC Glucose 149 H 148 H Assessment/Plan All Active Problems Bilateral pneumonia (Resolved) Myocarditis (Resolved) DKA (diabetic ketoacidoses) (Resolved) Healthcare-associated pneumonia (Acute) Acute on chronic combined systolic (congestive) and diastolic (congestive) heart failure (Acute) Abscess of leg, left (Resolved) Hyperglycemia (Acute) DKA (diabetic ketoacidoses) (Resolved) KANU (acute kidney injury) (Acute) Narcotic withdrawal (Resolved) Acute kidney injury and likely prerenal cardiorenal syndrome on chronic kidney disease with baseline this year between 1.7 and 2.5 Heart failure Hypertension From renal standpoint agree with continuing Bumex dose as the patient is still symptomatic Blood pressure acceptable she is on hydralazine beta-blockers and nitrates for heart failure Hold AIMEE inhibitors and ARB's Avoid nephrotoxins overdiuresis and hypotension Check a UA and renal ultrasound Further work-up as indicated by clinical course
--- NOTE | 2018-10-05 13:55 | US_ITS ---
STUDY: RENAL ULTRASOUND - COMPLETE REASON FOR EXAM: Female, 23 years old. Elevated BUN/creatinine TECHNIQUE: Ultrasound evaluation of the kidneys was performed with real-time and static melara-scale imaging. COMPARISON: Previous ultrasounds of the abdomen. FINDINGS: RIGHT KIDNEY: Normal location of the right kidney, which is atrophic. The right kidney measures 8.8 x 3.2 x 3.8 cm. There is a normal cortex of the right kidney. The renal cortex measures 1.2 cm. There is no right renal mass or cyst. There are no right renal calculi. There is no right hydronephrosis. DISTAL RIGHT URETER: There is non-visualization of the distal right ureter. There is no demonstrated right ureterovesical junction calculus. There is a visualized right ureteral jet. LEFT KIDNEY: Normal location of the left kidney, which is normal in size. The left kidney measures 12.3 x 4.8 x 4.8 cm. There is a normal cortex of the left kidney. The renal cortex measures 1.9 cm. There is no left renal mass or cyst. There are no left renal calculi. There is no left hydronephrosis. DISTAL LEFT URETER: There is non-visualization of the distal left ureter. There is no demonstrated left ureterovesical junction calculus. There is a visualized left ureteral jet. AORTA: There is no elongation or tortuosity of the abdominal aorta. I.V.C.: The IVC is patent. BLADDER: The bladder sonographically normal Ascites noted US/Kidney and Bladder IMPRESSION: Right kidney remains smaller than the left without evidence of obstruction. No obstructive uropathy or suspicious lesion Ascites Electronically Signed: Gene Grider MD at 22:42 EDT , Service support ,
[2018-10-05] MEDS: hydrALAZINE 50 MG Tablet 100 MG PO ×2 (15:55→21:18)
[2018-10-05 16:11] LABS: Bedside Glucose 126 mg/dL (70-110)
[2018-10-05 16:11] LABS: Bacteria 0 SEEN /hpf (None Seen); Mucous, Urine 0 SEEN /hpf (<or=2+); Red Blood Cells-Urine 0 SEEN /hpf (0-5)
[2018-10-05 16:15] LABS: Color, Urine Yellow (Yellow); Glucose, Dipstick Normal (Normal); Ketone-Dipstick Negative (Negative); Leukocyte Esterase-Dipstick Negative /ul (Negative); Nitrite-Dipstick Negative (Negative); Occult Blood-Urine Negative /ul (Negative); Protein-Dipstick 100 mg/dl (Negative); Urine Bilirubin Dipstick Negative (Negative); Urine Clarity Clear (Clear); Urine Urobilinogen Normal (Normal)
[2018-10-05 16:24] LABS: Squamous Epithelial Cells - UA 5-10 SEEN /hpf (5-10); White Blood Cells 0-5 SEEN /hpf (0-5)
[2018-10-05 16:25] LABS: Bedside Glucose 70 mg/dL (70-110)
[2018-10-05 21:25] LABS: Bedside Glucose 132 mg/dL (70-110)
[2018-10-06] VITALS (11 sets, daily range): BP systolic 121–159; BP diastolic 80–119; PULSE 73–92; RESP 14–16; TEMP 36.4–36.7; O2SAT 93–97
[2018-10-06] MEDS: traMADol 50 MG Tablet PO ×3 (00:33→21:32)
[2018-10-06] MEDS: hydrALAZINE 50 MG Tablet 100 MG PO ×2 (05:13→14:19)
[2018-10-06] MEDS: Isosorbide DN 30 MG Tablet 60 MG PO ×2 (05:14→14:19)
[2018-10-06] MEDS: Bumetanide 1 MG/4 ML Vial 2 MG IV ×3 (05:14→21:33)
[2018-10-06 05:47] LABS: Absolute Lymphocyte Count 2.44 X10^3/uL (0.83-4.51); Absolute Neutrophil Count 2.3 X10^3/uL (2.0-7.7); Basophil# 0.06 X10^3/uL; Basophil% 1.1 % (0-1); Eosinophil# 0.16 X10^3/uL; Eosinophils% 2.9 % (0-5); Hematocrit 35.7 % (37-47); Hemoglobin 10.7 g/dL (12.0-15.0); Lymphocyte # 2.44 X10^3/ul (4.0); Lymphocyte % 44.9 % (19-41); Mean Corpuscular Hgb 25.8 pg (27.0-32.0); Mean Platelet Vol. 11.1 fl (6.2-12.0); Monocyte# 0.49 X10^3/uL; NRBC Flagged by Analyzer 0 % (0-5); Neutrophil # 2.27 X10^3/uL (2.7-7.7); Neutrophil % 41.7 % (47-70); Platelet Count 193 K/mm3 (150-450); RBC Distribution Width CV 17.6 % (11.6-14.6); RBC Distribution Width SD 55.4 fl (35.1-43.9); Red Blood Count 4.15 M/mm3 (4.2-5.4); White Blood Count 5.4 K/mm3 (4.4-11.0)
[2018-10-06 06:13] LABS: Globulin 3.4 g/dL (2.2-4.2); LDH 248 U/L (84-246); Protein, Total 6.9 g/dL (6.4-8.2)
[2018-10-06 06:46] LABS: Bedside Glucose 158 mg/dL (70-110)
[2018-10-06] MEDS: Ondansetron 4 MG/2 ML Vial IV ×2 (08:46→14:26)
[2018-10-06] MEDS: 0.9% NaCl Peripheral Flush Adult/Peds IV ×4 (08:51→21:38)
--- NOTE | 2018-10-06 09:26 | PN.CARD_ITS ---
Subjectve: The patient states that she does feel better since being rehospitalized and being on IV diuretic therapy. Objective: Vital Signs Temp Pulse Resp BP Pulse Ox 98.0 F 76 15 147/119 H 97 10/06/18 05:00 10/06/18 07:00 10/06/18 05:00 10/06/18 05:00 10/06/18 07:00 Oxygen Flow Rate (L/min) 4 Oxygen Delivery Method Nasal Cannula Weight: 146 lb 6.191 oz Body Mass Index (BMI) 22.8 Finger Stick Blood Glucose 151 Intake and Output for Last 24 Hours 10/04/18 10/05/18 10/06/18 23:59 23:59 23:59 Intake Total 906.5 / 1122.2 296.7 / 296.7 Output Total 1180 / 1680 900 / 900 Balance -273.5 / -557.8 -603.3 / -603.3 General: Awake, Alert, Oriented x 3, Cooperative, No Acute Distress HEENT: Atraumatic, Normocephalic, PERRL, EOMI, Sclera Non Icteric Oral: Moist Mucosa Neck: Supple, Good ROM, No JVD Lungs: Diminished Right Base Cardiovascular: Regular Rhythm, Normal S1, Normal S2 Vascular: No Carotid Bruits Abdomen: Bowel Sounds Present, Soft, Non Tender Extremities: No edema Psych/Mental Status: Flat Affect 10/05/18 16:00: Urine Color Yellow, Urine Clarity Clear, Urine pH 6.0, Ur Specific [place] 1.010, Urine Protein 100 H, Urine Glucose (UA) Normal, Urine Ketones Negative, Urine Occult Blood Negative, Urine Nitrite Negative, Urine Bilirubin Negative, Urine Urobilinogen Normal, Ur Leukocyte Esterase Negative, Urine RBC 0 SEEN, Urine WBC 0-5 SEEN 10/06/18 05:25: WBC 5.4, RBC 4.15 L, Hgb 10.7 L, Hct 35.7 L, MCV 86.0, MCH 25.8 L, MCHC 30.0 L, Plt Count 193, MPV 11.1, Immature Gran % (Auto) 0.400, Neut % (Auto) 41.7 L, Lymph % (Auto) 44.9 H, [place] % (Auto) 9.0, Eos % (Auto) 2.9, Baso % (Auto) 1.1 H, Absolute Neuts (auto) 2.3, Nucleated RBC % 0 Rhythm: Sinus rhythm Medical Necessity - Tobacco Use Smoking Status: Former smoker Assessment/Plan 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 She notes her cardiovascular issues became aware in the fall 2017. She has been followed by [facility] cardiovascular services in the interim. He was recently evaluated and treated medically with respect to adjustment of her diuretic therapy. She was subsequently released home for continued outpatient cardiovascular follow-up with her primary propellant charge loader in [place], [place] scheduled for 10-08-18. However she presented back with concerns of recurrent volume overload and pleural effusion. She continues to be monitored. She continues medical adjustment with IV diuretic therapy at this time. 2. Chronic systolic mediated CHF The patient has a history of chronic systolic mediated CHF. She will need continued medical management as described above. 3. Left ventricular thrombus She states there is been a history of a left ventricular thrombus. She has been on anticoagulation in the past. As previously noted based upon her recent echocardiographic study it did not appear to be evidence of ongoing left ventricular thrombus. She states that she did contact her primary propellant charge loader after leaving the hospital and despite the aforementioned findings was advised to remain on anticoagulant therapy. 4. Pleural effusion There is concern as to whether or not her right-sided pleural effusion is contributing to her right sided discomfort. Thus she has been asked upon consultation yesterday to be considered, if there is ample pleural fluid present, for a right-sided thoracentesis to alleviate this process and hopefully her associated right-sided discomfort. 5. Acute renal insufficiency Her renal function, creatinine level, will need to be followed as her medications are adjusted. 6. Anemia She was anemic during her recent hospitalization. She did receive PRBCs. Again with lack of left ventricular thrombus, noting her marked anemia requiring PRBCs, but it was felt reasonable at that time that she remained without her anticoagulant therapy. However she states she was told by her primary propellant charge loader at the tertiary care center to resume her anticoagulant therapy. Her H&H should be followed as if it declines again her anticoagulant therapy status will need to be revisited. This note was generated with the [employer] software. It may contain incorrect words, spelling, and punctuation that were not noted in checking the note before signing.
[2018-10-06] MEDS: Pantoprazole Sodium 40 MG Tablet PO (10:52)
[2018-10-06] MEDS: Carvedilol 25 MG Tablet PO ×2 (10:52→21:33)
[2018-10-06] MEDS: amLODIPine 5 MG Tablet PO ×2 (10:52→14:19)
--- NOTE | 2018-10-06 11:26 | PN.RENAL_ITS ---
Patient Problems: Active and Suspected Problems Healthcare-associated pneumonia (Acute) Acute on chronic combined systolic (congestive) and diastolic (congestive) heart failure (Acute) Subjective: Patient is having right thoracic back pain with deep inspiration No nausea No vomiting. On stable 02 at 4 l/m Edema has resolved. She said she is making more urine - Physical Exam General: Alert, Oriented x3 HEENT: Atraumatic Oral: Moist Mucosa Neck: Supple, No JVD Lungs: No wheeze, - - RLE crackles Cardiovascular: Regular rate, Regular Rhythm, Normal S1, Normal S2 Abdomen: Bowel Sounds Present, Soft, Non Tender, Non-Distended Extremities: No clubbing, No cyanosis, No edema Musculoskeletal: No Tenderness to Palpation of Joints or Extremities Lymphatic: No Cervical, Supraclavicular, or Inguinal Adenopathy Neurological: Cranial nerves II-XII grossly intact, Neuro grossly intact Psych/Mental Status: Appropriate Vital Signs Temp Pulse Resp BP Pulse Ox 97.6 F L 87 14 159/117 H 97 10/06/18 10:00 10/06/18 10:00 10/06/18 10:00 10/06/18 10:00 10/06/18 10:00 Oxygen Flow Rate (L/min) 4 Oxygen Delivery Method Nasal Cannula Weight: 66.4 kg Body Mass Index (BMI) 22.8 Finger Stick Blood Glucose 151 Intake and Output for Last 24 Hours 10/04/18 10/05/18 10/06/18 23:59 23:59 23:59 Intake Total 906.5 / 1122.2 296.7 / 296.7 Output Total 1180 / 1680 900 / 900 Balance -273.5 / -557.8 -603.3 / -603.3 Laboratory Tests Past 24 Hrs 10/05/18 10/06/18 10/06/18 16:00 05:25 05:25 WBC 5.4 RBC 4.15 L Hgb 10.7 L Hct 35.7 L MCV 86.0 MCH 25.8 L MCHC 30.0 L RDW Std Deviation 55.4 H RDW Coeff of Genevieve 17.6 H Plt Count 193 MPV 11.1 Immature Gran % (Auto) 0.400 Neut % (Auto) 41.7 L Lymph % (Auto) 44.9 H [place] % (Auto) 9.0 Eos % (Auto) 2.9 Baso % (Auto) 1.1 H Absolute Neuts (auto) 2.3 Absolute Lymphs (auto) 2.44 Nucleated RBC % 0 Lactate Dehydrogenase 248 H Total Protein 6.9 Globulin 3.4 Albumin/Globulin Ratio 1.0 Urine Color Yellow Urine Clarity Clear Urine pH 6.0 Ur Specific [place] 1.010 Urine Protein 100 H Urine Glucose (UA) Normal Urine Ketones Negative Urine Occult Blood Negative Urine Nitrite Negative Urine Bilirubin Negative Urine Urobilinogen Normal Ur Leukocyte Esterase Negative Urine RBC 0 SEEN Urine WBC 0-5 SEEN Ur Squamous Epith Cells 5-10 SEEN Urine Bacteria 0 SEEN Urine Mucus 0 SEEN POC Glucose 10/06/18 10/05/18 10/05/18 06:42 21:13 16:18 POC Glucose 158 H 132 H 70 10/05/18 10/05/18 11:22 05:57 POC Glucose 149 H 126 H Medical Necessity - Tobacco Use Smoking Status: Former smoker Assessment/Plan All Active Problems Bilateral pneumonia (Resolved) Myocarditis (Resolved) DKA (diabetic ketoacidoses) (Resolved) Healthcare-associated pneumonia (Acute) Acute on chronic combined systolic (congestive) and diastolic (congestive) heart failure (Acute) Abscess of leg, left (Resolved) Hyperglycemia (Acute) DKA (diabetic ketoacidoses) (Resolved) KANU (acute kidney injury) (Acute) Narcotic withdrawal (Resolved) Acute kidney injury on CKD stage3. Baseline Cr 1.7-2.5 mg/dL. Renal UA showed right atrophic kidney KANU is likely prerenal from cardiorenal syndrome . Cr is stable at 2.8 mg/dL UA showed 100 protein. Will check UPCR Continue the same dose of Bumex Avoid ACEI/ARB Will continue to monitor renal function while on diuretics Systolic heart failure . stable 02 Requirement Continue Bumex. CHF measures as per cardiology service Hypertension. Elevated. Will increase Norvasc to 1 mg PO daily Continue the rest of BP medications Renal team will continue to follow Please call if any question or concern at [phone] Will d/w Dr. Iram Oliva MD
--- NOTE | 2018-10-06 12:12 | CT_ITS ---
STUDY: CT CHEST WITHOUT CONTRAST REASON FOR EXAM: Female, 23 years old. Fever, cough, chest pain RADIATION DOSAGE (If Supplied By Facility): CTDIvol = ( 6.52 ) mGy, DLP = ( 229.87 ) mGycm TECHNIQUE: Transaxial imaging was performed without the administration of intravenous contrast material. Multiplanar coronal and sagittal images were reformatted. Individualized dose optimization techniques were used for this CT. COMPARISON: None. FINDINGS: Thyroid gland is of normal size with low-density nodules. The lung windows show the lungs to be normally expanded. Scattered patchy airspace opacifications in both lung pollack consistent with pneumonitis. There are free-flowing bilateral pleural effusions, right greater than left and bibasilar consolidations also right greater than left. Both lower lobe consolidations have air bronchograms and could be inflammatory. There is cardiomegaly. Normal mediastinum. Normal hilar regions. Normal unenhanced pulmonary arteries. Normal aorta arch and descending thoracic aorta. Normal osseous structures. There is hepatomegaly CT/Chest without Contrast IMPRESSION: Multifocal pneumonitis with free-flowing bilateral pleural effusions, right greater than left and bibasilar consolidations, also right greater than left. The bibasilar consolidations containing air bronchograms and could represent infiltrates. Cardiomegaly Hepatomegaly Normal sized thyroid gland with multiple low-density nodules suggests goiter Electronically Signed: Gene Grider MD at 13:32 EDT , Service support ,
[2018-10-06] MEDS: Dextrose 50%-Water 25 GM/50 ML DISP.SYRIN IV ×3 (12:19→16:34)
[2018-10-06 12:46] LABS: Bedside Glucose 70 mg/dL (70-110)
[2018-10-06 12:46] LABS: Bedside Glucose 129 mg/dL (70-110)
[2018-10-06 13:47] LABS: International Normalized Ratio 1.2; Prothrombin Time (Protime)PT. 15.3 SECONDS (11.7-14.9)
[2018-10-06 13:48] LABS: Partial Thromboplast Time 32.8 Seconds (24.1-36.2)
[2018-10-06] MEDS: Ferrous Sulfate 325 MG Tablet PO (14:19)
--- NOTE | 2018-10-06 14:39 | CASEMGMT ---
Readmission chart review: Pt was initially admitted to the ICU 09/29-10/02/18 for DKA and then transferred to PCU prior to discharge. Pt was discharged home with resumption of HHC thru [facility] at that time. See assessment completed by Jenna LARSEN CM on 09/30/18 and CM f/u by this RN CM on 10/02/18. Pt returned to [facility] ED 10/04/18 for increased SOB, dizziness, upper back pain. Pt stated 6lb wgt gain but actually according to d/c wgt and readmit wgt, pt had a 14.5lb weight gain in the two days she was home. Pt now with bilat pleural effusions right greater than left and bibasilar consolidations. Call to [facility] and they state that they had not been out to resume care on pt in the two days that she was home. Advised them of her return to [facility] for admission and of her weight gain, voices understanding. Advised [facility] that this RN CM would send KYLER again with d/c summ/instructions once discharged and notify them via phone,voice understanding. While this RN CM was on phone with [facility], Dr. Walden asked for this RN CM to inquire if the [facility] could complete a drug screen on pt if lab test was ordered and per [facility], they could complete the drug screen. CM to follow pt for any further discharge planning/needs. Blank LARSEN CM
--- NOTE | 2018-10-06 14:51 | PCM.PROGNOTE ---
Patient Problems: Active and Suspected Problems Healthcare-associated pneumonia (Acute) Acute on chronic combined systolic (congestive) and diastolic (congestive) heart failure (Acute) Subjective: Ms. 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 She was admitted with DKA at that time and also acute anemia requiring transfusion. A hemoccult stool was not obtained. She had been taking Eliquis for a mural thrombus. An ECHO during that admission did not show a mural thrombus and the Eliquis was discontinued. Significant imaging at the time of her first admission included a renal ultrasound that showed an atrophic right kidney with no evidence of obstruction. There was ascites present. Venous ultrasounds of the lower extremities were negative for DVT. Echocardiogram showed a 25% ejection fraction with severe global left ventricular systolic dysfunction. There was mild to moderate mitral valve insufficiency, poor coaptation of the tricuspid valve, moderate tricuspid regurgitation, moderate pulmonic valve insufficiency and an elevated right ventricular systolic pressure at 48. There was evidence of diastolic dysfunction and the bubble contrast study was negative for right to left intra-atrial shunt. There was no mural thrombus. Right upper quadrant ultrasound showed a normal distended gallbladder with a negative sonographic Clark sign. There were no gallstones. The pancreas appeared normal. She had hepatomegaly. A VQ scan was normal. CT scan of the abdomen pelvis showed mild to moderate ascites and bilateral pleural effusions. She has been admitted to [facility] 5 times over the past year. She has also had multiple ER visits for back pain, flank pain, abdominal pain. She has also had several admissions to [facility]. She has a web operations administrator at [facility] but continues to come to [facility] for care. Her web operations administrator told her to resume the Eliquis after it was discontinued at her last visit to [facility]. she has an appt scheduled with her web operations administrator on 10/08. Her weight at discharge on 10/02/2018 was 132 pounds and 4-1/2 ounces. Her weight 2 days later was 146 and 13 ounces. She tells me that she has been compliant with her medications and was sticking to a 2000 cc fluid restriction. BP at admission this time was 124/76 and today her blood pressure was as high as 147/119. She is complaining of nausea and states she had an emesis. HGBA1C at the last admission was 11.7. She presented to the ED on 10/04/18 with a c/o back pain over the right lower thoracic area and she told the ER doc that she had gained 6 lbs just that day......on a reported 2,000 cc fluid restriction. WBC count at admission was 5.0 with an unremarkable differential. The hemoglobin was 10.7 which was stable. Platelets were within normal limits. The creatinine was 2.89, up from 2.43 on 10/02/2018. The chest x-ray was reported by the radiologist to show right lower lobe pneumonia with pleural effusion. She was afebrile throughout both hospital admissions. She has not been coughing. Fluid balance on 10/05/2018 was -273. So far today she is -603. She has been seen by [facility] and I reviewed Dr. Oliva's note from today. He recommended we continue Bumex and advised no use of AIMEE/ARB. Because of uncontrolled BP the Amlodipine was increased to 10 mg daily. I also reviewed Dr. Chase's note from today. Afebrile since admission Telemetry shows normal sinus rhythm without ectopy Blood pressures are erratic and have ranged from 121/90-150 9/117 today. She is 96 to 97% saturated on a [address] scan of the chest today showed reported multifocal pneumonitis with bilateral pleural effusions, right greater than left and bibasilar compressive atelectasis greater on the right. The thyroid gland had multiple low-density nodules. She continues to c/o R side back pain which is worse with standing. She is also c/o nausea and had an emesis. Poor intake today. I looked at her OARRS report and she had 3 prescriptions ofr Narcotics from ED physicians in July in [place]. She has also had an RX for narcotis from an ED in [place] within the past 6 months. she denies any illicit drug use and also denies prescription drug abuse. - Physical Exam General: Alert, Oriented x3, Well developed, Well nourished, - - pale, lying in a dark room in bed. she is nearly flat in bed and has no respiratory distress. HEENT: Atraumatic, PERRLA, EOMI, Normocephalic Oral: Moist Mucosa Neck: Supple, No Nodes, No Nuchal Rigidity, Trachea Midline Lungs: No wheeze, No rales, Diminished - in the R base Cardiovascular: Regular rate, Regular Rhythm, Normal S1, Normal S2, No murmurs, No Ectopic Activity, No rub noted, No Gallop Abdomen: Bowel Sounds Present, Soft, Non-Distended, - - tender in the RUQ with no guarding with palpation. There is hepatomegaly present. she has mild pitting edema in the flanks BL Extremities: No clubbing, No cyanosis, Edema Skin: No rashes Neurological: Cranial nerves II-XII grossly intact, Neuro grossly intact Psych/Mental Status: Flat Affect Vital Signs Temp Pulse Resp BP Pulse Ox 97.6 F L 77 14 149/109 H 96 10/06/18 14:13 10/06/18 14:19 10/06/18 14:13 10/06/18 14:13 10/06/18 14:13 Oxygen Flow Rate (L/min) 4 Oxygen Delivery Method Nasal Cannula Weight: 146 lb 6.191 oz Body Mass Index (BMI) 22.8 Finger Stick Blood Glucose 151 Intake and Output for Last 24 Hours 10/04/18 10/05/18 10/06/18 23:59 23:59 23:59 Intake Total 906.5 / 1122.2 296.7 / 296.7 Output Total 1180 / 1680 900 / 900 Balance -273.5 / -557.8 -603.3 / -603.3 Laboratory Tests Past 24 Hrs 10/05/18 10/06/18 10/06/18 16:00 05:25 05:25 WBC 5.4 RBC 4.15 L Hgb 10.7 L Hct 35.7 L MCV 86.0 MCH 25.8 L MCHC 30.0 L RDW Std Deviation 55.4 H RDW Coeff of Genevieve 17.6 H Plt Count 193 MPV 11.1 Immature Gran % (Auto) 0.400 Neut % (Auto) 41.7 L Lymph % (Auto) 44.9 H [place] % (Auto) 9.0 Eos % (Auto) 2.9 Baso % (Auto) 1.1 H Absolute Neuts (auto) 2.3 Absolute Lymphs (auto) 2.44 Nucleated RBC % 0 PT INR APTT Lactate Dehydrogenase 248 H Total Protein 6.9 Globulin 3.4 Albumin/Globulin Ratio 1.0 Urine Color Yellow Urine Clarity Clear Urine pH 6.0 Ur Specific [place] 1.010 Urine Protein 100 H Urine Glucose (UA) Normal Urine Ketones Negative Urine Occult Blood Negative Urine Nitrite Negative Urine Bilirubin Negative Urine Urobilinogen Normal Ur Leukocyte Esterase Negative Urine RBC 0 SEEN Urine WBC 0-5 SEEN Ur Squamous Epith Cells 5-10 SEEN Urine Bacteria 0 SEEN Urine Mucus 0 SEEN 10/06/18 13:30 WBC RBC Hgb Hct MCV MCH MCHC RDW Std Deviation RDW Coeff of Genevieve Plt Count MPV Immature Gran % (Auto) Neut % (Auto) Lymph % (Auto) [place] % (Auto) Eos % (Auto) Baso % (Auto) Absolute Neuts (auto) Absolute Lymphs (auto) Nucleated RBC % PT 15.3 H INR 1.2 APTT 32.8 Lactate Dehydrogenase Total Protein Globulin Albumin/Globulin Ratio Urine Color Urine Clarity Urine pH Ur Specific [place] Urine Protein Urine Glucose (UA) Urine Ketones Urine Occult Blood Urine Nitrite Urine Bilirubin Urine Urobilinogen Ur Leukocyte Esterase Urine RBC Urine WBC Ur Squamous Epith Cells Urine Bacteria Urine Mucus POC Glucose 10/06/18 10/06/18 10/06/18 12:41 12:02 06:42 POC Glucose 129 H 70 158 H 10/05/18 10/05/18 10/05/18 21:13 16:18 05:57 POC Glucose 132 H 70 126 H Medical Necessity - Tobacco Use Smoking Status: Former smoker Assessment/Plan All Active Problems Bilateral pneumonia (Resolved) Myocarditis (Resolved) DKA (diabetic ketoacidoses) (Resolved) Healthcare-associated pneumonia (Acute) Acute on chronic combined systolic (congestive) and diastolic (congestive) heart failure (Acute) Abscess of leg, left (Resolved) Hyperglycemia (Acute) DKA (diabetic ketoacidoses) (Resolved) KANU (acute kidney injury) (Acute) Narcotic withdrawal (Resolved) Impressions 1. Acute on chronic systolic congestive heart failure 2. Acute renal failure on chronic renal failure stage III 3. Persistent complaints of right side back pain with a negative gallbladder ultrasound and reported normal HIDA scan at [facility]. Also had a recent negative VQ scan. 4. Persistent complaints of nausea.... Acute blood loss anemia on recent admission requiring transfusion - presumed to be due to GI bleed 5. Uncontrolled hypertension - I am concerned with the increasing BP and the reports of N/V that she may be in withdrawal.......she denies chronic narcotic use 6. Hepatitis C and also has had Hep A in the past. 7. Severe cardiomyopathy with a 25% ejection fraction and history of a mural thrombus which was not present on recent echo at [facility] 8. Chronic respiratory failure on a 4 L nasal cannula 9. Bilateral pleural effusions, right greater than left 10. suspect the air bronchograms in the R base are due to compressive atelectasis and not due to PNA in this AF pt with no fever, normal WBC and diff. 11. Former tobacco dependence 12. Chronic anticoagulation with Eliquis 13. suspected non-compliance.......gained 14 lbs in 2 days out of the hospital 14. DM I - uncontrolled with a recent HGBA1C of 11.7 TSH, hemoccult stool, PT/PTT, ESR and CRP....if these are markedly elevated will need to consider disc space infection in the thoracic spine or osteomyelitis with her hx of IV drug use and suspicion that she still may be using with markedly increased BP today and nausea with emesis.....on a Lidoderm patch and Ultram...using this about every 6 hours. thoracentesis in the AM - diagnostic and therapeutic Refused dietary education continue the BUMEX recheck lab in the AM I am curious about why she continues to come to [facility] when her web operations administrator is at [facility] and she has had multiple admissions to [facility] in the past year...francisco j when she disregards the instructions she got here in favor of what her web operations administrator at [facility] reportedly tells her.....I would like to talk with her web operations administrator at [facility] to see if he also has suspicions of non-compliance and ongoing drug use. We requested records from [facility] at last admission and will see if Medical records still has the records for me to review. I spent an hour reviewing the chart, old records, talking with the patient and arranging for further testing. Code Visit Inpatient E&M: 78591 Subs Hosp L3
[2018-10-06 15:06] LABS: Bedside Glucose 53 mg/dL (70-110)
[2018-10-06 15:06] LABS: Bedside Glucose 92 mg/dL (70-110)
[2018-10-06 15:59] LABS: Erythrocyte Sedimentation Rate 10 mm/hr (0-20)
[2018-10-06 16:14] LABS: Thyroid Stim Hormone (TSH) 4.09 uIU/mL (0.358-3.74)
[2018-10-06 17:11] LABS: Bedside Glucose 43 mg/dL (70-110)
[2018-10-06 17:11] LABS: Bedside Glucose 160 mg/dL (70-110)
[2018-10-06] MEDS: Insulin Lispro 100 UNIT/ML INSULN.PEN SC (21:35)
[2018-10-06 22:05] LABS: Bedside Glucose 164 mg/dL (70-110)
[2018-10-07] VITALS (13 sets, daily range): BP systolic 122–140; BP diastolic 82–104; PULSE 73–86; RESP 12–18; TEMP 36.4–36.8; O2SAT 93–100
--- NOTE | 2018-10-07 | FLU_PTH ---
PATIENT: SANTO FLORES LOC: [facility] U#:[id number] AGE/SX: 23/F ROOM: ICU02 RE10/04/[address]: Dr. Marizol Walden DO : 1995 BED: 1 DIS: 10/09/2018 SPEC #: [id number] RECD: 10/07/18 14:23 STATUS: TERE REQ #: [id number] ANNELIESE: 10/07/18 00:[address]: Marizol Walden DEPT: CYTOLOGY RECD BY: José Luis High ENTERED: 10/07/18 14:24 SP TYPE: Fluid OTHR DR: MD Dr. Андрей Gonzales MD Dr. Paul Moodispaw, MD Ryan Baltes, NP-Alvaro Tissues: THORACIC FLUID Procedures: Special Stain Group II Surgery Specimen Level IV Cytospin Fluid HEADER OPERATION: Thoracentesis PRE-OP DIAGNOSIS: History of CHF TISSUE SUBMITTED: Thoracentesis fluid for cytology DIAGNOSIS CYTOLOGY Thoracentesis fluid for cytology (cytospin and cell block): Negative for malignant cells. RINKU:catalina 10/08/18 CYTOLOGY STUDY Slides are reviewed. CYTOLOGY GROSS Received is 100 ml of red cloudy fluid labeled with the patient's name and and designated per the requisition as thoracentesis. Submitted for cytology preparation including cell block. 10/07/18 TC:5 CPT: 06314, 89207
[2018-10-07 03:26] LABS: Bedside Glucose 77 mg/dL (70-110)
[2018-10-07] MEDS: traMADol 50 MG Tablet PO ×4 (04:05→22:51)
[2018-10-07 04:36] LABS: Bedside Glucose 53 mg/dL (70-110)
[2018-10-07 04:36] LABS: Bedside Glucose 59 mg/dL (70-110)
[2018-10-07] MEDS: Dextrose 50%-Water 25 GM/50 ML DISP.SYRIN IV (04:48)
[2018-10-07] MEDS: 0.9% NaCl Peripheral Flush Adult/Peds IV ×5 (04:51→21:59)
[2018-10-07] MEDS: hydrALAZINE 50 MG Tablet 100 MG PO ×2 (05:18→13:34)
[2018-10-07] MEDS: Bumetanide 1 MG/4 ML Vial 2 MG IV ×3 (05:18→21:47)
[2018-10-07] MEDS: Isosorbide DN 30 MG Tablet 60 MG PO (05:19)
[2018-10-07 05:48] LABS: Hematocrit 31.1 % (37-47); Hemoglobin 9.8 g/dL (12.0-15.0)
[2018-10-07 06:05] LABS: International Normalized Ratio 1.2; Prothrombin Time (Protime)PT. 15.1 SECONDS (11.7-14.9)
[2018-10-07 06:06] LABS: Partial Thromboplast Time 31.4 Seconds (24.1-36.2)
[2018-10-07 06:12] LABS: Anion Gap 12 (5-15); BUN 70 mg/dL (7-18); BUN/Creat Ratio 25.6 RATIO (10-20); Calcium,Total 8.7 mg/dL (8.5-10.1); Chloride 100 mmol/L (98-107); Creatinine, Serum 2.73 mg/dL (0.55-1.02); EST Glomerular Filtration Rate 23 mL/min (>60); Est Glom Filt Rate - Afr Amer 27 mL/min (>60); Glucose 144 mg/dL (74-106); Magnesium 2.3 mg/dL (1.6-2.6); Phosphorus 5.9 mg/dL (2.5-4.9); Potassium 5.4 mmol/L (3.5-5.1); Sodium Level 137 mmol/L (136-145)
[2018-10-07 06:16] LABS: Bedside Glucose 142 mg/dL (70-110)
--- NOTE | 2018-10-07 08:11 | PN_ITS ---
Patient Problems: Active and Suspected Problems Healthcare-associated pneumonia (Acute) Acute on chronic combined systolic (congestive) and diastolic (congestive) heart failure (Acute) Subjective: All events of the past 24 hours been reviewed. Afebrile since admission. Blood pressures were elevated most of the day yesterday but when she is sleeping her blood pressure was 131/95-1302/97. Amlodipine was increased to [address] Oliva. She is currently 93 to 95% on a 2 L nasal cannula. Fluid balance for 10/06/2018 was -1368 and overnight she had an additional -450. Weight today is 143 and 1.3 ounces Urine output on 10/06/2018 was 2100 cc and she had an additional 700 cc overnight. All lab was personally reviewed. Hemoglobin is 9.8 today and stable. Potassium is mildly increased at 5.4, up from 5.1 yesterday. BUN is 70 with a creatinine of 2.73, down from 2.89 on 10/04/2018. TSH is mildly increased to 4.09. CRP was 14.4 and the ESR was 10. CT scan of the chest showed no osseous abnormalities. It showed bilateral pleural effusions, R>L She is scheduled for a diagnostic and therapeutic thoracentesis today. The PT is 15.1 and the PTT is 31.4. She has been off the Eliquis. No mural thrombus on recent ECHO. The fluid is consistent with transudate. There are 473 white blood cells and 6 red blood cells with 88% lymphocytes and 5% neutrophils. Culture is pending. Cytology is pending. A total of 360 cc was removed at thoracentesis. Chest x- ray postprocedure shows no pneumothorax but persistent bilateral pleural effusions, right greater than left. Denies nausea today and ate her breakfast. She has had no further emesis. Denies chest pain. She denies shortness of breath at rest but has shortness of breath with exertion. - Physical Exam General: Alert, Oriented x3, Cooperative, No apparent distress HEENT: PERRLA, EOMI Oral: Moist Mucosa Neck: Supple Lungs: No rhonchi, No wheeze, No rales, Diminished - Right greater than left base Cardiovascular: Regular rate, Regular Rhythm, Normal S1, Normal S2, Murmur - 2/6 systolic murmur at the lower left sternal border, No rub noted, No Gallop Abdomen: Bowel Sounds Present, Soft, Non Tender, Non-Distended Extremities: No edema Neurological: Cranial nerves II-XII grossly intact, Neuro grossly intact Psych/Mental Status: Appropriate, Flat Affect Vital Signs Temp Pulse Resp BP Pulse Ox 97.7 F L 83 18 131/95 H 95 10/07/18 05:15 10/07/18 05:18 10/07/18 05:15 10/07/18 05:15 10/07/18 05:15 Oxygen Flow Rate (L/min) 2 Oxygen Delivery Method Nasal Cannula Weight: 143 lb 1.28 oz Body Mass Index (BMI) 22.8 Finger Stick Blood Glucose 151 Intake and Output for Last 24 Hours 10/05/18 10/06/18 10/07/18 23:59 23:59 23:59 Intake Total 906.5 / 1122.2 731.7 / 731.7 250 / 250 Output Total 1180 / 1680 2100 / 2100 700 / 700 Balance -273.5 / -557.8 -1368.3 / -1368.3 -450 / -450 Laboratory Tests Past 24 Hrs 10/05/18 10/06/18 10/06/18 05:26 05:25 05:25 Hgb Hct ESR 10 PT INR APTT Sodium Potassium Chloride Carbon Dioxide Anion Gap BUN Creatinine Estim Creat Clear Calc Est GFR (MDRD) Af Amer Est GFR (MDRD) Non-Af BUN/Creatinine Ratio Glucose Calcium Phosphorus Magnesium C-React Prot Ext Range 14.40 H TSH 4.09 H Thyroglobulin Antibody Pending Thyroid Peroxidase Ab Pending 10/06/18 10/07/18 10/07/18 13:30 05:30 05:30 Hgb 9.8 L Hct 31.1 L ESR PT 15.3 H INR 1.2 APTT 32.8 Sodium 137 Potassium 5.4 H Chloride 100 Carbon Dioxide 25.0 Anion Gap 12 BUN 70 H Creatinine 2.73 H Estim Creat Clear Calc 30.90 Est GFR (MDRD) Af Amer 27 L Est GFR (MDRD) Non-Af 23 L BUN/Creatinine Ratio 25.6 H Glucose 144 H Calcium 8.7 Phosphorus 5.9 H Magnesium 2.3 C-React Prot Ext Range TSH Thyroglobulin Antibody Thyroid Peroxidase Ab 10/07/18 05:30 Hgb Hct ESR PT 15.1 H INR 1.2 APTT 31.4 Sodium Potassium Chloride Carbon Dioxide Anion Gap BUN Creatinine Estim Creat Clear Calc Est GFR (MDRD) Af Amer Est GFR (MDRD) Non-Af BUN/Creatinine Ratio Glucose Calcium Phosphorus Magnesium C-React Prot Ext Range TSH Thyroglobulin Antibody Thyroid Peroxidase Ab POC Glucose 10/07/18 10/07/18 10/07/18 05:10 04:29 04:09 POC Glucose 142 H 59 L 53 L 10/07/18 10/06/18 10/06/18 03:22 21:32 17:05 POC Glucose 77 164 H 160 H 10/06/18 10/06/18 10/06/18 16:26 15:01 14:28 POC Glucose 43 L* 92 53 L 10/06/18 10/06/18 12:41 12:02 POC Glucose 129 H 70 Medical Necessity - Tobacco Use Smoking Status: Former smoker Assessment/Plan All Active Problems Bilateral pneumonia (Resolved) Myocarditis (Resolved) DKA (diabetic ketoacidoses) (Resolved) Healthcare-associated pneumonia (Acute) Acute on chronic combined systolic (congestive) and diastolic (congestive) heart failure (Acute) Abscess of leg, left (Resolved) Hyperglycemia (Acute) DKA (diabetic ketoacidoses) (Resolved) KANU (acute kidney injury) (Acute) Narcotic withdrawal (Resolved) Impressions 1. Acute on chronic systolic congestive heart failure 2. Acute renal failure on chronic renal failure stage III 3. Persistent complaints of right side back pain with a negative gallbladder ultrasound and reported normal HIDA scan at [facility]. Also had a recent negative VQ scan. 4. Persistent complaints of nausea.... Acute blood loss anemia on recent admission requiring transfusion - presumed to be due to GI bleed 5. Uncontrolled hypertension - I am concerned with the increasing BP and the reports of N/V that she may be in withdrawal.......she denies chronic narcotic use 6. Hepatitis C and also has had Hep A in the past. 7. Severe cardiomyopathy with a 25% ejection fraction and history of a mural thrombus which was not present on recent echo at [facility] 8. Chronic respiratory failure on a 4 L nasal cannula 9. Bilateral pleural effusions, right greater than left 10. suspect the air bronchograms in the R base are due to compressive ate lectasis and not due to PNA in this AF pt with no fever, normal WBC and diff. 11. Former tobacco dependence 12. Chronic anticoagulation with Eliquis 13. suspected non-compliance.......gained 14 lbs in 2 days out of the hospital 14. DM I - uncontrolled with a recent HGBA1C of 11.7 The Tramadol has been effective for pain relief. We had a long discussion about the need for compliance with diet, fluid restriction and medications. We also discussed continuity and I did tell her that I feel her many comorbid conditions should be managed at one facility rather than going back and forth between 2 or 3 different facilities to manage renal failure and severe cardiomyopathy. She lives in [place] and she is agreeable to following up with [facility] and Dr. Chase (if Dr. Chase will agree to follow her as an OP) - he feels she needs to be referred to a higher level of care to be evaluated for LVAD, ICD and possibly a transplant. An appt was made for her to follow up at the [facility] here in [place] for therapy for depression and learning how to cope with chronic disease. I have started her on Wellbutrin....she has failed 2 different SSRI's in the past and Doxepin. She agreed to trying the Wellbutrin. D/W Dr. Oliva - will continue the Bumex IV at the current dose......He talked with her about Torsemide vs Bumex and she will go home on Bumex 2 mg BID. She was weaned off oxygen today and is currently 93% on room air. Will need an ambulatory pulse ox prior to discharge. Code Visit Inpatient E&M: 39822 Subs Hosp L2
[2018-10-07] MEDS: Ferrous Sulfate 325 MG Tablet PO (08:45)
[2018-10-07] MEDS: Pantoprazole Sodium 40 MG Tablet PO (08:46)
[2018-10-07] MEDS: amLODIPine 10 MG Tablet PO (08:46)
[2018-10-07] MEDS: Carvedilol 25 MG Tablet PO ×2 (08:46→21:47)
[2018-10-07] MEDS: Insulin Lispro 100 UNIT/ML INSULN.PEN SC ×3 (11:33→21:48)
[2018-10-07 11:40] LABS: Bedside Glucose 190 mg/dL (70-110)
--- NOTE | 2018-10-07 12:26 | CASEMGMT ---
Social Work SW inquired with pt regarding advance directives. Pt states she has filled out an HCPOA while at [facility] and has named her brother Kalyan Koo. Pt does not have a copy of this document and requested one be obtained from [facility]. Release of info faxed to [facility] with request for HCPOA to be faxed to [facility]. HERMAN Burch
--- NOTE | 2018-10-07 12:29 | CASEMGMT ---
Social Work Phone call placed to Jeana [employer] at [facility]. Jeana states she just recently received pt case and CM has not been able to reach pt. Pt did not have a previous CM at [facility]. CM did state pt has had 5 hospital admissions from July 16 split between [facility], [facility] and [facility]. CM will continue to follow. ADENIKE spoke with Dr. Walden who states she has discussed mental health with pt who states she has previously had a counselor but not recently and has had failed anti depressants. Physician to start different anti depressant and has recommended pt use [facility]. SW met with pt in room. Pt stating she has seen counselors in the past at [facility] and [facility] but she did not find this helpful and has not seen anyone since at least January but pt was not clear on last visit. When asked, pt did confirm a desire to see a counselor at [facility] and asked SW to set an appointment on a Saturday when pt father would be able to transport her. Pt has been at [facility] previously for substance abuse but attended one month and quit going as she did not like it. Phone call to [facility] and [facility] does accept pt insurance. Appt made for 10/17 at 1300. SW informed pt of this and she is agreeable and feels her father can transport. SW will remain available should further needs arise. HERMAN Burch
--- NOTE | 2018-10-07 12:30 | US_ITS ---
PROCEDURE: ULTRASOUND GUIDED THORACENTESIS. DATE: October 07, 2018. INDICATION: Female, 23 years old. Right pleural effusion. PHYSICIAN: Domingo Bowman M.D. PROCEDURE: The risks, benefits, and alternatives to the procedure were explained to the patient. The specific risks of bleeding, infection, and pneumothorax requiring chest tube insertion were discussed and accepted. Written informed consent was obtained. Ultrasonographic evaluation of the right lower pleural space was carried out. An adequate pocket was identified. The patient was placed in the sitting, upright position. The overlying skin was prepped and draped in sterile fashion. 1% lidocaine was administered subcutaneously for local anesthesia. Under ultrasound guidance, a 5 Ukrainian thoracentesis needle/catheter system was advanced into the right posterior lower pleural fluid collection. Approximately 360 mL of dark rohan-colored fluid was drained. The catheter was removed, and a sterile dressing was applied. A 120 mL specimen was collected and sent to the laboratory for analysis, as requested by the referring clinician. The patient tolerated the procedure well. A chest x-ray was ordered. US/Thoracentesis W US IMPRESSION: Ultrasound-guided right thoracentesis. Electronically Signed: Domingo Bowman, at 15:10 EDT , Service support ,
--- NOTE | 2018-10-07 12:45 | RAD_ITS ---
STUDY: X-RAY CHEST REASON FOR EXAM: Female, 23 years old. The patient is status post right thoracentesis. TECHNIQUE: AP inspiration and expiration views. COMPARISON: Comparison is made with prior study October 04, 2018. FINDINGS: EKG electrodes are seen. The patient is status post right thoracentesis. There is no evidence of pneumothorax. Small residual bilateral pleural effusions with bibasilar atelectasis. RAD/Chest Insp/Exp 2 View IMPRESSION: Status post right thoracentesis. There is no evidence of pneumothorax. Electronically Signed: Domingo Bowman, at 14:47 EDT , Service support ,
--- NOTE | 2018-10-07 12:55 | PCM.PN.REN ---
Patient Problems: Active and Suspected Problems Healthcare-associated pneumonia (Acute) Acute on chronic combined systolic (congestive) and diastolic (congestive) heart failure (Acute) Subjective: Patient said her breathing is the same. Still on nasal cannula at 4 L/min.\ She said she is making good amount of urine. No nausea no vomiting Pt had right side thoracocentesis with 370 cc fluid removal - Physical Exam General: Alert, Oriented x3 HEENT: Atraumatic Oral: Moist Mucosa Neck: Supple, No JVD Lungs: - - Decreased breath sounds over lower lobes of both lungs Cardiovascular: Regular rate, Regular Rhythm, Normal S1, Normal S2 Abdomen: Bowel Sounds Present, Soft, Non Tender Extremities: No clubbing, No cyanosis, No edema Musculoskeletal: No Tenderness to Palpation of Joints or Extremities Lymphatic: No Cervical, Supraclavicular, or Inguinal Adenopathy Neurological: Cranial nerves II-XII grossly intact, Neuro grossly intact Psych/Mental Status: Appropriate Vital Signs Temp Pulse Resp BP Pulse Ox 97.9 F 80 16 127/96 H 94 10/07/18 09:30 10/07/18 09:55 10/07/18 09:30 10/07/18 09:55 10/07/18 09:30 Oxygen Flow Rate (L/min) 2 Oxygen Delivery Method Nasal Cannula Weight: 64.9 kg Body Mass Index (BMI) 22.8 Finger Stick Blood Glucose 151 Intake and Output for Last 24 Hours 10/05/18 10/06/18 10/07/18 23:59 23:59 23:59 Intake Total 906.5 / 1122.2 731.7 / 731.7 730 / 730 Output Total 1180 / 1680 2100 / 2100 1550 / 1550 Balance -273.5 / -557.8 -1368.3 / -1368.3 -820 / -820 Microbiology Past 72 Hours 10/07/18 11:05 Stool Occult Blood (RAINER) - Final Stool Occult Blood Positive 10/04/18 23:35 Blood Culture - Preliminary Blood Culture (Wb) - Neck No growth in 48 hours. 10/04/18 23:10 Blood Culture - Preliminary Blood Culture (Wb) - Neck No growth in 48 hours. Laboratory Tests Past 24 Hrs 10/05/18 10/06/18 10/06/18 05:26 05:25 05:25 Hgb Hct ESR 10 PT INR APTT Sodium Potassium Chloride Carbon Dioxide Anion Gap BUN Creatinine Estim Creat Clear Calc Est GFR (MDRD) Af Amer Est GFR (MDRD) Non-Af BUN/Creatinine Ratio Glucose Calcium Phosphorus Magnesium C-React Prot Ext Range 14.40 H TSH 4.09 H Thyroglobulin Antibody Pending Thyroid Peroxidase Ab Pending 10/06/18 10/07/18 10/07/18 13:30 05:30 05:30 Hgb 9.8 L Hct 31.1 L ESR PT 15.3 H INR 1.2 APTT 32.8 Sodium 137 Potassium 5.4 H Chloride 100 Carbon Dioxide 25.0 Anion Gap 12 BUN 70 H Creatinine 2.73 H Estim Creat Clear Calc 30.90 Est GFR (MDRD) Af Amer 27 L Est GFR (MDRD) Non-Af 23 L BUN/Creatinine Ratio 25.6 H Glucose 144 H Calcium 8.7 Phosphorus 5.9 H Magnesium 2.3 C-React Prot Ext Range TSH Thyroglobulin Antibody Thyroid Peroxidase Ab 10/07/18 05:30 Hgb Hct ESR PT 15.1 H INR 1.2 APTT 31.4 Sodium Potassium Chloride Carbon Dioxide Anion Gap BUN Creatinine Estim Creat Clear Calc Est GFR (MDRD) Af Amer Est GFR (MDRD) Non-Af BUN/Creatinine Ratio Glucose Calcium Phosphorus Magnesium C-React Prot Ext Range TSH Thyroglobulin Antibody Thyroid Peroxidase Ab POC Glucose 10/07/18 10/07/18 10/07/18 11:32 05:10 04:29 POC Glucose 190 H 142 H 59 L 10/07/18 10/07/18 10/06/18 04:09 03:22 21:32 POC Glucose 53 L 77 164 H 10/06/18 10/06/18 10/06/18 17:05 16:26 15:01 POC Glucose 160 H 43 L* 92 10/06/18 14:28 POC Glucose 53 L Medical Necessity - Tobacco Use Smoking Status: Former smoker Assessment/Plan All Active Problems Bilateral pneumonia (Resolved) Myocarditis (Resolved) DKA (diabetic ketoacidoses) (Resolved) Healthcare-associated pneumonia (Acute) Acute on chronic combined systolic (congestive) and diastolic (congestive) heart failure (Acute) Abscess of leg, left (Resolved) Hyperglycemia (Acute) DKA (diabetic ketoacidoses) (Resolved) KANU (acute kidney injury) (Acute) Narcotic withdrawal (Resolved) Acute kidney injury on CKD stage3. Baseline Cr 1.7-2.5 mg/dL. Renal UA showed right atrophic kidney KANU is likely prerenal from cardiorenal syndrome . Cr is slightly better at 2.7 today. BUN is rising from most probably diuresis UA showed 100 protein. Continue the same dose of Bumex No indication for replacement therapy Avoid ACEI/ARB Will continue to monitor renal function while on diuretics Systolic heart failure . stable 02 Requirement Continue Bumex. CHF measures as per cardiology service Hypertension. Blood pressure remains elevated. I will add doxazosin 2 mg p.o. daily. Continue the same other blood pressure medications. Acute on chronic hepatic failure from CHF/bilateral pleural effusions with consolidations/pneumonitis Had paracentesis on 10/07 with 370 cc fluid removal Continue same dose of diuretics Continue O2 support to keep oxygen saturation more than 92 I will defer antibiotic starting to the primary service Renal team will continue to follow Please call if any question or concern at [phone] Will d/w Dr. Iram Oliva MD
[2018-10-07 13:28] LABS: Cytology, Body Fluid / CSF SEE PATHOLOGY REPORT
[2018-10-07] MEDS: Acetaminophen 325 MG Tablet 650 MG PO (13:34)
[2018-10-07] MEDS: buPROPion (XL) 150 MG TABLET.XL PO (13:34)
[2018-10-07 14:11] LABS: Body Fluid Mononuclear WBC # 0.463 10^3/uL; Body Fluid Mononuclear WBC % 97.8 %; Body Fluid Polynuclear WBC % 2.2 %; Red Cell Count/Body Fluid 0.006 10^6/ul; White Blood Count/Body Fluid 0.473 10^3/uL
[2018-10-07 14:18] LABS: Auto B Fluid Analyzer BKGD Ct COUNTS W/IN LIMITS (W/IN LIMITS)
[2018-10-07 14:19] LABS: Appearance/Body Fluid SL CLDY; Color/Body Fluid YELLOW; Source- Body Fluid THORACENTESIS
[2018-10-07 14:28] LABS: Body Fluid QC Type(s) BF1Q
[2018-10-07 14:38] LABS: Lymphocytes 88 %; Monocytes 7 %
[2018-10-07 14:39] LABS: Neutrophil (Segs) 5 %
[2018-10-07 16:55] LABS: Bedside Glucose 264 mg/dL (70-110)
--- NOTE | 2018-10-07 17:58 | PCM.PN.CARD ---
Subjectve: Patient is now status post thoracentesis. She states she feels she is able to take a deeper breath. She has no other new complaints. Objective: Vital Signs Temp Pulse Resp BP Pulse Ox 98.2 F 78 12 122/82 H 93 10/07/18 15:30 10/07/18 15:30 10/07/18 15:30 10/07/18 15:30 10/07/18 15:30 Oxygen Flow Rate (L/min) [3] 4 Oxygen Flow Rate (L/min) [2] 4 Oxygen Flow Rate (L/min) [1 ( 4 Initial Baseline)] Oxygen Flow Rate (L/min) 2 Oxygen Delivery Method [3] Nasal Cannula Oxygen Delivery Method [2] Nasal Cannula Oxygen Delivery Method [1 ( Nasal Cannula Initial Baseline)] Oxygen Delivery Method Room Air Weight: 143 lb 1.28 oz Body Mass Index (BMI) 22.8 Finger Stick Blood Glucose 151 Intake and Output for Last 24 Hours 10/05/18 10/06/18 10/07/18 23:59 23:59 23:59 Intake Total 906.5 / 1122.2 731.7 / 731.7 730 / 730 Output Total 1180 / 1680 2100 / 2100 1550 / 1550 Balance -273.5 / -557.8 -1368.3 / -1368.3 -820 / -820 General: Awake, Alert, Oriented x 3, Cooperative, No Acute Distress HEENT: Atraumatic, Normocephalic, PERRL, EOMI, Sclera Non Icteric Oral: Moist Mucosa Neck: Supple, Good ROM, No JVD Lungs: Diminished Right Base - Improved compared to pre-thoracentesis Cardiovascular: Regular Rhythm, Normal S1, Normal S2 Murmur Murmur: Grade 2/6, Holosystolic, LLSB - Varies with inspiration/expiration (potentially compatible with tricuspid valve regurgitation) Vascular: No Carotid Bruits Abdomen: Bowel Sounds Present, Soft, Non Tender Extremities: No edema Psych/Mental Status: Flat Affect 10/07/18 05:30: Hgb 9.8 L, Hct 31.1 L 10/07/18 05:30: Sodium 137, Potassium 5.4 H, Chloride 100, Carbon Dioxide 25.0, Anion Gap 12, BUN 70 H, Creatinine 2.73 H, Est GFR (MDRD) Af Amer 27 L, Est GFR (MDRD) Non-Af 23 L, BUN/Creatinine Ratio 25.6 H, Glucose 144 H, Calcium 8.7, Phosphorus 5.9 H, Magnesium 2.3 10/07/18 05:30: PT 15.1 H, INR 1.2, APTT 31.4 Rhythm: Sinus rhythm Medical Necessity - Tobacco Use Smoking Status: Former smoker Assessment/Plan 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 She notes her cardiovascular issues became aware in the fall 2017. She has been followed by [facility] cardiovascular services in the interim. He was recently evaluated and treated medically with respect to adjustment of her diuretic therapy. She was subsequently released home for continued outpatient cardiovascular follow-up with her primary assisted living coordinator in [place], [place] scheduled for 10-08-18. However she presented back with concerns of recurrent volume overload and pleural effusion. She continues to be monitored. She continues medical adjustment with IV diuretic therapy at this time. She is also now status post right-sided thoracentesis of approximately 360 cc of roahn-colored fluid. She does note some improvement in her respiratory status. She will need to continue cardiovascular follow-up. She will need to be considered for primary prevention ICD therapy if her left ventricular systolic function does not improve. She does need to continue long-term outpatient cardiovascular follow-up. She should give consideration for a quaternary care center evaluation as to whether or not she is a candidate for any type of left ventricular assist device and/or cardiac transplantation. 2. Chronic systolic mediated CHF The patient has a history of chronic systolic mediated CHF. She will need continued medical management as described above. 3. Left ventricular thrombus She states there is been a history of a left ventricular thrombus. She has been on anticoagulation in the past. As previously noted based upon her recent echocardiographic study it did not appear to be evidence of ongoing left ventricular thrombus. She states that she did contact her primary assisted living coordinator after leaving the hospital and despite the aforementioned findings was advised to remain on anticoagulant therapy. The moment she remains without anticoagulant therapy in and around the time of her procedures. This issue will have to be considered in the future between her and her primary assisted living coordinator. 4. Pleural effusion She states that she can take a deeper breath status post thoracentesis. Hopefully this will help her respiratory status and her right sided discomfort. 5. Acute renal insufficiency Her renal function, creatinine level, will need to be followed as her medications are adjusted. 6. Anemia She was anemic during her recent hospitalization. She did receive PRBCs. Again with lack of left ventricular thrombus, noting her marked anemia requiring PRBCs, but it was felt reasonable at that time that she remained without her anticoagulant therapy. However she states she was told by her primary assisted living coordinator at the tertiary care center to resume her anticoagulant therapy. Her H&H should be followed as if it declines again her anticoagulant therapy status will need to be revisited. Comment: The patient's case has been discussed and reviewed with the patient and Dr. Walden. This note was generated with [employer] dictation software. It may contain incorrect words, spelling, and punctuation that were not noted in checking the note before signing.
[2018-10-07 18:46] LABS: Glucose, Body Fluid 145 mg/dL (40-70); LDH,Body Fluid 105 Units/l (Not Establ.); Protein, Body Fluid 3.5 g/dL (Not Establ.)
[2018-10-07 22:46] LABS: Bedside Glucose 411 mg/dL (70-110)
[2018-10-08] VITALS (14 sets, daily range): BP systolic 112–144; BP diastolic 71–96; PULSE 74–92; RESP 16–18; TEMP 36.4–36.9; O2SAT 94–99
[2018-10-08] MEDS: Ondansetron 4 MG/2 ML Vial IV (05:23)
[2018-10-08] MEDS: traMADol 50 MG Tablet PO (06:09)
--- NOTE | 2018-10-08 06:29 | NURSING ---
Patient called out and asked for her blood sugar to be checked because she felt shaky. RN in to check patient's blood sugar and the result was critically high at 560; lab called for STAT lab back up. Will wait for results and call MD for further orders.
[2018-10-08 06:35] LABS: Bedside Glucose > 500 mg/dL (70-110)
--- NOTE | 2018-10-08 06:40 | PCM.PROGNOTE ---
Patient Problems: Active and Suspected Problems Healthcare-associated pneumonia (Acute) Acute on chronic combined systolic (congestive) and diastolic (congestive) heart failure (Acute) Subjective: All events of the past 24 hours of been reviewed. She remains afebrile Blood pressure has come under better control. She refused hydralazine and Cardura last evening. She also refused Isordil. Her last blood pressure was 128/84. She is 95% saturated on a 4 L nasal cannula. She was 93% on RA but insisted on wearing oxygen at 4 L. She called nursing and said she was nauseous this morning and had vomited up her pain pills and requested more pain medication. Blood sugar this morning is 562. Lantus was not given yesterday because the preceding day she was hypoglycemic and did not eat because she said she was nauseous. Lantus and short acting insulin given this AM and then she decided not to eat and became hypoglycemic and had to get D50W. she tells me that she did not refuse the meds....she said that she was nauseated and did not want to take them at that time. she also continues to tell me that her de icer installer told her to restart the Eliquis and I talked with her de icer installer Dr. Mahad Patrick and he said he never talked to her. He agreed with discontinuing the Eliquis. He has known her for awhile now and he knows that she is non-compliant with medications....when her BP is not controlled she goes into failure and diuretics make her CREAT go up. The failure generally resolves with BP control. He had a meeting with Preeti and her parents last year and told them that she is going to of her disease and there is not really anything he can likely do to prevent this. She did not relate this to me. He recommended putting her back on Procardia XL 90 mg daily and continue Coreg 25 mg twice daily, hydralazine 100 mg 3 times daily and Isordil 60 mg 3 times daily. Lab today shows a low sodium at 131, increased potassium at 5.3, serum bicarb of 25 and the BUN is 94 with a creatinine of 3.46, up from 2.73 on 10/07/2018. I discussed this with Dr. Oliva and Bumex has been discontinued. A potassium restriction has been added to her diet. She went for 2 laps around the floor on RA and was 94% on RA......she insists on wearing oxygen at 4 LPM. Objective: PHYSICAL EXAM: GENERAL: alert, oriented X 3, Cooperative, NAD ORAL: moist mucosa, no mucosal lesions NECK: No JVD, supple, trachea midline LUNGS: Breath sounds are less diminished in the right base today since she had thoracentesis yesterday, symmetric chest expansion, not tachypnea, no conversational dyspnea, no accessory muscle use HEART: RRR, Normal S1 and S2, no rub, no gallop, no change in the systolic murmur heard best at the lower left sternal border ABDOMEN: soft, NT, ND, BS present, no guarding with palpation EXTREMITIES: no edema, no cyanosis, no calf tenderness SKIN: No rashes, no breakdown NEUROLOGIC: no focal neurologic deficits PSYCH: Flat affect I saw her with ADENIKE Crocker and the pt still maintains that she is compliant with medications and fluid restriction and does not take narcotics. she denies manipulating her diet to cause very high sugars and then does not eat when given insulin. I told her that we find no reason for the pain she complains about....she has made multiple visits to ED's with various pains and gets small amounts of narcotics. - Physical Exam Vital Signs Temp Pulse Resp BP Pulse Ox 97.7 F L 77 16 128/84 H 95 10/08/18 03:30 10/08/18 03:30 10/08/18 03:30 10/08/18 03:30 10/08/18 03:47 Oxygen Flow Rate (L/min) [3] 4 Oxygen Flow Rate (L/min) [2] 4 Oxygen Flow Rate (L/min) [1 ( 4 Initial Baseline)] Oxygen Flow Rate (L/min) 4 Oxygen Delivery Method [3] Nasal Cannula Oxygen Delivery Method [2] Nasal Cannula Oxygen Delivery Method [1 ( Nasal Cannula Initial Baseline)] Oxygen Delivery Method Nasal Cannula Weight: 143 lb 1.28 oz Body Mass Index (BMI) 22.8 Finger Stick Blood Glucose 151 Intake and Output for Last 24 Hours 10/06/18 10/07/18 10/08/18 23:59 23:59 23:59 Intake Total 731.7 / 731.7 1210 / 1210 360 / 360 Output Total 2100 / 2100 1550 / 1550 Balance -1368.3 / -1368.3 -340 / -340 360 / 360 Microbiology Past 72 Hours 10/07/18 13:00 Gram Stain - Final Fluid - Thoracentesis Fluid 10/07/18 11:05 Stool Occult Blood (RAINER) - Final Stool Occult Blood Positive 10/04/18 23:35 Blood Culture - Preliminary Blood Culture (Wb) - Neck No growth in 48 hours. 10/04/18 23:10 Blood Culture - Preliminary Blood Culture (Wb) - Neck No growth in 48 hours. Laboratory Tests Past 24 Hrs 10/06/18 10/06/18 10/07/18 13:00 13:00 13:00 Glucose Fluid Source THORACENTESIS Fluid Color YELLOW Fluid Appearance SL CLDY Fluid pH Pending Fluid WBC 0.473 Fluid RBC 0.006 Fluid Tot Cell Count 0.490 H Fld Polynuclear WBCs # 0.010 Fld Polynuclear WBCs % 2.2 Fluid Mononuclear WBCs 0.463 Fld Mononuclear WBCs % 97.8 Fluid Neutrophils 5 Fluid Lymphocytes 88 Fluid Monocytes 7 Fl Pathologist Comment May follow Fluid Glucose Cancelled Fluid Total Protein Cancelled Fluid LDH Cancelled Fluid Comment 2 SEE COMMENT Miscellaneous Cytology 10/07/18 10/07/18 10/08/18 13:00 13:00 06:20 Glucose Pending Fluid Source Fluid Color Fluid Appearance Fluid pH Fluid WBC Fluid RBC Fluid Tot Cell Count Fld Polynuclear WBCs # Fld Polynuclear WBCs % Fluid Mononuclear WBCs Fld Mononuclear WBCs % Fluid Neutrophils Fluid Lymphocytes Fluid Monocytes Fl Pathologist Comment Fluid Glucose 145 H Fluid Total Protein 3.5 Fluid LDH 105 Fluid Comment 2 Miscellaneous Cytology Pending POC Glucose 10/08/18 10/07/18 10/07/18 05:50 21:45 16:46 POC Glucose > 500 H* 411 H 264 H 10/07/18 11:32 POC Glucose 190 H Medical Necessity - Tobacco Use Smoking Status: Former smoker Assessment/Plan All Active Problems Bilateral pneumonia (Resolved) Myocarditis (Resolved) DKA (diabetic ketoacidoses) (Resolved) Healthcare-associated pneumonia (Acute) Acute on chronic combined systolic (congestive) and diastolic (congestive) heart failure (Acute) Abscess of leg, left (Resolved) Hyperglycemia (Acute) DKA (diabetic ketoacidoses) (Resolved) KANU (acute kidney injury) (Acute) Narcotic withdrawal (Resolved) Impressions 1. Acute on chronic systolic congestive heart failure 2. Acute renal failure on chronic renal failure stage III 3. Persistent complaints of right side back pain with a negative gallbladder ultrasound and reported normal HIDA scan at [facility]. Also had a recent negative VQ scan. 4. Persistent complaints of nausea.... Acute blood loss anemia on recent admission requiring transfusion - presumed to be due to GI bleed 5. Uncontrolled hypertension - I am concerned with the increasing BP and the reports of N/V that she may be in withdrawal.......she denies chronic narcotic use 6. Hepatitis C and also has had Hep A in the past. 7. Severe cardiomyopathy with a 25% ejection fraction and history of a mural thrombus which was not present on recent echo at [facility] 8. Chronic respiratory failure on a 4 L nasal cannula 9. Bilateral pleural effusions, right greater than left 10. suspect the air bronchograms in the R base are due to compressive atelectasis and not due to PNA in this AF pt with no fever, normal WBC and diff. 11. Former tobacco dependence 12. Chronic anticoagulation with Eliquis 13. suspected non-compliance.......gained 14 lbs in 2 days out of the hospital 14. DM I - uncontrolled with a recent HGBA1C of 11.7 She is refusing medication and is demanding oxygen when her pulse ox is > 90% on RA. She says she is nauseous and vomited up her pain medication and requested more.......this is not the first time this has happened....I think she is drug seeking. She is also manipulative. she restarted Eliquis after the last admission and said that her de icer installer told her to do this.......she had to be transfused due to presumed GIB since the HGB had decreased significantly in a short amount of time. CXR today Still with BL pleural effusions but, the R is smaller Ambulatory pulse ox on room air DC tramadol and continue Tylenol........ I find no source for the severe R side back pain she complains of. Family meeting with the pt and her father tomorrow. I feel she would be best served by following up with a regular team of consultants and not randomly going between [facility] and [facility]. She is well-known at [facility] and I think in the future she would be best served by transferring to [facility] when she presents to the ED and needs admitted Continue to hold the Eliquis Code Visit Inpatient E&M: 12479 Subs Hosp L3
[2018-10-08 06:45] LABS: Glucose 562 mg/dL (74-106)
[2018-10-08] MEDS: Insulin Lispro 100 UNIT/ML INSULN.PEN 10 UNIT SC ×2 (07:05→09:27)
[2018-10-08 08:11] LABS: Bedside Glucose > 500 mg/dL (70-110)
[2018-10-08 08:51] LABS: Glucose 550 mg/dL (74-106)
[2018-10-08 09:31] LABS: Anion Gap 11 (5-15); BUN 94 mg/dL (7-18); BUN/Creat Ratio 27.2 RATIO (10-20); Calcium,Total 8.5 mg/dL (8.5-10.1); Chloride 95 mmol/L (98-107); Creatinine, Serum 3.46 mg/dL (0.55-1.02); EST Glomerular Filtration Rate 17 mL/min (>60); Est Glom Filt Rate - Afr Amer 21 mL/min (>60); Estimated Creatinine Clearance 24.38 ml/min; Glucose 435 mg/dL (74-106); Potassium 5.3 mmol/L (3.5-5.1); Sodium Level 131 mmol/L (136-145)
--- NOTE | 2018-10-08 09:52 | RAD_ITS ---
STUDY: X-RAY CHEST REASON FOR EXAM: Female, 23 years old. CHF/shortness of breath. TECHNIQUE: PA and lateral views of the chest. COMPARISON: Comparison is made with prior study dated October 07, 2018. FINDINGS: EKG lead which are seen. Slight increase in the bilateral effusions with bibasilar atelectasis and/or infiltrate worse on the left lungs base. Normal size heart. Normal mediastinum and nelda. Normal visualized pulmonary arteries. Normal visualized aortic arch and descending thoracic aorta. Normal visualized thoracic spine. Normal visualized ribs, clavicles, and shoulders. There is no demonstrated abnormality of the visualized soft tissue structures of the upper abdomen. RAD/Chest PA and Lateral IMPRESSION: Increasing bilateral pleural effusions with bibasilar atelectasis slightly worse on the left side. Electronically Signed: Domingo Bowman, at 15:39 EDT , Service support ,
[2018-10-08 10:46] LABS: Bedside Glucose 286 mg/dL (70-110)
--- NOTE | 2018-10-08 11:00 | CASEMGMT ---
Addendum entered by Belkys White 10/08/18 14:41: Per Dr. Walden, pt will not be discharged today as she is now in acute renal failure. Call to intake at [facility] to notify that pt will not be leaving today and that we will notify them when pt does leave and fax appropriate information, voices understanding. Blank LARSEN CM Original Note: Call to [facility] and per Lore, intake, pt currently has residential and SW ordered at this time. This RN CM advised Lore on pt wgt gain and need for education regarding HF and compliance with meds. Lore is aware of pt drug abuse history and that chemical dependency screening tool to be completed by SW here at [facility] prior to discharge. Lore requests that this be faxed to them with discharge summ/instructions. Lore also aware that pt was set up with counseling, voices understanding. KYLER order placed at this time. This RN CM will fax KYLER, d/c summ/instructions, as well as H&P, once all obtained. Blank LARSEN CM
--- NOTE | 2018-10-08 11:34 | PCM.PN.REN ---
Patient Problems: Active and Suspected Problems Healthcare-associated pneumonia (Acute) Acute on chronic combined systolic (congestive) and diastolic (congestive) heart failure (Acute) Subjective: Pt refused insulin and BP medications this morning. Blood sugar was significantly elevated this morning Pt complaining of nausea and vomiting this morning Pt requested to be on 4 l/m NC last night despite Sa02 was 93% - Physical Exam General: Alert, Oriented x3 HEENT: Atraumatic Oral: Moist Mucosa Neck: Supple, No JVD Lungs: Clear to auscultation, Normal air movement, No rhonchi, No wheeze Cardiovascular: Regular rate, Regular Rhythm, Normal S1, Normal S2 Abdomen: Bowel Sounds Present, Soft, Non Tender, Non-Distended Extremities: No clubbing, No cyanosis, No edema Skin: No rashes Musculoskeletal: No Tenderness to Palpation of Joints or Extremities Neurological: Neuro grossly intact Psych/Mental Status: Appropriate Vital Signs Temp Pulse Resp BP Pulse Ox 97.8 F 80 16 138/91 H 98 10/08/18 09:45 10/08/18 09:45 10/08/18 09:45 10/08/18 09:45 10/08/18 09:45 Oxygen Flow Rate (L/min) [3] 4 Oxygen Flow Rate (L/min) [2] 4 Oxygen Flow Rate (L/min) [1 ( 4 Initial Baseline)] Oxygen Flow Rate (L/min) 4 Oxygen Delivery Method [3] Nasal Cannula Oxygen Delivery Method [2] Nasal Cannula Oxygen Delivery Method [1 ( Nasal Cannula Initial Baseline)] Oxygen Delivery Method Nasal Cannula Weight: 64.9 kg Body Mass Index (BMI) 22.8 Finger Stick Blood Glucose 151 Intake and Output for Last 24 Hours 10/06/18 10/07/18 10/08/18 23:59 23:59 23:59 Intake Total 731.7 / 731.7 1210 / 1210 360 / 360 Output Total 2100 / 2100 1550 / 1550 Balance -1368.3 / -1368.3 -340 / -340 360 / 360 Microbiology Past 72 Hours 10/07/18 13:00 Gram Stain - Final Fluid - Thoracentesis Fluid Body Fluid Culture - Preliminary No growth-Final to follow 10/07/18 11:05 Stool Occult Blood (RAINER) - Final Stool Occult Blood Positive 10/04/18 23:35 Blood Culture - Preliminary Blood Culture (Wb) - Neck No growth in 48 hours. 10/04/18 23:10 Blood Culture - Preliminary Blood Culture (Wb) - Neck No growth in 48 hours. Laboratory Tests Past 24 Hrs 10/06/18 10/06/18 10/07/18 13:00 13:00 13:00 Sodium Potassium Chloride Carbon Dioxide Anion Gap BUN Creatinine Estim Creat Clear Calc Est GFR (MDRD) Af Amer Est GFR (MDRD) Non-Af BUN/Creatinine Ratio Glucose Calcium Fluid Source THORACENTESIS Fluid Color YELLOW Fluid Appearance SL CLDY Fluid pH Pending Fluid WBC 0.473 Fluid RBC 0.006 Fluid Tot Cell Count 0.490 H Fld Polynuclear WBCs # 0.010 Fld Polynuclear WBCs % 2.2 Fluid Mononuclear WBCs 0.463 Fld Mononuclear WBCs % 97.8 Fluid Neutrophils 5 Fluid Lymphocytes 88 Fluid Monocytes 7 Fl Pathologist Comment May follow Fluid Glucose Cancelled Fluid Total Protein Cancelled Fluid LDH Cancelled Fluid Comment 2 SEE COMMENT Acetone Level Miscellaneous Cytology 10/07/18 10/07/18 10/08/18 13:00 13:00 06:20 Sodium Potassium Chloride Carbon Dioxide Anion Gap BUN Creatinine Estim Creat Clear Calc Est GFR (MDRD) Af Amer Est GFR (MDRD) Non-Af BUN/Creatinine Ratio Glucose 562 H* Calcium Fluid Source Fluid Color Fluid Appearance Fluid pH Fluid WBC Fluid RBC Fluid Tot Cell Count Fld Polynuclear WBCs # Fld Polynuclear WBCs % Fluid Mononuclear WBCs Fld Mononuclear WBCs % Fluid Neutrophils Fluid Lymphocytes Fluid Monocytes Fl Pathologist Comment Fluid Glucose 145 H Fluid Total Protein 3.5 Fluid LDH 105 Fluid Comment 2 Acetone Level Miscellaneous Cytology Pending 10/08/18 10/08/18 10/08/18 08:14 09:12 09:12 Sodium 131 L Potassium 5.3 H Chloride 95 L Carbon Dioxide 25.0 Anion Gap 11 BUN 94 H Creatinine 3.46 H Estim Creat Clear Calc 24.38 Est GFR (MDRD) Af Amer 21 L Est GFR (MDRD) Non-Af 17 L BUN/Creatinine Ratio 27.2 H Glucose 550 H* 435 H Calcium 8.5 Fluid Source Fluid Color Fluid Appearance Fluid pH Fluid WBC Fluid RBC Fluid Tot Cell Count Fld Polynuclear WBCs # Fld Polynuclear WBCs % Fluid Mononuclear WBCs Fld Mononuclear WBCs % Fluid Neutrophils Fluid Lymphocytes Fluid Monocytes Fl Pathologist Comment Fluid Glucose Fluid Total Protein Fluid LDH Fluid Comment 2 Acetone Level NEGATIVE Miscellaneous Cytology POC Glucose 10/08/18 10/08/18 10/08/18 10:40 08:03 05:50 POC Glucose 286 H > 500 H* > 500 H* 10/07/18 10/07/18 10/07/18 21:45 16:46 11:32 POC Glucose 411 H 264 H 190 H Medical Necessity - Tobacco Use Smoking Status: Former smoker Assessment/Plan All Active Problems Bilateral pneumonia (Resolved) Myocarditis (Resolved) DKA (diabetic ketoacidoses) (Resolved) Healthcare-associated pneumonia (Acute) Acute on chronic combined systolic (congestive) and diastolic (congestive) heart failure (Acute) Abscess of leg, left (Resolved) Hyperglycemia (Acute) DKA (diabetic ketoacidoses) (Resolved) KANU (acute kidney injury) (Acute) Narcotic withdrawal (Resolved) Acute kidney injury on CKD stage3. 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 Kidney function improved with Bumex. However,Cr increased to 3.4 mg/dL this morning. this is most probably from overdiuresis from Buemx and hyperglycemia I will d/c Bumex Please keep BS < 200 No indication for replacement therapy Avoid ACEI/ARB Will continue to monitor renal function Hyponatremia: Na level is 131 but is 137 with correction to glucose level Systolic heart failure .Improved stable 02 Requirement Hold diuretic due to worsening kidney function CHF measures as per cardiology service Hypertension. Blood pressure is better controlled now Continue the same blood pressure medications. Acute on chronic respiratory failure from CHF/bilateral pleural effusions with consolidations/pneumonitis Improved Had paracentesis on 10/07 with 370 cc fluid removal Continue O2 support to keep oxygen saturation more than 92 Hold Bumex today Renal team will continue to follow Please call if any question or concern at [phone] d/w Dr. Iram Oliva MD
[2018-10-08 13:20] LABS: Bedside Glucose 43 mg/dL (70-110)
[2018-10-08] MEDS: 0.9% NaCl Peripheral Flush Adult/Peds IV ×2 (13:22→14:11)
[2018-10-08] MEDS: Dextrose 50%-Water 25 GM/50 ML DISP.SYRIN IV ×2 (13:22→14:11)
[2018-10-08 13:49] LABS: Glucose 120 mg/dL (74-106)
[2018-10-08 14:06] LABS: Bedside Glucose 76 mg/dL (70-110)
[2018-10-08 14:20] LABS: Pathologist Comment/Body Fluid Reviewed
[2018-10-08 14:45] LABS: Bedside Glucose 129 mg/dL (70-110)
--- NOTE | 2018-10-08 14:45 | CASEMGMT ---
Social Work Dr. Walden requesting family meeting with pt father. SW placed call to pt father Aaron and requested family meeting. Aaron states he is not able to come in today but would be able to come in tomorrow afternoon. Aaron unable/unwilling to provide time. Dr. Walden notified. HERMAN Burch
--- NOTE | 2018-10-08 14:47 | NURSING ---
1314- pt called this RN into room to check BG. critical result of 43. lab back up ordered. per Dr. Walden, half amp of d50 given. 1402- recheck BG. result 76. Dr Walden made aware. ordered this RN to give another half amp of D50. 1439- recheck BG. result 129.
--- NOTE | 2018-10-08 15:00 | CASEMGMT ---
Social Work PCU Reason for intervention: Screening for substance use disorders and depression symptoms; impact on healthcare The Alcohol Used Disorders Identification Test (AUDIT) was administered to the patient to assess for alcohol use issues in the last 12 months. 1. How often do you have a drink containing alcohol? NEVER (due to this response addressed questions 9 and 10 only). 2. How many drinks containing alcohol do you have on a typical day when you are drinking? 3. How often do you have six or more drinks on one occasion? 4. How often during the last year have you found that you were not able to stop drinking once you had started? 5. How often during the last year have you failed to do what was normally expected of you because of drinking? 6. How often during the last year have you needed a first drink in the morning to get yourself going after a heavy drinking session? 7. How often during the last year have you had a feeling of guilt or remorse after drinking? 8. How often during the last year have you been unable to remember what happened the night before because of your drinking? 9. Have you or someone else been injured because of your drinking? NO (options are No, Yes but not in the last year, or yes during last year) 10. Has a relative, friend, doctor, or other health care worker been concerned about your drinking or suggested you cut down? NO (options are No, Yes but not in the last year, or yes during the last year) Score: Patient?s score a 0, which screens as level I-low risk for health problems related to alcohol use. Note, did address with patient as to whether patient has ever had alcohol use issues, before 12 month ago. Patient denies that alcohol has ever been an issue ever for this patient. The Drug Screening Questionnaire (DAST) 10 question scale administered with patient this date to assess for drug use in the last 12 months. Patient reports drug of choice has been heroin. Denies history of use of other illicit or prescribed drugs including narcotic prescriptions. Patient states has been sober from heroin for 12 months. Denies use or abuse history of narcotic prescriptions leading up to heroin use. Denies use or abuse history of other prescribed or illicit substances in the last 12 months or beyond. Answers were given based on patient stating no drug use in the last 12 months, as well as denial of misuse of prescribed narcotics in the last 12 months. 1. Have you used drugs other than those required for medical reasons? NO 2. Do you abuse more than one drug at a time? NO 3. Area you able to stop using drugs when you want to? YES 4. Have you ever had blackouts or flashbacks as a result of drug use? NO 5. Do you ever feel bad or guilty about your drug use? NO 6. Does your spouse (or parents) ever complain about your involvement with drugs? NO 7. Have you neglected your family because of your use of drugs? NO 8. Have you engaged in illegal activities in order to obtain drugs? NO 9. Have you ever experienced withdrawal symptoms (felt sick) when you stopped taking drugs? NO 10. Have you had medial problems as a result of your drug use (e.g. memory loss, hepatitis, convulsions, bleeding)? NO Have you ever injected drugs? Yes, more than 90 days ago. Have you ever been in treatment for substances abuse? Yes, in the past at ?[facility] in [place]. Patient reports was enrolled in the Intensive Outpatient Program, staying in the program for a week only due to the program being ?annoying.? Patient reports everyone just talked about using drugs, so patient stopped going. Patient denies any additional outpatient follow up and denies any 12-step work. Patient reports quit using on her own. Current Score: 0 based on patient?s responses. Patient denies any recent or current using thoughts, dreams, or urges to get high or use illicit drugs. Beyond 12 months ago the patient?s score would have been 4 or 5 in the Moderate level of substance use disorders, and risk for health problems related to drugs use, scoring points for questions 1, 5, 6, 9, and possibly 10 (history of myocarditis). The PHQ9 depression screen completed. Refer to attached link for details. Patient scored a 2 which equates to none-minimal symptoms of depression. Patient repots to feel that mood is doing well in light of all of the medical issues MOB is dealing with. Patient endorsed symptoms over several days in the last two weeks regarding trouble sleeping and having little energy. Patient reports symptoms have made things somewhat difficult to get things done. Patient denies any thoughts, plans, intent for suicide. Patient?s identified goals: to feel comfortable, which patient identifies with being able to breath well and to be able to sleep. Patients' willingness for change/intervention: Patient endorses willingness to go to mental health counseling and states an appointment has been set up at [facility]. Per record, Patient to see Carrillo Ma 10/17/2018 at 1300. Patient has also agreed to start an antidepressant this admission. Patient declines referrals back to substance use treatment, no interest in 12 step programming and declined folder this engineering writer offered of local substance use treatment and support programs. Patient does not endorse or verbalize substance use history as current factor or issue of concern for patient. Patient does not discuss or endorse treatment adherence issues as a potential factors in current health issues. -SARAH Sutton, METAL POLISHER
[2018-10-08] MEDS: Pantoprazole Sodium 40 MG Tablet PO (15:33)
[2018-10-08] MEDS: buPROPion (XL) 150 MG TABLET.XL PO (15:34)
[2018-10-08] MEDS: Isosorbide DN 30 MG Tablet 60 MG PO ×2 (15:34→21:30)
[2018-10-08] MEDS: hydrALAZINE 50 MG Tablet 100 MG PO ×2 (15:34→21:31)
[2018-10-08] MEDS: Carvedilol 25 MG Tablet PO ×2 (15:35→21:31)
--- NOTE | 2018-10-08 16:00 | CASEMGMT ---
Social Work PCU Reason for intervention: Collaboration with physician, manager critical care unit and PCU assigned social service agency director Cheryl; patient/physician/social work meeting. Summary: Updated Dr. Walden screening done with patient this date, that based on responses provided by patient the scoring low in all screens (as far as risk and impact on health care). RN KIMBERLI White and social service agency director Gideon Armstrong also present. Patient?s care needs discussed. Physician voicing concern for patient seeking care at multiple providers, having multiple chronic health conditions, and concern for possible medication seeking behaviors. The option of palliative care to aid in support patient and established care providers discussed. Option of hospice also mentioned by physician based on patient?s increasing care needs and level of adherence to a treatment plan that could potentially help patient with better quality of life and management of overall health issues. This journalists and other writers and Dr Walden presented to patient's?s room. Physician had a mary discussion with patient regarding concerns about patient seeking care from multiple providers and in light of patient?s medically complex needs. Patient's adherence to diet and medication regiment while in the hospital also addressed with patient. Patient reports had not been refusing medications the night before but had only indicated that did not want the medicine at that moment. Social work explored why patient did not want to take the medicine, to which patient reported because did not feel good. Patient not seeming to recognize that adhering to medication regiment consistently has potential to help patent feel better. Patient's response about diet adherence reported to be because does not always have an appetite. Physician discussed plan to have a family meeting tomorrow and to discuss further the longer term care options for this patient. This journalists and other writers provided input to patient, that seeking care from one provider group/system for chronic ongoing health care issues could be of potential benefit to the patient, so that the health care system helping patient can know the patient better and lessen chance of issues being missed or not addressed when patient goes from one health care system to another. This journalists and other writers encouraged patient to think about options and choices physician discussed. Encouraged patient that the health care providers want for patient to have both physical and emotional needs addressed, but that it is patient who has to decide what wiling to do and accept moving forward. Plan: Social work to follow and assist as needed or indicated. Mental health follow up appointment in place for 10-17-2018 at [facility]. Patient declines substance use treatment referrals (see this journalists and other writers's note from earlier this date for details). Per discussion with RN CM a referral has been initiated to [facility] with social work added to this referral. Family meeting with doctor on 10-09-18 to further discuss care needs and recommendations for patient. -SARAH Sutton, LOSS PREVENTION AND SAFETY MANAGER
[2018-10-08 16:07] LABS: Thyroid Peroxidase AB 36 IU/mL (0-34)
[2018-10-08 17:20] LABS: Bedside Glucose 75 mg/dL (70-110)
--- NOTE | 2018-10-08 19:04 | PN.CARD_ITS ---
Subjectve: The patient has been awake and alert. She has complained of nausea and emesis. She has been reported as refusing medical therapy. She has been requesting O2 supplements despite her O2 saturation on room air being reported at greater than 90%. Objective: Vital Signs Temp Pulse Resp BP Pulse Ox 97.7 F L 91 17 112/71 94 10/08/18 15:34 10/08/18 15:34 10/08/18 15:34 10/08/18 17:22 10/08/18 15:34 Oxygen Flow Rate (L/min) [3] 4 Oxygen Flow Rate (L/min) [2] 4 Oxygen Flow Rate (L/min) [1 ( 4 Initial Baseline)] Oxygen Flow Rate (L/min) 4 Oxygen Delivery Method [3] Nasal Cannula Oxygen Delivery Method [2] Nasal Cannula Oxygen Delivery Method [1 ( Nasal Cannula Initial Baseline)] Oxygen Delivery Method Room Air Weight: 143 lb 1.28 oz Body Mass Index (BMI) 22.8 Finger Stick Blood Glucose 151 Intake and Output for Last 24 Hours 10/06/18 10/07/18 10/08/18 23:59 23:59 23:59 Intake Total 731.7 / 731.7 1210 / 1210 1050 / 1050 Output Total 2100 / 2100 1550 / 1550 1000 / 1000 Balance -1368.3 / -1368.3 -340 / -340 50 / 50 General: Awake, Alert, Oriented x 3, No Acute Distress HEENT: Atraumatic, Normocephalic, PERRL, EOMI, Sclera Non Icteric Oral: Moist Mucosa Neck: Supple, Good ROM, No JVD Lungs: Diminished Donnell Bases Cardiovascular: Regular Rhythm, Normal S1, Normal S2 Abdomen: Bowel Sounds Present, Soft Extremities: No edema Psych/Mental Status: Flat Affect 10/08/18 06:20: Glucose 562 H* 10/08/18 08:14: Glucose 550 H* 10/08/18 09:12: Sodium 131 L, Potassium 5.3 H, Chloride 95 L, Carbon Dioxide 25.0, Anion Gap 11, BUN 94 H, Creatinine 3.46 H, Est GFR (MDRD) Af Amer 21 L, Est GFR (MDRD) Non-Af 17 L, BUN/Creatinine Ratio 27.2 H, Glucose 435 H, Calcium 8.5 10/08/18 13:30: Glucose 120 H Rhythm: Sinus rhythm CXR: Preliminary evaluation: Bilateral pleural effusions: Right potentially greater than left: Please see official report Medical Necessity - Tobacco Use Smoking Status: Former smoker Assessment/Plan 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 She notes her cardiovascular issues became aware in the fall 2017. She has been followed by [facility] cardiovascular services in the interim. She continues to be monitored. Her diuretics are now on hold secondary to increased creatinine level. She is also now status post right-sided thoracentesis of approximately 360 cc of rohan-colored fluid. A chest x-ray today demonstrated concerns of bilateral pleural effusions. She will need to be considered for primary prevention ICD therapy if her left ventricular systolic function does not improve. 2. Chronic systolic mediated CHF The patient has a history of chronic systolic mediated CHF. She will need continued medical management as described above. 3. Left ventricular thrombus She states there is been a history of a left ventricular thrombus. She has been on anticoagulation in the past. As previously noted based upon her recent echocardiographic study it did not appear to be evidence of ongoing left ventricular thrombus. She states that she did contact her primary an/ssn 2 4 operator after leaving the hospital and despite the aforementioned findings was advised to remain on anticoagulant therapy. The moment she remains without anticoagulant therapy in and around the time of her procedures. This issue will have to be considered in the future between her and her primary an/ssn 2 4 operator. 4. Pleural effusion Continues with evidence of bilateral pleural effusions. 5. Acute renal insufficiency Her renal function, creatinine level, will need to be followed as her medications are adjusted. As her creatinine level was increased her diuretics have been placed on temporary hold. 6. Anemia She was anemic during her recent hospitalization. She did receive PRBCs. Again with lack of left ventricular thrombus, noting her marked anemia requiring PRBCs, but it was felt reasonable at that time that she remained without her anticoagulant therapy. However she states she was told by her primary an/ssn 2 4 operator at the tertiary care center to resume her anticoagulant therapy. Her H&H should be followed as if it declines again her anticoagulant therapy status will need to be revisited. Comment: The patient's case has been discussed and reviewed with Dr. Walden. She did contact the patient's primary an/ssn 2 4 operator who states he has cared for and is willing to continue to care for her. However, he reported that she has been noncompliant with medications, that he has not spoken to her recently regarding anticoagulant therapy as she is noted above, and that she has been evaluated at the [facility] for other advanced heart failure options/considerations and based upon her noncompliance and previous illicit drug use has been denied candidacy for such advanced heart failure o ptions/considerations. This note was generated with [employer] dictation software. It may contain incorrect words, spelling, and punctuation that were not noted in checking the note before signing.
[2018-10-08] MEDS: Doxazosin 1 MG Tablet 2 MG PO (21:31)
[2018-10-08] MEDS: Insulin Lispro 100 UNIT/ML INSULN.PEN SC (21:32)
[2018-10-08 23:10] LABS: Bedside Glucose 409 mg/dL (70-110)
[2018-10-09] VITALS (8 sets, daily range): BP systolic 102–136; BP diastolic 61–99; PULSE 70–90; RESP 18; TEMP 36.7; O2SAT 95–97
[2018-10-09 01:56] LABS: Bedside Glucose 253 mg/dL (70-110)
[2018-10-09 05:44] LABS: Albumin, Serum 3.3 g/dL (3.2-5.0); BUN 85 mg/dL (7-18); BUN/Creat Ratio 29.3 RATIO (10-20); Calcium,Total 8.8 mg/dL (8.5-10.1); Chloride 98 mmol/L (98-107); EST Glomerular Filtration Rate 21 mL/min (>60); Est Glom Filt Rate - Afr Amer 26 mL/min (>60); Estimated Creatinine Clearance 29.09 ml/min; Glucose 284 mg/dL (74-106); Phosphorus 5.2 mg/dL (2.5-4.9); Potassium 5.3 mmol/L (3.5-5.1); Sodium Level 134 mmol/L (136-145)
--- NOTE | 2018-10-09 06:47 | PN_ITS ---
Patient Problems: Active and Suspected Problems Healthcare-associated pneumonia (Acute) Acute on chronic combined systolic (congestive) and diastolic (congestive) heart failure (Acute) Subjective: 23-year-old female with a past medical history of severe cardiomyopathy, endocarditis, stage III?4 chronic renal failure, recent GI bleed, left ventricular mural thrombus (not present on recent ECHO) - Eliquis DC'd, type 1 diabetes mellitus, history of heroin abuse, chronic systolic congestive heart failure, hepatitis C and depression who was discharged from [facility] on 10/02/18 and readmitted 10/04/18 with 14 lb weight gain in 2 days......denied missing meds and stated she was on 2,000 cc fluid restriction. She is seen at [facility] and [facility] and there is no continuity of care. She refuses meds and manipulates her diet so that sugars are very labile. Being followed by Dr. Brar and was on IV Bumex but the creat on 10/08 increased to 3.46 and Bumex was discontinued. I spoke with her systems support engineer, Dr. Mahad Patrick at [facility] and he knows her very well. She is drug seeking and has been to ED at various places with multiple complaints of pain. She had thoracentesis performed on 10/07/2018 and 360 cc of fluid was removed. Lab was consistent with a transudate. No growth to date on pleural fluid. All events of the past 24 hours been reviewed. Blood pressure over the past 24 hours has ranged from 111/83-[address] Patrick uses Procardia XL 90 mg daily to control BP.....would like the BP about 100 systolic. Currently 97% on a 2 L nasal cannula. Ambulatory pulse ox on room air on 10/08/2018 was 94%. All lab was personally reviewed. The sodium is up to 134 today and that potassium is stable at 5.3. BUN is 85, down from 94 on 10/08/2018 and the creatinine is 2.9, down from 3.46 on 10/08/2018. Blood sugars are erratic because the patient does not consistently eat. Stool from 10/07/2018 is still occult positive. She had restarted the Eliquis after DC on 10/02 and said that she talked with her systems support engineer......Dr. Patrick told me he never talked to her. Cytology on the pleural fluid is negative for malignant cells. - Physical Exam General: Alert, No apparent distress, - - pale Oral: Moist Mucosa Neck: Supple Lungs: Diminished - in the bases with no rales and no wheezes Cardiovascular: Regular rate, Regular Rhythm, Normal S1, Normal S2, - - NSR on telem with no significant ectopy Abdomen: Bowel Sounds Present, Soft, Non Tender, Distended - mildly Extremities: Edema - Left ankle only, no Devante's, neg Stephen Skin: No rashes, No breakdown Neurological: Cranial nerves II-XII grossly intact, Neuro grossly intact Psych/Mental Status: Flat Affect, - - flat affect Vital Signs Temp Pulse Resp BP Pulse Ox 98.1 F 82 18 111/83 H 97 10/09/18 03:25 10/09/18 03:25 10/09/18 03:25 10/09/18 03:25 10/09/18 03:25 Oxygen Flow Rate (L/min) [3] 4 Oxygen Flow Rate (L/min) [2] 4 Oxygen Flow Rate (L/min) [1 ( 4 Initial Baseline)] Oxygen Flow Rate (L/min) 2 Oxygen Delivery Method [3] Nasal Cannula Oxygen Delivery Method [2] Nasal Cannula Oxygen Delivery Method [1 ( Nasal Cannula Initial Baseline)] Oxygen Delivery Method Nasal Cannula Weight: 143 lb 1.28 oz Body Mass Index (BMI) 22.8 Finger Stick Blood Glucose 151 Intake and Output for Last 24 Hours 10/07/18 10/08/18 10/09/18 23:59 23:59 23:59 Intake Total 1210 / 1210 1050 / 1050 240 / 240 Output Total 1550 / 1550 1000 / 1000 Balance -340 / -340 50 / 50 240 / 240 Microbiology Past 72 Hours 10/07/18 13:00 Gram Stain - Final Fluid - Thoracentesis Fluid Body Fluid Culture - Preliminary No growth-Final to follow 10/07/18 11:05 Stool Occult Blood (RAINER) - Final Stool Occult Blood Positive 10/04/18 23:35 Blood Culture - Preliminary Blood Culture (Wb) - Neck No growth in 48 hours. 10/04/18 23:10 Blood Culture - Preliminary Blood Culture (Wb) - Neck No growth in 48 hours. Laboratory Tests Past 24 Hrs 10/07/18 10/08/18 10/08/18 13:00 08:14 09:12 Sodium Potassium Chloride Carbon Dioxide Anion Gap BUN Creatinine Estim Creat Clear Calc Est GFR (MDRD) Af Amer Est GFR (MDRD) Non-Af BUN/Creatinine Ratio Glucose 550 H* Calcium Phosphorus Albumin Fl Pathologist Comment Reviewed Acetone Level NEGATIVE 10/08/18 10/08/18 10/09/18 09:12 13:30 05:12 Sodium 131 L 134 L Potassium 5.3 H 5.3 H Chloride 95 L 98 Carbon Dioxide 25.0 26.0 Anion Gap 11 BUN 94 H 85 H Creatinine 3.46 H 2.90 H Estim Creat Clear Calc 24.38 29.09 Est GFR (MDRD) Af Amer 21 L 26 L Est GFR (MDRD) Non-Af 17 L 21 L BUN/Creatinine Ratio 27.2 H 29.3 H Glucose 435 H 120 H 284 H Calcium 8.5 8.8 Phosphorus 5.2 H Albumin 3.3 Fl Pathologist Comment Acetone Level POC Glucose 10/09/18 10/08/18 10/08/18 01:52 21:28 17:07 POC Glucose 253 H 409 H 75 10/08/18 10/08/18 10/08/18 14:39 14:02 13:14 POC Glucose 129 H 76 43 L* 10/08/18 10/08/18 10:40 08:03 POC Glucose 286 H > 500 H* Medical Necessity - Tobacco Use Smoking Status: Former smoker Assessment/Plan All Active Problems Bilateral pneumonia (Resolved) Myocarditis (Resolved) DKA (diabetic ketoacidoses) (Resolved) Healthcare-associated pneumonia (Acute) Acute on chronic combined systolic (congestive) and diastolic (congestive) heart failure (Acute) Abscess of leg, left (Resolved) Hyperglycemia (Acute) DKA (diabetic ketoacidoses) (Resolved) KANU (acute kidney injury) (Acute) Narcotic withdrawal (Resolved) Impressions 1. Acute on chronic systolic congestive heart failure 2. Acute renal failure on chronic renal failure stage III 3. Persistent complaints of right side back pain with a negative gallbladder ultrasound and reported normal HIDA scan at [facility]. Also had a recent negative VQ scan. 4. Persistent complaints of nausea.... Acute blood loss anemia on recent admission requiring transfusion - presumed to be due to GI bleed 5. Uncontrolled hypertension - I am concerned with the increasing BP and the reports of N/V that she may be in withdrawal.......she denies chronic narcotic use 6. Hepatitis C and also has had Hep A in the past. 7. Severe cardiomyopathy with a 25% ejection fraction and history of a mural thrombus which was not present on recent echo at [facility] 8. Chronic respiratory failure on a 4 L nasal cannula 9. Bilateral pleural effusions, right greater than left 10. suspect the air bronchograms in the R base are due to compressive atelectasis and not due to PNA in this AF pt with no fever, normal WBC and diff. 11. Former tobacco dependence 12. Chronic anticoagulation with Eliquis 13. suspected non-compliance.......gained 14 lbs in 2 days out of the hospital 14. DM I - uncontrolled with a recent HGBA1C of 11.7 renal function a little better today Sodium has come up Discussed with Dr. Oliva-we will restart Bumex recheck lab in the AM Hopefully will meet with her father today to sit down with Preeti and develop a plan for her ongoing care Continue SCD's and ACES or TEDS for DVT prophylaxis Continue to hold Pharmacologic DVT prophylaxis....stool is still hemoccult + Enocouraged her to get out and ambulate in the garcia Code Visit Inpatient E&M: 51056 Subs Hosp L2
[2018-10-09] MEDS: hydrALAZINE 50 MG Tablet 100 MG PO (07:04)
[2018-10-09] MEDS: Isosorbide DN 30 MG Tablet 60 MG PO (07:04)
[2018-10-09] MEDS: Insulin Lispro 100 UNIT/ML INSULN.PEN SC ×2 (08:30→11:45)
[2018-10-09 08:40] LABS: Bedside Glucose 339 mg/dL (70-110)
[2018-10-09 08:49] LABS: Thyroglobulin Antibody 1.8 IU/mL (0.0-0.9)
[2018-10-09] MEDS: buPROPion (XL) 150 MG TABLET.XL PO (09:42)
[2018-10-09] MEDS: Carvedilol 25 MG Tablet PO (09:42)
[2018-10-09] MEDS: NIFEdipine 90 MG Tablet PO (09:42)
[2018-10-09] MEDS: Pantoprazole Sodium 40 MG Tablet PO (09:42)
--- NOTE | 2018-10-09 10:02 | PN.CARD_ITS ---
Subjectve: The patient is awake and alert. She denies acute chest / flank discomfort or shortness of breath (in the upright position). She states her last appointment with her primary vice president of consulting services at [facility] was 09/24/18. She admits to being evaluated at [facility] with adjustment of meds, no further testing, and request to return for continued follow up. Objective: Vital Signs Temp Pulse Resp BP Pulse Ox 98.0 F 86 18 129/76 H 95 10/09/18 09:37 10/09/18 09:37 10/09/18 09:37 10/09/18 09:37 10/09/18 09:37 Oxygen Flow Rate (L/min) [3] 4 Oxygen Flow Rate (L/min) [2] 4 Oxygen Flow Rate (L/min) [1 ( 4 Initial Baseline)] Oxygen Flow Rate (L/min) 2 Oxygen Delivery Method [3] Nasal Cannula Oxygen Delivery Method [2] Nasal Cannula Oxygen Delivery Method [1 ( Nasal Cannula Initial Baseline)] Oxygen Delivery Method Room Air Weight: 140 lb 14.006 oz Body Mass Index (BMI) 22.8 Finger Stick Blood Glucose 151 Intake and Output for Last 24 Hours 10/07/18 10/08/18 10/09/18 23:59 23:59 23:59 Intake Total 1210 / 1210 1050 / 1050 460 / 460 Output Total 1550 / 1550 1000 / 1000 Balance -340 / -340 50 / 50 460 / 460 General: Awake, Alert, Oriented x 3, Cooperative, No Acute Distress HEENT: Atraumatic, Normocephalic, PERRL, EOMI, Sclera Non Icteric Oral: Moist Mucosa Neck: Supple, Good ROM, No JVD Lungs: Diminished Donnell Bases - R>L Cardiovascular: Regular Rhythm, Normal S1, Normal S2 Abdomen: Bowel Sounds Present, Soft, Non Tender Extremities: No edema Psych/Mental Status: Flat Affect 10/08/18 13:30: Glucose 120 H 10/09/18 05:12: Sodium 134 L, Potassium 5.3 H, Chloride 98, Carbon Dioxide 26.0, BUN 85 H, Creatinine 2.90 H, Est GFR (MDRD) Af Amer 26 L, Est GFR (MDRD) Non-Af 21 L, BUN/Creatinine Ratio 29.3 H, Glucose 284 H, Calcium 8.8, Phosphorus 5.2 H Rhythm: sinus rhythm Medical Necessity - Tobacco Use Smoking Status: Former smoker Assessment/Plan 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 She notes her cardiovascular issues became aware in the fall 2017. She has been followed by [facility] cardiovascular services in the interim. She continues to be monitored. Her renal function has improved. She will be restarted on oral diuretic therapy. She will need to be considered for primary prevention ICD therapy if her left ventricular systolic function does not improve. 2. Chronic systolic mediated CHF The patient has a history of chronic systolic mediated CHF. She will need continued medical management as described above. 3. Left ventricular thrombus She states there is been a history of a left ventricular thrombus. She has been on anticoagulation in the past. As previously noted based upon her recent echocardiographic study it did not appear to be evidence of ongoing left ventricular thrombus. She states that she did contact her primary vice president of consulting services after leaving the hospital and despite the aforementioned findings was advised to remain on anticoagulant therapy. The moment she remains without anticoagulant therapy in and around the time of her procedures. This issue will have to be considered in the future between her and her primary vice president of consulting services. 4. Pleural effusion Continues with evidence of bilateral pleural effusions. 5. Acute renal insufficiency Her renal function, creatinine level, will need to be followed as her medications are adjusted. As her creatinine level has improved her diuretics will be restarted orally. 6. Anemia She was anemic during her recent hospitalization. She did receive PRBCs. Again with lack of left ventricular thrombus, noting her marked anemia requiring PRBCs, but it was felt reasonable at that time that she remained without her anticoagulant therapy. However she states she was told by her primary vice president of consulting services at the tertiary care center to resume her anticoagulant therapy. Her H&H should be followed as if it declines again her anticoagulant therapy status will need to be revisited. Comment: At the present time, the patients plan is to continue outpatient cardiology follow up with her primary vice president of consulting services in [place], [place]. This note was generated with [employer] software. It may contain incorrect words, spelling, and punctuation that were not noted in checking the note before signing.
[2018-10-09] MEDS: Bumetanide 2 MG Tablet PO (10:59)
--- NOTE | 2018-10-09 11:30 | PCM.PN.REN ---
Patient Problems: Active and Suspected Problems Healthcare-associated pneumonia (Acute) Acute on chronic combined systolic (congestive) and diastolic (congestive) heart failure (Acute) Subjective: Patient denied nausea/vomiting Off NC this morning. No SOB No chest pain - Physical Exam General: Alert, Oriented x3 HEENT: Atraumatic Oral: Moist Mucosa Neck: Supple Lungs: Clear to auscultation, No rhonchi, No wheeze, - - decreased BS over both lungs bases Cardiovascular: Regular rate, Regular Rhythm, Normal S1, Normal S2 Abdomen: Bowel Sounds Present, Soft, Non Tender, Non-Distended Extremities: No clubbing, No cyanosis, No edema Skin: No rashes Musculoskeletal: No Tenderness to Palpation of Joints or Extremities Lymphatic: No Cervical, Supraclavicular, or Inguinal Adenopathy Neurological: Cranial nerves II-XII grossly intact, Neuro grossly intact Psych/Mental Status: Appropriate Vital Signs Temp Pulse Resp BP Pulse Ox 98.0 F 86 18 129/76 H 95 10/09/18 09:37 10/09/18 09:37 10/09/18 09:37 10/09/18 09:37 10/09/18 09:37 Oxygen Flow Rate (L/min) [3] 4 Oxygen Flow Rate (L/min) [2] 4 Oxygen Flow Rate (L/min) [1 ( 4 Initial Baseline)] Oxygen Flow Rate (L/min) 2 Oxygen Delivery Method [3] Nasal Cannula Oxygen Delivery Method [2] Nasal Cannula Oxygen Delivery Method [1 ( Nasal Cannula Initial Baseline)] Oxygen Delivery Method Room Air Weight: 63.9 kg Body Mass Index (BMI) 22.8 Finger Stick Blood Glucose 151 Intake and Output for Last 24 Hours 10/07/18 10/08/18 10/09/18 23:59 23:59 23:59 Intake Total 1210 / 1210 1050 / 1050 460 / 460 Output Total 1550 / 1550 1000 / 1000 Balance -340 / -340 50 / 50 460 / 460 Microbiology Past 72 Hours 10/07/18 13:00 Gram Stain - Final Fluid - Thoracentesis Fluid Body Fluid Culture - Preliminary No growth-Final to follow Anaerobic Culture - Preliminary No growth in 48 hours. 10/07/18 11:05 Stool Occult Blood (RAINER) - Final Stool Occult Blood Positive 10/04/18 23:35 Blood Culture - Preliminary Blood Culture (Wb) - Neck No growth in 48 hours. 10/04/18 23:10 Blood Culture - Preliminary Blood Culture (Wb) - Neck No growth in 48 hours. Laboratory Tests Past 24 Hrs 10/05/18 10/07/18 10/08/18 05:26 13:00 13:30 Sodium Potassium Chloride Carbon Dioxide BUN Creatinine Estim Creat Clear Calc Est GFR (MDRD) Af Amer Est GFR (MDRD) Non-Af BUN/Creatinine Ratio Glucose 120 H Calcium Phosphorus Albumin Fl Pathologist Comment Reviewed Thyroglobulin Antibody 1.8 H Thyroid Peroxidase Ab 36 H 10/09/18 05:12 Sodium 134 L Potassium 5.3 H Chloride 98 Carbon Dioxide 26.0 BUN 85 H Creatinine 2.90 H Estim Creat Clear Calc 29.09 Est GFR (MDRD) Af Amer 26 L Est GFR (MDRD) Non-Af 21 L BUN/Creatinine Ratio 29.3 H Glucose 284 H Calcium 8.8 Phosphorus 5.2 H Albumin 3.3 Fl Pathologist Comment Thyroglobulin Antibody Thyroid Peroxidase Ab POC Glucose 10/09/18 10/09/18 10/08/18 08:28 01:52 21:28 POC Glucose 339 H 253 H 409 H 10/08/18 10/08/18 10/08/18 17:07 14:39 14:02 POC Glucose 75 129 H 76 10/08/18 13:14 POC Glucose 43 L* Medical Necessity - Tobacco Use Smoking Status: Former smoker Assessment/Plan All Active Problems Bilateral pneumonia (Resolved) Myocarditis (Resolved) DKA (diabetic ketoacidoses) (Resolved) Healthcare-associated pneumonia (Acute) Acute on chronic combined systolic (congestive) and diastolic (congestive) heart failure (Acute) Abscess of leg, left (Resolved) Hyperglycemia (Acute) DKA (diabetic ketoacidoses) (Resolved) KANU (acute kidney injury) (Acute) Narcotic withdrawal (Resolved) Acute kidney injury on CKD stage3. 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 Kidney function improved initially with Bumex. However,Cr increased to 3.4 mg/dL on 10/08 so Bumex was held. Cr is better at 2.9 mg/dL this morning Ok to resume Bumex 2 mg PO BID Please keep BS < 200 No indication for replacement therapy Avoid ACEI/ARB Will continue to monitor renal function while on diuretics Hyponatremia: Improved with correcting glucose level Systolic heart failure .Improved Off NC this morning Resume Bumex 2 mg PO BID. Keep O>I ~ 500-1000 daily CHF measures as per cardiology service Hypertension. Blood pressure is well controlled. SBP ~ 90-100 as per her outpatient real estate account executive Ok to add Nifedipine . continue bumex and other BP medications Acute on chronic respiratory failure from CHF/bilateral pleural effusions with consolidations/pneumonitis Improved. off NC. Still has B/L pleural effusion with atelectasis in cxray 10/08 Had thoracocentesis on 10/07 with 370 cc fluid removal Renal team will continue to follow Please call if any question or concern at [phone] d/w Dr. Iram Oliva MD
[2018-10-09] MEDS: Ferrous Sulfate 325 MG Tablet PO (11:45)
[2018-10-09] MEDS: Acetaminophen 325 MG Tablet 650 MG PO (11:49)
[2018-10-09 11:50] LABS: Bedside Glucose 202 mg/dL (70-110)
--- NOTE | 2018-10-09 12:38 | CASEMGMT ---
Addendum entered by Renee Myers 10/09/18 12:52: Pt's baby's father Braden called for information. ADENIKE explained that SW is not able to give him information, to check w/pt's father. Braden expressed frustration with not getting information and said he will keep calling. SW called pt's father back, let him know they did do CPR but they have a pulse now and she will get intubated. SW also let him know that Braden called and SW is not able to give him information, but SW did tell Dobbins to call Aaron. Aaron states understanding. He states he is trying to find someone to watch the two year old and will be here. SARAH Connor Original Note: SW called pt's father to let him know pt is in medical distress. He states that he wants her transferred. SW explained that she is having a medical crisis, and cannot be transferred right now. He states he cannot just come over here, he is caring for her two year old. SW again attempted to reiterate that pt is not breathing and that there are several hospital staff in the room working with her right now. Pt's father then said the hospital would not listen to her yesterday. ADENIKE asked if SW should call pt's mother, perhaps she can come over, he states SW can call but she drives bus and may not answer the phone. ADENIKE called pt's mother, Cherie. SW explained pt in medical distress and having difficulty breathing. She states she will be here as soon as she can. SARAH Connor
--- NOTE | 2018-10-09 13:26 | PCM.PN.BLA ---
Progress Note Date and Time of : 10/09/18 AT 13:13 CPR Performed: started at 12:36 and ended at 13:13 when the code was concluded was Confirmed by: Inability to palpate carotid pulse, absent heart sounds, asystole on youth nutritional monitor, absent breath sounds, no pupillary reflexes, no pulse doppler Family Notified: Mother and Father
--- NOTE | 2018-10-09 14:02 | CASEMGMT ---
SW offered support to pt's family. SARAH Connor
--- NOTE | 2018-10-09 14:39 | EXP.PCM_ITS ---
Preliminary Cause of Myocardial infarction Date of Admission: 10/04/18 Date of : 10/09/18 - Principle Diagnosis Severe Cardiomyopathy Problem List: Active and Suspected Problems Healthcare-associated pneumonia (Acute)ruled out Acute on chronic combined systolic congestive heart failure (Acute) acute renal failure on CRF stage III Severe cardiomyopathy with chronic systolic congestive heart failure BL pleural effusions Diabetes mellitus type 1-uncontrolled Noncompliance with medications and diet Recent GI bleed with persistent Hemoccult positive stools Recent acute on chronic blood loss anemia requiring transfusion Hepatitis C History of hep A in the past Hospital Course Ms. 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 She was admitted with DKA at [facility] t time and also acute anemia requiring transfusion. A hemoccult stool was not obtained. She had been taking Eliquis for a mural thrombus. An ECHO during that admission did not show a mural thrombus and the Eliquis was discontinued. Significant imaging at the time of her first admission included a renal ultrasound that showed an atrophic right kidney with no evidence of obstruction. There was ascites present. Venous ultrasounds of the lower extremities were negative for DVT. Echocardiogram showed a 25% ejection fraction with severe global left ventricular systolic dysfunction. There was mild to moderate mitral valve insufficiency, poor coaptation of the tricuspid valve, moderate tricuspid regurgitation, moderate pulmonic valve insufficiency and an elevated right ventricular systolic pressure at 48. There was evidence of diastolic dysfunction and the bubble contrast study was negative for right to left intra- atrial shunt. There was no mural thrombus. Right upper quadrant ultrasound showed a normal distended gallbladder with a negative sonographic Clark sign. There were no gallstones. The pancreas appeared normal. She had hepatomegaly. A VQ scan was normal. CT scan of the abdomen pelvis showed mild to moderate ascites and bilateral pleural effusions. She had been [facility] times over the past year. She had also had multiple ER visits for back pain, flank pain, abdominal pain. She had also had several admissions to [facility] and also had been admitted to [facility]. She had a hemp fiber taker off, Dr. Mahad Patrick, at [facility] but continued to come to [facility] for care. Her weight at discharge on 10/02/2018 was 132 pounds and 4-1/2 ounces. Her weight 2 days later was 146 and 13 ounces. She told me that she was compliant with her medications and was sticking to a 2000 cc fluid restriction. She asked me how many ounces that was. BP at admission was 124/76 and her blood pressure on 10/05 was as high as 147/119. BP control was an issue because she refused medications at times and BP increased significantly. BS's were erratic because some times she would take the AM insulin and then not eat so the BS dropped and she required D50W. The next day we would hold the AM Lantus and she would eat 3 meals and the BS was 500. She was seen in consult by cardiology and nephrology while in the hospital. She was started on Bumex IV. She was discharged on Bumex on 10/02 but was not taking it....she told me that she had resumed Torsemide. She also told me that she had talked with Dr. Patrick and he told her to resume the Eliquis. I talked with Dr. Patrick on 10/08/18 and he never talked with her and agreed with discontinuing Eliquis in light of the recent GI bleed. she would call nursing and state she was nauseated and vomited up her pain pills and request more....no one ever saw the vomit. CXR and CT scan of the chest showed BL pleural effusions. She had a thoracentesis done on 10/07/2018 and 360 cc were withdrawn. Chemistries were consistent with transudate. Cytology revealed no malignant cells. Pleural fluid had no growth on culture. A hemoccult stool was + on 10/07/18 and we continued to hold EliQuis. She had SCD's and TEDS or AIMEE wraps also and was ambulating to the in her room and occasionally with nursing in the garcia. On 10/08 the creat had increased to 3.46 with a BUN of 94 and Bumex was held. Follow-up lab on 10/09/2018 showed the BUN to be down to 85 and the creatinine down to 2.9. Her sodium had increased to 134. Phosphorus was mildly increased at 5.2. Telemetry showed NSR with no significant ectopy. On the morning of 10/09/18 Her VS were stable and she was 95% saturated on room air. The preceding day she had a 94% saturation with ambulation on room air. She was restarted on Bumex. She was given Procardia XL 90 mg, hydralazine 100 mg, Isordil 60 mg and Coreg 25 mg which are her home medications in the morning on 10/09 and she took them. I spoke with Dr. Patrick the previous day and he gave me her med list and told me that she does better if her systolic BP is 95-100 systolic. Her blood pressure at 0700 was 136/99. I responded to an CNC WOOD LATHE OPERATOR and she was obtunded and difficult to arouse. Her pupils were dilated. BS was 193. An EKG was obtained that showed new ST/T wave changes in the inferolateral leads. She developed agonal respirations and she was bagged. She then was intubated by anesthesia and her BP dropped. A fluid bolus was ordered and she then lost her pulse and had PEA. Sheila Negron was called and the ACLS protocol was followed. Her mother and father were called and updated on the change of status. We were able to get a weak pulse back (found only with a doppler - not palpable) a few times but, when the EPI wore off she became bradycardic and went into PEA again. She was started on a Levophed drip with no improvement. The pupils became fixed and remained dilated shortly after CPR was initiated. She was pronounced at 13:13 on 10/09/18. Code Visit Inpatient E&M: 01047 Disch Hosp
--- NOTE | 2018-10-09 15:10 | CASEMGMT ---
Call to [facility],pt's current HHC, to notify of pt expiration at this time, voice understanding. Call to [facility] to cancel appt that was made for pt on 10/17/18 at 1300 by Caty JEONG earlier in visit. Blank LARSEN CM
--- NOTE | 2018-10-09 16:50 | CHAPLAIN ---
Type of Pastoral Visit ___ Initial Visit ___ Follow-up Visit ___ On-call Visit ___ General Patient Visit ___ Spiritual Assessment ___ Family Conference ___ Bereavement ___ Rapid Response _x__ Code Blue ___ Other (describe below) Pastoral Care Referral From ___ Patient ___ Family ___ Nurse ___ Physician ___ Digital Traffic Coordinator ___ Broadcast Traffic Coordinator _x__ Other (describe below) Sacrament/Intervention ___ Active listening ___ Anointing ___ Church _x__ Bereavement ___ Communion ___ Ying exploration ___ ___ Life review ___ Prayer ___ Reconciliation ___ Sacrament of Sick _x__ Supportive presence ___ Wedding _x__ Other (describe below) Pastoral Comments responded to code blue; waited for family members to arrive; pt was moved to ICU and then prior to family arriving; family members arrived separately - met father first, then mother, and then boyfriend who were each escorted to room by this box coverer hand; friends from a local worship and then developmental training counselor arrived and were met by this box coverer hand; secured permission from mother for these visitors if they could also come into room of and that was granted for brief period; offered ongoing presence and support; father was in and out of hospital throughout the afternoon; mother kept at bedside and declined support; gave a bereavement chanel to mother later in afternoon on behalf of hospital; made rounds to check on staff for their emotional support; attended debriefing with staff in PCU classroom
--- NOTE | 2018-10-09 17:15 | CASEMGMT ---
Social Work ICU Reason for intervention: Support to family Time of intervention: [id number] Summary: Informed by nursing that patient's family ready to speak to a social work case manager. Patient's mother Cherie at patient's bedside and then a support person Pam (coworker to Cherie). Cherie tearful, sad, and expressing thoughts regarding loss of this patient, focusing on belief that a child should not before the parent. Cherie expressing concern as to where patient will be buried and anxiety that patient's father Aaron will disagree. Cherie wishes patient's burial to be in [place] area in the same cemetery as patient's maternal grandparents. Cherie inquired about autopsy as reports that Aaron is angry and may be asking for an autopsy. Cherie reports that this is not something that Cherie really cares to pursue. Aaron arrives to the unit, along with multiple visitors in room. This sign writer letterer or painter attempted to introduce self, offer support, and guide conversation as to what the family wishes to do for a home. Cherie reports patient's brother Kalyan may be patient's power of finance attorney and wants to wait on Kalyan for decision making as to what next steps to take for patient. Educated that unless the power of finance attorney paperwork is produced then the POA is not valid. Checked [facility] EMR and POA paperwork not found on file. Aaron and Cherie started to bicker about matters of what to do and Aaron walked out of the room. Prior to Aaron walking out of room, Aaron did voice intent to have an autopsy done as voices that had been talking to patient moments before Aaron received call about patient being in distress. Aaron reports to have an finance attorney who has advised Aaron to seek an autopsy. Educated Aaron that an elective autopsy will be at the expense of the family. Aaron stated that this is fine. Provided Aaron with information, contact numbers for two autopsy options in the [facility]. Note, this sign writer letterer or painter did confirm with physician that patient's is not a ug designer's case, so any autopsy will be elective on the family's part. This sign writer letterer or painter in an out of the room to offer support to Cherie. Cherie continues to report that wants patient buried in [place]. Continues to wait on Kalyan's arrival from [facility]. Aaron back to floor and calmer compared to first visit. Aaron acknowledged that was angry before, saying threatening things that did not mean, and knows that needs to make good decisions as Aaron is caring for patient's two year old son. Aaron reports to have custody of the son. Aaron reports that was able to talk to patient's brother Kalyan, and there is no formal power of finance attorney in place that Kalyan has a copy of. Also present during this part of conversation was Aaron's girlfriend. Aaron talked of feelings relating to patient's and that does in fact want to honor the patient's wishes. Aaron reports patient expressed just in the last week or two the wish to be buried in [place], and second choice at [facility] in [place]. Aaron reports patient voiced interest in [facility]'s home. This sign writer letterer or painter, Aaron, and Cherie met due to parents be next in line for decision making without a power of finance attorney produced. Patient has no spouse and no adult children. Aaron expressed agreement with burial in [place] and home through [facility]. Cherie refused to [facility] initially, started to cry and asked for some time alone. Aaron reports that not trying to argue with Cherie but that believes memorial services should be local as [facility] has been patient's home for almost 10 years now. Aaron and Cherie did start to bicker again and this sign writer letterer or painter redirect conversation that focus needs to be on patient's wishes and what patient would want, rather than focusing on past hurts within the family. Aaron left the room and this sign writer letterer or painter spoke with Cherie privately. Able to ascertain that Cherie was worried that no one would come to [place] from Cherie's support network. This sign writer letterer or painter made suggestion that if this is Cherie's worry, then to think about opening up a graveside service or memorial to those who want to attend in [place], and keep a memorial at the home in [place], so that both sides have an opportunity to attend if they are unable to travel the distance between counties. Cherie report to like this idea and consented to Stephanie. Updated Aaron. Aaron and Aaron's support network expressed much appreciation for assistance. Updated nursing staff that parents in agreement with [facility] as the home, but still waiting on Kalyan's arrival to the unit. Aaron reports that the finance attorney has the autopsy information and is taking care of this matter for Aaron. Emotional support offered to both maternal and paternal sides this date. Supportive listening offered. Reflection and validation on feelings related to loss and grief. No other services requested or indicated at this time. -SARAH Sutton, FACILITIES MAINTENANCE TECHNICIAN
[2018-10-10 02:05] LABS: Bedside Glucose 193 mg/dL (70-110)
[2018-10-10 12:27] LABS: pH, Body Fluid 11254 7.4 (Not Estab.)
== END 2018-10-09 13:13 | DRG 194 ==
LOC: ED 22:51 → PCU 23:59 → ICU 10-09 13:13
PROVIDERS: Internal Medicine; Student in an Organized Health Care Education/Training Program; Admitting Provider Hospitalist; Emergency Provider Emergency Medicine; Family Provider Nurse Practitioner Primary Care; PCP Nurse Practitioner Primary Care; Visit Provider Internal Medicine
DX: I13.0 Hypertensive heart and chronic kidney disease with heart failure and stage 1 through stage 4 chronic kidney disease, or unspecified chronic kidney disease (principal); N17.9 Acute kidney failure, unspecified; E10.22 Type 1 diabetes mellitus with diabetic chronic kidney disease; I50.43 Acute on chronic combined systolic (congestive) and diastolic (congestive) heart failure; J96.21 Acute and chronic respiratory failure with hypoxia; I21.9 Acute myocardial infarction, unspecified; N18.3 Chronic kidney disease, stage 3 (moderate); E10.43 Type 1 diabetes mellitus with diabetic autonomic (poly)neuropathy; K31.84 Gastroparesis; I42.9 Cardiomyopathy, unspecified; E10.65 Type 1 diabetes mellitus with hyperglycemia; E10.649 Type 1 diabetes mellitus with hypoglycemia without coma; Z87.891 Personal history of nicotine dependence; Z79.01 Long term (current) use of anticoagulants; Z79.4 Long term (current) use of insulin; E87.1 Hypo-osmolality and hyponatremia; Z91.11 Patient's noncompliance with dietary regimen; Z91.14 Patient's other noncompliance with medication regimen; B19.20 Unspecified viral hepatitis C without hepatic coma; Z99.81 Dependence on supplemental oxygen; R19.5 Other fecal abnormalities; D62 Acute posthemorrhagic anemia
CPT/HCPCS: 31500; 32555; 36415; 71046; 71250; 76770; 80048; 80069; 81001; 82009; 82274; 82945; 82947; 82962; 83615; 83735; 83880; 83986; 84100; 84156; 84157; 84443; 85014; 85018; 85025; 85610; 85652; 85730; 86140; 86376; 86800; 87040; 87070; 87075; 87205; 87641; 88108; 88305; 88313; 89050; 92950; 93005; 97162; 97166; 97802; 99285; 99406; J7030; A4216; J0153; J2310; J2405